=== PATIENT | male | born 1990 | race Caucasian/White ===

== ENCOUNTER → 2020-05-26 14:31 | Outpatient (BNVA) | payer OTHER, MEDICARE, SELFPAY | PROVIDERS: Family Provider Family Medicine; PCP Family Medicine; Visit Provider Family Medicine | DX: M25.531 Pain in right wrist (principal) | CPT/HCPCS: 73110 ==

== ENCOUNTER 2021-07-01 12:32 | Outpatient (CLI) | payer OTHER, MEDICARE, SELFPAY ==
[2021-07-01 12:57] VITALS: BP 177/99; PULSE 44; RESP 18; TEMP 36.9; O2SAT 97; BMI 27.8
[2021-07-01 13:17] VITALS: BP 166/99; PULSE 44; RESP 18; TEMP 36.9; O2SAT 99
[2021-07-01] MEDS: lactated ringers 1,000 ML 999 ML IV (13:25)
[2021-07-01 14:35] VITALS: BP 159/92; PULSE 47; RESP 16; TEMP 36.9; O2SAT 99
== END 2021-07-01 12:33 | disposition home or self-care (01) ==
PROVIDERS: PCP Family Medicine; Visit Provider Family Medicine
DX: U07.1 COVID-19 (principal)
CPT/HCPCS: 96365

== ENCOUNTER 2021-09-19 10:46 | Emergency (ER) | payer OTHER, MEDICARE, SELFPAY ==
[2021-09-19] VITALS (16 sets, daily range): BP systolic 123–173; BP diastolic 70–94; PULSE 48–82; RESP 12–18; TEMP 36.1–36.9; O2SAT 97–100; BMI 27.2
--- NOTE | 2021-09-19 11:05 | ECG_ITS ---
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 Measurements Intervals [place] Rate: 58 P: 40 NV: 133 QRS: 56 QRSD: 92 T: 32 QT: 410 QTc: 405 Interpretive Statements SINUS BRADYCARDIA INTERPRETATION BASED ON A DEFAULT AGE OF 40 YEARS Compared to ECG 06/23/2015 21:54:10 No significant changes Electronically Signed On 09-20-2021 5:09:38 BACKING IN MACHINE TENDER by Maia Butterfield M.D. [id number]
--- NOTE | 2021-09-19 12:43 | US_ITS ---
WS: [id number] RIGHT UPPER QUADRANT ULTRASOUND HISTORY: RIGHT upper quadrant pain. COMPARISON: None available. Liver: 15.6 cm in length. Normal size liver. No bile duct dilatation or mass. Portal Vein: Normal hepatopetal flow with monophasic waveform. Gallbladder: Normally distended gallbladder. Layering sludge and small stones. No pericholecystic flu id. No significant gallbladder wall thickening. CBD: 0.5 cm Pancreas: Normal size and echogenicity. Right kidney: 10.9 cm in length. Normal size and echogenicity. No hydronephrosis or mass. Aorta and IVC: Unremarkable abdominal aorta and IVC. No ascites. US/US gall bladder [id number] IMPRESSION: 1. Gallbladder sludge and stones positive Busby sign. Early changes of acute cholecystitis suspected. 2. No bile duct dilatation.
--- NOTE | 2021-09-19 12:48 | PC.NURSE ---
Pt states he is having abd pain. pointing epigastric. pt was seen at [facility] for this. states his liver enzymes were elevated.
--- NOTE | 2021-09-19 13:01 | ED_ITS ---
HPI - General Adult General: Chief complaint: Chest Pain Stated complaint: Chest pain Time Seen by Provider: 09/19/21 12:41 History of Present Illness: Patient is a 30-year-old male family history of gallbladder disease, prior liver repair, splenectomy presenting to the emergency room with complaints of acute onset RUQ abdominal pain x3 days. Patient was at home on Sunday when he had 2 episodes of pain lasting up to 2 hours at a time shortly after meal intakes. On Sunday patient had additional episode and this morning, patient has had persistent pain after getting up. Patient denies any nausea/vomiting, fever/chills, melena hematochezia. Patient report loose stool. Denies any urinary complaints at this time. Reports passing gas okay but has had decreased p.o. intake for the day. Onset: 3 days ago Duration:3 days Location:home Severity:moderate/severe Associated symptoms: Deny chest pain, dyspnea, nausea, rash, palpitations or vomiting Review of Systems Const: Denies: fever(s) or chills Eyes: Denies: change in vision ENMT: Denies: mouth pain Card: Denies: chest pain or palpitations Resp: Denies: dyspnea or non-productive cough GI: Reports: abdominal pain, diarrhea (+loose stool) and other (+RUQ abd pain); Denies: nausea or vomiting : Denies: dysuria Musc: Denies: extremity pain Skin/Breast: Denies: rash or new lesions Neuro: Denies: weakness in extremities Psych: Reports: other (Normal mood) Vincent/Lymph: Denies: easy bruising PFSH ED PFSH: Medical History (Updated 09/20/21 @ 00:00 by ) Chronic back pain Hypertension Muscular dystrophy Surgical History (Updated 09/19/21 @ 17:25 by Chago Barclay MD) 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 Status post laparoscopic cholecystectomy (09/19/21) Family History Other Cancer Stroke Social History Smoking and tobacco status: former smoker Quit status (tobacco): has quit using tobacco Year quit tobacco: 5 Alcohol intake: never service: Yes (out 2012) status: Medically Discharged/Retired branch: [employer] History of recent travel: No Physical Exam Const: COMMON NORMALS: alert HENMT: COMMON NORMALS: atraumatic HEAD & SCALP: atraumatic MOUTH: moist mucous membranes not abnormal Eye: COMMON NORMALS: EOMs intact bilaterally and conjunctivae normal CONJUNCTIVA: Yes conjunctivae normal Neck/C-Spine: COMMON NORMALS: full ROM and supple Resp: COMMON NORMALS: normal respiratory effort and clear to auscultation bilaterally AUSCULTATION: clear to auscultation bilaterally Cardio: COMMON NORMALS: regular rate RATE: regular rate GI: COMMON NORMALS: Soft to palpation PALPATION: Yes Soft to palpation OTHER: + RUQ focal TTP. + Busby's sign. NO guarding rebound, guarding, rigidity. No CVA tenderness to percussion. Neg McBurney's point tenderness, no suprabupic ten derness to palpation. Extremity: COMMON NORMALS: full ROM Neuro: SENSORIUM/ORIENTATION: Yes alert MOTOR EXAM: No Abnormal motor strength present and Other motor observations present (no focal motor deficits) Psych: COMMON NORMALS: speech normal SPEECH: Yes normal speech MOOD & AFFECT: Yes euthymic mood Course Vital Signs: Vital signs: Vital Signs Temperature 97 F L 09/19/21 18:07 Pulse Rate 48 L 09/19/21 18:35 Respiratory Rate 18 09/19/21 18:35 Blood Pressure 139/94 09/19/21 18:35 Pulse Oximetry 98 09/19/21 18:35 [facility] - General Adult Medical Decision Making 31-year-old male presents emergency with complaints of right upper quadrant pain. Patient is found to have acute cholecystitis. Case was discussed with Dr. Barclay who planned surgery. Pain was controlled. S/p cefazolin. Disposition: admission Lab Data : 09/19/21 12:54 09/19/21 12:54 Radiology Impressions Gallbladder Ultrasound 09/19/21 12:43 IMPRESSION: 1. Gallbladder sludge and stones positive Busby sign. Early changes of acute cholecystitis suspected. 2. No bile duct dilatation. Laboratory Results WBC 5.3 10^3/uL (4.0-10.0) 09/19/21 12:54 RBC 4.41 10^6/uL (4.1-5.3) 09/19/21 12:54 Hgb 13.4 g/dL (11.7-16.6) 09/19/21 12:54 Hct 41.0 % (42.0-52.0) L 09/19/21 12:54 MCV 93.0 fl (80-94) 09/19/21 12:54 MCH 30.4 pg (28.0-34.0) 09/19/21 12:54 MCHC 32.7 g/dL (30.0-36.0) 09/19/21 12:54 RDW 12.2 % (12.1-15.1) 09/19/21 12:54 Plt Count 191 10^3/cmm (130-400) 09/19/21 12:54 MPV 10.4 fL (7.4-10.4) 09/19/21 12:54 Neut % (Auto) 55.8 % 09/19/21 12:54 Lymph % (Auto) 32.7 % 09/19/21 12:54 Rooks % (Auto) 9.2 % 09/19/21 12:54 Eos % (Auto) 1.3 % 09/19/21 12:54 Baso % (Auto) 0.8 % 09/19/21 12:54 Neut # (Auto) 2.97 10^3/uL (1.8-7.7) 09/19/21 12:54 Lymph # (Auto) 1.7 10^3/uL (0.8-4.8) 09/19/21 12:54 Rooks # (Auto) 0.5 10^3/uL (0.2-0.9) 09/19/21 12:54 Eos # (Auto) 0.1 10^3/uL (0.0-0.8) 09/19/21 12:54 Baso # (Auto) 0.0 10^3/uL (0.0-0.1) 09/19/21 12:54 Nucleated RBC % (auto) 0 % 09/19/21 12:54 Nucleated RBCs # 0.0 /100WBC 09/19/21 12:54 Sodium 140 mmol/L (136-145) 09/19/21 12:54 Potassium 3.6 mmol/L (3.5-5.1) 09/19/21 12:54 Chloride 103 mmol/L (98-107) 09/19/21 12:54 Carbon Dioxide 27 mmol/L (22-29) 09/19/21 12:54 Anion Gap 13.6 (5-19) 09/19/21 12:54 BUN 9 mg/dL (6-20) 09/19/21 12:54 Creatinine 0.8 mg/dL (0.7-1.2) 09/19/21 12:54 GFR Calculation 112.0 mL/min (90-130) 09/19/21 12:54 Glucose 87 mg/dL (65-115) 09/19/21 12:54 Calculated Osmolality 288 mOsm/kg (285-295) 09/19/21 12:54 Calcium 9.1 mg/dL (8.5-10.5) 09/19/21 12:54 Total Bilirubin 0.5 mg/dL (0.15-1.2) 09/19/21 12:54 AST 23 U/L (0-40) 09/19/21 12:54 ALT 34 U/L (0-41) 09/19/21 12:54 Alkaline Phosphatase 137 IU/L (40-130) H 09/19/21 12:54 Total Protein 6.9 g/dL (6.6-8.7) 09/19/21 12:54 Albumin 4.8 g/dL (3.5-5.2) 09/19/21 12:54 Globulin 2.1 g/dL (1.3-4.6) 09/19/21 12:54 Lipase 20 U/L (13-60) 09/19/21 12:54 Imaging Data Other Imaging: My impression: [address] [address] Ultrasound Report Signed Patient: Avinash Limon Unit #: [id number] : 1990 Age/Sex: 30 / M ADM Date: 09/19/21 Loc: ER Room/Bed: Attending Dr: Ordering Provider/Ordering MD: Dashawn Browning MD Date of Service: 09/19/21 Procedure(s): US gall bladder 76647 Accession Number(s): [id number] Report Number: [id number] WS: [id number] RIGHT UPPER QUADRANT ULTRASOUND HISTORY: RIGHT upper quadrant pain. COMPARISON: None available. Liver: 15.6 cm in length. Normal size liver. No bile duct dilatation or mass. Portal Vein: Normal hepatopetal flow with monophasic waveform. Gallbladder: Normally distended gallbladder. Layering sludge and small stones. No pericholecystic fluid. No significant gallbladder wall thickening. CBD: 0.5 cm Pancreas: Normal size and echogenicity. Right kidney: 10.9 cm in length. Normal size and echogenicity. No hydronephrosis or mass. Aorta and IVC: Unremarkable abdominal aorta and IVC. No ascites. US/US gall bladder [id number] IMPRESSION: ? 1.? Gallbladder sludge and stones positive Busby sign. Early changes of acute cholecystitis suspected. 2.? No bile duct dilatation. ? Dictated By: Love Mcgowan DO Signed By: Love Mcgowan DO Signed Date/Time: 09/19/21 1404 DD/ 1401 Discharge Plan Discharge Patient Disposition: Admitted As Inpatient Admit Provider: Chago Barclay Clinical Impression: Abdominal pain, Acute cholecystitis Condition: Stable Coding Level of Care Code ED Chemistry Technical Officer for Chg Fwd Exam Comprehensive
[2021-09-19 13:05] LABS: Basophils % 0.8 %; Eosinophils # 0.1 10^3/uL (0.0-0.8); Eosinophils % 1.3 %; Hemoglobin 13.4 g/dL (11.7-16.6); Lymphocytes # 1.7 10^3/uL (0.8-4.8); Lymphocytes % 32.7 %; Mean Corpuscular HGB Conc 32.7 g/dL (30.0-36.0); Mean Corpuscular Hemoglobin 30.4 pg (28.0-34.0); Mean Platelet Volume 10.4 fL (7.4-10.4); Monocytes # 0.5 10^3/uL (0.2-0.9); Monocytes % 9.2 %; Neutrophils # 2.97 10^3/uL (1.8-7.7); Neutrophils % 55.8 %; Nucleated Red Blood Cells % 0 %; Platelet Count 191 10^3/cmm (130-400); Red Blood Count 4.41 10^6/uL (4.1-5.3); Red Cell Distribution Width 12.2 % (12.1-15.1); White Blood Count 5.3 10^3/uL (4.0-10.0)
[2021-09-19 13:35] LABS: Alanine Aminotransferase 34 U/L (0-41); Albumin Level 4.8 g/dL (3.5-5.2); Alkaline Phosphatase 137 IU/L (40-130); Anion Gap 13.6 (5-19); Aspartate Amino Transferase 23 U/L (0-40); Blood Urea Nitrogen 9 mg/dL (6-20); Calcium 9.1 mg/dL (8.5-10.5); Carbon Dioxide 27 mmol/L (22-29); Chloride 103 mmol/L (98-107); Creatinine Clr Calc Pharmacy 146.7623; Globulin 2.1 g/dL (1.3-4.6); Glucose 87 mg/dL (65-115); Lipase 20 U/L (13-60); Osmolality Calculated 288 mOsm/kg (285-295); Potassium 3.6 mmol/L (3.5-5.1); Sodium 140 mmol/L (136-145); Total Bilirubin 0.5 mg/dL (0.15-1.2); Total Protein 6.9 g/dL (6.6-8.7)
[2021-09-19] MEDS: famotidine 20 mg/2 mL INJ IVP (14:06)
[2021-09-19] MEDS: morphine 4 mg/mL SDV 1 mL IVP (14:06)
[2021-09-19] MEDS: sodium chloride 0.9% 1,000 ML 999 ML IV (14:06)
[2021-09-19] MEDS: ceFAZolin 1,000 MG in sodium chloride 0.9% (plus) 50 ML 100 MG IV (14:27)
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
[2021-09-19] MEDS: sodium chloride 0.9% 1,000 ML 30 ML IV (16:00)
--- NOTE | 2021-09-19 16:48 | ANES.PREANE2 ---
Pre-Anesthetic Assessment Height/Weight: Height 1.78 m Weight 86.183 kg Temp Pulse Resp BP Pulse Ox 98.5 F 56 L 18 166/79 100 09/19/21 16:03 09/19/21 16:03 09/19/21 16:03 09/19/21 16:03 09/19/21 16:03 Preop Diagnosis: cholelithiasis Operation Date: 09/19/21 18:40 Proposed Procedures p Laparoscopic Cholecystectomy(Not Applicable) - Chago Barclay MD Familial anesthetic complications: None Was Beta Tiarra taken within 24 hours: N/A Was Clonidine taken within 24 hours: N/A Last intake: Intake Last Liquid Date 09/19/21 Last Liquid Time 10:00 Last Solid Date 09/18/21 Last Solid Time 18:00 Social Tobacco (Vapes) and No alcohol Exam alert, oriented x 3, clear to auscultation bilaterally and regular rate & rhythm Airway Submandibular: within normal limits Cervical ROM: within normal limits Mallampati: Class II Dentition: partials GI Gastroesophageal Reflux Disease Musc/skel Muscle spasm Neuropsych Chronic pain, Narcotic contract Anesthetic Plan ASA status: 2 Anesthesia: General Risk of > 500 ml blood loss (7ml/kg in children): No Medications/Allergies Home Medications Medication Instructions Recorded Confirmed Last Taken Type diazepam 5 mg tablet 5 mg PO BID PRN 05/26/20 09/19/21 Unknown History hydrochlorothiazide 12.5 mg capsule 12.5 mg PO DAILY 05/26/20 09/19/21 Unknown History methocarbamol 500 mg tablet 500 mg PO TID 05/26/20 09/19/21 Unknown History omeprazole 20 mg capsule,delayed 20 mg PO BID 05/26/20 09/19/21 Unknown History release Allergies Allergy/AdvReac Type Severity Reaction Status Date / Time No Known Allergies Allergy Verified 09/19/21 13:57 [facility] Anesthesia Medical History Chronic back pain Hypertension Muscular dystrophy Surgical History 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 Family History Other Cancer Stroke Social History Smoking and tobacco status: former smoker Quit status (tobacco): has quit using tobacco Year quit tobacco: 5 Alcohol intake: never service: Yes (out 2012) status: Medically Discharged/Retired branch: [employer] History of recent travel: No Data Anesthesia : 09/19/21 12:54 09/19/21 12:54 Short CBC 09/19/21 Range/Units 12:54 WBC 5.3 (4.0-10.0) 10^3/uL Hgb 13.4 (11.7-16.6) g/dL Hct 41.0 L (42.0-52.0) % MCV 93.0 (80-94) fl Plt Count 191 (130-400) 10^3/cmm Neut % (Auto) 55.8 % Neut # (Auto) 2.97 (1.8-7.7) 10^3/uL BMP 09/19/21 12:54 Sodium 140 Potassium 3.6 Chloride 103 Carbon Dioxide 27 BUN 9 Creatinine 0.8 Glucose 87 Calcium 9.1 Liver Function 09/19/21 Range/Units 12:54 Total Bilirubin 0.5 (0.15-1.2) mg/dL AST 23 (0-40) U/L ALT 34 (0-41) U/L Alkaline Phosphatase 137 H (40-130) IU/L Albumin 4.8 (3.5-5.2) g/dL Cardiac Studies: No Data to Display
--- NOTE | 2021-09-19 17:26 | P.OP_ITS ---
Operative Report Date of procedure: September 19, 2021 Pre-op diagnosis: cholelithiasis Post-op diagnosis: Cholelithiasis No significant adhesions in the abdominal cavity from prior laparotomy Procedure done: Laparoscopic cholecystectomy Specimens removed/disposition: Gallbladder Surgeon: Chago Barclay Anesthesia: General Estimated blood loss (mL): 10 Condition: stable Disposition: PACU Procedure: The patient was taken to the operating room and was intubated under general anesthesia. After the antibiotic had been administered, the abdomen was prepped and draped in a sterile manner. Using a #15 blade, a 1 centimeter incision was made below the right subcostal margin in the midclavicular line and using an open Leonardo technique the peritoneal cavity was entered due to history of prior midline laparotomy. A 10 millimeter port was placed and 15 millimeters of pneumoperitoneum was created. A 10 millimeter, 30 degrees scope was then introduced. Three 5 millimeter ports were placed in the epigastric and the anterior axillary line two fingerbreadths below the costal margin on the right side under the direct visualization. Another 5 mm port was placed at the umbilicus under direct visualization. There were no significant adhesions noted in the abdominal cavity. Ratcheted forceps were introduced into the lateral most port and was used to retract the fundus of the gallbladder cephalad and using forceps the infundibulum of the gallbladder was retracted laterally. Using L- hook cautery the peritoneum overlying the Calot's triangle was opened medially and laterally until the cystic duct and the cystic artery were skeletonized. Dissection was carried along the body of the gallbladder and after ensuring critical view of safety, 4 clips applied on the cystic duct and 3 clips applied on the cystic artery and cut leaving, 3 clips on the remaining portion of the duct and 2 clips on the remaining portion of the artery. The rest of the gallbladder was dissected off the liver using L-hook cautery. There was no bleeding or bile leaking noted from the gallbladder fossa and the clips appeared to be in place. An EndoCatch bag was introduced to remove the gallbladder. All the ports were removed under direct visualization and there was no bleeding noted from the port sites. The peritoneum at the 1cm port was closed using 3-0 Vicryl suture and the external oblique aponeurosis of the 1cm port was closed using [id number] 0 Vicryl sutures and the subcutaneous tissue was approximated using 3-0 Vicryl sutures. The skin at all four ports were closed using 4-0 Monocryl and Dermabond. A total of 10 millimeters of 0.5% Marcaine was infiltrated around the port sites. The patient was stable throughout the procedure.
--- NOTE | 2021-09-19 17:32 | P.PCN_ITS ---
Documented by User: Abe Bernal CRNA 09/19/21 17:33 PACU note Narrative: VSS, Good respiratory effort, report to POWER REACTOR SUPERVISOR Exam: awake
[2021-09-19] MEDS: ondansetron 2 mg/ML SDV 2 mL 4 MG IVP (17:35)
[2021-09-19] MEDS: diphenhydrAMINE 50 mg/mL SDV 1mL 12.5 MG IVP (17:40)
--- NOTE | 2021-09-19 17:44 | ANE.PACU2 ---
Inpatient post-anesthesia follow up: Airway intact: Yes Vital signs: Temperature 97.1 F Pulse Rate 58 Respiratory Rate 16 Blood Pressure 139/76 Pulse Oximetry 99 Oxygen Delivery Me thod Room Air Oxygen Flow Rate Fraction of Inspir ed Oxygen Hydration adequate: Yes Nausea and vomiting: Yes Pain level: 3 Mental status: Baseline
--- NOTE | 2021-09-20 10:03 | DCPLANNER ---
data warehouse manager had message to refer patient due to acute cholecystitis, patient was admitted to hospital.
== END 2021-09-19 15:50 | disposition admitted as inpatient to this hospital (09) ==
LOC: ER 15:05 → MEDSURG 17:26
PROVIDERS: Family Medicine; Emergency Provider Emergency Medicine; PCP Family Medicine; Visit Provider Surgery
PROC: 0FT44ZZ Resection of Gallbladder, Percutaneous Endoscopic Approach (ICD-10-PCS; CPT 47562; principal; 2021-09-19 18:40)
DX: K80.10 Calculus of gallbladder with chronic cholecystitis without obstruction (principal); F17.290 Nicotine dependence, other tobacco product, uncomplicated; K21.9 Gastro-esophageal reflux disease without esophagitis; G89.29 Other chronic pain; Z79.891 Long term (current) use of opiate analgesic; I10 Essential (primary) hypertension
CPT/HCPCS: 47562; 76705; 80053; 83690; 85025; 88304; 93005; 96365; 96367; 96375; 99285; G0378; J0690; J1100; J1170; J1200; J1885; J2250; J2270; J2405; J2704; J2710; J3010; J3490; J7030

== ENCOUNTER 2021-10-04 23:32 | Emergency (ER) | payer OTHER, MEDICARE, SELFPAY ==
--- NOTE | 2021-10-04 23:33 | CTR_ITS ---
PROCEDURE INFORMATION: Exam: CT Abdomen And Pelvis With Contrast Exam date and time: 10/04/2021 11:33 PM Age: 31 years old Clinical indication: Abdominal pain; Epigastric; Prior surgery; Surgery date: <1 month; Surgery type: Pain after gb surgery x 10 days ago; Additional info: Abd pain TECHNIQUE: Imaging protocol: Computed tomography of the abdomen and pelvis with contrast. Radiation optimization: All CT scans at this facility use at least one of these dose optimization techniques: automated exposure control; mA and/or kV adjustment per patient size (includes targeted exams where dose is matched to clinical indication); or iterative reconstruction. Contrast material: OMNI 300; Contrast volume: 95 ml; Contrast route: INTRAVENOUS (IV); COMPARISON: ES surgery / GI images 09/19/2021 4:55 PM RADIATION DOSE METRICS: Total DLP (mGy-cm): 1320.03 FINDINGS: Lungs: Multiple right lower lobe pulmonary nodules, largest measures 5 mm. Liver: Normal. No mass. Gallbladder and bile ducts: No wall thickening, pericholecystic fluid or stones. Pancreas: Normal. No ductal dilation. Spleen: Normal. No splenomegaly. Adrenal glands: Normal. No mass. Kidneys and ureters: See Vasculature finding. Stomach and bowel: Mild amount of formed stool in the colon. Appendix: No evidence of appendicitis. Intraperitoneal space: Unremarkable. No free air. No significant fluid collection. Vasculature: Retroaortic left renal vein. Lymph nodes: Unremarkable. No enlarged lymph nodes. Urinary bladder: Unremarkable as visualized. Reproductive: Unremarkable as visualized. Bones/joints: Unremarkable. No acute fracture. Soft tissues: Unremarkable. CT/CT abdomen pelvis w con* [id number] IMPRESSION: 1. Mild constipation. 2. Multiple right lower lobe pulmonary nodules, largest measures 5 mm. If the patient does not have known cancer, follow up should be based on clinical information because of the low risk of cancer in this age group. (Reference: Lupe) REFERENCES: Lupe Valenzuela et al. Guidelines for Management of Incidental Pulmonary Nodules Detected on CT Images: From the Fleischner Society 2017. Radiology. 2017;284(1):228-243.
[2021-10-04 23:42] VITALS: PULSE 77; RESP 16; TEMP 36.6; O2SAT 100; BMI 26.3
--- NOTE | 2021-10-04 23:51 | ED_ITS ---
HPI - Abdominal Pain General: Chief Complaint: Abdominal Pain Stated Complaint: ABD pain after gallbladder surgery Time Seen by Provider: 10/04/21 23:36 Source: patient Mode of arrival: ambulatory Limitations: no limitations History of Present Illness: 31-year-old male states been having abdominal pain for last 2 days. He states that sharp in nature in his right lower quadrant. He states pain is started over the last 2 days is very sharp rates an 8 out of 10 also has had nausea and vomiting. He had a cholecystectomy 2 weeks ago states he has been doing well until 2 days ago. Denies any fever denies any radiation of his pain denies any worsening improving factors. Associated Symptoms: Reports nausea and vomiting; Denies chills, dysuria and fever(s) Review of Systems Const: Denies: fever(s), chills, body aches or change in appetite Eyes: Denies: blurry vision or eye discomfort ENMT: Denies: throat pain or dental pain Card: Denies: chest pain Resp: Denies: dyspnea GI: Reports: abdominal pain, nausea and vomiting : Denies: dysuria Musc: Denies: neck pain or back pain Skin/Breast: Denies: rash Neuro: Denies: headache(s) Psych: Denies: depression Vincent/Lymph: Denies: easy bruising All/Imm: Denies: urticaria PFSH ED PFSH: Medical History Chronic back pain Hypertension Muscular dystrophy Surgical History 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 Status post laparoscopic cholecystectomy (09/19/21) Family History Other Cancer Stroke Social History Smoking and tobacco status: former smoker Quit status (tobacco): has quit using tobacco Year quit tobacco: 5 Alcohol intake: never service: Yes (out 2012) status: Medically Discharged/Retired branch: [employer] History of recent travel: No Physical Exam Const: COMMON NORMALS: no acute distress, patient oriented x3 and healthy appearing HENMT: COMMON NORMALS: normocephalic and atraumatic HEAD & SCALP: normocephalic and atraumatic Eye: COMMON NORMALS: Equal, round and reactive pupils present and EOMs intact bilaterally PUPIL: Yes Equal, round and reactive pupils present Neck/C-Spine: COMMON NORMALS: full ROM and supple Chest: COMMONS NORMALS: normal inspection of the chest and normal palpation of entire chest wall Resp: COMMON NORMALS: normal respiratory effort, No retractions, No use of accessory muscles and clear to auscultation bilaterally AUSCULTATION: clear to auscultation bilaterally Cardio: COMMON NORMALS: regular rate, regular rhythm and No murmurs present (Cardio) RATE: regular rate RHYTHM: regular rhythm GI: COMMON NORMALS: Soft to palpation, non-tender and no masses PALPATION: Yes Soft to palpation and Yes Tenderness to palpation present (GI) Details: RLQ OTHER: Abdominal incisions from gallbladder surgery clean dry and intact Extremity: COMMON NORMALS: normal to inspection and full ROM Neuro: COMMON NORMALS: patient oriented x3, moves all extremities and no focal motor deficits Psych: COMMON NORMALS: mental status grossly normal, Normal thought process present and cooperative THOUGHT PROCESS: Normal thought process present Skin: COMMON NORMALS: no rashes or lesions noted and no wounds GENERAL SKIN EXAM: no rashes or lesions noted Course Vital Signs: Vital signs: Vital Signs Temperature 97.9 F 10/04/21 23:42 Pulse Rate 54 L 10/05/21 00:26 Respiratory Rate 18 10/05/21 00:26 Blood Pressure 151/99 10/05/21 00:26 Pulse Oximetry 100 10/05/21 00:26 MDM - Abdominal Pain Medical Decision Making Patient presents here with abdominal pain CT scan shows no acute abnormalities no signs of appendicitis white count here is normal as well he does have some constipation we will start him on MiraLAX did inform him of his pulmonary nodules as well he is to follow-up with Dr. Amelie mcdaniel pulmonology along with Dr. Barclay who did the surgery on his gallbladder. He is to return if worsening he understands agrees to plan. Lab Data : 10/04/21 23:55 10/04/21 23:55 Labs/Radiology: Radiology Impressions Abdomen/Pelvis CT 10/04/21 23:33 IMPRESSION: 1. Mild constipation. 2. Multiple right lower lobe pulmonary nodules, largest measures 5 mm. If the patient does not have known cancer, follow up should be based on clinical information because of the low risk of cancer in this age group. (Reference: Lupe) REFERENCES: Lupe Valenzuela et al. Guidelines for Management of Incidental Pulmonary Nodules Detected on CT Images: From the Fleischner Society 2017. Radiology. 2017;284(1):228-243. Laboratory Results WBC 6.5 10^3/uL (4.0-10.0) 10/04/21 23:55 RBC 4.41 10^6/uL (4.1-5.3) 10/04/21 23:55 Hgb 13.5 g/dL (11.7-16.6) 10/04/21 23:55 Hct 39.0 % (42.0-52.0) L 10/04/21 23:55 MCV 88.4 fl (80-94) 10/04/21 23:55 MCH 30.6 pg (28.0-34.0) 10/04/21 23:55 MCHC 34.6 g/dL (30.0-36.0) 10/04/21 23:55 RDW 11.4 % (12.1-15.1) L 10/04/21 23:55 Plt Count 192 10^3/cmm (130-400) 10/04/21 23:55 MPV 10.8 fL (7.4-10.4) H 10/04/21 23:55 Neut % (Auto) 59.5 % 10/04/21 23:55 Lymph % (Auto) 31.1 % 10/04/21 23:55 Ward % (Auto) 7.4 % 10/04/21 23:55 Eos % (Auto) 1.2 % 10/04/21 23:55 Baso % (Auto) 0.5 % 10/04/21 23:55 Neut # (Auto) 3.89 10^3/uL (1.8-7.7) 10/04/21 23:55 Lymph # (Auto) 2.0 10^3/uL (0.8-4.8) 10/04/21 23:55 Ward # (Auto) 0.5 10^3/uL (0.2-0.9) 10/04/21 23:55 Eos # (Auto) 0.1 10^3/uL (0.0-0.8) 10/04/21 23:55 Baso # (Auto) 0.0 10^3/uL (0.0-0.1) 10/04/21 23:55 Nucleated RBC % (auto) 0 % 10/04/21 23: Nucleated RBCs # 0.0 /100WBC 10/04/21 23:55 Sodium 140 mmol/L (136-145) 10/04/21 23:55 Potassium 3.2 mmol/L (3.5-5.1) L 10/04/21 23:55 Chloride 103 mmol/L (98-107) 10/04/21 23:55 Carbon Dioxide 24 mmol/L (22-29) 10/04/21 23:55 Anion Gap 16.2 (5-19) 10/04/21 23:55 BUN 9 mg/dL (6-20) 10/04/21 23:55 Creatinine 0.9 mg/dL (0.7-1.2) 10/04/21 23:55 GFR Calculation 97.2 mL/min (90-130) 10/04/21 23:55 Glucose 96 mg/dL (65-115) 10/04/21 23:55 Calculated Osmolality 289 mOsm/kg (285-295) 10/04/21 23:55 Calcium 10.0 mg/dL (8.5-10.5) 10/04/21 23:55 Total Bilirubin 0.6 mg/dL (0.15-1.2) 10/04/21 23:55 AST 22 U/L (0-40) 10/04/21 23:55 ALT 22 U/L (0-41) 10/04/21 23:55 Alkaline Phosphatase 144 IU/L (40-130) H 10/04/21 23:55 Total Protein 7.6 g/dL (6.6-8.7) 10/04/21 23:55 Albumin 5.0 g/dL (3.5-5.2) 10/04/21 23:55 Globulin 2.6 g/dL (1.3-4.6) 10/04/21 23:55 Lipase 19 U/L (13-60) 10/04/21 23:55 Discharge Plan Discharge Patient Disposition: Home Clinical Impression: Abdominal pain, Constipation, Pulmonary nodule Condition: Stable Prescriptions: New hydrocodone-acetaminophen 5-325 mg tablet 1 tab PO Q6H PRN (Reason: pain) Qty: 14 0RF ondansetron 4 mg tablet,disintegrating 4 mg PO Q6H PRN (Reason: nausea and vomiting) Qty: 14 0RF Miralax 17 gram/dose powder 17 g PO DAILY PRN (Reason: constipation) Qty: 119 0RF No Action methocarbamol 500 mg tablet 500 mg PO TID 0RF hydrochlorothiazide 12.5 mg capsule 12.5 mg PO DAILY 0RF diazepam 5 mg tablet 5 mg PO BID PRN (Reason: Anxiety) 0RF omeprazole 20 mg capsule,delayed release(DR/EC) 20 mg PO BID 0RF cyclobenzaprine 10 mg tablet 10 mg PO TID PRN (Reason: muscle spasm) Qty: 20 0RF Zofran 4 mg tablet 4 mg PO Q6H PRN (Reason: nausea and vomiting) Qty: 20 0RF Colace 100 mg capsule 100 mg PO BID Qty: 30 0RF Discharge Orders: Discharge ED (Routine); Ordered 10/05/21 Ordered By: Luis Daniel Dexter Referrals: Tyler Johnston MD [Physician] - 1-3 days Chago Barclay MD [Physician] - 1-3 days Brandt Tinajero [Primary Care Provider] - Discharge Diet: Advance as tolerated Discharge Activity: Resume usual activity Patient Instructions: Abdominal Pain (ED), Opioid Safety Coding Level of Care Code ED Turret Lathe Operator for Chg Fwd Exam Comprehensive
[2021-10-05] MEDS: iohexol 300 mg/mL 100 mL Btl IV
[2021-10-05 00:04] LABS: Basophils % 0.5 %; Eosinophils # 0.1 10^3/uL (0.0-0.8); Eosinophils % 1.2 %; Hemoglobin 13.5 g/dL (11.7-16.6); Lymphocytes % 31.1 %; Mean Corpuscular HGB Conc 34.6 g/dL (30.0-36.0); Mean Corpuscular Hemoglobin 30.6 pg (28.0-34.0); Mean Corpuscular Volume 88.4 fl (80-94); Mean Platelet Volume 10.8 fL (7.4-10.4); Monocytes # 0.5 10^3/uL (0.2-0.9); Monocytes % 7.4 %; Neutrophils # 3.89 10^3/uL (1.8-7.7); Neutrophils % 59.5 %; Nucleated Red Blood Cells % 0 %; Platelet Count 192 10^3/cmm (130-400); Red Blood Count 4.41 10^6/uL (4.1-5.3); Red Cell Distribution Width 11.4 % (12.1-15.1); White Blood Count 6.5 10^3/uL (4.0-10.0)
[2021-10-05 00:20] LABS: Alanine Aminotransferase 22 U/L (0-41); Alkaline Phosphatase 144 IU/L (40-130); Anion Gap 16.2 (5-19); Aspartate Amino Transferase 22 U/L (0-40); Blood Urea Nitrogen 9 mg/dL (6-20); Carbon Dioxide 24 mmol/L (22-29); Chloride 103 mmol/L (98-107); Globulin 2.6 g/dL (1.3-4.6); Glomerular Filtration Rate 97.2 mL/min (90-130); Glucose 96 mg/dL (65-115); Lipase 19 U/L (13-60); Osmolality Calculated 289 mOsm/kg (285-295); Potassium 3.2 mmol/L (3.5-5.1); Sodium 140 mmol/L (136-145); Total Bilirubin 0.6 mg/dL (0.15-1.2); Total Protein 7.6 g/dL (6.6-8.7)
[2021-10-05] MEDS: ondansetron 2 mg/ML SDV 2 mL 4 MG IVP (00:25)
[2021-10-05] MEDS: sodium chloride 0.9% 1,000 ML 999 ML IV (00:25)
[2021-10-05 00:26] VITALS: BP 151/99; PULSE 54; RESP 18; O2SAT 100
--- NOTE | 2021-10-06 17:39 | DCPLANNER ---
manager building had message to schedule a follow up appointment for patient with general surgery. manager building emailed patients information to Tiffanie Hsu and Angelica at [facility] General Surgery / ENT clinic. Patients information will be printed and reviewed. Clinic will call patient with appointment information.
--- NOTE | 2021-10-11 11:11 | DCPLANNER ---
Addendum entered by Cady Moncada 11/10/21 08:14: Patient had a follow up appointment scheduled for 10.18.21 with pulmonology - patient did not attend appointment. Original Note: manager floor had message to schedule a follow up appointment for patient with [facility]. manager floor called [facility], spoke with Josefina, gave clinic patients appointment information. A follow up appointment was scheduled for Monday, October 18, 2021 at 12:[address] Levine, pulmonology. manager floor called phone number [phone], unable to speak with patient at this time, a voicemail was left for patient with appointment information.
== END 2021-10-05 00:56 | disposition home or self-care (01) ==
PROVIDERS: Emergency Provider Emergency Medicine; PCP Family Medicine
DX: K59.00 Constipation, unspecified (principal); R91.1 Solitary pulmonary nodule; I10 Essential (primary) hypertension; G71.00 Muscular dystrophy, unspecified; Z87.891 Personal history of nicotine dependence
CPT/HCPCS: 74177; 80053; 83690; 85025; 96361; 96374; 99284; J2405; J7030; Q9967

== ENCOUNTER → 2021-12-19 14:09 | Outpatient (BNVA) | payer MEDICARE, SELFPAY | PROVIDERS: PCP Family Medicine; Visit Provider Nurse Practitioner Family | DX: M79.671 Pain in right foot (principal); L03.115 Cellulitis of right lower limb | CPT/HCPCS: 73630 ==

== ENCOUNTER 2022-04-25 20:00 | Outpatient (CLI) | payer OTHER, SELFPAY | END 2022-04-25 20:01 | disposition home or self-care (01) | LOC: SLEEP 04-26 07:59 | PROVIDERS: PCP Family Medicine; Visit Provider Family Medicine | DX: G47.33 Obstructive sleep apnea (adult) (pediatric) (principal) | CPT/HCPCS: 95810 ==

== ENCOUNTER 2022-12-07 15:30 | Emergency (ER) | payer OTHER, SELFPAY ==
[2022-12-07 15:45] VITALS: BP 124/84; PULSE 100; RESP 18; TEMP 36.8; O2SAT 99; BMI 27.3
--- NOTE | 2022-12-07 17:55 | XRR_ITS ---
PROCEDURE INFORMATION: Exam: XR Chest Exam date and time: 12/07/2022 6:02 PM Age: 32 years old Clinical indication: Fever; Additional info: Fever and vomiting, shingles vaccination on Sunday and has been sick since TECHNIQUE: Imaging protocol: Radiologic exam of the chest. Views: 2 views. PA and Lateral COMPARISON: CT abdomen pelvis w con* [id number] 10/05/2021 12:03 AM FINDINGS: Lungs: Normal lung volumes without interstitial or airspace opacities. Pleural spaces: No pleural effusion. No pneumothorax. Heart/Mediastinum: Normal heart size. Normal mediastinum. Midline trachea. Bones/joints: No acute osseous abnormalities seen. XR/XR chest 2V* [id number] IMPRESSION: No acute cardiopulmonary disease.
[2022-12-07 18:27] LABS: Basophils % 0.5 %; Eosinophils # 0.1 10^3/uL (0.0-0.8); Eosinophils % 1.5 %; Hematocrit 39.4 % (42.0-52.0); Hemoglobin 13.6 g/dL (11.7-16.6); Lymphocytes # 1.3 10^3/uL (0.8-4.8); Lymphocytes % 21.1 %; Mean Corpuscular HGB Conc 34.5 g/dL (30.0-36.0); Mean Corpuscular Hemoglobin 30.6 pg (28.0-34.0); Mean Corpuscular Volume 88.5 fl (80-94); Mean Platelet Volume 10.5 fL (7.4-10.4); Monocytes # 0.8 10^3/uL (0.2-0.9); Monocytes % 13.9 %; Neutrophils # 3.72 10^3/uL (1.8-7.7); Neutrophils % 62.8 %; Nucleated Red Blood Cells % 0 %; Platelet Count 185 10^3/cmm (130-400); Red Blood Count 4.45 10^6/uL (4.1-5.3); Red Cell Distribution Width 11.9 % (12.1-15.1); White Blood Count 5.9 10^3/uL (4.0-10.0)
[2022-12-07 18:44] LABS: Alanine Aminotransferase 23 U/L (0-41); Albumin Level 4.2 g/dL (3.5-5.2); Alkaline Phosphatase 87 U/L (40-130); Anion Gap 15.9 (5-19); Aspartate Amino Transferase 26 U/L (0-40); Blood Urea Nitrogen 7 mg/dL (6-20); Calcium 9.4 mg/dL (8.5-10.5); Carbon Dioxide 26 mmol/L (22-29); Chloride 103 mmol/L (98-107); Globulin 2.6 g/dL (1.3-4.6); Glomerular Filtration Rate 96.6 mL/min (90-130); Glucose 81 mg/dL (65-115); Osmolality Calculated 289 mOsm/kg (285-295); Potassium 3.9 mmol/L (3.5-5.1); Sodium 141 mmol/L (136-145); Total Protein 6.8 g/dL (6.6-8.7)
--- NOTE | 2022-12-07 20:25 | W.ED.NAVMDI ---
HPI - Nausea/Vomiting/Diarrhea General: Chief complaint: Nausea/Vomiting/Diarrhea Stated complaint: post injection reaction Time Seen by Provider: 12/07/22 20:09 Source: patient Mode of arrival: ambulatory Limitations: no limitations History of Present Illness: 32-year-old male states he received his shingles vaccine 2 days ago he states since then he has been having body aches along with fever along with nausea vomiting states that he felt like his been getting dehydrated has not been able tolerate p.o. He denies any abdominal pain he is afebrile here he denies any chest pain no dysuria. 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 claean for 7 years. service: Yes (out 2012) status: Medically Discharged/Retired branch: [employer] Physical Exam Const: COMMON NORMALS: no acute distress, patient oriented x3 and healthy appearing HENMT: COMMON NORMALS: normocephalic and atraumatic HEAD & SCALP: normocephalic and atraumatic Eye: COMMON NORMALS: conjunctivae normal CONJUNCTIVA: Yes conjunctivae normal Neck/C-Spine: COMMON NORMALS: full ROM and supple Chest: COMMONS NORMALS: normal inspection of the chest and normal palpation of entire chest wall Resp: COMMON NORMALS: normal respiratory effort, No retractions, No use of accessory muscles and clear to auscultation bilaterally AUSCULTATION: clear to auscultation bilaterally Cardio: COMMON NORMALS: regular rate, regular rhythm and No murmurs present (Cardio) RATE: regular rate RHYTHM: regular rhythm GI: COMMON NORMALS: Normal to inspection, nondistended, normoactive bowel sounds present, Soft to palpation, non-tender and no masses PALPATION: Yes Soft to palpation Extremity: COMMON NORMALS: normal to inspection and full ROM Neuro: COMMON NORMALS: patient oriented x3, moves all extremities and no focal motor deficits Psych: COMMON NORMALS: mental status grossly normal, Normal thought process present and cooperative THOUGHT PROCESS: Normal thought process present Skin: COMMON NORMALS: no rashes or lesions noted and no wounds GENERAL SKIN EXAM: no rashes or lesions noted Course Vital Signs: Vital signs: Vital Signs Temperature 98.2 F 12/07/22 15:45 Pulse Rate 100 12/07/22 15:45 Respiratory Rate 18 12/07/22 15:45 Blood Pressure 124/84 12/07/22 15:45 Pulse Oximetry 99 12/07/22 15:45 Oxygen Delivery Me thod Room Air 12/07/22 15:45 MDM - Nausea/Vomiting/Diarrhea Medical Decision Making Patient presents with body aches along with some fever and vomiting with some dehydration is likely from his reaction to the shingles vaccination his blood work here is all normal he feels much improved after fluids we will discharge him he is able to follow-up with PCP and return if worsening. Lab Data 12/07/22 18:18 12/07/22 18:18 Radiology Impressions Chest X-Ray 12/07/22 17:55 IMPRESSION: No acute cardiopulmonary disease. Laboratory Results WBC 5.9 10^3/uL (4.0-10.0) 12/07/22 18:18 RBC 4.45 10^6/uL (4.1-5.3) 12/07/22 18:18 Hgb 13.6 g/dL (11.7-16.6) 12/07/22 18:18 Hct 39.4 % (42.0-52.0) L 12/07/22 18:18 MCV 88.5 fl (80-94) 12/07/22 18:18 MCH 30.6 pg (28.0-34.0) 12/07/22 18:18 MCHC 34.5 g/dL (30.0-36.0) 12/07/22 18:18 RDW 11.9 % (12.1-15.1) L 12/07/22 18:18 Plt Count 185 10^3/cmm (130-400) 12/07/22 18:18 MPV 10.5 fL (7.4-10.4) H 12/07/22 18:18 Neut % (Auto) 62.8 % 12/07/22 18:18 Lymph % (Auto) 21.1 % 12/07/22 18:18 Yancey % (Auto) 13.9 % 12/07/22 18:18 Eos % (Auto) 1.5 % 12/07/22 18:18 Baso % (Auto) 0.5 % 12/07/22 18:18 Neut # (Auto) 3.72 10^3/uL (1.8-7.7) 12/07/22 18:18 Lymph # (Auto) 1.3 10^3/uL (0.8-4.8) 12/07/22 18:18 Yancey # (Auto) 0.8 10^3/uL (0.2-0.9) 12/07/22 18:18 Eos # (Auto) 0.1 10^3/uL (0.0-0.8) 12/07/22 18:18 Baso # (Auto) 0.0 10^3/uL (0.0-0.1) 12/07/22 18:18 Nucleated RBC % (auto) 0 % 12/07/22 18:18 Nucleated RBCs # 0.0 /100WBC 12/07/22 18:18 Sodium 141 mmol/L (136-145) 12/07/22 18:18 Potassium 3.9 mmol/L (3.5-5.1) 12/07/22 18:18 Chloride 103 mmol/L (98-107) 12/07/22 18:18 Carbon Dioxide 26 mmol/L (22-29) 12/07/22 18:18 Anion Gap 15.9 (5-19) 12/07/22 18:18 BUN 7 mg/dL (6-20) 12/07/22 18:18 Creatinine 0.9 mg/dL (0.7-1.2) 12/07/22 18:18 GFR Calculation 96.6 mL/min (90-130) 12/07/22 18:18 Glucose 81 mg/dL (65-115) 12/07/22 18:18 Calculated Osmolality 289 mOsm/kg (285-295) 12/07/22 18:18 Calcium 9.4 mg/dL (8.5-10.5) 12/07/22 18:18 Total Bilirubin 1.0 mg/dL (0.15-1.2) 12/07/22 18:18 AST 26 U/L (0-40) 12/07/22 18:18 ALT 23 U/L (0-41) 12/07/22 18:18 Alkaline Phosphatase 87 U/L (40-130) 12/07/22 18:18 Total Protein 6.8 g/dL (6.6-8.7) 12/07/22 18:18 Albumin 4.2 g/dL (3.5-5.2) 12/07/22 18:18 Globulin 2.6 g/dL (1.3-4.6) 12/07/22 18:18 Discharge Plan Discharge Patient Disposition: Home Clinical Impression: Vomiting, Dehydration Condition: Stable Prescriptions: New ondansetron 4 mg tablet,disintegrating 4 mg PO Q6H PRN (Reason: nausea and vomiting) Qty: 14 0RF No Action methocarbamol 500 mg tablet 500 mg PO TID hydrochlorothiazide 12.5 mg capsule 12.5 mg PO DAILY diazepam 5 mg tablet 5 mg PO BID PRN (Reason: Anxiety) omeprazole 20 mg capsule,delayed release(DR/EC) 20 mg PO BID cyclobenzaprine 10 mg tablet 10 mg PO TID PRN (Reason: muscle spasm) Qty: 20 0RF sulfamethoxazole-trimethoprim [Bactrim DS] 800-160 mg tablet 1 tab PO BID 10 Days Qty: 20 0RF mupirocin 2 % ointment 1 applic topical TID 10 Days Qty: 22 0RF losartan 100 mg tablet 100 mg PO DAILY ondansetron 4 mg tablet,disintegrating 4 mg PO Q6H PRN (Reason: nausea and vomiting) Qty: 14 0RF Miralax 17 gram/dose powder 17 g PO DAILY PRN (Reason: constipation) Qty: 119 0RF Zofran 4 mg tablet 4 mg PO Q6H PRN (Reason: nausea and vomiting) Qty: 20 0RF Colace 100 mg capsule 100 mg PO BID Qty: 30 0RF Discharge Orders: Discharge ED (Routine); Ordered 12/07/22 Ordered By: Luis Daniel Dexter Referrals: Brandt Tinajero [Primary Care Provider] - 1-3 days Discharge Diet: Advance as tolerated Discharge Activity: Resume usual activity Patient Instructions: Acute Nausea and Vomiting (ED) Coding Level of Care Code ED Industrial Pharmacist for Yan Duran
[2022-12-07 21:00] VITALS: BP 133/82; PULSE 58; RESP 16; O2SAT 98
[2022-12-07] MEDS: ondansetron 2 mg/ML SDV 2 mL 4 MG IVP (21:10)
[2022-12-07] MEDS: sodium chloride 0.9% 1,000 ML 999 ML IV ×2 (21:10)
[2022-12-07 22:00] VITALS: BP 112/74; PULSE 64; RESP 18; O2SAT 98
[2022-12-07 22:17] LABS: Add Urine Microscopic? YES; Bacteria Urine 3+ /hpf; Bilirubin Urine 1+ (Negative); Blood Urine Neg (Negative); Glucose Urine UA Norm (Normal); Ketones Urine 2+ (Negative); Leukocyte Esterase Urine Trace (Negative); Mucus Urine 2+ /hpf; Nitrate Urine Negative (Negative); Protein Urine 1+ (Negative); Urine Appearance Cloudy (CLEAR); Urine Color Orange (Yellow); Urobilinogen Urine 1 mg/dL (Negative); pH Urine 5 (5-7)
[2022-12-07 22:31] LABS: Add Urine Culture? Yes
[2022-12-07 22:46] VITALS: BP 129/80; PULSE 58; O2SAT 98
== END 2022-12-07 22:47 | disposition home or self-care (01) ==
PROVIDERS: Nurse Practitioner Family; Emergency Provider Emergency Medicine; PCP Family Medicine
DX: R11.10 Vomiting, unspecified (principal); E86.0 Dehydration; T50.Z95A Adverse effect of other vaccines and biological substances, initial encounter; X58.XXXA Exposure to other specified factors, initial encounter
CPT/HCPCS: 36415; 71046; 80053; 81001; 85025; 87086; 96361; 96374; 99284; J2405; J7030

== ENCOUNTER 2023-01-03 23:50 | Emergency (ER) | payer OTHER, SELFPAY ==
[2023-01-04] VITALS: BP 125/80; PULSE 89; RESP 18; TEMP 36.8; O2SAT 100; BMI 27.1
[2023-01-04 00:26] VITALS: BP 125/80; PULSE 100; RESP 18; O2SAT 100
--- NOTE | 2023-01-04 00:33 | W.ED.EXTPRO ---
HPI - Extremity Problem General: Chief complaint: Extremity Problem,Nontraumatic Stated complaint: Strange pain and munbness in hands and Pain Time Seen by Provider: 01/03/23 23:55 History of Present Illness: Patient is a 32-year-old male who comes to the ED with bilateral upper extremity pain. Patient has a history of hypertension and muscular dystrophy. Patient says he sees a specialist in [place] for his muscular dystrophy. States that 3 days ago he started having bilateral shoulder pain. Patient describes the pain in his shoulders as an aching muscle type pain that radiates in between shoulder blades of back. He is also having pain and numbness and tingling in his wrist and hand bilaterally as well. Patient says that his symptoms are worse when he gets up in the morning and then it improves some throughout the day. He says when he goes and sits down at the end of the day the pain gets worse again. He rates his pain currently a 7 out of 10. Patient took a meloxicam this evening. Patient does do a lot of physical labor with his hands. Denies any trauma or injury to cause symptoms. Denies any history of cervical spine injuries. Denies any chest pain, shortness of breath, headache, neurological symptoms such as numbness tingling or weakness to face. Associated symptoms: Deny chest pain, fever(s) or rash Review of Systems Const: Denies: fever(s), chills or fatigue Eyes: Denies: change in vision or eye discomfort ENMT: Denies: throat pain, odynophagia, nasal discharge or nasal congestion Card: Denies: chest pain, palpitations, edema, swelling of feet/ankles, dyspnea on exertion or orthopnea Resp: Denies: dyspnea, productive cough or non-productive cough GI: Denies: abdominal pain, nausea, vomiting, diarrhea, constipation or hematochezia : Denies: flank pain, difficulty urinating, dysuria or hematuria Musc: Reports: extremity pain (Bilateral shoulder, arm, wrist and hand pain); Denies: neck pain, back pain or extremity swelling Skin/Breast: Denies: rash or new lesions Neuro: Reports: numbness in extremities (Numbness and tingling in wrist and hands bilaterally); Denies: headache(s) or weakness in extremities PFS ED PFSH: Medical History Chronic back pain Hypertension Muscular dystrophy Surgical History 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 claean for 7 years. service: Yes (out 2012) status: Medically Discharged/Retired branch: [employer] Physical Exam Const: COMMON NORMALS: no acute distress, patient oriented x3 and alert HENMT: COMMON NORMALS: normocephalic HEAD & SCALP: normocephalic MOUTH: Normal oral and palatal mucosa present THROAT: posterior oropharynx normal and uvula midline Neck/C-Spine: COMMON NORMALS: supple GENERAL: Yes normal visual inspection Resp: COMMON NORMALS: normal respiratory effort, No retractions, No use of accessory muscles and clear to auscultation bilaterally AUSCULTATION: clear to auscultation bilaterally Cardio: COMMON NORMALS: regular rate, regular rhythm, S1 normal heart sound present, S2 normal heart sound present, No gallops present (Cardio), No clicks present (Cardio), No murmurs present (Cardio) and Peripheral pulses 2+ throughout RATE: regular rate RHYTHM: regular rhythm HEART SOUNDS: S1 normal heart sound present and S2 normal heart sound present PERIPHERAL PULSES: Peripheral pulses 2+ throughout GI: COMMON NORMALS: Normal to inspection, nondistended, normoactive bowel sounds present, Soft to palpation, non-tender and no masses PALPATION: Yes Soft to palpation : COMMON NORMALS: Yes no CVA tenderness BLADDER/KIDNEY EXAM: Yes no CVA tenderness Back/Pelvis: COMMON NORMALS: no CVA tenderness Extremity: COMMON NORMALS: full ROM and capillary refill normal NARRATIVE EXTREMITY EXAM: Bilateral trapezius muscle tenderness. RIGHT UPPER EXTREMITY: Yes wrist Right wrist: Yes inspection (No visible swelling, ecchymosis or any other signs of injury), Yes ROM (Full range of motion) and Yes special tests Right wrist special tests: Phalen's test: Positive LEFT UPPER EXTREMITY: Yes wrist Left wrist: Yes inspection (No visible deformity, ecchymosis, swelling or any other injury seen), Yes ROM (Normal) and Yes special tests Left wrist special tests: Phalen's test: Positive Neuro: COMMON NORMALS: patient oriented x3 SENSORIUM/ORIENTATION: Yes alert GAIT: Yes Normal gait present Skin: GENERAL SKIN EXAM: dry skin Course Vital Signs: Vital signs: Vital Signs Temperature 98.2 F 01/04/23 00:00 Pulse Rate 76 01/04/23 01:57 Respiratory Rate 18 01/04/23 01:57 Blood Pressure 125/58 01/04/23 01:57 Pulse Oximetry 100 01/04/23 01:57 Oxygen Delivery Me thod Room Air 01/04/23 00:26 MDM - Extremity (Nontraumatic) Medical Decision Making Patient is a 32-year-old male who comes to the ED with bilateral upper extremity pain. Patient has a history of hypertension and muscular dystrophy. Patient says he sees a specialist in [place] for his muscular dystrophy. States that 3 days ago he started having bilateral shoulder pain. Patient describes the pain in his shoulders as an aching muscle type pain that radiates in between shoulder blades of back. He is also having pain and numbness and tingling in his wrist and hand bilaterally as well. Patient says that his symptoms are worse when he gets up in the morning and then it improves some throughout the day. He says when he goes and sits down at the end of the day the pain gets worse again. He rates his pain currently a 7 out of 10. Patient took a meloxicam this evening. Patient does do a lot of physical labor with his hands. Denies any trauma or injury to cause symptoms. Denies any history of cervical spine injuries. Denies any chest pain, shortness of breath, headache, neurological symptoms such as numbness tingling or weakness to face. Vitals are stable. Patient appears nontoxic and in no acute distress. Upon exam patient did have positive Phalen's test in wrist bilaterally. Patient also had some bilateral trapezius muscle tenderness to palpation. Rest of exam was benign. Patient's symptoms are likely due to his muscular dystrophy but he could also have some carpal tunnel syndrome as well. I placed an order with case management for patient to be referred to Ortho for follow-up on carpal tunnel syndrome. He was given a dose of Toradol, Decadron and Norflex here in the ED. He was stable for discharge home and sent with a prescription for muscle relaxer and Medrol Dosepak. Follow-up with your PCP within the next week for reevaluation. Return to ED precautions given. Patient understood and agreed with plan. Discharge Plan Discharge Patient Disposition: Home Clinical Impression: Muscular dystrophy, Bilateral carpal tunnel syndrome Condition: Stable Prescriptions: New Medrol (Gentry) 4 mg tablets,dose pack See Rx Instructions .ROUTE .COMPLEX Qty: 21 0RF Rx Instructions: orally per package directions cyclobenzaprine 10 mg tablet 10 mg PO BID PRN (Reason: muscle spasm and pain) Qty: 20 0RF No Action methocarbamol 500 mg tablet 500 mg PO TID hydrochlorothiazide 12.5 mg capsule 12.5 mg PO DAILY diazepam 5 mg tablet 5 mg PO BID PRN (Reason: Anxiety) omeprazole 20 mg capsule,delayed release(DR/EC) 20 mg PO BID cyclobenzaprine 10 mg tablet 10 mg PO TID PRN (Reason: muscle spasm) Qty: 20 0RF sulfamethoxazole-trimethoprim [Bactrim DS] 800-160 mg tablet 1 tab PO BID 10 Days Qty: 20 0RF mupirocin 2 % ointment 1 applic topical TID 10 Days Qty: 22 0RF losartan 100 mg tablet 100 mg PO DAILY ondansetron 4 mg tablet,disintegrating 4 mg PO Q6H PRN (Reason: nausea and vomiting) Qty: 14 0RF Miralax 17 gram/dose powder 17 g PO DAILY PRN (Reason: constipation) Qty: 119 0RF Zofran 4 mg tablet 4 mg PO Q6H PRN (Reason: nausea and vomiting) Qty: 20 0RF Colace 100 mg capsule 100 mg PO BID Qty: 30 0RF ondansetron 4 mg tablet,disintegrating 4 mg PO Q6H PRN (Reason: nausea and vomiting) Qty: 14 0RF Discharge Orders: Discharge ED (Routine); Ordered 01/04/23 Ordered By: Tigre Marroquin Referrals: Brandt Tinajero [Primary Care Provider] - Discharge Diet: Regular Discharge Activity: Increase activity as tolerated Patient Instructions: Muscular Dystrophy (ED), Carpal Tunnel Syndrome (DC) Activity Restrictions/Additional Instructions: Follow-up with your primary care physician within the next 3 to 5 days for reevaluation. Case management should be contacted in the next several days to set up an appointment with Ortho for follow-up on possible carpal tunnel syndrome. Take medications as prescribed. Return to the ER or your medical provider if condition worsens. Please read and understand discharge instructions. Thank you for choosing [facility] for your healthcare needs today. Please realize this is an emergency room and that we are providing you with a medical screening exam and this may not be complete and all inclusive of all the testing and or work up that you may need to determine your ailment or severity of your illness. It is very important that you follow up as instructed or that you return to the Emergency Department should you have concerns or if your condition changes or worsens in any way. Coding Level of Care Code ED Teacher Asst for Yan Duran
[2023-01-04] MEDS: ketorolac 60 mg/2 mL INJ IM (00:46)
[2023-01-04] MEDS: orphenadrine 30 mg/mL Inj 2 mL 60 MG IM (00:47)
[2023-01-04] MEDS: dexamethasone 10 mg/mL INJ IM (01:42)
[2023-01-04 01:57] VITALS: BP 125/58; PULSE 76; RESP 18; O2SAT 100
--- NOTE | 2023-01-04 10:55 | PC.NURSE ---
Addendum entered by Cady Moncada 02/13/23 11:53: Patient did not attend appointment scheduled with ortho Addendum entered by Ana Robert RN 01/09/23 14:48: patient scheduled for 02/05 at 9am w/ dr giordano - pt is aware Original Note: Patient seen in the ED and referred to ortho for possible bilateral carpal tunnel syndrome. TCM sent message to call pt with an appt.
== END 2023-01-04 01:58 | disposition home or self-care (01) ==
PROVIDERS: Emergency Provider Physician Assistant; PCP Family Medicine
DX: G56.03 Carpal tunnel syndrome, bilateral upper limbs (principal); G71.00 Muscular dystrophy, unspecified; Z87.891 Personal history of nicotine dependence; I10 Essential (primary) hypertension
CPT/HCPCS: 96372; 99284; J1100; J1885; J2360

== ENCOUNTER 2023-08-02 01:56 | Emergency (ER) | payer OTHER, SELFPAY ==
[2023-08-02] VITALS (7 sets, daily range): BP systolic 155–193; BP diastolic 98–123; PULSE 44–71; RESP 17; TEMP 36.5; O2SAT 91–100; BMI 29.8
--- NOTE | 2023-08-02 02:15 | XRR_ITS ---
PROCEDURE INFORMATION: Exam: XR Chest Exam date and time: 08/02/2023 2:24 AM Age: 32 years old Clinical indication: Condition or disease; Other: Rsv positive; Additional info: Cough, rsv positive TECHNIQUE: Imaging protocol: Radiologic exam of the chest. Views: 1 view. COMPARISON: CR XR chest 2V* [id number] 12/07/2022 6:02 PM FINDINGS: Lungs: The right limits clear. Left lateral lung base hazy patchy airspace disease, new from prior. Pleural spaces: Unremarkable. No pleural effusion. No pneumothorax. Heart/Mediastinum: The heart is mildly enlarged. Bones/joints: Unremarkable. XR/XR chest 1V portable [id number] IMPRESSION: Left lateral lung base patchy small pneumonia.
--- NOTE | 2023-08-02 02:19 | ED_ITS ---
HPI - General Adult 2 General: Chief complaint: General Medical Stated complaint: RSV+ Time Seen by Provider: 08/02/23 02:05 History of Present Illness: Patient presents to the ER with complaints of pleuritic chest pain worse when he takes a big deep breath or coughs. And generalized edema. Patient was diagnosed with RSV on Sunday and feels that he has been getting worse. Patient's blood pressure is 168/113 and he says he normally does not have a high blood pressure. However he is on losartan and HCTZ. Review of Systems 2 General: Reports: 10 or more systems reviewed and unremarkable except in HPI and below PFSH ED 2 PFSH: Medical History Chronic back pain Muscular dystrophy Hypertension Surgical History Status post laparoscopic cholecystectomy (09/19/21) 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 claean for 7 years. service: Yes (out 2012) status: Medically Discharged/Retired branch: [employer] Physical Exam 2 Const: COMMON NORMALS: no acute distress, average body habitus, patient oriented x3, no limitations, healthy appearing, alert and well nourished HENMT: COMMON NORMALS: normocephalic, atraumatic, hearing grossly normal bilaterally, external ears normal, Normal external nose present, moist oral mucous membranes and oropharynx normal HEAD & SCALP: normocephalic and atraumatic NOSE: Normal external nose present EXTERNAL EAR: Yes external ears normal Neck/C-Spine: COMMON NORMALS: no JVD Chest: COMMONS NORMALS: normal inspection of the chest and normal palpation of entire chest wall Resp: COMMON NORMALS: normal respiratory effort, No retractions and No use of accessory muscles; negative for clear to auscultation bilaterally (Occasional wheeze bilaterally diffusely) AUSCULTATION: not clear to auscultation bilaterally (Occasional wheeze bilaterally diffusely) Cardio: COMMON NORMALS: no JVD, regular rate, regular rhythm, S1 normal heart sound present, S2 normal heart sound present, No gallops present (Cardio), No clicks present (Cardio), No murmurs present (Cardio) and No rub (Cardio) R ATE: regular rate RHYTHM: regular rhythm HEART SOUNDS: S1 normal heart sound present and S2 normal heart sound present GI: COMMON NORMALS: Normal to inspection, nondistended, normoactive bowel sounds present, Soft to palpation, non-tender, No hepatosplenomegaly present and no masses PALPATION: Yes Soft to palpation and Yes No hepatosplenomegaly present Neuro: COMMON NORMALS: patient oriented x3 SENSORIUM/ORIENTATION: Yes alert Course 2 Vital Signs: Vital signs: Vital Signs Temperature 97.7 F 08/02/23 02:01 Pulse Rate 71 08/02/23 02:01 Respiratory Rate 17 08/02/23 02:01 Blood Pressure 165/108 08/02/23 03:13 Pulse Oximetry 94 08/02/23 03:10 Oxygen Delivery Me thod Room Air 08/02/23 03:10 MDM - General Adult Medical Decision Making Lab work was benign that included CBC CMP, chest x-ray showed left lateral lung base patchy small pneumonia. These findings was discussed with the patient patient be placed on Omnicef 300 mg p.o. twice daily. Patient informed me that he just finished a round of Z-Gentry. I told patient is probably viral pneumonia and may not help but we will try the Omnicef just from a bacterial standpoint. Patient be discharged home to follow-up with his PCP. Differential Diagnosis RSV positive, pleurisy, edema, hypertension Medical Records I reviewed the patient's medical records. Lab Data I reviewed the patient's lab results. 08/02/23 02:27 08/02/23 02:27 Radiology Impressions Chest X-Ray 08/02/23 02:15 IMPRESSION: Left lateral lung base patchy small pneumonia. Laboratory Results WBC 10.83 10^3/uL (3.29-11.43) 08/02/23 02:27 RBC 4.33 10^6/uL (3.85-5.65) 08/02/23 02:27 Hgb 14.00 g/dL (11.27-16.99) 08/02/23 02:27 Hct 41.4 % (37-53) 08/02/23 02:27 MCV 95.6 fl (82-101) 08/02/23 02:27 MCH 32.3 pg (27-33) 08/02/23 02:27 MCHC 33.8 g/dL (30-55) 08/02/23 02:27 RDW 12.0 % (12.1-15.1) L 08/02/23 02:27 Plt Count 221 10^3/cmm (157-399) 08/02/23 02:27 MPV 9.2 fL (7.4-10.4) 08/02/23 02:27 Neut % (Auto) 78.1 % 08/02/23 02:27 Lymph % (Auto) 12.2 % 08/02/23 02:27 [place] % (Auto) 7.3 % 08/02/23 02:27 Eos % (Auto) 0.2 % 08/02/23 02:27 Baso % (Auto) 0.3 % 08/02/23 02:27 Neut # (Auto) 8.46 10^3/uL (1.8-7.7) H 08/02/23 02:27 Lymph # (Auto) 1.3 10^3/uL (0.8-4.8) 08/02/23 02:27 [place] # (Auto) 0.8 10^3/uL (0.2-0.9) 08/02/23 02:27 Eos # (Auto) 0.0 10^3/uL (0.0-0.8) 08/02/23 02:27 Baso # (Auto) 0.0 10^3/uL (0.0-0.1) 08/02/23 02:27 Nucleated RBC % (auto) 0 % 08/02/23 02:27 Nucleated RBCs # 0.0 /100WBC 08/02/23 02:27 Sodium 138 mmol/L (136-145) 08/02/23 02:27 Potassium 4.3 mmol/L (3.5-5.1) 08/02/23 02:27 Chloride 97 mmol/L (98-107) L 08/02/23 02:27 Carbon Dioxide 32 mmol/L (22-29) H 08/02/23 02:27 Anion Gap 13.3 (5-19) 08/02/23 02:27 BUN 15 mg/dL (6-20) 08/02/23 02:27 Creatinine 1.0 mg/dL (0.7-1.2) 08/02/23 02:27 GFR Calculation 85.5 mL/min (90-130) L 08/02/23 02:27 Glucose 110 mg/dL (65-115) 08/02/23 02:27 Calculated Osmolality 287 mOsm/kg (285-295) 08/02/23 02:27 Calcium 9.7 mg/dL (8.5-10.5) 08/02/23 02:27 Total Bilirubin 0.4 mg/dL (0.15-1.2) 08/02/23 02:27 AST 22 U/L (0-40) 08/02/23 02:27 ALT 30 U/L (0-41) 08/02/23 02:27 Alkaline Phosphatase 78 U/L (40-130) 08/02/23 02:27 Total Protein 7.5 g/dL (6.6-8.7) 08/02/23 02:27 Albumin 4.4 g/dL (3.5-5.2) 08/02/23 02:27 Globulin 3.1 g/dL (1.3-4.6) 08/02/23 02:27 All radiology interpretation(s) finalized by discharge Discharge Plan Discharge Patient Disposition: Home Clinical Impression: Pneumonia due to respiratory syncytial virus Condition: Stable Prescriptions: No Action methocarbamol 500 mg tablet 500 mg PO TID hydrochlorothiazide 12.5 mg capsule 12.5 mg PO DAILY diazepam 5 mg tablet 5 mg PO BID PRN (Reason: Anxiety) omeprazole 20 mg capsule,delayed release(DR/EC) 20 mg PO BID cyclobenzaprine 10 mg tablet 10 mg PO TID PRN (Reason: muscle spasm) Qty: 20 0RF sulfamethoxazole-trimethoprim [Bactrim DS] 800-160 mg tablet 1 tab PO BID 10 Days Qty: 20 0RF mupirocin 2 % ointment 1 applic topical TID 10 Days Qty: 22 0RF losartan 100 mg tablet 100 mg PO DAILY ondansetron 4 mg tablet,disintegrating 4 mg PO Q6H PRN (Reason: nausea and vomiting) Qty: 14 0RF Miralax 17 gram/dose powder 17 g PO DAILY PRN (Reason: constipation) Qty: 119 0RF Zofran 4 mg tablet 4 mg PO Q6H PRN (Reason: nausea and vomiting) Qty: 20 0RF Colace 100 mg capsule 100 mg PO BID Qty: 30 0RF ondansetron 4 mg tablet,disintegrating 4 mg PO Q6H PRN (Reason: nausea and vomiting) Qty: 14 0RF Medrol (Gentry) 4 mg tablets,dose pack See Rx Instructions .ROUTE .COMPLEX Qty: 21 0RF Rx Instructions: orally per package directions cyclobenzaprine 10 mg tablet 10 mg PO BID PRN (Reason: muscle spasm and pain) Qty: 20 0RF Discharge Orders: Discharge ED (Routine); Ordered 08/02/23 Ordered By: Todd Copeland Referrals: Brandt Tinajero [Primary Care Provider] - 1 week Patient Instructions: RSV (Respiratory Syncytial Virus) Infection (ED) Activity Restrictions/Additional Instructions: Your x-ray showed you have pneumonia. Being that you are RSV positive is probably RSV or viral pneumonia. However I will put you on cefdinir to cover you for a bacterial standpoint. Please follow-up with your family practice doctor within the next 7 to 10 days for further evaluation and treatment as needed. Coding Level of Care Code ED Mold Machine Operator for Yan Duran
[2023-08-02 02:33] LABS: Basophils % 0.3 %; Eosinophils % 0.2 %; Hematocrit 41.4 % (37-53); Lymphocytes # 1.3 10^3/uL (0.8-4.8); Lymphocytes % 12.2 %; Mean Corpuscular HGB Conc 33.8 g/dL (30-55); Mean Corpuscular Hemoglobin 32.3 pg (27-33); Mean Corpuscular Volume 95.6 fl (82-101); Mean Platelet Volume 9.2 fL (7.4-10.4); Monocytes # 0.8 10^3/uL (0.2-0.9); Monocytes % 7.3 %; Neutrophils # 8.46 10^3/uL (1.8-7.7); Neutrophils % 78.1 %; Nucleated Red Blood Cells % 0 %; Platelet Count 221 10^3/cmm (157-399); Red Blood Count 4.33 10^6/uL (3.85-5.65); White Blood Count 10.83 10^3/uL (3.29-11.43)
[2023-08-02 02:53] LABS: Alanine Aminotransferase 30 U/L (0-41); Albumin Level 4.4 g/dL (3.5-5.2); Alkaline Phosphatase 78 U/L (40-130); Anion Gap 13.3 (5-19); Aspartate Amino Transferase 22 U/L (0-40); Blood Urea Nitrogen 15 mg/dL (6-20); Calcium 9.7 mg/dL (8.5-10.5); Carbon Dioxide 32 mmol/L (22-29); Chloride 97 mmol/L (98-107); Globulin 3.1 g/dL (1.3-4.6); Glomerular Filtration Rate 85.5 mL/min (90-130); Glucose 110 mg/dL (65-115); Osmolality Calculated 287 mOsm/kg (285-295); Potassium 4.3 mmol/L (3.5-5.1); Sodium 138 mmol/L (136-145); Total Bilirubin 0.4 mg/dL (0.15-1.2); Total Protein 7.5 g/dL (6.6-8.7)
[2023-08-02] MEDS: cloNIDine 0.1 mg Tablet PO (03:13)
[2023-08-02] MEDS: cefdinir 300 MG CAPSULE PO (03:36)
[2023-08-02] MEDS: cloNIDine 0.1 mg Tablet 0.2 MG PO (03:43)
== END 2023-08-02 04:15 | disposition home or self-care (01) ==
PROVIDERS: Emergency Provider Emergency Medicine; PCP Family Medicine
DX: J12.1 Respiratory syncytial virus pneumonia (principal); Z87.891 Personal history of nicotine dependence; I10 Essential (primary) hypertension; G71.00 Muscular dystrophy, unspecified
CPT/HCPCS: 71045; 80053; 85025; 99284

== ENCOUNTER 2023-08-07 22:25 | Emergency (ER) | payer OTHER, SELFPAY ==
[2023-08-07 22:26] VITALS: BP 187/103; PULSE 93; RESP 18; TEMP 36.6; O2SAT 99; BMI 30.5
--- NOTE | 2023-08-07 22:40 | ECG_ITS ---
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 Measurements Intervals [place] Rate: 79 P: 26 MO: 130 QRS: 13 QRSD: 82 T: -1 QT: 343 QTc: 395 Interpretive Statements SINUS RHYTHM Compared to ECG 09/19/2021 11:03:17 Sinus bradycardia no longer present Electronically Signed On 08-08-2023 0:32:26 HOSPICE HOME CARE COORDINATOR by Jodi Whitney M.D. [id number]
--- NOTE | 2023-08-07 23:35 | XRR_ITS ---
PROCEDURE INFORMATION: Exam: XR Chest Exam date and time: 08/07/2023 11:44 PM Age: 32 years old Clinical indication: Cough TECHNIQUE: Imaging protocol: Radiologic exam of the chest. Views: 1 view. COMPARISON: CR (CHEST, ) 08/02/2023 2:24 AM FINDINGS: Lungs: Subtle residual left basilar opacity. Pleural spaces: Trace left pleural effusion. No pneumothorax. Heart/Mediastinum: Normal cardiomediastinal silhouette. Bones/joints: No acute osseous abnormality. XR/XR chest 1V portable [id number] IMPRESSION: 1. Subtle residual left basilar opacity compatible with resolving pneumonia. No new opacity seen. 2. Trace left pleural effusion which is decreased in size compared to prior.
[2023-08-07 23:48] LABS: Basophils % 0.2 %; Hematocrit 46.1 % (37-53); Lymphocytes # 1.1 10^3/uL (0.8-4.8); Lymphocytes % 6.6 %; Mean Corpuscular HGB Conc 33.6 g/dL (30-55); Mean Corpuscular Hemoglobin 32.4 pg (27-33); Mean Corpuscular Volume 96.2 fl (82-101); Mean Platelet Volume 9.1 fL (7.4-10.4); Monocytes # 0.3 10^3/uL (0.2-0.9); Monocytes % 2.1 %; Neutrophils # 14.41 10^3/uL (1.8-7.7); Neutrophils % 89.1 %; Nucleated Red Blood Cells % 0 %; Platelet Count 252 10^3/cmm (157-399); Red Blood Count 4.79 10^6/uL (3.85-5.65); Red Cell Distribution Width 12.1 % (12.1-15.1); White Blood Count 16.19 10^3/uL (3.29-11.43)
[2023-08-08 00:01] LABS: D Dimer 0.29 ug/mLFEU (0-0.59)
[2023-08-08 00:18] LABS: Alanine Aminotransferase 32 U/L (0-41); Albumin Level 4.5 g/dL (3.5-5.2); Alkaline Phosphatase 83 U/L (40-130); Anion Gap 15.3 (5-19); Aspartate Amino Transferase 21 U/L (0-40); Blood Urea Nitrogen 23 mg/dL (6-20); Calcium 9.7 mg/dL (8.5-10.5); Carbon Dioxide 29 mmol/L (22-29); Chloride 99 mmol/L (98-107); Globulin 3.2 g/dL (1.3-4.6); Glomerular Filtration Rate 69.3 mL/min (90-130); Glucose 105 mg/dL (65-115); NT Pro B Type Natriuretic Pept < 36 pg/mL (0-125); Osmolality Calculated 292 mOsm/kg (285-295); Potassium 4.3 mmol/L (3.5-5.1); Sodium 139 mmol/L (136-145); Total Bilirubin 0.4 mg/dL (0.15-1.2); Total Protein 7.7 g/dL (6.6-8.7)
[2023-08-08 00:20] VITALS: BP 148/110; PULSE 75
[2023-08-08] MEDS: nitroglycerin 1 gm/inch oint Pkt 1 INCH TOPICAL (00:20)
[2023-08-08 00:54] VITALS: BP 163/102
[2023-08-08] MEDS: cloNIDine 0.1 mg Tablet PO (00:54)
[2023-08-08] MEDS: cefTRIAXone 1,000 MG in sodium chloride 0.9% (plus) 50 ML 100 MG IV (01:01)
--- NOTE | 2023-08-08 01:05 | ED_ITS ---
HPI - SOB/Dyspnea 2 General: Chief Complaint: Shortness of Breath/Dyspnea Stated Complaint: tested pos RSV Time Seen by Provider: 08/07/23 23:29 History of Present Illness: HPI Narrative: 32-year-old male presents [facility] room with multiple vague complaints including elevated blood pressure, shortness of breath, cough, fatigue and generalized weakness for the past few weeks. Patient further reviews that he was diagnosed with RSV more than 10 days ago and was not evaluated in this ER. During devastation patient was started on antibiotics which he took as directed. Patient reports that he is still coughing and described the cough as brownish sputum but denies any blood, vomiting blood, no sick contact or recent foreign travel. Patient also noticed elevated blood pressure and is currently adjusting his blood pressure medication per his PCP. Patient also revealed some leg swelling Associated symptoms: Deny chest congestion, chest pain, extremity pain, hemoptysis, lightheadedness or palpitations Review of Systems 2 General: Reports: 10 or more systems reviewed and unremarkable except in HPI and below Const: Reports: chills, fatigue, malaise and snoring; Denies: night sweats, change in sleep pattern or daytime sleepiness Eyes: Denies: change in vision, blurry vision, blind spots, photophobia, eye discomfort or eye discharge Card: Denies: chest pain, palpitations, irregular heart rhythm, edema, swelling of feet/ankles or lightheadedness Resp: Reports: dyspnea, productive cough and change in phlegm color; Denies: wheezing, stridor, hemoptysis or chest congestion : Denies: flank pain, difficulty urinating or dysuria Musc: Denies: neck pain, back pain or extremity pain Skin/Breast: Denies: rash, pruritus, erythema, photosensitivity, skin pain, skin tenderness, skin swelling or sores Neuro: Reports: headache(s); Denies: numbness in extremities, weakness in extremities, sensory changes, lack of coordination or difficulty walking Psych: Reports: anxiety; Denies: depression, mood swings, sleeping more or hopelessness PFSH ED 2 PFSH: Medical History Chronic back pain Muscular dystrophy Hypertension Surgical History Status post laparoscopic cholecystectomy (09/19/21) 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 claean for 7 years. service: Yes (out 2012) status: Medically Discharged/Retired branch: [employer] Physical Exam 2 Const: COMMON NORMALS: no acute distress, average body habitus, patient oriented x3, no limitations, healthy appearing, alert and well nourished HENMT: COMMON NORMALS: normocephalic, atraumatic, hearing grossly normal bilaterally, external ears normal, EAC's normal, TM's normal bilaterally, Normal external nose present, Normal nasal mucous membranes and turbinates present, moist oral mucous membranes, oropharynx normal, dentition normal and gingiva normal HEAD & SCALP: normocephalic and atraumatic NOSE: Normal external nose present and Normal nasal mucous membranes and turbinates present E XTERNAL EAR: Yes external ears normal EXTERNAL AUDITORY CANAL: EAC's normal TYMPANIC MEMBRANE: TM's normal bilaterally Neck/C-Spine: COMMON NORMALS: full ROM, no lymphadenopathy, supple, no meningeal signs, no JVD, Thyroid normal and No carotid bruits THYROID: T hyroid normal Chest: COMMONS NORMALS: normal inspection of the chest, normal palpation of entire chest wall, normal inspection of the breasts and normal palpation of the breasts Breast/axilla inspection: Yes normal inspection of the breasts B REAST/AXILLA PALPATION: Yes normal palpation of the breasts Resp: COMMON NORMALS: normal respiratory effort, No retractions, No use of accessory muscles, clear to auscultation bilaterally and percussion normal A USCULTATION: clear to auscultation bilaterally PERCUSSION: percussion normal Cardio: COMMON NORMALS: no JVD : COMMON NORMALS: Yes no CVA tenderness BLADDER/KIDNEY EXAM: Yes no CVA tenderness Back/Pelvis: COMMON NORMALS: no CVA tenderness, thoracic and lumbar spine normal to inspection, no thoracic nor lumbar tenderness, thoraco-lumbar ROM normal and straight leg raise negative bilaterally Neuro: COMMON NORMALS: patient oriented x3 SENSORIUM/ORIENTATION: Yes alert MENINGEAL SIGNS: Yes no meningeal signs Course 2 Vital Signs: Vital signs: Vital Signs Temperature 97.9 F 08/07/23 22:26 Pulse Rate 58 L 08/08/23 01:36 Respiratory Rate 19 H 08/08/23 01:36 Blood Pressure 163/102 08/08/23 00:54 Pulse Oximetry 93 08/08/23 01:36 Oxygen Delivery Me thod Room Air 08/08/23 01:36 MDM - SOB/Dyspnea Medical Decision Making Patient made comfortable emergency room and had extensive workup including CBC, CMP, chest x-ray and D-dimer. Differential Diagnosis Likely acute exacerbation of chronic obstructive airways disease, congestive heart failure, community acquired pneumonia, asthma with exacerbation and pulmonary embolism Lab Data 08/07/23 23:40 08/07/23 23:40 Labs/Radiology: Radiology Impressions Chest X-Ray 08/07/23 23:35 IMPRESSION: 1. Subtle residual left basilar opacity compatible with resolving pneumonia. No new opacity seen. 2. Trace left pleural effusion which is decreased in size compared to prior. Laboratory Results WBC 16.19 10^3/uL (3.29-11.43) H 08/07/23 23:40 RBC 4.79 10^6/uL (3.85-5.65) 08/07/23 23:40 Hgb 15.50 g/dL (11.27-16.99) 08/07/23 23:40 Hct 46.1 % (37-53) 08/07/23 23:40 MCV 96.2 fl (82-101) 08/07/23 23:40 MCH 32.4 pg (27-33) 08/07/23 23:40 MCHC 33.6 g/dL (30-55) 08/07/23 23:40 RDW 12.1 % (12.1-15.1) 08/07/23 23:40 Plt Count 252 10^3/cmm (157-399) 08/07/23 23:40 MPV 9.1 fL (7.4-10.4) 08/07/23 23:40 Neut % (Auto) 89.1 % 08/07/23 23:40 Lymph % (Auto) 6.6 % 08/07/23 23:40 Churchill % (Auto) 2.1 % 08/07/23 23:40 Eos % (Auto) 0.0 % 08/07/23 23:40 Baso % (Auto) 0.2 % 08/07/23 23:40 Neut # (Auto) 14.41 10^3/uL (1.8-7.7) H 08/07/23 23:40 Lymph # (Auto) 1.1 10^3/uL (0.8-4.8) 08/07/23 23:40 Churchill # (Auto) 0.3 10^3/uL (0.2-0.9) 08/07/23 23:40 Eos # (Auto) 0.0 10^3/uL (0.0-0.8) 08/07/23 23:40 Baso # (Auto) 0.0 10^3/uL (0.0-0.1) 08/07/23 23:40 Nucleated RBC % (auto) 0 % 08/07/23 23:40 Nucleated RBCs # 0.0 /100WBC 08/07/23 23:40 D-Dimer 0.29 ug/mLFEU (0-0.59) 08/07/23 23:40 Sodium 139 mmol/L (136-145) 08/07/23 23:40 Potassium 4.3 mmol/L (3.5-5.1) 08/07/23 23:40 Chloride 99 mmol/L (98-107) 08/07/23 23:40 Carbon Dioxide 29 mmol/L (22-29) 08/07/23 23:40 Anion Gap 15.3 (5-19) 08/07/23 23:40 BUN 23 mg/dL (6-20) H 08/07/23 23:40 Creatinine 1.2 mg/dL (0.7-1.2) 08/07/23 23:40 GFR Calculation 69.3 mL/min (90-130) L 08/07/23 23:40 Glucose 105 mg/dL (65-115) 08/07/23 23:40 Calculated Osmolality 292 mOsm/kg (285-295) 08/07/23 23:40 Calcium 9.7 mg/dL (8.5-10.5) 08/07/23 23:40 Total Bilirubin 0.4 mg/dL (0.15-1.2) 08/07/23 23:40 AST 21 U/L (0-40) 08/07/23 23:40 ALT 32 U/L (0-41) 08/07/23 23:40 Alkaline Phosphatase 83 U/L (40-130) 08/07/23 23:40 NT-Pro-B Natriuret Pep < 36 pg/mL (0-125) 08/07/23 23:40 Total Protein 7.7 g/dL (6.6-8.7) 08/07/23 23:40 Albumin 4.5 g/dL (3.5-5.2) 08/07/23 23:40 Globulin 3.2 g/dL (1.3-4.6) 08/07/23 23:40 XR interpretation done by ED provider, pending radiology final review Discharge Plan Discharge Patient Disposition: Home Clinical Impression: Hypertension, Pneumonia Condition: Stable Prescriptions: New G Tussin AC 10-100 mg/5 mL liquid 5 ml PO Q4H Qty: 120 0RF No Action methocarbamol 500 mg tablet 500 mg PO TID hydrochlorothiazide 12.5 mg capsule 12.5 mg PO DAILY diazepam 5 mg tablet 5 mg PO BID PRN (Reason: Anxiety) omeprazole 20 mg capsule,delayed release(DR/EC) 20 mg PO BID cyclobenzaprine 10 mg tablet 10 mg PO TID PRN (Reason: muscle spasm) Qty: 20 0RF sulfamethoxazole-trimethoprim [Bactrim DS] 800-160 mg tablet 1 tab PO BID 10 Days Qty: 20 0RF mupirocin 2 % ointment 1 applic topical TID 10 Days Qty: 22 0RF losartan 100 mg tablet 100 mg PO DAILY ondansetron 4 mg tablet,disintegrating 4 mg PO Q6H PRN (Reason: nausea and vomiting) Qty: 14 0RF Miralax 17 gram/dose powder 17 g PO DAILY PRN (Reason: constipation) Qty: 119 0RF Zofran 4 mg tablet 4 mg PO Q6H PRN (Reason: nausea and vomiting) Qty: 20 0RF Colace 100 mg capsule 100 mg PO BID Qty: 30 0RF ondansetron 4 mg tablet,disintegrating 4 mg PO Q6H PRN (Reason: nausea and vomiting) Qty: 14 0RF Medrol ([place]entry) 4 mg tablets,dose pack See Rx Instructions .ROUTE .COMPLEX Qty: 21 0RF Rx Instructions: orally per package directions cyclobenzaprine 10 mg tablet 10 mg PO BID PRN (Reason: muscle spasm and pain) Qty: 20 0RF cefdinir 300 mg capsule 300 mg PO BID 10 Days Qty: 20 0RF Discharge Orders: Discharge ED (Routine); Ordered 08/08/23 Ordered By: Alistair Reyna Referrals: Brandt Tinajero [Primary Care Provider] - Discharge Diet: Advance as tolerated Discharge Activity: Resume usual activity Patient Instructions: Opioid Safety, Pain Management Coding Level of Care Code ED Line Maintainer for Yan Duran
[2023-08-08 01:36] VITALS: PULSE 58; RESP 19; O2SAT 93
[2023-08-08] MEDS: LORazepam 1 mg Tablet PO (02:19)
--- NOTE | 2023-08-08 02:19 | PC.NURSE ---
Patient sent home with 1mg Ativan PO once. Put in bag with patient label. Signed off by tom Gomez RN. Patient educated to not take medication until at home.
== END 2023-08-08 02:22 | disposition home or self-care (01) ==
PROVIDERS: Emergency Provider Family Medicine; PCP Family Medicine
DX: I10 Essential (primary) hypertension (principal); J18.9 Pneumonia, unspecified organism; Z87.891 Personal history of nicotine dependence; G71.00 Muscular dystrophy, unspecified
CPT/HCPCS: 36415; 71045; 80053; 83880; 85025; 85378; 93005; 96365; 99285; J0696

== ENCOUNTER → 2023-11-25 13:54 | Outpatient (BNVA) | payer MEDICARE, SELFPAY | PROVIDERS: PCP Family Medicine; Visit Provider Registered Nurse Neonatal Intensive Care | DX: S89.91XA Unspecified injury of right lower leg, initial encounter (principal); W19.XXXA Unspecified fall, initial encounter | CPT/HCPCS: 73562 ==

== ENCOUNTER 2024-03-24 16:14 | Observation (INO) | payer OTHER, SELFPAY ==
[2024-03-24] VITALS (14 sets, daily range): BP systolic 132–177; BP diastolic 86–105; PULSE 40–62; RESP 16–18; TEMP 36.6–36.7; O2SAT 97–100; BMI 30.5
--- NOTE | 2024-03-24 16:23 | CTR_ITS ---
PROCEDURE INFORMATION: Exam: CT Head Without Contrast Exam date and time: 03/24/2024 4:23 PM Age: 33 years old Clinical indication: Stroke-like symptoms; Left upper extremity and other: Lt facial numbness/tingling numbness/paresthesia; Additional info: Symptoms of acute stroke TECHNIQUE: Imaging protocol: Computed tomography of the head without contrast. Radiation optimization: All CT scans at this facility use at least one of these dose optimization techniques: automated exposure control; mA and/or kV adjustment per patient size (includes targeted exams where dose is matched to clinical indication); or iterative reconstruction. Other technique: STROKE PROTOCOL was implemented. COMPARISON: MR cervical spin wo con* [id number] 08/16/2017 10:24 AM RADIATION DOSE METRICS: Total DLP (mGy-cm): 1038 FINDINGS: Brain: No extra-axial fluid collections, midline shift, brain herniation, intracranial hemorrhage, or mass effect. Parekh-white matter differentiation is preserved. Cerebral ventricles: The ventricular system is normal in size and distribution. Paranasal sinuses: Paranasal sinuses are clear. Mastoid air cells: The mastoid sinuses are clear. Orbital cavities: The orbits are normal. Bones: No acute fracture, dislocation, or aggressive osseous lesion. Soft tissues: No acute soft tissue findings. CT/CT head thrombolytic [id number] IMPRESSION: No acute intracranial pathology. ASSESSMENT: ASPECTS (Treichlers Stroke Program Early CT Score) is 10.
[2024-03-24 16:29] LABS: Glucose Point of Care 87 mg/dL (70-110)
--- NOTE | 2024-03-24 16:32 | ECG_ITS ---
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 Measurements Intervals [place] Rate: 51 P: 14 W[place]: 136 QRS: 20 QRSD: 89 T: -2 QT: 423 QTc: 391 Interpretive Statements SINUS BRADYCARDIA Compared to ECG 08/07/2023 22:40:15 Sinus rhythm no longer present Electronically Signed On 03-25-2024 7:38:01 CDT by Igor Valle M.D. [id number]
--- NOTE | 2024-03-24 16:37 | ED_ITS ---
HPI - Neuro Symptoms/Deficit 2 General: Chief Complaint: Neuro Symptoms/Deficit Stated Complaint: stroke like symptoms Time Seen by Provider: 03/24/24 16:23 Source: patient Mode of arrival: ambulatory Limitations: no limitations History of Present Illness: 33-year-old male states that 2:00 2 PM t klelen he had sudden onset of left arm numbness along with some left facial numbness. Feels like he is having some left facial droop as well. Patient denies any headache denies any visual disturbances is able to ambulate without difficulty no history of stroke denies any chest pain denies any vomiting or diarrhea. Associated symptoms: Deny chest pain, headache(s), nausea or vomiting Related Data Home Medications Medication Instructions Recorded Confirmed diazepam 5 mg tablet 5 mg PO BID PRN Anxiety 05/26/20 11/25/23 hydrochlorothiazide 12.5 mg capsule 12.5 mg PO DAILY 05/26/20 11/25/23 methocarbamol 500 mg tablet 500 mg PO TID 05/26/20 11/25/23 losartan 100 mg tablet 100 mg PO DAILY 12/19/21 11/25/23 Previous Rx's Medication Instructions Recorded polyethylene glycol 3350 17 17 g PO DAILY PRN constipation 10/05/21 gram/dose oral powder (Miralax) #119 grams mupirocin 2 % topical ointment 1 applic topical TID 10 days #22 08/28/22 grams ondansetron 4 mg disintegrating 4 mg PO Q6H PRN nausea and 12/07/22 tablet vomiting #14 tabs cyclobenzaprine 10 mg tablet 10 mg PO BID PRN muscle spasm and 01/04/23 pain #20 tabs codeine 10 mg-guaifenesin 100 mg/5 5 ml PO Q4H #120 mL 08/08/23 mL oral liquid (G Tussin AC) Allergies Allergy/AdvReac Type Severity Reaction Status Date / Time bee venom protein (honey bee) Allergy ALGY-Anaphy Verified 03/24/24 16:38 laxis Review of Systems 2 Const: Denies: fever(s), chills, body aches or change in appetite Eyes: Denies: blurry vision or eye discomfort ENMT: Denies: throat pain or dental pain Card: Denies: chest pain Resp: Denies: dyspnea GI: Denies: abdominal pain, nausea, vomiting or diarrhea Musc: Denies: neck pain or back pain Skin/Breast: Denies: rash Neuro: Reports: numbness in extremities and sensory changes; Denies: headache(s) PFSH ED 2 PFSH: Medical History Chronic back pain Muscular dystrophy Hypertension Surgical History Status post laparoscopic cholecystectomy (09/19/21) 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 claean for 7 years. service: Yes (out 2012) status: Medically Discharged/Retired branch: [employer] NIH stroke score 2 NIHSS: Level Of Consciousness - 1a: 0 Level Of Consciousness Questions - 1b: Both Correct Level Of Consciousness Commands - 1c: Both Correct Best Gaze - 2: Normal Visual Yates - 3: No Visual Loss Facial Palsy - 4: Minor Paralysis Motor Arm Right - 5: No Drift Motor Arm Left - 5: No Drift M otor Leg Right - 6: No Drift Motor Leg Left - 6: No Drift Limb Ataxia - 7: Absent Sensory - 8: Mild To Moderate Loss Best Language - 9: No Aphasia Dysarthia - 10: Normal Extinction And Inattention - 11: 0 Score: Total Score: 2 Physical Exam 2 Const: COMMON NORMALS: no acute distress, patient oriented x3 and healthy appearing HENMT: COMMON NORMALS: normocephalic and atraumatic HEAD & SCALP: n ormocephalic and atraumatic Eye: COMMON NORMALS: Equal, round and reactive pupils present and EOMs intact bilaterally PUPIL: Yes Equal, round and reactive pupils present Neck/C-Spine: COMMON NORMALS: full ROM and supple Chest: COMMONS NORMALS: normal inspection of the chest Resp: COMMON NORMALS: normal respiratory effort, No retractions, No use of accessory muscles and clear to auscultation bilaterally AUSCULTATION: clear to auscultation bilaterally Cardio: COMMON NORMALS: regular rate, regular rhythm and No murmurs present (Cardio) RATE: regular rate RHYTHM: regular rhythm Extremity: COMMON NORMALS: normal to inspection and full ROM Neuro: COMMON NORMALS: patient oriented x3, moves all extremities and no focal motor deficits Psych: COMMON NORMALS: mental status grossly normal, Normal thought process present and cooperative THOUGHT PROCESS: Normal thought process present Skin: COMMON NORMALS: no rashes or lesions noted and no wounds GENERAL SKIN EXAM: no rashes or lesions noted Course 2 Vital Signs: Vital signs: Vital Signs Temperature 97.8 F 03/24/24 16:35 Pulse Rate 44 L 03/24/24 17:45 Respiratory Rate 18 03/24/24 16:54 Blood Pressure 145/95 03/24/24 17:38 Pulse Oximetry 98 03/24/24 17:45 Oxygen Delivery Me thod Room Air 03/24/24 17:45 MDM - Neuro Symptoms/Deficit Medical Decision Making Patient presents here some paresthesias to his arm and face patient was seen by neurology in the ER is not a lytic candidate due to low NIH will admit at this time Medical Records I reviewed the patient's medical records. Lab Data I reviewed the patient's lab results. 03/24/24 16:40 03/24/24 17:[address] 03/24/24 16:23 IMPRESSION: No acute intracranial pathology. ASSESSMENT: ASPECTS (Chasity Stroke Program Early CT Score) is 10. Laboratory Results WBC 6.04 10^3/uL (3.29-11.43) 03/24/24 16:40 RBC 4.25 10^6/uL (3.85-5.65) 03/24/24 16:40 Hgb 13.80 g/dL (11.27-16.99) 03/24/24 16:40 Hct 40.8 % (37-53) 03/24/24 16:40 MCV 96.0 fl (82-101) 03/24/24 16:40 MCH 32.5 pg (27-33) 03/24/24 16:40 MCHC 33.8 g/dL (30-55) 03/24/24 16:40 RDW 12.9 % (12.1-15.1) 03/24/24 16:40 Plt Count 213 10^3/cmm (157-399) 03/24/24 16:40 MPV 10.2 fL (7.4-10.4) 03/24/24 16:40 Neut % (Auto) 69.3 % 03/24/24 16:40 Lymph % (Auto) 22.7 % 03/24/24 16:40 Rogers % (Auto) 6.5 % 03/24/24 16:40 Eos % (Auto) 0.5 % 03/24/24 16:40 Baso % (Auto) 0.5 % 03/24/24 16:40 Neut # (Auto) 4.19 10^3/uL (1.8-7.7) 03/24/24 16:40 Lymph # (Auto) 1.4 10^3/uL (0.8-4.8) 03/24/24 16:40 Rogers # (Auto) 0.4 10^3/uL (0.2-0.9) 03/24/24 16:40 Eos # (Auto) 0.0 10^3/uL (0.0-0.8) 03/24/24 16:40 Baso # (Auto) 0.0 10^3/uL (0.0-0.1) 03/24/24 16:40 Nucleated RBC % (auto) 0 % 03/24/24 16:40 Nucleated RBCs # 0.0 /100WBC 03/24/24 16:40 PT 13.60 SECONDS (12.1-14.9) 03/24/24 17:14 INR 1.01 (0.8-1.2) 03/24/24 17:14 APTT 26.2 SECONDS (23.9-36.7) 03/24/24 17:14 Sodium 141 mmol/L (136-145) 03/24/24 17:14 Potassium 4.0 mmol/L (3.5-5.1) 03/24/24 17:14 Chloride 102 mmol/L (98-107) 03/24/24 17:14 Carbon Dioxide 27 mmol/L (22-29) 03/24/24 17:14 Anion Gap 16.0 (5-19) 03/24/24 17:14 BUN 8 mg/dL (6-20) 03/24/24 17:14 Creatinine 0.9 mg/dL (0.7-1.2) 03/24/24 17:14 GFR Calculation 96.0 mL/min (90-130) 03/24/24 17:14 Glucose 99 mg/dL (65-115) 03/24/24 17:14 POC Glucose 87 mg/dL (70-110) 03/24/24 16:24 Calculated Osmolality 290 mOsm/kg (285-295) 03/24/24 17:14 Calcium 9.3 mg/dL (8.5-10.5) 03/24/24 17:14 Total Bilirubin 0.4 mg/dL (0.15-1.2) 03/24/24 17:14 AST 21 U/L (0-40) 03/24/24 17:14 ALT 17 U/L (0-41) 03/24/24 17:14 Alkaline Phosphatase 65 U/L (40-130) 03/24/24 17:14 Total Protein 6.9 g/dL (6.6-8.7) 03/24/24 17:14 Albumin 4.4 g/dL (3.5-5.2) 03/24/24 17:14 Globulin 2.5 g/dL (1.3-4.6) 03/24/24 17:14 All radiology interpretation(s) finalized by discharge EKG Data EKG 1: I personally reviewed and interpreted this EKG as follows: EKG interpretation date: 03/24/24 EKG interpretation time: 16:32 Interpretation: sinus brandon hr [address] or t wave abnormalities qrs 89 qtc 400 Discharge Plan Discharge Patient Disposition: Placed in Observation Clinical Impression: Paresthesia Condition: Stable Prescriptions: No Action methocarbamol 500 mg tablet 500 mg PO TID hydrochlorothiazide 12.5 mg capsule 12.5 mg PO DAILY diazepam 5 mg tablet 5 mg PO BID PRN (Reason: Anxiety) mupirocin 2 % ointment 1 applic topical TID 10 Days Qty: 22 0RF losartan 100 mg tablet 100 mg PO DAILY Miralax 17 gram/dose powder 17 g PO DAILY PRN (Reason: constipation) Qty: 119 0RF ondansetron 4 mg tablet,disintegrating 4 mg PO Q6H PRN (Reason: nausea and vomiting) Qty: 14 0RF G Tussin AC 10-100 mg/5 mL liquid 5 ml PO Q4H Qty: 120 0RF cyclobenzaprine 10 mg tablet 10 mg PO BID PRN (Reason: muscle spasm and pain) Qty: 20 0RF Referrals: Brandt Tinajero [Primary Care Provider] - Coding Level of Care Code ED Medicine Technologist for Yan Duran
[2024-03-24] MEDS: aspirin 81 mg Chew Tablet 324 MG PO (16:53)
[2024-03-24 16:55] LABS: Basophils % 0.5 %; Eosinophils % 0.5 %; Hematocrit 40.8 % (37-53); Lymphocytes # 1.4 10^3/uL (0.8-4.8); Lymphocytes % 22.7 %; Mean Corpuscular HGB Conc 33.8 g/dL (30-55); Mean Corpuscular Hemoglobin 32.5 pg (27-33); Mean Platelet Volume 10.2 fL (7.4-10.4); Monocytes # 0.4 10^3/uL (0.2-0.9); Monocytes % 6.5 %; Neutrophils # 4.19 10^3/uL (1.8-7.7); Neutrophils % 69.3 %; Nucleated Red Blood Cells % 0 %; Platelet Count 213 10^3/cmm (157-399); Red Blood Count 4.25 10^6/uL (3.85-5.65); Red Cell Distribution Width 12.9 % (12.1-15.1); White Blood Count 6.04 10^3/uL (3.29-11.43)
--- NOTE | 2024-03-24 16:59 | PM.CONSULT ---
Providers/Reason For Consult Consulting Physician/Specialty*: Wilmer Gallego MD neurology and epilepsy Reason for Consult*: Code stroke/acute care emergency department room #2 Primary Care Provider: Brandt Tinajero History of Present Illness History of Present Illness Avinash Limon is a 33 year old male with a history of essential hypertension and muscular dystrophy. The patient was at home with his . According to the patient's the patient was washing their dog and suddenly experienced acute onset of left face, mouth, throat, neck and left arm numbness and tingling as if he had been injected with Novocain on 03/24/2024 at approximately 2:30 PM. The patient was brought to the [facility] emergency department. Stat thrombolytic noncontrast head CT was obtained and reported to be negative. Patient was transferred to room #2 in the emergency department. Glucose Accu-Chek 87 (normal 70 to 110) NIH score = 2 (secondary to decreased pinprick over the left side of his face in a V1 through V3 distribution, and abnormal sensation in the left upper extremity) During the neurological assessment patient displayed left facial twitching in a V2 distribution with left upper extremity twitching without alteration in consciousness. The twitching lasted for approximately 2 to 3 minutes and resolved. Then patient displayed 1 episode of bilateral facial twitching that was brief lasting less than 1 second. There was no alteration in consciousness during the twitching episodes. Patient denied pain or weakness or speech difficulty or visual difficulty. Since the patient's NIH score =2, the patient was not a candidate for intravenous thrombolytics and no intravenous thrombolytics were administered. Drug allergies: Wasp sting/bee venom protein which resulted in anaphylaxis Current medications: Codeine/guaifenesin 5 mg p.o. every 4 hours as needed Flexeril 10 mg p.o. twice daily as needed for muscle spasms and pain Valium 5 mg p.o. twice daily as needed for anxiety Hydrochlorothiazide 12.5 mg p.o. daily Losartan 100 mg p.o. daily Methocarbamol 500 mg tabs 1 p.o. 3 times daily Mupirocin 2% topical ointment to be applied 3 times a day Zofran 4 mg p.o. every 6 hours as needed for nausea vomiting MiraLAX 17 g p.o. daily as needed for constipation Past medical history: Muscular dystrophy Laceration of the finger of the left hand Cellulitis right foot Right foot pain Status post cholecystectomy via laparoscopic procedure Status post splenectomy Hypertension Right wrist strain Habits: None Family history: Remarkable for grandfather and grandmother who experienced a stroke and aunts and uncles with carotid disease Social history: The patient lives with his Review of Systems General: Reports: 10 or more systems reviewed and unremarkable except in HPI and below Medications/Allergies Home Medications Medication Instructions Recorded Confirmed Last Taken Type diazepam 5 mg tablet 5 mg PO BID PRN Anxiety 05/26/20 11/25/23 Unknown History hydrochlorothiazide 12.5 mg capsule 12.5 mg PO DAILY 05/26/20 11/25/23 Unknown History methocarbamol 500 mg tablet 500 mg PO TID 05/26/20 11/25/23 Unknown History polyethylene glycol 3350 17 17 g PO DAILY PRN constipation 10/05/21 11/25/23 Unknown Rx gram/dose oral powder (Miralax) #119 grams losartan 100 mg tablet 100 mg PO DAILY 12/19/21 11/25/23 Unknown History mupirocin 2 % topical ointment 1 applic topical TID 10 days #22 08/28/22 11/25/23 Unknown Rx grams ondansetron 4 mg disintegrating 4 mg PO Q6H PRN nausea and 12/07/22 11/25/23 Unknown Rx tablet vomiting #14 tabs cyclobenzaprine 10 mg tablet 10 mg PO BID PRN muscle spasm and 01/04/23 11/25/23 Unknown Rx pain #20 tabs codeine 10 mg-guaifenesin 100 mg/5 5 ml PO Q4H #120 mL 08/08/23 11/25/23 Unknown Rx mL oral liquid (G Tussin AC) Allergies Allergy/AdvReac Type Severity Reaction Status Date / Time bee venom protein (honey bee) Allergy ALGY-Anaphy Verified 03/24/24 16:38 laxis PFSH Acute PFSH: Medical History Chronic back pain Muscular dystrophy Hypertension Surgical History Status post laparoscopic cholecystectomy (09/19/21) 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 claean for 7 years. service: Yes (out 2012) status: Medically Discharged/Retired branch: [employer] Vitals/I&O/Wt Last Vital Signs Temp 97.8 F 03/24/24 16:35 Pulse 55 L 03/24/24 16:54 Resp 18 03/24/24 16:54 BP 142/91 03/24/24 16:54 Pulse Ox 98 03/24/24 16:54 O2 Del Method Room Air 03/24/24 16:54 Weight last 48 hrs Weight 225 lb Physical Exam Narrative: NIH score = 2 (secondary to decreased pinprick over the left side of his face in a V1 through V3 distribution, and abnormal sensation in the left upper extremity) Glucose Accu-Chek 87 (normal 70 to 110) Blood pressure 142/91 heart rate 59 The patient is alert and oriented x 3. Speech fluent. Head normocephalic. Neck supple. Cranial nerves II through XII reveal decreased pinprick in the left face in a V1 through V3 distribution. Patient also reported decreased sensation in the left upper extremity secondary to complaints of paresthesias numbness and tingling in the left upper extremity, and left side of his neck and left chest region. Patient also displayed intermittent twitching of the left face in a V2 distribution as well as twitching in the left upper extremity without alteration in consciousness lasting for approximately 2-3 minutes. The patient also displayed 1 brief episode of bilateral facial twitching in a V2 distribution lasting for less than 1 second without alteration in consciousness. Motor testing 5/5 bilaterally. There was no drift. Deep tendon reflexes 2+ bilaterally. Plantar responses flexor bilaterally there was no clonus. Sensory examination was intact except for decreased sensation in the left upper extremity and left face in a V1 through V3 distribution. Throat clear. Lungs clear. Heart regular rhythm and rate extremities were negative for clubbing cyanosis or edema. Data 03/24/24 16:40 03/24/24 16:40 A&P Assessment and plan (1) TIA involving right internal carotid artery: Impression: 1. Right cerebral TIA manifested as acute onset of left face, mouth, throat, neck and left arm numbness and tingling as if he had been injected with Novocain on 03/24/2024 at approximately 2:30 PM followed by involuntary twitching involving the left face in a V2 distribution associated with left upper extremity twitching lasting for approximately 2 to 3 minutes and 1 episode of bilateral facial twitching in a V2 distribution lasting less than 1 second without alteration in consciousness. Since the patient's NIH score =2, the patient was not a candidate for intravenous thrombolytics and no intravenous thrombolytics were administered. 2. Focal motor twitching involving the left face in a V2 distribution and left upper extremity lasting for approximately 2 to 3 minutes followed by 1 episode of bilateral facial twitching in a V2 distribution lasted for less than 1 second without alteration in consciousness, assess for focal motor seizures 3. History of muscular dystrophy 4. History of splenectomy 5. History of cholecystectomy via laparoscopic procedure 6. Hypertension Plan: 1. Agree with admitting patient for observation and to complete his workup 2. Neurochecks and vital signs per NIH stroke protocol 3. Agree with starting aspirin 81 mg to 325 mg p.o. every morning with food 4. Recommend starting lipid-lowering agent per NIH stroke protocol 5. Will order surface EEG recording to assess for right hemisphere focal motor seizures and to assist in determining if anticonvulsant medications are required 6. Recommend obtaining head MRI with and without contrast to assess for right hemispheric lesion and to assess for right cerebral versus right subcortical infarct 7. Recommend obtaining carotid duplex study to assess for carotid or vertebral artery stenosis 8. Recommend 2D echocardiogram to assess for embolic source for TIA's 9. Recommend occupational therapy, speech therapy and physical therapy consults 10. Please give patient and patient's stroke pamphlet 11. Follow-up pending labs performed in the emergency department 12. Consider obtaining labs for thyroid profile, magnesium if not already performed recently (2) Facial twitching: (3) Muscle twitching: (4) Paresthesia: (5) Paresthesia and pain of left extremity: Consult Attestations Medical Necessity Statement: The patient was evaluated by neurology secondary to code stroke emergency department room #2/acute care Coding Level of Care Code 60380 Diagnoses TIA involving right internal carotid artery G45.1 Facial twitching G51.4 Muscle twitching R25.3 Paresthesia R20.2 Paresthesia and pain of left extremity M79.609; R20.2
[2024-03-24 17:36] LABS: INR 1.01 (0.8-1.2); Partial Thromboplastin Time 26.2 SECONDS (23.9-36.7)
[2024-03-24 17:37] LABS: Alanine Aminotransferase 17 U/L (0-41); Albumin Level 4.4 g/dL (3.5-5.2); Alkaline Phosphatase 65 U/L (40-130); Aspartate Amino Transferase 21 U/L (0-40); Blood Urea Nitrogen 8 mg/dL (6-20); Calcium 9.3 mg/dL (8.5-10.5); Carbon Dioxide 27 mmol/L (22-29); Chloride 102 mmol/L (98-107); Creatinine Clr Calc Pharmacy 141.5931; Globulin 2.5 g/dL (1.3-4.6); Glucose 99 mg/dL (65-115); Osmolality Calculated 290 mOsm/kg (285-295); Sodium 141 mmol/L (136-145); Total Bilirubin 0.4 mg/dL (0.15-1.2); Total Protein 6.9 g/dL (6.6-8.7)
--- NOTE | 2024-03-24 18:07 | PM.HP ---
Providers/Chief Complaint Primary Care Provider: Brandt Tinajero Chief Complaint: stroke like symptoms History of Present Illness Avinash Limon is a 33 year old male who has history of opiate addiction, muscular dystrophy, FS HD muscular dystrophy, hypertension, chronic bradycardia presented today with chief complaint of left-sided numbness and weakness. Patient stating around 2:30 PM he was spending time with his dog he was washing his dog when he start experiencing his symptoms. Code stroke was called NIH was 2 he was not a tPA candidate Dr. Gallego recommended MRI and EEG for concern related to muscle twitching. Patient is stating that he feels anxious to 3 times a week and takes diazepam for his anxiety and muscle relaxant. This morning he took 1 dose as well. Patient stating that he was stressed out today. But he is denying suicidal ideation panic attack or anxiety at the time of my evaluation. Patient stating that he always stays bradycardic never had an issue with it, served in in [place], spent few months in the hospital after his service and became opiate addiction currently on diazepam only for muscle relaxant and anxiety. Review of Systems Const: Denies: fever(s) Eyes: Denies: change in vision ENMT: Denies: throat pain Card: Denies: chest pain Resp: Denies: dyspnea GI: Denies: abdominal pain : Denies: flank pain Medications/Allergies Home Medications Medication Instructions Recorded Confirmed Last Taken Type diazepam 5 mg tablet 5 mg PO BID PRN Anxiety 05/26/20 11/25/23 Unknown History hydrochlorothiazide 12.5 mg capsule 12.5 mg PO DAILY 05/26/20 11/25/23 Unknown History methocarbamol 500 mg tablet 500 mg PO TID 05/26/20 11/25/23 Unknown History polyethylene glycol 3350 17 17 g PO DAILY PRN constipation 10/05/21 11/25/23 Unknown Rx gram/dose oral powder (Miralax) #119 grams losartan 100 mg tablet 100 mg PO DAILY 12/19/21 11/25/23 Unknown History mupirocin 2 % topical ointment 1 applic topical TID 10 days #22 08/28/22 11/25/23 Unknown Rx grams ondansetron 4 mg disintegrating 4 mg PO Q6H PRN nausea and 12/07/22 11/25/23 Unknown Rx tablet vomiting #14 tabs cyclobenzaprine 10 mg tablet 10 mg PO BID PRN muscle spasm and 01/04/23 11/25/23 Unknown Rx pain #20 tabs codeine 10 mg-guaifenesin 100 mg/5 5 ml PO Q4H #120 mL 08/08/23 11/25/23 Unknown Rx mL oral liquid (G Tussin AC) Allergies Allergy/AdvReac Type Severity Reaction Status Date / Time bee venom protein (honey bee) Allergy ALGY-Anaphy Verified 03/24/24 16:38 laxis PFSH Acute PFSH: Medical History Chronic back pain Muscular dystrophy Hypertension Surgical History Status post laparoscopic cholecystectomy (09/19/21) 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 claean for 7 years. 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 estimated right otherwise good muscle strength upper and lower extremities Awake and alert Facial numbness left side Patient has paresthesia left side of face and skull No ringing sensation No hearing deficit EOMI, PERRLA Bradycardic Hypertension Currently on room air Obese male Data 03/24/24 16:40 03/24/24 17:14 A&P Assessment and plan (1) Hypertension: (2) TIA involving right internal carotid artery: (3) Facial twitching: (4) Paresthesia: (5) Muscle twitching: Plan TIA Will request MRI head and EEG Will continue with diazepam and Ativan for anxiety and muscle relaxant Request D-dimer, check TSH, request B12 level NIH 0 at the time of my evaluation Pleasant cooperative Hypertensive will optimize antihypertensive regimen Patient states he remains bradycardic never had any issues with that Full code Regular diet DVT prophylaxis added Add aspirin Attestations Medical Necessity Statement*: Anticipating discharge within 48 hours Diagnoses Hypertension I10 TIA involving right internal carotid artery G45.1 Facial twitching G51.4 Paresthesia R20.2 Muscle twitching R25.3
[2024-03-24 18:38] LABS: D Dimer 0.34 ug/mLFEU (0-0.59)
--- NOTE | 2024-03-24 19:41 | PC.NURSE ---
pt is continent of b/b. pt changed into hospital gown.
[2024-03-24 19:42] LABS: Charge for UA Resulting for Rev
[2024-03-24 19:46] LABS: Bilirubin Urine Negative (Negative); Blood Urine Negative (Negative); Glucose Urine UA Negative (Normal); Ketones Urine Negative (Negative); Leukocyte Esterase Urine Negative (Negative); Nitrate Urine Negative (Negative); Protein Urine Negative (Negative); Specific Gravity, Urine 1.009 (1.005-1.030); Urine Appearance Clear (CLEAR); Urine Color Yellow (Yellow); pH Urine 8.5 (5-7)
[2024-03-24 19:51] LABS: Bacteria Urine None Seen /hpf; Hyaline Casts Urine 0-4 /lpf; RBC Urine 0-2 /hpf (0-2); Squamous Epithelial Cell Urine 0-5 /hpf (0-5); WBC Urine 0-5 /hpf (0-5)
[2024-03-24 19:53] LABS: Amphetamines Screen Urine Negative (Negative); Barbiturates Screen Urine Negative (Negative); Benzodiazepines Screen Urine Positive (Negative); Cocaine Screen Urine Negative (Negative); Opiate Screen Urine Negative (Negative); PCP Screen Urine Negative (Negative); THC Screen Urine Negative (Negative)
--- NOTE | 2024-03-24 20:14 | PC.NURSE ---
this nurse called med surg to give pt report, Nhi states that nurse Suzan will call back for report. this nurse called at 2013.
--- NOTE | 2024-03-24 20:28 | PC.NURSE ---
pt report called to Suzan at 2026.
--- NOTE | 2024-03-24 21:49 | PC.NURSE ---
Addendum entered by Jackelyn Melendez RN 03/25/24 00:16: Only able to verify 3 of patients home medications, as he had those medications with him. Original Note: Patient verbally tells me that he takes Diazepam, Spirnolactone, Hydrochlorothiazide, Suboxone, Losartan, and Methocarbamol. Unable to verify these and patient is unable to give me the doses.
[2024-03-24] MEDS: enoxaparin 40 mg/0.4 mL Syringe SUBCUT (22:12)
[2024-03-25] VITALS (11 sets, daily range): BP systolic 129–150; BP diastolic 79–96; PULSE 49–63; RESP 16; TEMP 36.7–36.8; O2SAT 95–99
[2024-03-25] LABS: Thyroid Stimulating Hormone 0.75 uIU/mL (0.27-4.20); Vitamin B12 450 pg/mL (232-1245)
[2024-03-25 05:34] LABS: Basophils % 0.3 %; Eosinophils % 0.5 %; Hematocrit 37.5 % (37-53); Lymphocytes # 1.6 10^3/uL (0.8-4.8); Mean Corpuscular HGB Conc 33.1 g/dL (30-55); Mean Corpuscular Hemoglobin 31.5 pg (27-33); Mean Corpuscular Volume 95.2 fl (82-101); Mean Platelet Volume 9.8 fL (7.4-10.4); Monocytes # 0.4 10^3/uL (0.2-0.9); Monocytes % 6.2 %; Neutrophils # 3.99 10^3/uL (1.8-7.7); Neutrophils % 66.7 %; Nucleated Red Blood Cells % 0 %; Platelet Count 188 10^3/cmm (157-399); Red Blood Count 3.94 10^6/uL (3.85-5.65); Red Cell Distribution Width 12.6 % (12.1-15.1); White Blood Count 5.99 10^3/uL (3.29-11.43)
[2024-03-25 06:03] LABS: Anion Gap 14.2 (5-19); Blood Urea Nitrogen 7 mg/dL (6-20); Calcium 8.9 mg/dL (8.5-10.5); Carbon Dioxide 25 mmol/L (22-29); Chloride 102 mmol/L (98-107); Glucose 90 mg/dL (65-115); Osmolality Calculated 282 mOsm/kg (285-295); Phosphorus 3.6 mg/dL (2.5-4.5); Potassium 4.2 mmol/L (3.5-5.1); Sodium 137 mmol/L (136-145)
--- NOTE | 2024-03-25 07:27 | PC.PHAR ---
PT IS [facility] FOR CUR[facility] MED LIST 03/25/24 7:28AM. PARTIAL MED REC DONE, COMPLETION PENDING [facility] L[facility].
--- NOTE | 2024-03-25 08:41 | P.DS_ITS ---
Discharge Providers Date of Admission: 03/24/24 20:01 Date of Discharge: March 25, 2024 Attending Provider at Admission: Lady aWtkins MD Attending Provider at Discharge: Lady Watkins MD Primary Care Provider: Brandt Tinajero Diagnoses at Discharge Discharge Diagnosis (1) Hypertension: Status: Acute (2) TIA involving right internal carotid artery: Status: Acute (3) Facial twitching: Status: Acute (4) Paresthesia: Status: Acute (5) Muscle twitching: Status: Acute Reason for Visit Reason for Visit: stroke like symptoms Hospital Course Hospital Course 33-year-old male who present to the hospital with left-sided facial numbness, numbness and tingling of upper extremity, patient was not showing any signs of meningitis, he takes diazepam for his muscular dystrophy, he is , does not smoke or drink alcohol, has chronic history of bradycardia, remained hemodynamically stable in the hospital, head CT unremarkable, drug screen unremarkable, he was evaluated by neurologist as well his anion score was only 2, EEG and had MRI was requested by neurologist. Patient remained hemodynamically stable. Patient kept endorsing numbness and tingling sensation back of his neck and left arm. He is not endorsing chest pain, shortness of breath, recent diarrhea or vomiting. Patient is stating that he gets blurry vision for few seconds but never had any significant abnormalities that he is concerned of. He is able to walk on his own independently. On clinical exam there is no significant peripheral vision abnormality. Patient's EKG showing sinus bradycardia. His blood pressure remained stable. No signs of confusion shortness of breath or chest pain. Physical Exam Narrative: NIH 2 for numbness and tingling, Sinus bradycardia with normal hemodynamics Pleasant and cooperative EOMI No signs of meningitis S1, S2 bradycardia Abdomen soft on room air Discharge Data Studies Completed and Pending Completed Studies During Hospitalization Category Date Time Status CT head thrombolytic [id number] Stat Cat Scan 03/24/24 16:23 Completed Pending at discharge Category Date Time Status EEG electroencephalogram Routine Exams 03/24/24 21:25 Ordered MR head wo con* [id number] Routine MRI 03/25/24 09:30 Ordered Radiology Impressions Head CT 03/24/24 16:23 IMPRESSION: No acute intracranial pathology. ASSESSMENT: ASPECTS (Chasity Stroke Program Early CT Score) is 10. Laboratory Results WBC 5.99 10^3/uL (3.29-11.43) 03/25/24 05:15 RBC 3.94 10^6/uL (3.85-5.65) 03/25/24 05:15 Hgb 12.40 g/dL (11.27-16.99) 03/25/24 05:15 Hct 37.5 % (37-53) 03/25/24 05:15 MCV 95.2 fl (82-101) 03/25/24 05:15 MCH 31.5 pg (27-33) 03/25/24 05:15 MCHC 33.1 g/dL (30-55) 03/25/24 05:15 RDW 12.6 % (12.1-15.1) 03/25/24 05:15 Plt Count 188 10^3/cmm (157-399) 03/25/24 05:15 MPV 9.8 fL (7.4-10.4) 03/25/24 05:15 Neut % (Auto) 66.7 % 03/25/24 05:15 Lymph % (Auto) 26.0 % 03/25/24 05:15 [place] % (Auto) 6.2 % 03/25/24 05:15 Eos % (Auto) 0.5 % 03/25/24 05:15 Baso % (Auto) 0.3 % 03/25/24 05:15 Neut # (Auto) 3.99 10^3/uL (1.8-7.7) 03/25/24 05:15 Lymph # (Auto) 1.6 10^3/uL (0.8-4.8) 03/25/24 05:15 [place] # (Auto) 0.4 10^3/uL (0.2-0.9) 03/25/24 05:15 Eos # (Auto) 0.0 10^3/uL (0.0-0.8) 03/25/24 05:15 Baso # (Auto) 0.0 10^3/uL (0.0-0.1) 03/25/24 05:15 Nucleated RBC % (auto) 0 % 03/25/24 05:15 Nucleated RBCs # 0.0 /100WBC 03/25/24 05:15 PT 13.60 SECONDS (12.1-14.9) 03/24/24 17:14 INR 1.01 (0.8-1.2) 03/24/24 17:14 APTT 26.2 SECONDS (23.9-36.7) 03/24/24 17:14 D-Dimer 0.34 ug/mLFEU (0-0.59) 03/24/24 18:10 Sodium 137 mmol/L (136-145) 03/25/24 05:15 Potassium 4.2 mmol/L (3.5-5.1) 03/25/24 05:15 Chloride 102 mmol/L (98-107) 03/25/24 05:15 Carbon Dioxide 25 mmol/L (22-29) 03/25/24 05:15 Anion Gap 14.2 (5-19) 03/25/24 05:15 BUN 7 mg/dL (6-20) 03/25/24 05:15 Creatinine 0.9 mg/dL (0.7-1.2) 03/25/24 05:15 GFR Calculation 96.0 mL/min (90-130) 03/25/24 05:15 Glucose 90 mg/dL (65-115) 03/25/24 05:15 POC Glucose 87 mg/dL (70-110) 03/24/24 16:24 Calculated Osmolality 282 mOsm/kg (285-295) L 03/25/24 05:15 Calcium 8.9 mg/dL (8.5-10.5) 03/25/24 05:15 Phosphorus 3.6 mg/dL (2.5-4.5) 03/25/24 05:15 Magnesium 2.0 mg/dL (1.7-2.3) 03/25/24 05:15 Total Bilirubin 0.4 mg/dL (0.15-1.2) 03/24/24 17:14 AST 21 U/L (0-40) 03/24/24 17:14 ALT 17 U/L (0-41) 03/24/24 17:14 Alkaline Phosphatase 65 U/L (40-130) 03/24/24 17:14 C-Reactive Protein 3.0 mg/L (0.0-4.9) 03/25/24 05:15 Total Protein 6.9 g/dL (6.6-8.7) 03/24/24 17:14 Albumin 4.4 g/dL (3.5-5.2) 03/24/24 17:14 Globulin 2.5 g/dL (1.3-4.6) 03/24/24 17:14 Vitamin B12 450 pg/mL (232-1245) 03/24/24 17:06 TSH 0.75 uIU/mL (0.27-4.20) 03/24/24 17:06 Urine Color Yellow (Yellow) 03/24/24 19:24 Urine Appearance Clear (CLEAR) 03/24/24 19:24 Urine pH 8.5 (5-7) A 03/24/24 19:24 Ur Specific [place] 1.009 (1.005-1.030) 03/24/24 19:24 Urine Protein Negative (Negative) 03/24/24 19:24 Urine Glucose (UA) Negative (Normal) 03/24/24 19:24 Urine Ketones Negative (Negative) 03/24/24 19:24 Urine Blood Negative (Negative) 03/24/24 19:24 Urine Nitrate Negative (Negative) 03/24/24 19:24 Urine Bilirubin Negative (Negative) 03/24/24 19:24 Urine Urobilinogen 1.0 mg/dL (Negative) 03/24/24 19:24 Ur Leukocyte Esterase Negative (Negative) 03/24/24 19:24 Urine RBC 0-2 /hpf (0-2) 03/24/24 19:24 Urine WBC 0-5 /hpf (0-5) 03/24/24 19:24 Ur Squamous Epith Cells 0-5 /hpf (0-5) 03/24/24 19:24 Amorphous Sediment Not Reportable 03/24/24 19:24 Urine Bacteria None seen /hpf (NONE) 03/24/24 19:24 Hyaline Casts 0-4 /lpf H 03/24/24 19:24 Urine Opiates Screen Negative ng/mL (Negative) 03/24/24 19:24 Ur Barbiturates Screen Negative ng/mL (Negative) 03/24/24 19:24 Ur Phencyclidine Scrn Negative ng/mL (Negative) 03/24/24 19:24 Ur Amphetamines Screen Negative ng/mL (Negative) 03/24/24 19:24 U Benzodiazepines Scrn Positive ng/mL (Negative) H 03/24/24 19:24 Urine Cocaine Screen Negative ng/mL (Negative) 03/24/24 19:24 U Marijuana (THC) Screen Negative ng/mL (Negative) 03/24/24 19:24 Vitals Last Vital Signs Temp 98.3 F 03/25/24 07:22 Pulse 53 L 03/25/24 07:22 Resp 16 03/25/24 07:22 BP 129/88 03/25/24 07:22 Pulse Ox 95 03/25/24 07:22 O2 Del Method Room Air 03/25/24 07:22 Discharge Plan Discharge Patient Disposition: Home Condition: Stable Prescriptions: New hydralazine 25 mg tablet 25 mg PO BID Qty: 60 4RF aspirin 81 mg Tablet,Delayed Release (Dr/Ec) 81 mg PO DAILY Qty: 30 4RF Continued diazepam 5 mg tablet 5 mg PO TID PRN (Reason: Anxiety) losartan 100 mg tablet 100 mg PO DAILY polyethylene glycol 3350 [Miralax] 17 gram/dose powder 17 g PO DAILY PRN (Reason: constipation) Qty: 119 0RF buprenorphine HCl 8 mg Tablet, Sublingual 12 mg SUBLINGUAL BID clonidine HCl 0.1 mg Tablet 0.15 mg PO DAILY cetirizine 10 mg Tablet 10 mg PO DAILY meloxicam 15 mg tablet 15 mg PO DAILY hydrochlorothiazide 25 mg Tablet 12.5 mg PO DAILY EpiPen 2-[place] 0.3 mg/0.3 mL Auto-Injector 0.3 mg IM Q4H PRN (Reason: Allergic Reaction) Discharge Orders: Discharge Order (Routine); Ordered 03/25/24 Ordered By: Lady Watkins Referrals: Wilmer Gallego MD [Physician] - 7-10 days (We have notified your physician's clinic of the need for a follow-up appointment to be scheduled. If you have not heard from them within the next 2 business days, please call them directly. ) Brandt Tinajero [Primary Care Provider] - Patient Instructions: Opioid Safety Discharge Attestations Time Spent in Discharge Care*: greater than 30 min Quality Metrics Clinical Quality Measures [ No reported AMI, CVA or VTE this stay] Coding Level of Care Code Acute Code for Chg Fwd Diagnoses Hypertension I10 TIA involving right internal carotid artery G45.1 Facial twitching G51.4 Paresthesia R20.2 Muscle twitching R25.3
--- NOTE | 2024-03-25 09:14 | PC.CHAP ---
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 [] Patient/Family/Request visit [] Outpatient visit [] Follow-up visit [] Physician referral [] Code/Alert [x] Routine visit [] Staff referral [] Actively dying [] Patient sleeping [x] Family support [] [] Out of room [] Palliative care [] [] Receiving care in room [] Pre-surgical visit [] Trauma [] Long length of stay [] ICU visit [] Other: Relational/Emotional Strength [x] Patient feels connected with others/family/visitors/staff [] Distress [] Loneliness/isolation [] Abandonment Spirituality of Patient [x] Person of Annette [] Attends Scientologist of their Annette [x] Believes in Prayer [] Reads Bible or Scientology materials [] There are Spiritual issues to be addressed A P Mechanic Interventions [x Prayer [x] Active listening [] Non-anxious presence [x] Spiritual/emotional support [] Crisis/trauma care [] Spiritual counseling [] Bereavement support [] Provided bereavement packet [] Provided Bible/devotional materials [] Provided toy/stuffed animal, coloring book to patient or family member [] Provided Communion [] Anointing/[place] [] Salvation [x] Completed spiritual assessment [] Other: Impact on Illness or Injury [] Angry [] Fearful [] Anxious [] Often cries [] Exhaustion [] Unable to work [] Unable to attend zoroastrianism [] Unable to walk/stand [] Unable to read [] Unable to drive [] Unable to eat/drink [] Unable to sleep [] Unable to be with family [] Patient intubated [] Other: Summary Time spent with patient 5 min
[2024-03-25] MEDS: aspirin 81 mg EC Tablet PO (09:16)
[2024-03-25] MEDS: sennosides-docusate Tablet 1 TAB PO (09:16)
--- NOTE | 2024-03-25 09:30 | MR_ITS ---
WS: [id number] MRI BRAIN WITHOUT CONTRAST HISTORY: stroke COMPARISON: None available. TECHNIQUE: Diffusion imaging, multiplanar T1, T2 and FLAIR imaging obtained. No evidence for acute infarct or hemorrhage. Parekh-white matter differentiation is normal. No remote or acute infarcts are volume loss. Ventricles and extra-axial spaces are normal. No inferior displacement of cerebellar tonsils. The sella turcica and pituitary gland are unremarkabl e. Dural venous sinuses and [place] demonstrate no abnormality on this unenhanced studies. Paranasal sinuses: Small mucous retention cyst in the LEFT maxillary sinus. No air-fluid levels. Mastoid air cells: Normal. Calvarium and scalp: Intact. MR/MR head wo con* [id number] IMPRESSION: 1. Normal diffusion imaging. No acute infarct. 2. No prior infarct or white matter disease. No hemorrhage. 3. Normal ventricles.
--- NOTE | 2024-03-25 09:36 | PC.PHAR ---
SEVERAL MEDICATIONS > THAN 1 YEAR OLD WERE REMOVED THAT WERE NOT ON [facility] MED LIST. ROBITUSSIN AC, ROBAXIN 500MG, FLEXERIL 10MG, MUPIROCIN OINT, AND ZOFRAN 4MG.
[2024-03-25] MEDS: hydroCHLOROthiazide 25 mg Tablet 12.5 MG PO (10:21)
[2024-03-25] MEDS: losartan 50 mg Tablet 100 MG PO (10:21)
--- NOTE | 2024-03-25 14:10 | PC.SOCIAL ---
Pt has [facility] Insurance [facility] No needs noted for CM.
--- NOTE | 2024-03-25 15:56 | PC.NURSE ---
Discussed discharge with patient and spouse. Discussed new medications, follow up appointments, how important blood pressure is with blood pressure medications, gave stroke information booklet and discussed stroke stop light. Patient and spouse verbalized understanding.
== END 2024-03-25 14:45 | disposition home or self-care (01) ==
LOC: ER 18:08 → MEDSURG 20:01
PROVIDERS: Admitting Provider Internal Medicine; Emergency Provider Emergency Medicine; PCP Family Medicine; Visit Provider Internal Medicine
DX: I10 Essential (primary) hypertension (principal); G45.1 Carotid artery syndrome (hemispheric); G51.4 Facial myokymia; R20.2 Paresthesia of skin; R25.3 Fasciculation; F11.11 Opioid abuse, in remission; G71.00 Muscular dystrophy, unspecified; R00.1 Bradycardia, unspecified; F41.9 Anxiety disorder, unspecified; Z87.891 Personal history of nicotine dependence; M79.605 Pain in left leg
CPT/HCPCS: 36415; 36416; 70450; 70551; 80048; 80053; 80306; 81003; 81015; 82607; 82962; 83735; 84100; 84443; 85025; 85378; 85610; 85730; 86140; 93005; 96372; 97116; 97161; 97165; 99285; G0378; J1650

== ENCOUNTER 2024-05-19 20:00 | Outpatient (CLI) | payer OTHER, SELFPAY | END 2024-05-19 20:01 | disposition home or self-care (01) | LOC: SLEEP 22:41 | PROVIDERS: PCP Family Medicine; Visit Provider Family Medicine | DX: G47.33 Obstructive sleep apnea (adult) (pediatric) (principal) | CPT/HCPCS: 95810 ==

== ENCOUNTER → 2024-08-15 12:56 | Outpatient (BNVA) | payer MEDICARE, SELFPAY | PROVIDERS: PCP Family Medicine; Visit Provider Emergency Medicine | DX: R50.9 Fever, unspecified (principal) | CPT/HCPCS: 87400 ==

== ENCOUNTER 2024-08-19 16:35 | Emergency (ER) | payer MEDICARE, SELFPAY ==
[2024-08-19 16:41] VITALS: BP 145/100; PULSE 72; TEMP 36.8; O2SAT 94; BMI 30.4
--- NOTE | 2024-08-19 18:29 | XRR_ITS ---
PROCEDURE INFORMATION: Exam: XR Chest Exam date and time: 08/19/2024 6:58 PM Age: 33 years old Clinical indication: Cough TECHNIQUE: Imaging protocol: Radiologic exam of the chest. Views: 2 views. COMPARISON: CR XR chest 1V portable [id number] 08/07/2023 11:44 PM FINDINGS: Lungs: Bibasilar atelectasis. No lobar consolidation. Pleural spaces: Unremarkable. No pleural effusion. No pneumothorax. Heart/Mediastinum: Unremarkable. No cardiomegaly. Bones/joints: Unremarkable. XR/XR chest 2V* [id number] IMPRESSION: As above.
--- NOTE | 2024-08-19 18:36 | ED_ITS ---
HPI - Nausea/Vomiting/Diarrhea 2 General: Chief complaint: Nausea/Vomiting/Diarrhea Stated complaint: fever, vomit Time Seen by Provider: 08/19/24 18:23 History of Present Illness: 33-year-old male presents with nausea, v omiting, fever, cough and generalized malaise has been going on for about 4 days. Patient reports he is having a hard time keeping anything down. Reports that his fever does respond appropriately to Tylenol and ibuprofen. Associated nausea: Yes Associated symtoms: Reports fatigue, headache(s), malaise and nausea; Denies chest pain or palpitations Related Data Home Medications Medication Instructions Recorded Confirmed diazepam 5 mg tablet 5 mg PO TID PRN Anxiety 05/26/20 08/15/24 losartan 100 mg tablet 100 mg PO DAILY 12/19/21 08/15/24 buprenorphine HCl 8 mg sublingual 12 mg sublingual BID 03/24/24 08/15/24 tablet cetirizine 10 mg tablet 10 mg PO DAILY 03/25/24 08/15/24 epinephrine 0.3 mg/0.3 mL 0.3 mg IM Q4H PRN Allergic Reaction 03/25/24 08/15/24 injection, auto-injector (EpiPen 2-Gentry) Previous Rx's Medication Instructions Recorded aspirin 81 mg tablet,delayed 81 mg PO DAILY #30 tabs 03/25/24 release amoxicillin 500 mg tablet 1,000 mg (2 x 500 mg) PO BID 10 08/15/24 days #40 tabs ondansetron 4 mg disintegrating 4 mg PO Q6H PRN nausea and 08/19/24 tablet vomiting #20 tabs Allergies Allergy/AdvReac Type Severity Reaction Status Date / Time bee venom protein (honey bee) Allergy ALGY-Anaphy Verified 08/19/24 16:46 laxis Opioids - Morphine Analogues Allergy Unknown Verified 08/19/24 16:46 Review of Systems 2 Const: Reports: fever(s), chills, body aches, fatigue and malaise Card: Denies: chest pain or palpitations Resp: Reports: non-productive cough; Denies: dyspnea GI: Reports: nausea and vomiting; Denies: abdominal pain : Denies: flank pain or difficulty urinating Neuro: Reports: headache(s) PFSH ED 2 PFSH: Medical History Paresthesia and pain of left extremity Paresthesia Muscle twitching Facial twitching TIA involving right internal carotid artery Chronic back pain Muscular dystrophy Hypertension Surgical History Status post laparoscopic cholecystectomy (09/19/21) 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 claean for 7 years. service: Yes (out 2012) status: Medically Discharged/Retired branch: [employer] Physical Exam 2 Const: COMMON NORMALS: no acute distress, patient oriented x3, alert and well nourished Resp: COMMON NORMALS: normal respiratory effort, No use of accessory muscles and clear to auscultation bilaterally AUSCULTATION: clear to auscultation bilaterally Cardio: COMMON NORMALS: regular rate and regular rhythm RATE: regular rate RHYTHM: regular rhythm GI: COMMON NORMALS: Soft to palpation and non-tender PALPATION: Yes Soft to palpation Neuro: COMMON NORMALS: patient oriented x3 SENSORIUM/ORIENTATION: Yes alert Psych: COMMON NORMALS: mental status grossly normal, Normal thought process present and cooperative THOUGHT PROCESS: Normal thought process present Skin: COMMON NORMALS: no rashes or lesions noted GENERAL SKIN EXAM: no rashes or lesions noted Course 2 Vital Signs: Vital signs: Vital Signs Temperature 98.3 F 08/19/24 16:41 Pulse Rate 53 L 08/19/24 20:55 Respiratory Rate 17 08/19/24 20:22 Blood Pressure 129/92 08/19/24 20:55 Pulse Oximetry 97 08/19/24 20:55 Oxygen Delivery Me thod Room Air 08/19/24 20:22 MDM - Nausea/Vomiting/Diarrhea Medical Decision Making Patient's diagnostics as ordered reviewed and interpreted by me. Patient's positive for influenza A. Symptoms started 4 days ago so he is outside treatment window for Tamiflu. Discussed with him supportive care. I will prescribe him some Zofran to help with his nausea. Patient is stable and discharged home Lab Data 08/19/24 19:07 08/19/24 19:07 Radiology Impressions Chest X-Ray 08/19/24 18:29 IMPRESSION: As above. Laboratory Results WBC 11.51 10^3/uL (3.29-11.43) H 08/19/24 19:07 RBC 4.15 10^6/uL (3.85-5.65) 08/19/24 19:07 Hgb 13.10 g/dL (11.27-16.99) 08/19/24 19:07 Hct 39.9 % (37-53) 08/19/24 19:07 MCV 96.1 fl (82-101) 08/19/24 19:07 MCH 31.6 pg (27-33) 08/19/24 19:07 MCHC 32.8 g/dL (30-55) 08/19/24 19:07 RDW 12.9 % (12.1-15.1) 08/19/24 19:07 Plt Count 175 10^3/cmm (157-399) 08/19/24 19:07 MPV 10.2 fL (7.4-10.4) 08/19/24 19:07 Neut % (Auto) 88.4 % 08/19/24 19:07 Lymph % (Auto) 6.0 % 08/19/24 19:07 Dane % (Auto) 5.1 % 08/19/24 19:07 Eos % (Auto) 0.0 % 08/19/24 19:07 Baso % (Auto) 0.2 % 08/19/24 19:07 Neut # (Auto) 10.17 10^3/uL (1.8-7.7) H 08/19/24 19:07 Lymph # (Auto) 0.7 10^3/uL (0.8-4.8) L 08/19/24 19:07 Dane # (Auto) 0.6 10^3/uL (0.2-0.9) 08/19/24 19:07 Eos # (Auto) 0.0 10^3/uL (0.0-0.8) 08/19/24 19:07 Baso # (Auto) 0.0 10^3/uL (0.0-0.1) 08/19/24 19:07 Nucleated RBC % (auto) 0 % 08/19/24 19:07 Nucleated RBCs # 0.0 /100WBC 08/19/24 19:07 Sodium 141 mmol/L (136-145) 08/19/24 19:07 Potassium 4.4 mmol/L (3.5-5.1) 08/19/24 19:07 Chloride 101 mmol/L (98-107) 08/19/24 19:07 Carbon Dioxide 29 mmol/L (22-29) 08/19/24 19:07 Anion Gap 15.4 (5-19) 08/19/24 19:07 BUN 15 mg/dL (6-20) 08/19/24 19:07 Creatinine 0.8 mg/dL (0.7-1.2) 08/19/24 19:07 GFR Calculation 110.0 mL/min (90-130) 08/19/24 19:07 Glucose 89 mg/dL (65-115) 08/19/24 19:07 Calculated Osmolality 292 mOsm/kg (285-295) 08/19/24 19:07 Calcium 9.7 mg/dL (8.5-10.5) 08/19/24 19:07 Total Bilirubin 0.5 mg/dL (0.15-1.2) 08/19/24 19:07 AST 24 U/L (0-40) 08/19/24 19:07 ALT 23 U/L (0-41) 08/19/24 19:07 Alkaline Phosphatase 61 U/L (40-130) 08/19/24 19:07 Total Protein 7.6 g/dL (6.6-8.7) 08/19/24 19:07 Albumin 4.1 g/dL (3.5-5.2) 08/19/24 19:07 Globulin 3.5 g/dL (1.3-4.6) 08/19/24 19:07 Lipase 19 U/L (13-60) 08/19/24 19:07 Coronavirus 229E (PCR) Not detected (NOT DETECT) 08/19/24 19:18 Influenza A (H1) PCR Not detected (NOT DETECT) 08/19/24 21:16 Influ A (H1/09) PCR Detected (NOT DETECT) A 08/19/24 21:16 Influenza A (H3) PCR Not detected (NOT DETECT) 08/19/24 21:16 Influenza Type A Ag positive (Negative) H 08/19/24 19:18 Influenza Type A (PCR) Detected (NOT DETECT) A 08/19/24 21:16 Influenza Type B Ag negative (Negative) 08/19/24 19:18 Influenza Type B (PCR) Not detected (NOT DETECT) 08/19/24 21:16 SARS-CoV-2 (PCR) Not detected (NOT DETECT) 08/19/24 19:18 All radiology interpretation(s) finalized by discharge Discharge Plan Discharge Patient Disposition: Home Clinical Impression: Influenza A Condition: Stable Prescriptions: New ondansetron 4 mg tablet,disintegrating 4 mg PO Q6H PRN (Reason: nausea and vomiting) Qty: 20 0RF No Action diazepam 5 mg tablet 5 mg PO TID PRN (Reason: Anxiety) losartan 100 mg tablet 100 mg PO DAILY amoxicillin 500 mg tablet 1,000 mg PO BID 10 Days Qty: 40 0RF buprenorphine HCl 8 mg Tablet, Sublingual 12 mg SUBLINGUAL BID aspirin 81 mg Tablet,Delayed Release (Dr/Ec) 81 mg PO DAILY Qty: 30 4RF cetirizine 10 mg Tablet 10 mg PO DAILY EpiPen 2-Gentry 0.3 mg/0.3 mL Auto-Injector 0.3 mg IM Q4H PRN (Reason: Allergic Reaction) Discharge Orders: Discharge ED (Routine); Ordered 08/19/24 Ordered By: Segundo Prater Referrals: Brandt Tinajero [Primary Care Provider] - Discharge Diet: Advance as tolerated Discharge Activity: Increase activity as tolerated Patient Instructions: Influenza (ED), Opioid Safety, Pain Management Activity Restrictions/Additional Instructions: Clear liquid diet, increase as tolerated. Please use Zofran as needed for nausea. Recommend you could try [id number] elderberry to help with symptomatic control as you are outside the recommended timeframe to start Tamiflu. Follow-up with your primary care provider as needed. 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
[2024-08-19] MEDS: ondansetron 2 mg/ML SDV 2 mL 4 MG IVP (19:14)
[2024-08-19 19:28] LABS: Influenza A by IFA positive (Negative); Influenza B by IFA negative (Negative)
[2024-08-19 19:37] LABS: Basophils % 0.2 %; Hematocrit 39.9 % (37-53); Lymphocytes # 0.7 10^3/uL (0.8-4.8); Mean Corpuscular HGB Conc 32.8 g/dL (30-55); Mean Corpuscular Hemoglobin 31.6 pg (27-33); Mean Corpuscular Volume 96.1 fl (82-101); Mean Platelet Volume 10.2 fL (7.4-10.4); Monocytes # 0.6 10^3/uL (0.2-0.9); Monocytes % 5.1 %; Neutrophils # 10.17 10^3/uL (1.8-7.7); Neutrophils % 88.4 %; Nucleated Red Blood Cells % 0 %; Platelet Count 175 10^3/cmm (157-399); Red Blood Count 4.15 10^6/uL (3.85-5.65); Red Cell Distribution Width 12.9 % (12.1-15.1); White Blood Count 11.51 10^3/uL (3.29-11.43)
[2024-08-19 20:01] LABS: Alanine Aminotransferase 23 U/L (0-41); Albumin Level 4.1 g/dL (3.5-5.2); Alkaline Phosphatase 61 U/L (40-130); Anion Gap 15.4 (5-19); Aspartate Amino Transferase 24 U/L (0-40); Blood Urea Nitrogen 15 mg/dL (6-20); Calcium 9.7 mg/dL (8.5-10.5); Carbon Dioxide 29 mmol/L (22-29); Chloride 101 mmol/L (98-107); Globulin 3.5 g/dL (1.3-4.6); Glucose 89 mg/dL (65-115); Lipase 19 U/L (13-60); Osmolality Calculated 292 mOsm/kg (285-295); Potassium 4.4 mmol/L (3.5-5.1); Sodium 141 mmol/L (136-145); Total Bilirubin 0.5 mg/dL (0.15-1.2); Total Protein 7.6 g/dL (6.6-8.7)
[2024-08-19 20:22] VITALS: BP 130/76; PULSE 53; RESP 17; O2SAT 96
[2024-08-19 20:55] VITALS: BP 129/92; PULSE 53; O2SAT 97
[2024-08-19 21:13] LABS: Adenovirus Not Detected (NOT DETECT); Chlamydia Pneumoniae Not Detected (NOT DETECT); Coronavirus 229E,HKU1,NL63,OC4 Not Detected (NOT DETECT); Human Metapneumovirus Not Detected (NOT DETECT); Human Rhinovirus/Enterovirus Not Detected (NOT DETECT); Influenza A Detected (NOT DETECT); Influenza A H1 Not Detected (NOT DETECT); Influenza A H1-2009 Detected (NOT DETECT); Influenza A H3 Not Detected (NOT DETECT); Influenza B Not Detected (NOT DETECT); Mycoplasma Pneumoniae Not Detected (NOT DETECT); Parainfluenza Virus Type 1 Not Detected (NOT DETECT); Parainfluenza Virus Type 2 Not Detected (NOT DETECT); Parainfluenza Virus Type 3 Not Detected (NOT DETECT); Parainfluenza Virus Type 4 Not Detected (NOT DETECT); Respiratory Syncytial Virus A Not Detected (NOT DETECT); Respiratory Syncytial Virus B Not Detected (NOT DETECT); SARS-COV-2 Not Detected (NOT DETECT)
[2024-08-19 21:18] LABS: Influenza A Detected (NOT DETECT); Influenza A H1 Not Detected (NOT DETECT); Influenza A H1-2009 Detected (NOT DETECT); Influenza A H3 Not Detected (NOT DETECT); Influenza B Not Detected (NOT DETECT); Results from GEN
== END 2024-08-19 20:57 | disposition home or self-care (01) ==
PROVIDERS: Emergency Provider Student in an Organized Health Care Education/Training Program; PCP Family Medicine
DX: J10.1 Influenza due to other identified influenza virus with other respiratory manifestations (principal); Z11.52 Encounter for screening for COVID-19; Z79.82 Long term (current) use of aspirin; Z87.891 Personal history of nicotine dependence; Z86.73 Personal history of transient ischemic attack (TIA), and cerebral infarction without residual deficits; I10 Essential (primary) hypertension
CPT/HCPCS: 36415; 71046; 80053; 83690; 85025; 87631; 87635; 87804; 96374; 99284; J2405

== ENCOUNTER 2024-11-22 20:01 | Emergency (ER) | payer OTHER, SELFPAY ==
[2024-11-22 20:06] VITALS: BP 168/95; PULSE 54; RESP 18; TEMP 36.6; O2SAT 98; BMI 29.7
--- NOTE | 2024-11-22 20:09 | CTR_ITS ---
PROCEDURE INFORMATION: Exam: CT Cervical Spine Without Contrast Exam date and time: 11/22/2024 9:15 PM Age: 34 years old Clinical indication: Injury or trauma; Blunt trauma; Approximate 12 foot fall off of roof landing feet first onto ground. Focal C/O low back pain. ; Additional info: Fall from roof TECHNIQUE: Imaging protocol: Computed tomography of the cervical spine without contrast. Radiation optimization: All CT scans at this facility use at least one of these dose optimization techniques: automated exposure control; mA and/or kV adjustment per patient size (includes targeted exams where dose is matched to clinical indication); or iterative reconstruction. COMPARISON: CT head wo con* [id number] 11/22/2024 9:12 PM RADIATION DOSE METRICS: Total DLP (mGy-cm): 462.97 FINDINGS: Bones: No cervical spine fracture. No subluxation or prevertebral swelling. Incidental incomplete posterior bony fusion of the C1 ring. No significant central stenosis. Lungs: The lung apices are not included in the field of view. Soft tissues: Unremarkable. CT/CT cervical spin wo con* [id number] IMPRESSION: No significant cervical spine findings
--- NOTE | 2024-11-22 20:09 | XRR_ITS ---
PROCEDURE INFORMATION: Exam: XR Right Femur Exam date and time: 11/22/2024 8:59 PM Age: 34 years old Clinical indication: Lower leg; Right; Bilateral hip/ lower ext pain post fall from roof TECHNIQUE: Imaging protocol: Radiologic exam of the right femur. Views: 2 views. COMPARISON: CR (PELVIS, ) 11/22/2024 8:51 PM FINDINGS: Bones/joints: Unremarkable. No acute fracture. Soft tissues: Unremarkable. XR/XR femur RT min 2V* [id number] IMPRESSION: No acute findings.
--- NOTE | 2024-11-22 20:09 | CTR_ITS ---
PROCEDURE INFORMATION: Exam: CT Lumbar Spine Without Contrast Exam date and time: 11/22/2024 9:22 PM Age: 34 years old Clinical indication: Injury or trauma; Blunt trauma (contusions or hematomas); Approximate 12 foot fall off of roof landing feet first onto ground. Focal C/O low back pain. ; Additional info: Fall from roof. Landed on feet and rolled. Back pain, unable to stand TECHNIQUE: Imaging protocol: Computed tomography of the lumbar spine without contrast. Radiation optimization: All CT scans at this facility use at least one of these dose optimization techniques: automated exposure control; mA and/or kV adjustment per patient size (includes targeted exams where dose is matched to clinical indication); or iterative reconstruction. COMPARISON: CR XR lumbar spine 2-3V* [id number] 05/08/2019 9:39 AM RADIATION DOSE METRICS: Total DLP (mGy-cm): 880.4 FINDINGS: Bones/joints: No acute fracture. Normal alignment. No significant disc bulge or herniation. No severe spinal canal stenosis. No significant neural foraminal narrowing. Soft tissues: Unremarkable. CT/CT lumbar spine wo con* [id number] IMPRESSION: No acute findings.
--- NOTE | 2024-11-22 20:09 | XRR_ITS ---
PROCEDURE INFORMATION: Exam: XR Pelvis Exam date and time: 11/22/2024 8:51 PM Age: 34 years old Clinical indication: Hip pain; Bilateral hip/ lower ext pain post fall from roof; Additional info: Bilateral lower ext pain post fall from roof TECHNIQUE: Imaging protocol: Radiologic exam of the pelvis. Views: 1 or 2 view. COMPARISON: CT abdomen pelvis w con* [id number] 10/05/2021 12:03 AM FINDINGS: Bones/joints: Unremarkable. No acute fracture. Soft tissues: Unremarkable. XR/XR pelvis 1-2V* [id number] IMPRESSION: No acute findings.
--- NOTE | 2024-11-22 20:09 | XRR_ITS ---
PROCEDURE INFORMATION: Exam: XR Right Tibia and Fibula Exam date and time: 11/22/2024 9:00 PM Age: 34 years old Clinical indication: Lower leg; Bilateral hip/ lower ext pain post fall from roof TECHNIQUE: Imaging protocol: Radiologic exam of the right tibia and fibula. Views: 2 views. COMPARISON: CR XR foot RT min 3V* [id number] 12/19/2021 2:12 PM FINDINGS: Bones/joints: Normal. Soft tissues: Normal. XR/XR tibia fibula RT 2V [id number] IMPRESSION: No acute findings.
--- NOTE | 2024-11-22 20:09 | XRR_ITS ---
PROCEDURE INFORMATION: Exam: XR Left Femur Exam date and time: 11/22/2024 8:47 PM Age: 34 years old Clinical indication: Lower leg; Bilateral lower ext pain post fall from roof TECHNIQUE: Imaging protocol: Radiologic exam of the left femur. Views: 2 views. COMPARISON: CT abdomen pelvis w con* [id number] 10/05/2021 12:03 AM FINDINGS: Bones/joints: Unremarkable. No acute fracture. Soft tissues: Unremarkable. XR/XR femur LT min 2V* [id number] IMPRESSION: No acute findings.
--- NOTE | 2024-11-22 20:09 | CTR_ITS ---
PROCEDURE INFORMATION: Exam: CT Thoracic Spine Without Contrast Exam date and time: 11/22/2024 9:18 PM Age: 34 years old Clinical indication: Injury or trauma; Blunt trauma (contusions or hematomas); Prior surgery; Surgery date: 6+ months; Surgery type: Splenectomy; Approximate 12 foot fall off of roof landing feet first onto ground. Focal C/O low back pain. ; Additional info: Fall from roof. Landed on feet and rolled. Back pain, unable to stand TECHNIQUE: Imaging protocol: Computed tomography of the thoracic spine without contrast. Radiation optimization: All CT scans at this facility use at least one of these dose optimization techniques: automated exposure control; mA and/or kV adjustment per patient size (includes targeted exams where dose is matched to clinical indication); or iterative reconstruction. COMPARISON: CT cervical spin wo con* [id number] 11/22/2024 9:15 PM RADIATION DOSE METRICS: Total DLP (mGy-cm): 935.83 FINDINGS: Bones/joints: No acute fracture. Normal alignment. No significant disc bulge or herniation. No severe spinal canal stenosis. No significant neural foraminal narrowing. Soft tissues: Unremarkable. CT/CT thoracic spin wo con* [id number] IMPRESSION: Unremarkable thoracic CT Spine.
--- NOTE | 2024-11-22 20:09 | XRR_ITS ---
PROCEDURE INFORMATION: Exam: XR Left Foot Exam date and time: 11/22/2024 8:44 PM Age: 34 years old Clinical indication: Foot; Bilateral lower ext pain post fall from roof TECHNIQUE: Imaging protocol: Radiologic exam of the left foot. Views: 3 or more views. COMPARISON: CR (LOW EXM, ) 11/22/2024 8:37 PM FINDINGS: Bones/joints: Comminuted fracture of the calcaneus. Soft tissues: Soft tissue swelling about the ankle. XR/XR foot LT min 3V* [id number] IMPRESSION: 1. Comminuted fracture of the calcaneus. 2. Soft tissue swelling about the ankle.
--- NOTE | 2024-11-22 20:09 | XRR_ITS ---
PROCEDURE INFORMATION: Exam: XR Left Tibia and Fibula Exam date and time: 11/22/2024 8:37 PM Age: 34 years old Clinical indication: Pain; Lower leg; Bilateral; Additional info: Bilateral lower ext pain post fall from roof TECHNIQUE: Imaging protocol: Radiologic exam of the left tibia and fibula. Views: 2 views. COMPARISON: No relevant prior studies available. FINDINGS: Bones/joints: Comminuted fracture of the calcaneus. Soft tissues: Soft tissue swelling about the ankle. XR/XR tibia fibula LT 2V [id number] IMPRESSION: 1. Comminuted fracture of the calcaneus. 2. Soft tissue swelling about the ankle.
--- NOTE | 2024-11-22 20:09 | CTR_ITS ---
PROCEDURE INFORMATION: Exam: CT Head Without Contrast Exam date and time: 11/22/2024 9:12 PM Age: 34 years old Clinical indication: Injury or trauma; Blunt trauma (contusions or hematomas); Approximate 12 foot fall off of roof landing feet first onto ground. Focal C/O low back pain. ; Additional info: Fall from roof TECHNIQUE: Imaging protocol: Computed tomography of the head without contrast. Radiation optimization: All CT scans at this facility use at least one of these dose optimization techniques: automated exposure control; mA and/or kV adjustment per patient size (includes targeted exams where dose is matched to clinical indication); or iterative reconstruction. COMPARISON: MR head wo con* [id number] 03/25/2024 10:30 AM RADIATION DOSE METRICS: Total DLP (mGy-cm): 1013.94 FINDINGS: Brain: Normal. No hemorrhage. Unremarkable white matter. No mass effect. Mild sulcal widening. Cerebral ventricles: No ventriculomegaly. Paranasal sinuses: Mucous retention cyst in the left maxillary sinus. Mastoid air cells: Visualized mastoid air cells are well aerated. Bones: Unremarkable. No acute fracture. Soft tissues: Unremarkable. CT/CT head wo con* [id number] IMPRESSION: No acute intracranial findings
--- NOTE | 2024-11-22 20:09 | XRR_ITS ---
PROCEDURE INFORMATION: Exam: XR Right Foot Exam date and time: 11/22/2024 9:06 PM Age: 34 years old Clinical indication: Foot; Bilateral hip/ lower ext pain post fall from roof TECHNIQUE: Imaging protocol: Radiologic exam of the right foot. Views: 3 or more views. COMPARISON: CR XR foot RT min 3V* [id number] 12/19/2021 2:12 PM FINDINGS: Bones/joints: Normal. Soft tissues: Normal. XR/XR foot RT min 3V* [id number] IMPRESSION: No acute findings.
[2024-11-22 20:18] LABS: Basophils % 0.2 %; Eosinophils % 0.2 %; Lymphocytes % 22.2 %; Mean Corpuscular HGB Conc 34.4 g/dL (30-55); Mean Corpuscular Hemoglobin 31.1 pg (27-33); Mean Corpuscular Volume 90.3 fl (82-101); Mean Platelet Volume 10.5 fL (7.4-10.4); Monocytes # 0.5 10^3/uL (0.2-0.9); Monocytes % 5.1 %; Neutrophils # 6.35 10^3/uL (1.8-7.7); Neutrophils % 72.1 %; Nucleated Red Blood Cells % 0 %; Platelet Count 268 10^3/cmm (157-399); Red Blood Count 4.76 10^6/uL (3.85-5.65); Red Cell Distribution Width 12.4 % (12.1-15.1); White Blood Count 8.82 10^3/uL (3.29-11.43)
[2024-11-22 20:26] LABS: INR 0.99 (0.8-1.2)
[2024-11-22 20:29] LABS: Alanine Aminotransferase 22 U/L (0-41); Albumin Level 5.3 g/dL (3.5-5.2); Alkaline Phosphatase 92 U/L (40-130); Anion Gap 19.3 (5-19); Aspartate Amino Transferase 30 U/L (0-40); Blood Urea Nitrogen 13 mg/dL (6-20); Carbon Dioxide 25 mmol/L (22-29); Chloride 98 mmol/L (98-107); Creatinine Clr Calc Pharmacy 103.8734; Globulin 3.2 g/dL (1.3-4.6); Glomerular Filtration Rate 68.5 mL/min (90-130); Glucose 92 mg/dL (65-115); Osmolality Calculated 288 mOsm/kg (285-295); Potassium 3.3 mmol/L (3.5-5.1); Sodium 139 mmol/L (136-145); Total Bilirubin 1.1 mg/dL (0.15-1.2); Total Protein 8.5 g/dL (6.6-8.7)
[2024-11-22 20:40] VITALS: BP 150/108; PULSE 48; RESP 16; O2SAT 99
--- NOTE | 2024-11-22 20:46 | W.ED.TRAUMA ---
Documented by User: Nixon Vee MD 11/22/24 23:03 HPI - Trauma General: Chief Complaint: Trauma Stated Complaint: FALL Time Seen by Provider: 11/22/24 20:03 Source: patient and EMS Mode of arrival: EMS Limitations: no limitations History of Present Illness: Patient fell/jump off a roof about 12 to 14 feet in height. Landed on his feet and tried to roll. Patient reports he was not very successful he has contusions and abrasions from his feet to his knees. There is bilateral heel swelling worse on the left. Tenderness of the tibia knee and femur area. Patient also reports of pain in his pelvis going around his lower back. Denies any LOC. Did not necessarily hit his head but did do a roll so it definitely came in contact with the ground. Patient rates pain a 7 out of 10. EMS gave him some pain medication. Patient is requesting no more pain medication at this time. Related Data Home Medications ?Medication ?Instructions ?Recorded ?Confirmed diazepam 5 mg tablet 5 mg PO TID PRN Anxiety 05/26/20 08/15/24 losartan 100 mg tablet 100 mg PO DAILY 12/19/21 08/15/24 buprenorphine HCl 8 mg sublingual 12 mg sublingual BID 03/24/24 08/15/24 tablet cetirizine 10 mg tablet 10 mg PO DAILY 03/25/24 08/15/24 epinephrine 0.3 mg/0.3 mL 0.3 mg IM Q4H PRN Allergic Reaction 03/25/24 08/15/24 injection, auto-injector (EpiPen 2-Gentry) Previous Rx's ?Medication ?Instructions ?Recorded aspirin 81 mg tablet,delayed 81 mg PO DAILY #30 tabs 03/25/24 release amoxicillin 500 mg tablet 1,000 mg (2 x 500 mg) PO BID 10 08/15/24 days #40 tabs ondansetron 4 mg disintegrating 4 mg PO Q6H PRN nausea and 08/19/24 tablet vomiting #20 tabs ketorolac 10 mg tablet 10 mg PO TID PRN pain #10 tabs 11/23/24 lorazepam 1 mg tablet (Ativan) 0.5 mg (1/2 x 1 mg) PO TID PRN 11/23/24 anxiety #10 tabs Allergies Allergy/AdvReac Type Severity Reaction Status Date / Time bee venom protein (honey bee) Allergy ALGY-Anaphy Verified 08/19/24 16:46 laxis Opioids - Morphine Analogues Allergy Unknown Verified 08/19/24 16:46 Review of Systems General: Reports: 10 or more systems reviewed and unremarkable except in HPI and below PFSH ED PFSH: Medical History Paresthesia and pain of left extremity Paresthesia Muscle twitching Facial twitching TIA involving right internal carotid artery Chronic back pain Muscular dystrophy Hypertension Surgical History Status post laparoscopic cholecystectomy (09/19/21) 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 claean for 7 years. service: Yes (out 2012) status: Medically Discharged/Retired branch: [employer] Physical Exam Narrative: EXAM NARRATIVE: Bilateral heel swelling, contusions bilateral heels worse on left, bob pain and tenderness bilaterally, knee abrasions and tenderness bilaterally femoral tenderness bilaterally. Does have hip pain no laxity. Const: COMMON NORMALS: no acute distress, average body habitus, patient oriented x3, healthy appearing, alert and well nourished GENERAL APPEARANCE: well kempt and well developed HENMT: COMMON NORMALS: normocephalic, atraumatic, external ears normal and moist oral mucous membranes HEAD & SCALP: normocephalic and atraumatic EXTERNAL EAR: Yes external ears normal Eye: COMMON NORMALS: Equal, round and reactive pupils present, EOMs intact bilaterally and conjunctivae normal CONJUNCTIVA: Yes conjunctivae normal PUPIL: Yes Equal, round and reactive pupils present Neck/C-Spine: COMMON NORMALS: full ROM, no lymphadenopathy and supple Chest: CHEST: Yes Symmetrical chest wall rise and No Surgical scars present (Chest) Resp: COMMON NORMALS: normal respiratory effort, No retractions, No use of accessory muscles and clear to auscultation bilaterally AUSCULTATION: clear to auscultation bilaterally Cardio: COMMON NORMALS: regular rate, regular rhythm, S1 normal heart sound present, S2 normal heart sound present, No gallops present (Cardio), No clicks present (Cardio), No murmurs present (Cardio) and No rub (Cardio) RATE: regular rate RHYTHM: regular rhythm HEART SOUNDS: S1 normal heart sound present, S2 normal heart sound present and no murmurs PERIPHERAL PULSES: other (Radial pulses 2+ and symmetric) GI: COMMON NORMALS: Soft to palpation, non-tender and no masses INSPECTION: No abdominal distension PALPATION: Yes Soft to palpation, No Guarding due to palpation present (GI) and No Rebound tenderness present : COMMON NORMALS: Yes no CVA tenderness BLADDER/KIDNEY EXAM: Yes no CVA tenderness Back/Pelvis: COMMON NORMALS: no CVA tenderness Extremity: COMMON NORMALS: capillary refill normal and no clubbing, cyanosis or edema Neuro: COMMON NORMALS: patient oriented x3 SENSORIUM/ORIENTATION: Yes alert Psych: APPEARANCE: Yes well kempt Skin: COMMON NORMALS: no rashes or lesions noted, no wounds, turgor normal and no jaundice GENERAL SKIN EXAM: no rashes or lesions noted and turgor normal Course Vital Signs: Vital signs: Vital Signs Temperature 98 F 11/22/24 20:06 Pulse Rate 52 L 11/23/24 02:10 Respiratory Rate 16 11/23/24 00:40 Blood Pressure 129/79 11/23/24 02:10 Pulse Oximetry 99 11/23/24 02:10 MDM - Trauma Medical Decision Making Patient jumped/fell off a roof. Has a isolated calcaneus fracture. Will be placed in a short leg splint and crutches and can follow-up in clinic at 9 AM on Sunday with Dr. Topete. I have spoke with him and he has reviewed the images himself. CT has been obtained for surgical planning. Due to shift timing will handoff to Dr. Velasco for the splint. Medical Records I reviewed the patient's medical records. Lab Data I reviewed the patient's lab results. 11/22/24 20:06 11/22/24 20:06 Radiology Impressions Cervical Spine CT 11/22/24 20:09 IMPRESSION: No significant cervical spine findings Femur X-Ray 11/22/24 20:09 IMPRESSION: No acute findings. Foot X-Ray 11/22/24 20:09 IMPRESSION: No acute findings. Head CT 11/22/24 20:09 IMPRESSION: No acute intracranial findings Lumbar Spine CT 11/22/24 20:09 IMPRESSION: No acute findings. Pelvis X-Ray 11/22/24 20:09 IMPRESSION: No acute findings. Thoracic Spine CT 11/22/24 20:09 IMPRESSION: Unremarkable thoracic CT Spine. Tibia/Fibula X-Ray 11/22/24 20:09 IMPRESSION: No acute findings. Foot CT 11/22/24 21:53 IMPRESSION: 1. Comminuted intra-articular fracture of the calcaneus. 2. Minimally displaced fracture at the inferior medial posterior aspect of the talus (series 8, image 32). Laboratory Results WBC 8.82 10^3/uL (3.29-11.43) 11/22/24 20:06 RBC 4.76 10^6/uL (3.85-5.65) 11/22/24 20:06 Hgb 14.80 g/dL (11.27-16.99) 11/22/24 20:06 Hct 43.0 % (37-53) 11/22/24 20:06 MCV 90.3 fl (82-101) 11/22/24 20:06 MCH 31.1 pg (27-33) 11/22/24 20:06 MCHC 34.4 g/dL (30-55) 11/22/24 20:06 RDW 12.4 % (12.1-15.1) 11/22/24 20:06 Plt Count 268 10^3/cmm (157-399) 11/22/24 20:06 MPV 10.5 fL (7.4-10.4) H 11/22/24 20:06 Neut % (Auto) 72.1 % 11/22/24 20:06 Lymph % (Auto) 22.2 % 11/22/24 20: Eaton % (Auto) 5.1 % 11/22/24 20: Eos % (Auto) 0.2 % 11/22/24 20:06 Baso % (Auto) 0.2 % 11/22/24 20:06 Neut # (Auto) 6.35 10^3/uL (1.8-7.7) 11/22/24 20:06 Lymph # (Auto) 2.0 10^3/uL (0.8-4.8) 11/22/24 20:06 Eaton # (Auto) 0.5 10^3/uL (0.2-0.9) 11/22/24 20:06 Eos # (Auto) 0.0 10^3/uL (0.0-0.8) 11/22/24 20:06 Baso # (Auto) 0.0 10^3/uL (0.0-0.1) 11/22/24 20:06 Nucleated RBC % (auto) 0 % 11/22/24 20:06 Nucleated RBCs # 0.0 /100WBC 11/22/24 20:06 PT 13.80 SECONDS (12.1-14.9) 11/22/24 20:06 INR 0.99 (0.8-1.2) 11/22/24 20:06 Sodium 139 mmol/L (136-145) 11/22/24 20:06 Potassium 3.3 mmol/L (3.5-5.1) L 11/22/24 20:06 Chloride 98 mmol/L (98-107) 11/22/24 20:06 Carbon Dioxide 25 mmol/L (22-29) 11/22/24 20:06 Anion Gap 19.3 (5-19) H 11/22/24 20:06 BUN 13 mg/dL (6-20) 11/22/24 20:06 Creatinine 1.2 mg/dL (0.7-1.2) 11/22/24 20:06 GFR Calculation 68.5 mL/min (90-130) L 11/22/24 20:06 Glucose 92 mg/dL (65-115) 11/22/24 20:06 Calculated Osmolality 288 mOsm/kg (285-295) 11/22/24 20:06 Calcium 10.0 mg/dL (8.5-10.5) 11/22/24 20:06 Total Bilirubin 1.1 mg/dL (0.15-1.2) 11/22/24 20:06 AST 30 U/L (0-40) 11/22/24 20:06 ALT 22 U/L (0-41) 11/22/24 20:06 Alkaline Phosphatase 92 U/L (40-130) 11/22/24 20:06 Total Protein 8.5 g/dL (6.6-8.7) 11/22/24 20:06 Albumin 5.3 g/dL (3.5-5.2) H 11/22/24 20:06 Globulin 3.2 g/dL (1.3-4.6) 11/22/24 20:06 All radiology interpretation(s) finalized by discharge ED provider radiology interpretation(s): Personally reviewed all x-rays and only see a left calcaneus fracture. Thankfully radiology read agrees. CTs are unremarkable per my read and radiology. Except for CT of the left foot which is a follow-up image on the x-ray Discharge Plan Discharge Patient Disposition: Home Clinical Impression: Calcaneus fracture, left Qualifiers: Encounter type: initial encounter Calcaneus location: unspecified portion of calcaneus Fracture type: closed Fracture alignment: displaced Qualified Code(s): S92.002A - Unspecified fracture of left calcaneus, initial encounter for closed fracture Condition: Stable Prescriptions: New ketorolac 10 mg tablet 10 mg PO TID PRN (Reason: pain) Qty: 10 0RF lorazepam [Ativan] 1 mg tablet 0.5 mg PO TID PRN (Reason: anxiety) Qty: 10 0RF No Action diazepam 5 mg tablet 5 mg PO TID PRN (Reason: Anxiety) losartan 100 mg tablet 100 mg PO DAILY amoxicillin 500 mg tablet 1,000 mg PO BID 10 Days Qty: 40 0RF buprenorphine HCl 8 mg Tablet, Sublingual 12 mg SUBLINGUAL BID aspirin 81 mg Tablet,Delayed Release (Dr/Ec) 81 mg PO DAILY Qty: 30 4RF cetirizine 10 mg Tablet 10 mg PO DAILY EpiPen 2-Gentry 0.3 mg/0.3 mL Auto-Injector 0.3 mg IM Q4H PRN (Reason: Allergic Reaction) ondansetron 4 mg tablet,disintegrating 4 mg PO Q6H PRN (Reason: nausea and vomiting) Qty: 20 0RF Discharge Orders: Discharge ED (Routine); Ordered 11/23/24 Ordered By: Wiliam Velasco Referrals: Dennis Topete DPM [Physician] - 1-3 days Patient Instructions: Calcaneal Fracture (ED), Pain Management Activity Restrictions/Additional Instructions: Follow-up with Dr. Topete at 9 AM on Sunday. The address and phone number listed above. No weightbearing until seen. You leave your splint on until seen. Print Language: Iranian Coding Level of Care Code ED Machine Operator Assistant for Chg Fwd Documented by User: Wiliam Velasco, DO 11/23/24 02:24 HPI - Trauma General: Chief Complaint: Trauma Stated Complaint: FALL Time Seen by Provider: 11/22/24 20:03 Related Data Home Medications ?Medication ?Instructions ?Recorded ?Confirmed diazepam 5 mg tablet 5 mg PO TID PRN Anxiety 05/26/20 08/15/24 losartan 100 mg tablet 100 mg PO DAILY 12/19/21 08/15/24 buprenorphine HCl 8 mg sublingual 12 mg sublingual BID 03/24/24 08/15/24 tablet cetirizine 10 mg tablet 10 mg PO DAILY 03/25/24 08/15/24 epinephrine 0.3 mg/0.3 mL 0.3 mg IM Q4H PRN Allergic Reaction 03/25/24 08/15/24 injection, auto-injector (EpiPen 2-Gentry) Previous Rx's ?Medication ?Instructions ?Recorded aspirin 81 mg tablet,delayed 81 mg PO DAILY #30 tabs 03/25/24 release amoxicillin 500 mg tablet 1,000 mg (2 x 500 mg) PO BID 10 08/15/24 days #40 tabs ondansetron 4 mg disintegrating 4 mg PO Q6H PRN nausea and 08/19/24 tablet vomiting #20 tabs ketorolac 10 mg tablet 10 mg PO TID PRN pain #10 tabs 11/23/24 lorazepam 1 mg tablet (Ativan) 0.5 mg (1/2 x 1 mg) PO TID PRN 11/23/24 anxiety #10 tabs Allergies Allergy/AdvReac Type Severity Reaction Status Date / Time bee venom protein (honey bee) Allergy ALGY-Anaphy Verified 08/19/24 16:46 laxis Opioids - Morphine Analogues Allergy Unknown Verified 08/19/24 16:46 [facility] ED PFSH: Medical History Paresthesia and pain of left extremity Paresthesia Muscle twitching Facial twitching TIA involving right internal carotid artery Chronic back pain Muscular dystrophy Hypertension Surgical History Status post laparoscopic cholecystectomy (09/19/21) 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 claean for 7 years. service: Yes (out 2012) status: Medically Discharged/Retired branch: [employer] Vital Signs: Vital signs: Vital Signs Temperature 98 F 11/22/24 20:06 Pulse Rate 52 L 11/23/24 02:10 Respiratory Rate 16 11/23/24 00:40 Blood Pressure 129/79 11/23/24 02:10 Pulse Oximetry 99 11/23/24 02:10 MDM - Trauma Medical Decision Making Patient jumped/fell off a roof. Has a isolated calcaneus fracture. Will be placed in a short leg splint and crutches and can follow-up in clinic at 9 AM on Sunday with Dr. Topete. I have spoke with him and he has reviewed the images himself. CT has been obtained for surgical planning. Due to shift timing will handoff to Dr. Velasco for the splint. Patient checked out at shift change. He had questions about his studies. All questions were answered. Left calcaneus fracture is placed in a posterior splint. He will ice. He will use crutches or wheelchair which has been ordered. He declines pain medication. He will be prescribed Toradol. He will also be prescribed Ativan, as he states the pain makes him anxious. He will see foot and ankle surgery Sunday morning as above. Lab Data 11/22/24 20:06 11/22/24 20:06 Radiology Impressions Cervical Spine CT 11/22/24 20:09 IMPRESSION: No significant cervical spine findings Femur X-Ray 11/22/24 20:09 IMPRESSION: No acute findings. Foot X-Ray 11/22/24 20:09 IMPRESSION: No acute findings. Head CT 11/22/24 20:09 IMPRESSION: No acute intracranial findings Lumbar Spine CT 11/22/24 20:09 IMPRESSION: No acute findings. Pelvis X-Ray 11/22/24 20:09 IMPRESSION: No acute findings. Thoracic Spine CT 11/22/24 20:09 IMPRESSION: Unremarkable thoracic CT Spine. Tibia/Fibula X-Ray 11/22/24 20:09 IMPRESSION: No acute findings. Foot CT 11/22/24 21:53 IMPRESSION: 1. Comminuted intra-articular fracture of the calcaneus. 2. Minimally displaced fracture at the inferior medial posterior aspect of the talus (series 8, image 32). Laboratory Results WBC 8.82 10^3/uL (3.29-11.43) 11/22/24 20:06 RBC 4.76 10^6/uL (3.85-5.65) 11/22/24 20:06 Hgb 14.80 g/dL (11.27-16.99) 11/22/24 20:06 Hct 43.0 % (37-53) 11/22/24 20:06 MCV 90.3 fl (82-101) 11/22/24 20:06 MCH 31.1 pg (27-33) 11/22/24 20:06 MCHC 34.4 g/dL (30-55) 11/22/24 20:06 RDW 12.4 % (12.1-15.1) 11/22/24 20:06 Plt Count 268 10^3/cmm (157-399) 11/22/24 20:06 MPV 10.5 fL (7.4-10.4) H 11/22/24 20:06 Neut % (Auto) 72.1 % 11/22/24 20:06 Lymph % (Auto) 22.2 % 11/22/24 20:06 Eaton % (Auto) 5.1 % 11/22/24 20:06 Eos % (Auto) 0.2 % 11/22/24 20:06 Baso % (Auto) 0.2 % 11/22/24 20:06 Neut # (Auto) 6.35 10^3/uL (1.8-7.7) 11/22/24 20:06 Lymph # (Auto) 2.0 10^3/uL (0.8-4.8) 11/22/24 20:06 Eaton # (Auto) 0.5 10^3/uL (0.2-0.9) 11/22/24 20:06 Eos # (Auto) 0.0 10^3/uL (0.0-0.8) 11/22/24 20:06 Baso # (Auto) 0.0 10^3/uL (0.0-0.1) 11/22/24 20:06 Nucleated RBC % (auto) 0 % 11/22/24 20:06 Nucleated RBCs # 0.0 /100WBC 11/22/24 20:06 PT 13.80 SECONDS (12.1-14.9) 11/22/24 20:06 INR 0.99 (0.8-1.2) 11/22/24 20:06 Sodium 139 mmol/L (136-145) 11/22/24 20:06 Potassium 3.3 mmol/L (3.5-5.1) L 11/22/24 20:06 Chloride 98 mmol/L (98-107) 11/22/24 20:06 Carbon Dioxide 25 mmol/L (22-29) 11/22/24 20:06 Anion Gap 19.3 (5-19) H 11/22/24 20:06 BUN 13 mg/dL (6-20) 11/22/24 20:06 Creatinine 1.2 mg/dL (0.7-1.2) 11/22/24 20:06 GFR Calculation 68.5 mL/min (90-130) L 11/22/24 20:06 Glucose 92 mg/dL (65-115) 11/22/24 20:06 Calculated Osmolality 288 mOsm/kg (285-295) 11/22/24 20:06 Calcium 10.0 mg/dL (8.5-10.5) 11/22/24 20:06 Total Bilirubin 1.1 mg/dL (0.15-1.2) 11/22/24 20:06 AST 30 U/L (0-40) 11/22/24 20:06 ALT 22 U/L (0-41) 11/22/24 20:06 Alkaline Phosphatase 92 U/L (40-130) 11/22/24 20:06 Total Protein 8.5 g/dL (6.6-8.7) 11/22/24 20:06 Albumin 5.3 g/dL (3.5-5.2) H 11/22/24 20:06 Globulin 3.2 g/dL (1.3-4.6) 11/22/24 20:06 Discharge Plan Discharge Patient Disposition: Home Clinical Impression: Calcaneus fracture, left Qualifiers: Encounter type: initial encounter Calcaneus location: unspecified portion of calcaneus Fracture type: closed Fracture alignment: displaced Qualified Code(s): S92.002A - Unspecified fracture of left calcaneus, initial encounter for closed fracture Condition: Stable Prescriptions: New ketorolac 10 mg tablet 10 mg PO TID PRN (Reason: pain) Qty: 10 0RF lorazepam [Ativan] 1 mg tablet 0.5 mg PO TID PRN (Reason: anxiety) Qty: 10 0RF No Action diazepam 5 mg tablet 5 mg PO TID PRN (Reason: Anxiety) losartan 100 mg tablet 100 mg PO DAILY amoxicillin 500 mg tablet 1,000 mg PO BID 10 Days Qty: 40 0RF buprenorphine HCl 8 mg Tablet, Sublingual 12 mg SUBLINGUAL BID aspirin 81 mg Tablet,Delayed Release (Dr/Ec) 81 mg PO DAILY Qty: 30 4RF cetirizine 10 mg Tablet 10 mg PO DAILY EpiPen 2-Gentry 0.3 mg/0.3 mL Auto-Injector 0.3 mg IM Q4H PRN (Reason: Allergic Reaction) ondansetron 4 mg tablet,disintegrating 4 mg PO Q6H PRN (Reason: nausea and vomiting) Qty: 20 0RF Discharge Orders: Discharge ED (Routine); Ordered 11/23/24 Ordered By: Wiliam Velasco Referrals: Dennis Topete DPM [Physician] - 1-3 days Patient Instructions: Calcaneal Fracture (ED), Pain Management Activity Restrictions/Additional Instructions: Follow-up with Dr. Topete at 9 AM on Sunday. The address and phone number listed above. No weightbearing until seen. You leave your splint on until seen. Print Language: Iranian Coding Level of Care Code ED Machine Operator Assistant for Yan Duran
--- NOTE | 2024-11-22 21:53 | CTR_ITS ---
PROCEDURE INFORMATION: Exam: CT Left Lower Extremity Without Contrast, Foot Exam date and time: 11/22/2024 10:26 PM Age: 34 years old Clinical indication: Injury or trauma; Fracture, traumatic; Displaced; Injury date: Today; Patient sustained approximate 12 foot fall off of a roof landing feet first onto ground. Left calcaneus fracture on xray. TECHNIQUE: Imaging protocol: CT of the left lower extremity without contrast was performed. Exam focused on the foot. Radiation optimization: All CT scans at this facility use at least one of these dose optimization techniques: automated exposure control; mA and/or kV adjustment per patient size (includes targeted exams where dose is matched to clinical indication); or iterative reconstruction. COMPARISON: CR (LOW EXM, ) 11/22/2024 8:44 PM RADIATION DOSE METRICS: Total DLP (mGy-cm): 365.79 FINDINGS: Bones/joints: Comminuted intra-articular fracture of the calcaneus. Minimally displaced fracture at the inferior medial posterior aspect of the talus (series 8, image 32). Soft tissues: Normal. CT/CT foot LT wo con* [id number] IMPRESSION: 1. Comminuted intra-articular fracture of the calcaneus. 2. Minimally displaced fracture at the inferior medial posterior aspect of the talus (series 8, image 32).
[2024-11-22] MEDS: buprenorphine-naloxone 4-1 mg Film 3 EACH SUBLINGUAL (22:03)
[2024-11-22] MEDS: ketorolac 30 mg/mL INJ 15 MG IVP (22:03)
[2024-11-22] MEDS: LORazepam 2 mg/mL INJ 1 mL 1 MG IVP (22:04)
[2024-11-22 22:10] VITALS: PULSE 52; RESP 18; O2SAT 97
[2024-11-23 00:40] VITALS: BP 134/79; PULSE 58; RESP 16; O2SAT 98
[2024-11-23] MEDS: ketorolac 30 mg/mL INJ IVP (01:36)
[2024-11-23 02:10] VITALS: BP 129/79; PULSE 52; O2SAT 99
== END 2024-11-23 02:17 | disposition home or self-care (01) ==
PROVIDERS: Emergency Provider Emergency Medicine
DX: S92.002A Unspecified fracture of left calcaneus, initial encounter for closed fracture (principal); M25.552 Pain in left hip; M25.551 Pain in right hip; M79.605 Pain in left leg; M79.604 Pain in right leg; M54.50 Low back pain, unspecified; M79.672 Pain in left foot; M79.671 Pain in right foot; W13.2XXA Fall from, out of or through roof, initial encounter; Z86.73 Personal history of transient ischemic attack (TIA), and cerebral infarction without residual deficits; I10 Essential (primary) hypertension; Z87.891 Personal history of nicotine dependence; Z79.82 Long term (current) use of aspirin
CPT/HCPCS: 29515; 70450; 72125; 72128; 72131; 72170; 73552; 73590; 73630; 73700; 80053; 85025; 85610; 96374; 96375; 96376; 99285; E0114; J0573; J1885; J2060

== ENCOUNTER 2024-11-24 11:06 | Outpatient (CLI) | payer OTHER, SELFPAY | END 2024-11-24 11:07 | disposition home or self-care (01) | LOC: SPT 11:07 | PROVIDERS: PCP Nurse Practitioner Family; Visit Provider Podiatrist Foot & Ankle Surgery | DX: Z46.89 Encounter for fitting and adjustment of other specified devices (principal); M65.971 Unspecified synovitis and tenosynovitis, right ankle and foot | CPT/HCPCS: 97760; L4361 ==

== ENCOUNTER → 2024-12-01 09:46 | Outpatient (BNVA) | payer OTHER, SELFPAY | PROVIDERS: PCP Nurse Practitioner Family; Visit Provider Podiatrist Foot & Ankle Surgery | DX: S92.002A Unspecified fracture of left calcaneus, initial encounter for closed fracture (principal); W13.2XXA Fall from, out of or through roof, initial encounter; M65.971 Unspecified synovitis and tenosynovitis, right ankle and foot | CPT/HCPCS: 99214 ==

== ENCOUNTER 2024-12-05 07:56 | Day surgery (SDC) | payer OTHER, SELFPAY ==
[2024-12-05] VITALS (11 sets, daily range): BP systolic 99–154; BP diastolic 66–95; PULSE 44–66; RESP 12–18; TEMP 36.1–36.2; O2SAT 92–100; BMI 29.8
--- NOTE | 2024-12-05 | XR_ITS ---
WS: [id number] Left foot, C-arm fluoroscopy views, 12/05/2024 Clinical Data: [facility] Comparison: Left foot, 11/22/2024 Findings: Dr. Topete reduce the left calcaneal fracture. XR/XR foot LT 2V [id number] Impression: Reduction of left calcaneal fracture.
[2024-12-05] MEDS: gabapentin 300 mg Capsule PO (08:31)
[2024-12-05] MEDS: CELEcoxib 200 mg Capsule 400 MG PO (08:31)
[2024-12-05] MEDS: sodium chloride 0.9% 1,000 ML 30 ML IV (08:32)
--- NOTE | 2024-12-05 08:48 | W.PM.OPSUD ---
Surgery/Procedure H&P Update DATE OF PROCEDURE: December 05, 2024 DATE H&P PERFORMED: 12/01/24 H&P UPDATE INFORMATION: I have reviewed H&P completed within last 30 days, I have examined patient prior to procedure, No changes to prior documentation and Risks and benefits of the procedure reviewed PREOP DIAGNOSIS: Left calcaneal fracture PLANNED PROCEDURE: Operation Date: 12/05/24 09:05 Proposed Procedures p ORIF Calcaneous fracture(Left) - Dennis Topete DPM s Subtalar Joint Fusion(Left) - Dennis Topete DPM
--- NOTE | 2024-12-05 08:55 | ANES.PREANE2 ---
Pre-Anesthetic Assessment Height/Weight: Height 1.83 m Weight 99.79 kg Temp Pulse Resp BP Pulse Ox O2 Del Method 97.0 F L 64 18 154/95 99 Room Air 12/05/24 08:14 12/05/24 08:14 12/05/24 08:14 12/05/24 08:14 12/05/24 08:14 12/05/24 08:14 Preop Diagnosis: Left calcaneal fracture Operation Date: 12/05/24 09:05 Proposed Procedures p ORIF Calcaneous fracture(Left) - Dennis Topete DPM s Subtalar Joint Fusion(Left) - Dennis Topete DPM Familial anesthetic complications: None Was Beta Tiarra taken within 24 hours: N/A Was Clonidine taken within 24 hours: N/A Last intake: Intake Last Liquid Date 12/04/24 Last Liquid Time 22:00 Last Solid Date 12/04/24 Last Solid Time 22:00 Social No alcohol and No tobacco Exam alert, oriented x 3, clear to auscultation bilaterally and regular rate & rhythm Airway Mallampati: Class III Dentition: partials CV/HEM Arrythmia (Bradycardia - Resting heart rate in upper 30s to high 40s, states has been present most of his life, no symptoms, states work up has been negative ) GI Gastroesophageal Reflux Disease Musc/skel FSH Dystrophy - facial and upper extremity weakness, denies any chest wall weakness or issues with accessory muscle of inspiration Anesthetic Plan ASA status: 3 Anesthesia: General and Regional (specify below) Other: avoid NMBs and/or keep to minimum Risk of > 500 ml blood loss (7ml/kg in children): No Medications/Allergies Home Medications ?Medication ?Instructions ?Recorded ?Confirmed ?Last Taken ?Type diazepam 5 mg tablet 5 mg PO TID PRN Anxiety 05/26/20 12/04/24 12/03/24 History losartan 100 mg tablet 100 mg PO DAILY 12/19/21 12/05/24 12/05/24 History buprenorphine HCl 8 mg sublingual 12 mg sublingual BID 03/24/24 12/04/24 12/03/24 History tablet cetirizine 10 mg tablet 10 mg PO DAILY 03/25/24 12/04/24 12/04/24 History epinephrine 0.3 mg/0.3 mL 0.3 mg IM Q4H PRN Allergic Reaction 03/25/24 12/04/24 Unknown History injection, auto-injector (EpiPen 2-Gentry) Cam boot to right #1 ea 11/24/24 12/01/24 Unknown Rx carisoprodol 250 mg tablet (Soma) 250 mg PO TID PRN muscle pain #21 12/01/24 12/04/24 12/03/24 Rx tabs freedom leg brace #1 ea 12/01/24 12/01/24 Unknown Rx wheel chair leg extension #1 ea 12/01/24 12/01/24 Unknown Rx Allergies Allergy/AdvReac Type Severity Reaction Status Date / Time bee venom protein (honey bee) Allergy ALGY-Anaphy Verified 12/04/24 09:57 laxis Opioids - Morphine Analogues Allergy Unknown Verified 12/04/24 09:57 Current Medications Generic Name Dose Route Start Last Admin Trade Name Freq PRN Reason Stop Dose Admin Sodium Chloride 1,000 mls @ 30 mls/hr 12/05/24 08:00 12/05/24 08:32 Sodium Chloride 0.9% IV 12/06/24 07:59 30 mls/hr .Q24H AMAIRANI Administration PFSH Anesthesia Medical History Paresthesia and pain of left extremity Paresthesia Muscle twitching Facial twitching TIA involving right internal carotid artery Chronic back pain Muscular dystrophy Hypertension Surgical History Status post laparoscopic cholecystectomy (09/19/21) 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 claean for 7 years. service: Yes (out 2012) status: Medically Discharged/Retired branch: [employer] Data Anesthesia Cardiac Studies: No Data to Display
[2024-12-05] MEDS: ceFAZolin 2,000 mg SDV 2000 MG IVP (09:10)
[2024-12-05] MEDS: tranexamic acid 1,000 mg/10mL SDV 1000 MG IV (09:14)
--- NOTE | 2024-12-05 10:28 | W.PM.BPON ---
Date of Procedure: 10/26/23 Surgeon: Dennis Topete DPM Conduit Installer(s): Lilliam Cadet Procedure(s) performed: Open reduction internal fixation left calcaneal fracture, left subtalar joint fusion. Findings of the procedure(s): Comminuted intra-articular left calcaneal fracture Estimated blood loss: 5 mL Specimen(s) removed: No specimens were removed Post-operative diagnosis: Left calcaneal fracture
--- NOTE | 2024-12-05 10:29 | PM.OP ---
Operative Report Date of procedure: December 05, 2024 Pre-op diagnosis: Calcaneus fracture, left S92.002A Post-op diagnosis: Calcaneus fracture, left S92.002A Post-op findings: Comminuted intra-articular displaced left subtalar joint fracture Procedure done: 1) open reduction internal fixation left calcaneus fracture. CPT code 99302 2) left subtalar joint fusion. CPT code 80010 Implants: Hamden 7 mm fully threaded headed screw x 2, DBM 5 cc, 2-0 Vicryl, 4-0 nylon Specimens removed/disposition: None Pathology: None Surgeon: Dennis Topete DPM [employer] Clerk: Chichi Vyas Estimated blood loss: 5 54 IV fluids: See intraoperative documentation Urine output: none Complications: No complications Brief History: - Imaging: CT scan revealed comminuted fracture of the left calcaneus. No vertebral fractures evident in spinal assessment via CT imaging. Assessment and Plan 34-year-old male with a historical ingrown toenail, presenting with a left calcaneal fracture due to a roof fall, along with a concurrent right ankle sprain. The current management strategy focuses on immobilization, while considering further intervention as the left calcaneus fracture remains significant with suspected joint involvement. Pain management with Ibuprofen is preferred due to past opiate addiction issues. 1. Right Ankle Sprain Conservative treatment with a fracture boot and elimination of weight bearing is implemented. An MRI may be considered based on the persisting evaluation of ligamentous conditions. 2. History Of Tendinopathy Monitoring for exacerbation is suggested with attention to any new symptoms or signs, although active tendinopathy is currently not being managed. 3. Comminuted Fracture Of The Left Calcaneus Management involves continuous monitoring of swelling and fracture blisters, with potential surgical intervention planned in the form of a subtalar fusion contingent on future evaluations. Post-operative protocols include non-weight bearing for two months. - Keep your left foot elevated above hip level to reduce swelling. - Use ice behind the left knee to aid with discomfort. - Avoid putting weight on your left foot; use provided crutches and fracture boot as needed. - Monitor for signs of fracture blisters and seek care if they develop. - Adhere strictly to using Ibuprofen as discussed for pain management. - Refrain from any physical activities not allowed by current protocols and upcoming recommendations. - Attend the follow-up visit early next week where we will evaluate current healing and potentially plan for surgery. An evaluation and management of the 34-year-old male post-calcaneal fracture with an associated right ankle sprain required a detailed consideration of potential interventions. The plan, emphasizing immobilization and careful monitoring for complications like fracture blisters, supports a thoughtful transition to surgical intervention in the form of a subtalar fusion to optimize healing and mitigate future joint issues. The clear avoidance of opiate analogs due to the history of addiction leaned towards managing pain with NSAIDs. The prompt follow-up next week is critical for reassessing the indications for scheduled surgical management, ensuring all tissue-related concerns such as swelling are under control prior to intervention. I reviewed at length with the patient, the risks, potential complications, benefits, alternatives, expectations, and typical outcomes associated with the surgery. The risks and potential complications were explained in detail, including but not limited to infection, wound dehiscence or soft tissue complications, bleeding and hematoma, chronic edema, neuritis or nerve damage producing numbness or chronic pain, CRPS, failure to relieve pain or worsening pain, thick / painful / unsightly scar, limited motion / stiffness, malposition, delayed union, malunion, or nonunion, fracture, reaction to implants, anesthetic complications, venous thromboembolism, and deformity recurrence. I discussed the notion of no regrets with the patient as it pertains to complications and outcomes. The patient seemed to understand the nature of the proposed care and required convalescence. They asked appropriate questions, answered to their satisfaction. They are aware no guarantees can be made as to a satisfactory outcome and they understand there may be other possible unforeseen complications or outcomes not listed here that will be treated accordingly if they arise. There were no written or implied guarantees given to the patient. They gave informed consent to proceed. Procedure: Under mild sedation the patient was brought to the operating room and placed onto the operating table in supine position. A timeout was performed. Anesthesia was then administered by the anesthesia service. Of note left popliteal block was performed preoperatively per anesthesia department. Left lower extremity was scrubbed, prepped and draped utilizing normal aseptic technique. Left foot and ankle were then exanguinated with Esmarch bandage and tourniquet inflated to 250 mmHg. Attention was directed to the left lower extremity where a sinus tarsi incision was performed at the lateral rear foot through skin with a #15 blade, dissection was carried down through subcutaneous tissue to the layer periosteum utilizing sharp and blunt technique. Care was taken to retract and preserve neurovascular and tendinous structures. All bleeders were ligated and cauterized as necessary. Access to the subtalar joint was then achieved with capsulotomy and self-retaining lamina worsted winder was utilized to distract the subtalar joint. Able to visualize comminuted intra-articular fracture with significant irregularity, step-off and displacement with cartilaginous fragments and free-floating bodies these were excised. Utilizing Steinmann pins and manual distraction the depressed left calcaneal fracture was reduced and goal of restoring length, height and width of the calcaneus was achieved. The incision was irrigated with copious amounts of sterile skin solution. Subtalar joint was then prepped for arthrodesis with bone resurfacing tool at the inferior talus and superior calcaneus facets followed by saline flush, the left calcaneal fracture was then fixated utilizing standard AO technique and arthrodesis achieved spanning the left subtalar joint with Hamden 7 mm headed fully threaded screws in parallel fashion, screws were placed and positioning noted to be anatomic and correct in all 3 planes with direct visualization as well as AP, oblique and lateral views of the left foot with intraoperative C arm as well as calcaneal axial and AP view of the ankle to confirm being mid body of the talus and not violating the ankle mortise with hardware this was confirmed and noted to be excellent in all 3 planes. Excellent bony apposition and compression noted at the arthrodesis site and fixation of the calcaneal body with 7 mm screws, arthrodesis site was packed with demineralized bone matrix provided by Hamden. Followed by light saline flush the incision was closed with deep fascia reapproximated with 2-0 Vicryl, subcutaneous tissue with 3-0 Vicryl and skin with 4-0 nylon. The incision was dressed with Xeroform sterile 4 x 4 gauze, Kerlix and Maycol wrap followed by well-padded multilayer compressive posterior splint with foot and ankle in neutral position. Tourniquet was deflated and a prompt hyperemic response is noted to the distal digits of the left foot. Patient tolerated the procedure and anesthesia well and was transferred to the PACU with vital signs stable and vascular status intact. Following a period of postoperative monitoring to be discharged home without home care instructions and scheduled follow-up was advised to be strict nonweightbearing and elevate left foot while resting.
[2024-12-05] MEDS: fentaNYL 50 mcg/mL INJ 2mL IVP (10:42)
--- NOTE | 2024-12-05 11:15 | ANE.PACU2 ---
Inpatient post-anesthesia follow up: Airway intact: Yes Vital signs: Temperature 97.1 F Pulse Rate 44 Respiratory Rate 18 Blood Pressure 116/79 Pulse Oximetry 97 Oxygen Delivery Me thod Room Air Oxygen Flow Rate Fraction of Inspir ed Oxygen Hydration adequate: Yes Nausea and vomiting: No Pain level: 1 Mental status: Baseline
== END 2024-12-05 11:50 | disposition home or self-care (01) ==
PROVIDERS: Family Provider Family Medicine; PCP Nurse Practitioner Family; Visit Provider Podiatrist Foot & Ankle Surgery
PROC: (CPT 28415; principal; 2024-12-05 08:55)
PROC: (CPT 28725; 2024-12-05 08:55)
DX: S92.062A Displaced intraarticular fracture of left calcaneus, initial encounter for closed fracture (principal); I10 Essential (primary) hypertension; K21.9 Gastro-esophageal reflux disease without esophagitis; R00.1 Bradycardia, unspecified; G71.02 Facioscapulohumeral muscular dystrophy; M65.971 Unspecified synovitis and tenosynovitis, right ankle and foot; Z79.899 Other long term (current) drug therapy; Z88.5 Allergy status to narcotic agent; Z86.73 Personal history of transient ischemic attack (TIA), and cerebral infarction without residual deficits; Z87.891 Personal history of nicotine dependence; W13.2XXA Fall from, out of or through roof, initial encounter
CPT/HCPCS: 28725; 28415; 73620; 76000; C1713; C9359; J0690; J1100; J2250; J2405; J2704; J2795; J3010; J7030; J9999

== ENCOUNTER → 2024-12-18 14:40 | Outpatient (BNVA) | payer OTHER, SELFPAY | PROVIDERS: Family Provider Family Medicine; PCP Nurse Practitioner Family; Visit Provider Podiatrist Foot & Ankle Surgery | DX: Z98.890 Other specified postprocedural states (principal); S93.491D Sprain of other ligament of right ankle, subsequent encounter; W13.2XXD Fall from, out of or through roof, subsequent encounter | CPT/HCPCS: 73610; 73630; 99024; 99213 ==

== ENCOUNTER 2024-12-18 16:39 | Outpatient (CLI) | payer OTHER, SELFPAY | END 2024-12-18 16:40 | disposition home or self-care (01) | LOC: SPT 16:39 | PROVIDERS: Family Provider Family Medicine; PCP Nurse Practitioner Family; Visit Provider Podiatrist Foot & Ankle Surgery | DX: Z47.89 Encounter for other orthopedic aftercare (principal); Z98.890 Other specified postprocedural states | CPT/HCPCS: L4361 ==

== ENCOUNTER 2024-12-29 14:41 | Emergency (ER) | payer OTHER, SELFPAY ==
[2024-12-29 14:49] VITALS: BP 158/92; PULSE 88; TEMP 36.7; O2SAT 99
--- NOTE | 2024-12-29 15:03 | USR_ITS ---
PROCEDURE INFORMATION: Exam: US Duplex Left Lower Extremity Veins, Limited Exam date and time: 12/29/2024 4:26 PM Age: 34 years old Clinical indication: Pain; Leg, lower; Prior surgery; Surgery date: <1 month; Surgery type: Surgery of the left heel/foot; Additional info: Leg pain TECHNIQUE: Imaging protocol: Real-time duplex ultrasound of the left extremity with 2-D blake scale, color Doppler flow and spectral waveform analysis including responses to compression and other maneuvers (when performed) with image documentation. Limited exam focused on the left lower extremity veins. COMPARISON: CT foot LT wo con* [id number] 11/22/2024 10:26 PM FINDINGS: Left deep veins: Unremarkable. The common femoral, femoral, proximal profunda femoral and popliteal veins are patent without thrombus. Normal Doppler waveforms. Normal compressibility and/or augmentation response. Superficial veins: Greater saphenous vein at the saphenofemoral junction is patent without thrombus. Soft tissues: Unremarkable. US/[place] [id number] IMPRESSION: No evidence of deep vein thrombosis.
--- NOTE | 2024-12-29 16:01 | ED_ITS ---
HPI - Extremity Problem General: Chief complaint: Extremity Injury, Lower Stated complaint: leg pain Time Seen by Provider: 12/29/24 15:03 Source: patient Mode of arrival: ambulatory Limitations: no limitations History of Present Illness: Patient is a 34-year-old male presents to ED today with a complaint of pain to his left calf that began a few days ago. He is status post left calcaneal fracture repair by Dr. Topete on 12/05. He states he has been doing well since the surgery. Intermittent edema to the foot. He has been following up with Dr. Topete as scheduled. He is currently here in a CAM boot. Has not noticed any swelling or redness to calf or leg. No fevers. MD Complaint: extremity pain Onset (ago): day(s) Pain Consistency: constant Location: left and lower extremity Radiation: none Relieving factors: nothing Exacerbating factors: nothing Associated symptoms: Reports no associated symptoms; Deny chest pain or fever(s) Context: recent surgery/procedure Related Data Home Medications ?Medication ?Instructions ?Recorded ?Confirmed diazepam 5 mg tablet 5 mg PO TID PRN Anxiety 05/1312/18/24 losartan 100 mg tablet 100 mg PO DAILY 12/19/2104/06 buprenorphine HCl 8 mg sublingual 12 mg sublingual BID 03/24/24 12/18/24 tablet cetirizine 10 mg tablet 10 mg PO DAILY 03/25/2404/06 epinephrine 0.3 mg/0.3 mL 0.3 mg IM Q4H PRN Allergic R eaction 03/25/24 12/18/24 injection, auto-injector (EpiPen 2-Gentry) Previous Rx's ?Medication ?Instructions ?Recorded Cam boot to right #1 ea 11/24/24 freedom leg brace #1 ea 12/01/24 wheel chair leg extension #1 ea 12/01/24 tizanidine 2 mg capsule 2 mg PO Q6H PRN muscle spast icity 12/05/24 #30 caps tramadol 50 mg tablet 50 mg PO Q4H #30 tabs CAM walker #1 ea 12/18/24 carisoprodol 250 mg tablet (Soma) 250 mg PO TID PRN mu scle pain #21 12/26/24 tabs tizanidine 4 mg capsule 4 mg PO TID PRN muscle spast icity 12/26/24 #21 caps Allergies Allergy/AdvReac Type Severity Reaction Status Date / Time bee venom protein (honey bee) Allergy ALGY-Anaphy Verified 12/29/24 14:55 laxis Opioids - Morphine Analogues Allergy Unknown Verified 12/29/24 14:55 Review of Systems Const: Denies: fever(s), chills, body aches, fatigue or malaise Card: Denies: chest pain Resp: Denies: dyspnea Musc: Reports: extremity pain; Denies: neck pain, back pain, extremity swelling, joint pain, joint swelling, joint redness or joint warmth Neuro: Denies: numbness in extremities, weakness in extremities or sensory changes PFSH ED PFSH: Medical History Paresthesia and pain of left extremity Paresthesia Muscle twitching Facial twitching TIA involving right internal carotid artery Chronic back pain Muscular dystrophy Hypertension Surgical History Status post laparoscopic cholecystectomy (09/19/21) 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 claean for 7 years. service: Yes (out 2012) status: Medically Discharged/Retired branch: [employer] Physical Exam Const: COMMON NORMALS: no acute distress, average body habitus, patient oriented x3, no limitations, healthy appearing, alert and well nourished Extremity: COMMON NORMALS: capillary refill normal and no calf tenderness GENERAL: Yes normal exam except as noted LEFT LOWER EXTREMITY: Yes lower leg OTHER: no calf pain or palpable cord; no erythema; DP/PT pulses normal; edema to foot that patient states is much improved since surgery Neuro: COMMON NORMALS: patient oriented x3 SENSORIUM/ORIENTATION: Yes alert Course Vital Signs: Vital signs: Vital Signs Temperature 98.0 F 12/29/24 14:49 Pulse Rate 68 05/19/25 17:14 Respiratory Rate 18 12/29/24 17:14 Blood Pressure 120/78 12/29/24 17:14 Pulse Oximetry 99 12/29/24 17:14 Oxygen Delivery Me thod Room Air 12/29/24 14:49 MDM - Extremity (Nontraumatic) Medical Decision Making Patient's US negative for DVT. No evidence for infection. Patient is stable for DC with follow up with his metal bed assembler. Medical Records I reviewed the patient's medical records. Lab Data Radiology Impressions Venous Duplex 12/29/24 15:03 IMPRESSION: No evidence of deep vein thrombosis. XR interpretation done by ED provider, pending radiology final review Discharge Plan Discharge Patient Disposition: Home Clinical Impression: Pain of left calf Condition: Stable Prescriptions: No Action diazepam 5 mg tablet 5 mg PO TID PRN (Reason: Anxiety) (DME) Cam boot to right See Rx Instructions .Route .MEDSUPPLY Qty: 1 0RF Rx Instructions: As directed (DME) wheel chair leg extension See Rx Instructions .Route .MEDSUPPLY Qty: 1 0RF Rx Instructions: As directed (DME) freedom leg brace See Rx Instructions .Route .MEDSUPPLY Qty: 1 0RF Rx Instructions: As directed losartan 100 mg tablet 100 mg PO DAILY (DME) CAM walker See Rx Instructions .Route .MEDSUPPLY Qty: 1 0RF Rx Instructions: As directed tizanidine 4 mg capsule 4 mg PO TID PRN (Reason: muscle spasticity) Qty: 21 0RF carisoprodol [Soma] 250 mg tablet 250 mg PO TID PRN (Reason: muscle pain) Qty: 21 0RF buprenorphine HCl 8 mg Tablet, Sublingual 12 mg SUBLINGUAL BID cetirizine 10 mg Tablet 10 mg PO DAILY epinephrine [EpiPen 2-Gentry] 0.3 mg/0.3 mL Auto-Injector 0.3 mg IM Q4H PRN (Reason: Allergic Reaction) tizanidine 2 mg capsule 2 mg PO Q6H PRN (Reason: muscle spasticity) Qty: 30 0RF Rx Instructions: do not exceed 3 doses per 24 hrs tramadol 50 mg tablet 50 mg PO Q4H Qty: 30 0RF Discharge Orders: Discharge ED (Routine); Ordered 12/29/24 Ordered By: Lilliam Bazzi Referrals: Pennington,Adele, AGENCY SERVICE REPRESENTATIVE [Primary Care Provider, Nurse Practitioner] Activity Restrictions/Additional Instructions: As we discussed, your ultrasound here was negative for DVT/blood clot. Will have case management set you up an appointment to see your metal bed assembler for further evaluation. Print Language: Taiwanese Coding Level of Care Code ED Art Specialist for aYn Duran
[2024-12-29 17:14] VITALS: BP 120/78; PULSE 68; RESP 18; O2SAT 99
--- NOTE | 2024-12-31 07:45 | DCPLANNER ---
Message sent to podiatry - Patient's US negative for DVT. No evidence for infection. Patient is stable for DC with follow up with his last inserter.
== END 2024-12-29 17:15 | disposition home or self-care (01) ==
PROVIDERS: Emergency Provider Physician Assistant; PCP Nurse Practitioner Family
DX: M79.605 Pain in left leg (principal); Z87.891 Personal history of nicotine dependence; Z86.73 Personal history of transient ischemic attack (TIA), and cerebral infarction without residual deficits; I10 Essential (primary) hypertension
CPT/HCPCS: 93971; 99284

== ENCOUNTER 2025-01-13 13:45 | Emergency (ER) | payer OTHER, SELFPAY ==
[2025-01-13 13:48] VITALS: BP 141/80; PULSE 98; TEMP 36.7; O2SAT 97
--- NOTE | 2025-01-13 14:57 | USCV_ITS ---
Avinash Limon Age: 34 Gender: M : 1990 Exam Date: 01/13/2025 15:28 Ordering Phys: Lilliam Bazzi Technologist: OC Exam Location: [facility] [place] Indication: RLE Redness HISTORY: Lower extremity edema. PROCEDURES: Venous duplex imaging was performed in only the right lower extremity. The following venous structures were evaluated: common femoral vein, profunda vein, proximal portion of the greater saphenous vein, superficial femoral vein, and the popliteal vein. In addition, the posterior tibial and peroneal trunk were evaluated. Serial compression, augmentation maneuvers, and spectral Doppler flow evaluation were performed. FINDINGS: No evidence of DVT seen in any vessel visualized at this time. CONCLUSIONS No evidence of right lower extremity DVT. Ulises Grace MD (Electronically Signed) Final Date: 13 January 2025 15:57 S
--- NOTE | 2025-01-13 14:58 | W.ED.EXTPRO ---
HPI - Extremity Problem General: Chief complaint: Extremity Problem,Nontraumatic Stated complaint: rt leg swollen Time Seen by Provider: 01/13/25 14:28 Source: patient Mode of arrival: ambulatory Limitations: no limitations History of Present Illness: Patient is a 34-year-old male presents to ED today with a complaint of ecchymosis and edema along the anterior aspect of his right lower leg that he noticed today. Patient states that he iced and elevated the extremity and this seemed to help. He underwent surgery on his left calcaneus in the later part of November by Dr. Topete. He does have follow-up with Dr. Topete later this week for this. Patient was seen earlier last month for some concerns involving the left/surgical leg. He underwent negative ultrasound imaging then. Patient is concerned now for a blood clot to his right leg. He is not having any shortness of breath or difficulty breathing. MD Complaint: extremity pain and extremity swelling Onset (ago): hour(s) Pain Consistency: constant Location: right and lower extremity Radiation: none Relieving factors: other (ice/elevation) Exacerbating factors: nothing Associated symptoms: Reports no associated symptoms; Deny chest pain or fever(s) Related Data Home Medications ?Medication ?Instructions ?Recorded ?Confirmed diazepam 5 mg tablet 5 mg PO TID PRN Anxiety 05/26/20 12/18/24 losartan 100 mg tablet 100 mg PO DAILY 12/19/21 12/18/24 buprenorphine HCl 8 mg sublingual 12 mg sublingual BID 03/24/24 12/18/24 tablet cetirizine 10 mg tablet 10 mg PO DAILY 03/25/24 12/18/24 epinephrine 0.3 mg/0.3 mL 0.3 mg IM Q4H PRN Allergic Reaction 03/25/24 12/18/24 injection, auto-injector (EpiPen 2-Gentry) Previous Rx's ?Medication ?Instructions ?Recorded Cam boot to right #1 ea 11/24/24 freedom leg brace #1 ea 12/01/24 wheel chair leg extension #1 ea 12/01/24 tizanidine 2 mg capsule 2 mg PO Q6H PRN muscle spasticity 12/05/24 #30 caps CAM walker #1 ea 12/18/24 tizanidine 4 mg capsule 4 mg PO TID PRN muscle spasticity 12/26/24 #21 caps carisoprodol 250 mg tablet (Soma) 250 mg PO TID PRN muscle pain #21 01/08/25 tabs tramadol 50 mg tablet 50 mg PO Q4H #30 tabs 01/08/25 Allergies Allergy/AdvReac Type Severity Reaction Status Date / Time bee venom protein (honey bee) Allergy ALGY-Anaphy Verified 01/13/25 13:52 laxis Opioids - Morphine Analogues Allergy Unknown Verified 01/13/25 13:52 Review of Systems Const: Denies: fever(s), chills, body aches, fatigue or malaise Card: Denies: chest pain Resp: Denies: dyspnea Musc: Reports: extremity pain and extremity swelling; Denies: joint pain or joint swelling Skin/Breast: Reports: other (ecchymosis to R LE) Neuro: Denies: headache(s), numbness in extremities, weakness in extremities or sensory changes PFSH ED PFSH: Medical History Paresthesia and pain of left extremity Paresthesia Muscle twitching Facial twitching TIA involving right internal carotid artery Chronic back pain Muscular dystrophy Hypertension Surgical History Status post laparoscopic cholecystectomy (09/19/21) 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 claean for 7 years. service: Yes (out 2012) status: Medically Discharged/Retired branch: [employer] Physical Exam Const: COMMON NORMALS: no acute distress, average body habitus, no limitations, healthy appearing, alert and well nourished GENERAL APPEARANCE: cooperative ORIENTATION/CONSCIOUSNESS: Yes awake, Yes oriented to person, Yes oriented to place and Yes oriented to time Resp: COMMON NORMALS: normal respiratory effort and clear to auscultation bilaterally AUSCULTATION: clear to auscultation bilaterally Cardio: COMMON NORMALS: regular rate and regular rhythm RATE: regular rate RHYTHM: regular rhythm Extremity: COMMON NORMALS: capillary refill normal, no joint enlargement, no clubbing, cyanosis or edema and no pedal edema GENERAL: Yes normal exam except as noted and Yes calf tenderness (R) LEFT LOWER EXTREMITY: Yes lower leg (mild ecchymosis probable phlebitis anterior bob) Left lower leg: Yes neurovascular exam (normal) OTHER: no generalized edema to R LE; some degree of calf pain but it is not swollen; distal pulses are normal; normal cap refill Neuro: COMMON NORMALS: moves all extremities, no focal motor deficits and no sensory deficits noted SENSORIUM/ORIENTATION: Yes alert, Yes oriented to person, Yes oriented to place and Yes oriented to time Skin: NARRATIVE SKIN EXAM: mild ecchymosis anterior-medial R LE running along superficial vein Course Vital Signs: Vital signs: Vital Signs Temperature 98.0 F 01/13/25 13:48 Pulse Rate 89 01/13/25 15:05 Blood Pressure 155/98 01/13/25 15:05 Pulse Oximetry 94 01/13/25 15:05 Oxygen Delivery Me thod Room Air 01/13/25 15:05 MDM - Extremity (Nontraumatic) Medical Decision Making I had explained to patient my clinical diagnosis and did not suspect DVT but he is adamant he receive US to rule this out. This was completed and indeed negative. Conservative therapies discussed. Differential Diagnosis Likely superficial thrombophlebitis Medical Records I reviewed the patient's medical records. XR interpretation done by ED provider, pending radiology final review (per Stephen rocky-negative study) Discharge Plan Discharge Patient Disposition: Home Clinical Impression: Phlebitis of right lower extremity Condition: Stable Prescriptions: No Action diazepam 5 mg tablet 5 mg PO TID PRN (Reason: Anxiety) (DME) Cam boot to right See Rx Instructions .Route .MEDSUPPLY Qty: 1 0RF Rx Instructions: As directed (DME) wheel chair leg extension See Rx Instructions .Route .MEDSUPPLY Qty: 1 0RF Rx Instructions: As directed (DME) freedom leg brace See Rx Instructions .Route .MEDSUPPLY Qty: 1 0RF Rx Instructions: As directed losartan 100 mg tablet 100 mg PO DAILY (DME) CAM walker See Rx Instructions .Route .MEDSUPPLY Qty: 1 0RF Rx Instructions: As directed tizanidine 4 mg capsule 4 mg PO TID PRN (Reason: muscle spasticity) Qty: 21 0RF carisoprodol [Soma] 250 mg tablet 250 mg PO TID PRN (Reason: muscle pain) Qty: 21 0RF tramadol 50 mg tablet 50 mg PO Q4H Qty: 30 0RF buprenorphine HCl 8 mg Tablet, Sublingual 12 mg SUBLINGUAL BID cetirizine 10 mg Tablet 10 mg PO DAILY epinephrine [EpiPen 2-Gentry] 0.3 mg/0.3 mL Auto-Injector 0.3 mg IM Q4H PRN (Reason: Allergic Reaction) tizanidine 2 mg capsule 2 mg PO Q6H PRN (Reason: muscle spasticity) Qty: 30 0RF Rx Instructions: do not exceed 3 doses per 24 hrs Discharge Orders: Discharge ED (Routine); Ordered 01/13/25 Ordered By: Lilliam Bazzi Referrals: Pennington,Adele, BULB PLANTER [Primary Care Provider, Nurse Practitioner] Patient Instructions: Superficial Thrombophlebitis (ED), Phlebitis (ED) Print Language: Greenlandic Coding Level of Care Code ED Icer Machine Operator for Yan Duran
[2025-01-13 15:05] VITALS: BP 155/98; PULSE 89; O2SAT 94
[2025-01-13 15:57] VITALS: BP 129/96; PULSE 87; O2SAT 97
== END 2025-01-13 15:57 | disposition home or self-care (01) ==
PROVIDERS: Emergency Provider Physician Assistant; PCP Nurse Practitioner Family
DX: I80.3 Phlebitis and thrombophlebitis of lower extremities, unspecified (principal); I10 Essential (primary) hypertension; Z86.73 Personal history of transient ischemic attack (TIA), and cerebral infarction without residual deficits; Z87.891 Personal history of nicotine dependence
CPT/HCPCS: 93971; 99284

== ENCOUNTER → 2025-01-15 14:14 | Outpatient (BNVA) | payer OTHER, SELFPAY | PROVIDERS: PCP Nurse Practitioner Family; Visit Provider Podiatrist Foot & Ankle Surgery | DX: Z98.890 Other specified postprocedural states (principal); S93.401A Sprain of unspecified ligament of right ankle, initial encounter; W13.2XXA Fall from, out of or through roof, initial encounter | CPT/HCPCS: 73650; 99024 ==

== ENCOUNTER 2025-01-25 13:02 | Emergency (ER) | payer OTHER, SELFPAY ==
[2025-01-25 13:17] VITALS: BP 138/91; PULSE 85; RESP 16; TEMP 36.7; O2SAT 97; BMI 27.6
--- NOTE | 2025-01-25 13:40 | XRR_ITS ---
PROCEDURE INFORMATION: Exam: XR Left Foot Exam date and time: 01/25/2025 1:46 PM Age: 34 years old Clinical indication: Pain; Wound/redness to ; ateral left foot; Post op lt calcaneous fixation x 6weeks ago TECHNIQUE: Imaging protocol: Radiologic exam of the left foot. Views: 3 or more views. COMPARISON: CR XR foot LT min 3V* [id number] 12/18/2024 2:58 PM FINDINGS: Bones/joints: Disuse osteopenia changes of the visualized osseous structures. There is an intra-articular fracture through the lateral aspect of the base of the 5th proximal phalanx. Postoperative changes of the calcaneus with 2 orthopedic screws. No dislocation. Soft tissues: Mild dorsal soft tissue swelling. XR/XR foot LT min 3V* [id number] IMPRESSION: As above.
[2025-01-25 14:00] VITALS: BP 122/76; PULSE 82; O2SAT 99
--- NOTE | 2025-01-25 14:05 | ED_ITS ---
HPI - Extremity Problem 2 General: Chief complaint: Extremity Injury, Lower Stated complaint: L foot pain and swelling Time Seen by Provider: 01/25/25 13:41 History of Present Illness: Patient is a pleasant 34-year-old gentleman status post left subtalar and calcaneus fusion on 12/05 with follow-up with podiatry 01/15 that has had increasing redness, pain to his anterior portion of his foot/surgical site for the last 7-10 days. Patient believes this started having pain and redness 1 or 2 days after his doctor's appointment. He is having difficulty with dorsi flexion and ambulation. He is wearing his boot. He states that at night this area becomes red and edematous. Denies any fever, chills. Initial injury is from falling from a roof. Denies any pain medication at this time. Patient's primary concern is his left foot redness and association with pain and ambulation. Associated symptoms: Deny chest pain, fever(s) or rash Related Data Home Medications ?Medication ?Instructions ?Recorded ?Confirmed cetirizine 10 mg tablet 10 mg PO DAILY 03/25/2401/11 bupropion HCl 150 mg tablet,12 hr 150 mg PO DAILY 01/1101/25/25 sustained-release pantoprazole 40 mg tablet,delayed 40 mg PO BID 01/25/25 release Previous Rx's ?Medication ?Instructions ?Recorded Cam boot to right #1 ea 11/24/24 freedom leg brace #1 ea 12/01/24 wheel chair leg extension #1 ea 12/01/24 CAM walker #1 ea 12/18/24 carisoprodol 250 mg tablet (Soma) 250 mg PO TID PRN mu scle pain #21 01/08/25 tabs tramadol 50 mg tablet 50 mg PO Q4H #30 tabs doxycycline hyclate 100 mg capsule 100 mg PO BID 14 da ys #28 caps 01/25/25 Allergies Allergy/AdvReac Type Severity Reaction Status Date / Time bee venom protein (honey bee) Allergy ALGY-Anaphy Verified 01/25/25 13:16 laxis Opioids - Morphine Analogues Allergy Unknown Verified 01/25/25 13:16 Review of Systems 2 General: Reports: 10 or more systems reviewed and unremarkable except in HPI and below Const: Denies: fever(s), chills, body aches or malaise Eyes: Denies: change in vision or blurry vision ENMT: Denies: throat pain, change in hearing or nasal congestion Card: Denies: chest pain or palpitations Resp: Denies: dyspnea or productive cough GI: Denies: abdominal pain, nausea or vomiting : Denies: flank pain or difficulty urinating Musc: Reports: extremity pain, extremity swelling, joint pain, joint swelling, joint redness, joint warmth, joint stiffness, limited range of motion, muscle cramps and muscle weakness; Denies: neck pain or back pain Skin/Breast: Denies: rash or pruritus Neuro: Denies: headache(s) or numbness in extremities Psych: Denies: anxiety or depression Endo: Denies: polyuria or polydipsia All/Imm: Denies: urticaria or throat swelling PFSH ED 2 PFSH: Medical History Paresthesia and pain of left extremity Paresthesia Muscle twitching Facial twitching TIA involving right internal carotid artery Chronic back pain Muscular dystrophy Hypertension Surgical History Status post laparoscopic cholecystectomy (09/19/21) 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 claean for 7 years. service: Yes (out 2012) status: Medically Discharged/Retired branch: [employer] Physical Exam 2 Const: COMMON NORMALS: no acute distress, average body habitus, patient oriented x3, no limitations, healthy appearing and alert GENERAL APPEARANCE: cooperative ORIENTATION/CONSCIOUSNESS: Yes awake, Yes oriented to person and Yes oriented to place HENMT: COMMON NORMALS: normocephalic and atraumatic HEAD & SCALP: n ormocephalic and atraumatic FACE & SINUS: normal facial exam MOUTH: Normal oral and palatal mucosa present and lip normal Eye: COMMON NORMALS: Equal, round and reactive pupils present and EOMs intact bilaterally GENERAL EYE: appearance normal, both eyes and all related structures VISUAL ACUITY: Yes acuity normal PUPIL: Yes Equal, round and reactive pupils present Neck/C-Spine: COMMON NORMALS: full ROM, no lymphadenopathy and supple Resp: COMMON NORMALS: No use of accessory muscles and clear to auscultation bilaterally EFFORT & INSPECTION: Yes able to speak in complete sentences A USCULTATION: clear to auscultation bilaterally Cardio: COMMON NORMALS: regular rate and regular rhythm RATE: regular rate RHYTHM: regular rhythm GI: COMMON NORMALS: Normal to inspection, nondistended, normoactive bowel sounds present, Soft to palpation and non-tender INSPECTION: Yes normal to inspection PALPATION: Yes Soft to palpation : COMMON NORMALS: Yes no CVA tenderness BLADDER/KIDNEY EXAM: Yes no CVA tenderness Back/Pelvis: COMMON NORMALS: no CVA tenderness Extremity: COMMON NORMALS: capillary refill normal GENERAL: Yes carpopedal spasm and Yes edema (mild local left foot) LEFT LOWER EXTREMITY: Yes foot & digits Left foot and digits: Yes inspection (local redness lateral proximal dorsum), Yes palpation (pain) and Yes ROM (decreased due to pain) EXTREMITY IMAGE (FRONT): 1. local redness, edema, and pain on palpation Neuro: COMMON NORMALS: patient oriented x3 SENSORIUM/ORIENTATION: Yes alert, Yes oriented to person and Yes oriented to place Course 2 Reevaluation(s): Reevaluation #1: no change with patient Vital Signs: Vital signs: Vital Signs Temperature 98.1 F 01/25/25 13:17 Pulse Rate 75 01/25/25 15:00 Respiratory Rate 16 01/25/25 13:17 Blood Pressure 124/75 01/25/25 15:00 Pulse Oximetry 98 01/25/25 15:00 Oxygen Delivery Me thod Room Air 01/25/25 15:00 MDM - Extremity (Nontraumatic) Medical Decision Making Patient presents ED with redness to left foot, localized edema, and pain. This occurred after his follow-up. He is on clindamycin for the last 1 week twice daily. Despite being on clindamycin, he has continued to have the symptoms. X- ray shows soft tissue swelling with his fifth phalanx fracture, which I assume is from his original fall 2 months ago. Discussed with patient a plan. Will change to doxycycline for improved coverage, compress his left lower extremity (explained to patient with visual compression socks), ice, elevate, and boot at all times during ambulation. He is to call his primary surgeon in the morning, and I discussed with patient his referral will be to the surgeon on-call, however he is to call his primary surgeon in the morning for follow-up next week. Patient states understanding. I also encourage probiotic or active culture yogurt to avoid infectious diarrhea. Lab Data Radiology Impressions Foot X-Ray 01/25/25 13:40 IMPRESSION: As above. All radiology interpretation(s) finalized by discharge ED provider radiology interpretation(s): Soft tissue swelling Discharge Plan Discharge Patient Disposition: Home Clinical Impression: Cellulitis of foot, left Condition: Stable Prescriptions: New doxycycline hyclate 100 mg capsule 100 mg PO BID 14 Days Qty: 28 0RF No Action (DME) Cam boot to right See Rx Instructions .Route .MEDSUPPLY Qty: 1 0RF Rx Instructions: As directed (DME) wheel chair leg extension See Rx Instructions .Route .MEDSUPPLY Qty: 1 0RF Rx Instructions: As directed (DME) freedom leg brace See Rx Instructions .Route .MEDSUPPLY Qty: 1 0RF Rx Instructions: As directed (DME) CAM walker See Rx Instructions .Route .MEDSUPPLY Qty: 1 0RF Rx Instructions: As directed carisoprodol [Soma] 250 mg tablet 250 mg PO TID PRN (Reason: muscle pain) Qty: 21 0RF tramadol 50 mg tablet 50 mg PO Q4H Qty: 30 0RF cetirizine 10 mg Tablet 10 mg PO DAILY bupropion HCl 150 mg tablet sustained-release 12 hr 150 mg PO DAILY pantoprazole 40 mg tablet,delayed release (DR/EC) 40 mg PO BID Discharge Orders: Discharge ED (Routine); Ordered 01/25/25 Ordered By: Caron Moura Referrals: Adele Pennington APN [Primary Care Provider, Nurse Practitioner] Ruslan Peguero MD [Physician, Orthopedics] Discharge Diet: Usual diet Discharge Activity: Limit activity as instructed Patient Instructions: P.R.I.C.E. Treatment (ED) Activity Restrictions/Additional Instructions: Stop clindamycin. Doxycycline has been sent to your pharmacy. Remember to take a probiotic or active culture yogurt to avoid infectious diarrhea. Call your primary surgeon in the morning for follow-up Wear your boot with ambulation Compress your left lower extremity as demonstrated. Ice, elevate, ibuprofen for pain. Return to ED for worsening symptoms, or fever. Print Language: Northern Irish Coding Level of Care Code ED Communications Project Manager for Yan Duran
[2025-01-25 14:30] VITALS: BP 108/79; PULSE 80; O2SAT 92
[2025-01-25 15:00] VITALS: BP 124/75; PULSE 75; O2SAT 98
[2025-01-25 16:15] VITALS: BP 134/89; PULSE 63; O2SAT 99
== END 2025-01-25 16:16 | disposition home or self-care (01) ==
PROVIDERS: Emergency Provider Physician Assistant; PCP Nurse Practitioner Family
DX: L03.116 Cellulitis of left lower limb (principal); Z87.891 Personal history of nicotine dependence; I10 Essential (primary) hypertension; Z86.73 Personal history of transient ischemic attack (TIA), and cerebral infarction without residual deficits
CPT/HCPCS: 73630; 99283

== ENCOUNTER 2025-02-08 10:56 | Emergency (ER) | payer OTHER, MEDICARE, SELFPAY ==
--- OUTSIDE RECORDS SUMMARY | 2025-01-15 08:45 | XMS_ITS ---
Author Name [facility] Address [address] [place] [id number] Care Team Providers Care Grease Monkey Name Role Phone FADUMO ROMERO Primary Care Provider Unavailabl e Insurance Providers: All historical and current Section Date Range: From patient's date of to the date document was created. This section includes the names of all active insurance providers for the patient. Insurance Provider Type of Coverage Plan Name Start of Policy Coverage End of Policy Coverage Group Number Member ID Insurance Provider's Telephone Number Policy Box's Name Patient's Relationship to Policy Box MEDICARE (WNR) MEDICARE (M) PART A December 11, 2017 PART A [id number] [employer]TE[employer] FISCHER PATIENT MEDICARE (WNR) MEDICARE (M) PART B December 11, 2017 PART B [id number] [employer] FISCHER PATIENT Selected Encounter This section includes the information on record at [place] for the Encounter. Date/Time Encounter Type Encounter Description Reason Provider Source Jan 15, 2025 01:45 PM OFF/OP EST DECEMBER X REQ PHY/QHP PRIMARY CARE/MEDICINE ICD-10-CM E86.0 Dehydration SAMANTHA RUANO Encounter Template Text not used by [facility] Assessments - Encounter Diagnoses This section includes the primary and secondary diagnoses documented for the Encounter. Date/Time Primary/Secondary Diagnosis Diagnosis Name Provider Source Jan 15, 2025 02:38 PM PRIMARY Dehydration IRAIS RUANO [facility] Plan of Treatment: Future Appointments (+ 6 months) and Future Tests (+/- 45 days) The Plan of Treatment section includes future care activities for the patient from all [place] treatmentfacilities. This section includes future appointments and future orders which are active, pending or scheduled. Future Appointments This section includes appointments that were scheduled to occur 6 months from the date of the Encounter, up to a maximum of 20 appointments. The data comes from all [place] treatment facilities. Appointment Date/Time Appointment Type Appointme nt Facility Name Jan 19, 2025 02:00 PM AMBULATORY - MEDICINE [facility] Jan 26, 2025 03:15 PM AM[facility]ULATORY - MEDICINE [facility] [place] Lab Results: +/- 30 days of the encounter This section includes the Chemistry and Hematology Lab Results on record with [place] for the patient. Radiology Reports and Pathology Reports are provided separately, in subsequent sections. Lab Results This section contains the Chemistry/Hematology Results that were resulted 30 days before or 30 daysafter the date of the Encounter. Date/Time Source Result Type Result - Unit Interpretation Reference Range Specimen Type Comment Jan 15, 2025 10:15 AM [facility] TSH (MA-PB) SERUM Specimen Type: SERUM No comment entered. Ordering Provider: FADUMO ROMERO Report Released Date/Time: Jan 24, 2024 02:56 PM Reporting Lab: [place] [facility] [address] [place] [address] Performing Lab: [place] [facility] [address] [place] [address] TSH 1.752 u[IU]/mL 0.47-5 Jan 15, 2025 10:15 AM [facility] HGA1C BLOOD Specimen Type: BLOOD No comment entered. Ordering Provider: FADUMO ROMERO Report Released Date/Time: Jan 24, 2024 02:56 PM Reporting Lab: [place] [facility] [address] [place] [address] Performing Lab: [place] [facility] [address] [place] [address] HGA1C 5.5 4.0-6.0 Jan 15, 2025 10:15 AM [facility] CHOLESTEROL PANEL (PB) PLASMA Specimen Type: P LASMA No comment entered. Ordering Provider: FADUMO ROMERO Report Released Date/Time: Jan 24, 2024 02:56 PM Reporting Lab: [place] [facility] [address] [place] [address] Performing Lab: [place] [facility] [address] [place] [address] CHOLESTEROL 111 mg/dL 0-200 TRIGLYCERIDE 91 mg/dL 0-150 CALCULATED LDL 60.8 mg/dL HDL(New) 32.0 mg/dL L >40 HDL % OF TOTAL CHOLESTEROL (PB) 28.8 >25 Jan 15, 2025 10:15 AM [facility] COMPREHENSIVE METABOLIC PANEL PLASMA Specimen Type: PLASMA No comment entered. Ordering Provider: FADUMO ROMERO Report Released Date/Time: Jan 24, 2024 02:56 PM Reporting Lab: [place] [facility] [address] [place] [address] Performing Lab: [place] [facility] [address] [place] [address] CREATININE 0.83 mg/dL 0.7-1.3 UREA NITROGEN 9 mg/dL 9-25 GLUCOSE 96 mg/dL 72-99 SODIUM 144 meq/L 136-145 POTASSIUM 3.7 meq/L 3.5-5 CHLORIDE 105 meq/L 98-107 CARBON DIOXIDE 27 meq/L 22-31 CALCIUM 9.7 mg/dL 8.4-10.4 PROTEIN 6.7 g/dL 6-8.6 ALBUMIN 4.2 g/dL 3.4-5 TOTAL BILIRUBIN 0.6 mg/dL 0.2-1.2 ALKALINE PHOSPHATASE 83 U/L 40-150 AST/SGOT 47 U/L H 5-34 ALT/SGPT 35 U/L 8-40 EGFR (CKD-EPI 2020) 116 Jan 15, 2025 10:15 AM [facility] CBC BLOOD Specimen Type: BLOOD No comment entered. Ordering Provider: FADUMO ROMERO Report Released Date/Time: Jan 24, 2024 02:56 PM Reporting Lab: [place] [facility] [address] [place] [address] Performing Lab: [place] [facility] [address] [place] [address] WBC 3.9 10*3/uL 3.6-11.2 RBC 4.38 10*6/uL 4.10-5.70 HGB 13.5 g/dL 13.1-16.8 HCT 40.1 38.2-48.4 MCV 91.6 fL 80.0-100.0 MCH 30.8 pg 27.0-34.0 MCHC 33.7 g/dL 33.0-36.0 PLT 236 10*3/uL 150-400 MPV 10.8 fL 7.5-11.2 RDW 11.9 11.8-15.1 LYMPHOCYTES, AUTO % 23.7 MONOCYTES, AUTO % 10.2 NEUTROPHILS, AUTO % 62.2 EOSINOPHILS, AUTO % 3.1 BASOPHILS, AUTO % 0.5 LYMPHOCYTES, ABSOLUTE 0.93 10*3/uL 0.77- 4.50 MONOCYTES, ABSOLUTE 0.40 10*3/uL 0.19-0. 8 NEUTROPHILS, ABSOLUTE 2.44 10*3/uL 2.10- 8.00 EOSINOPHILS, ABSOLUTE 0.12 10*3/uL 0.00- 0.60 BASOPHILS, ABSOLUTE 0.02 10*3/uL 0.00-0. 20 IMMATURE GRANS, AUTO % 0.3 IMMATURE GRANS, AUTO ABS 0.01 10*3/uL 0. 00-0.05 Vital Signs: All taken on the encounter date This section contains inpatient and outpatient Vital Signs collected on the date of the Encounter. Date/Time Temperature Pulse Blood Pressure Respiratory Rate SP02 Pain Height Weight Body Mass Index Source Jan 15, 2025 10:30 AM 89 120/87 17 97 207.4 28 [facility] Social History: Smoking Status (Most current) and Tobacco Use (All prior to encounter date) This section includes the most current, and the historical, smoking and tobacco- related health factors from the [place] facility where the Encounter took place. Current Smoking Status This section includes the most current smoking, or tobacco-related health factor, from the [place] facility where the Encounter took place. Date/Time Current Smoking Status Comment Prasad munguia Jan 24, 2024 02:00 PM [place]-TOBACCO FORMER USER [facility] Tobacco Use History This section includes a history of the smoking, or tobacco-related health factors, that were collected on or before the date of the Encounter. The data comes from the [place] facility where the Encounter took place. Date/Time Smoking Status/Tobacco Use Comment F acility Jan 24, 2024 02:00 PM VA-TOBACCO QUIT 5 TO < 15 YRS [facility] Dec 05, 2022 01:00 PM VA-TOBACCO FORMER USER [facility] Dec 05, 2022 01:00 PM VA-TOBACCO QUIT 5 TO < 15 YRS [facility] Nov 04, 2020 11:00 AM VA-TOBACCO DOESNT USE WI 30 MIN WAKEUP [facility] Nov 04, 2020 11:00 AM VA-TOBACCO USE 5 TO 15 YEARS [facility] Nov 04, 2020 11:00 AM VA-TOBACCO USE ADVICE [facility] Nov 04, 2020 11:00 AM VA-TOBACCO USE PROGRESSIVE CARE UNIT REGISTERED NURSE NO [facility] Nov 04, 2020 11:00 AM VA-TOBACCO USE MED NO [facility] Nov 04, 2020 11:00 AM VA-TOBACCO USER EVERY DAY [facility] Apr 12, 2018 03:03 PM VA-TOBACCO NEVER USED [facility] Jul 06, 2015 10:29 AM LIFETIME NON-USER OF TOBACCO [facility] Jan 29, 2014 11:10 AM CURRENT TOBACCO USER [facility] Jan 29, 2014 11:10 AM [facility]BACCO MED[facility]ER[facility] Jan 29, 2014 11:10 AM TOBACCO OFFERED PT MEDS (PROVIDE R) [facility] Jan 29, 2014 11:10 AM TOBACCO OFFERED STOP SMOKING CLI KEARA [facility] Encounter Notes: All associated encounter notes This section contains the clinical notes associated to the Encounter. Date/Time Encounter Note(s) Provider Source Jan 15, 2025 10:25 AM NURSING PROGRESS NOTE: LOCAL TITLE: NURSING NOTE PB STANDARD TITLE: NURSING PROGRESS NOTE DATE OF NOTE: JAN 15, 2025@10:25 ENTRY DATE: JAN 15, 2025@10:25:33 AUTHOR: IRAIS RUANO EXP COSIGNER: URGENCY: STATUS: COMPLETED NURSING NOTE PB Has ADDENDA This is a 34 year old MALE with known Allergies as noted: BEE VENOM On the following Active Medications: Active Outpatient Medications (including Supplies): Active Outpatient Medications Status 1) CETIRIZINE HCL 10MG TAB TAKE ONE TABLET BY MOUTH ONCE A DAY ACTIVE FOR ALLERGY SYMPTOMS. 2) DIAZEPAM 5MG TAB TAKE ONE TABLET BY MOUTH THREE TIMES A DAY ACTIVE NEEDED FOR SPASMS AVOID TAKING WITH GRAPEFRUIT JUICE. Indication: FOR MUSCLE SPASM 3) HYDROCHLOROTHIAZIDE 25MG TAB TAKE ONE-HALF TABLET BY MOUTH ACTIVE ONCE A DAY Indication: FOR HIGH BLOOD PRESSURE 4) LOSARTAN 100MG TAB TAKE ONE TABLET BY MOUTH ONCE A DAY TO ACTIVE LOWER BLOOD PRESSURE 5) NALOXONE HCL 4MG/SPRAY SOLN NASAL SPRAY USE 1 SPRAY (4MG) ACTIVE INTO ONE NOSTRIL ONLY ONE-TIME DO NOT PRIME NASAL SPRAY. SPRAY ONE DOSE IN ONE NOSTRIL, GIVE ADDITIONAL DOSE IF PATIENT DOES NOT START BREATHING WITHIN 2-3 MINUTES OR STOPS BREATHING AGAIN. CALL 911. IF USED, NOTIFY PROVIDER. Indication: FOR OPIOID OVERDOSE Active Non-VA Medications Status 1) Non-VA BUPRENORPHINE 8MG/NALOXONE 2MG SL TAB 1 AND 1/2 TABS ACTIVE (12MG/3MG) UNDER THE TONGUE TWICE A DAY Indication: FOR ASSISTANCE WITH DEPENDENCY 2) Non-VA CETIRIZINE HCL 10MG TAB 10MG BY MOUTH ONCE A DAY ACTIVE Indication: FOR ALLERGY SYMPTOMS 3) Non-VA CLONIDINE HCL 0.1MG TAB 0.15MG BY MOUTH ONCE A DAY ACTIVE Indication: FOR HIGH BLOOD PRESSURE 8 Total Medications C/C: Follow up on dehydration S: The presented to the clinic today with the complaint of continued dehydration. [place] reports that since he broke his left ankle he has not been able to drink much. Reports that drinking water makes him feel nauseous. Reports, I can drink juice or carbonated drinks like tay yasir but water makes me nauseous. The was seen on 01/09/25 for a nurse visit, received educated on importance of PO hydration. The also reports that he was seen in the ER on 01/10/25 with complaint of the veins in his right leg being very large almost bulging. The showed me a report on his phone that stated Superficial Thrombophlebitis. Asked the if he had talked to ER about being dehydrated, the reports that he did but reports that they did not do any labs and that they did not give him any fluids. O/A: The ambulated to the exam room with assistance hands free crutch, gait is impaired due using a hands free crutch for recent injury to the left leg. is alert and oriented, has even, unlabored breath sounds, mucosa was moist, good skin turgor. No notable dry or flacking skin, but the did not that he felt that it was dryer than normal. Vitals were stable today. Vital Signs: as charted P: Discussed the above symptoms and assessment with Dr. Chaparro. Let the know that he could try some liquid IV pks, sipping on it throughout the day. Also talked to the about trying some flavor pks for water to see if he is better able to tolerate. Also discuss setting a timer on his watch to go off every 10 minutes or so to remind him to drink some. Educated him to just take a few sips but to do it frequently to see if it helped. Reminded the that he had his annual PCP with Dr. Romero on Sunday. The is having labs done today, let him know that if the provider saw anything of concern in his labs when they came back in the morning we would let him know but otherwise instructed the to work on increasing his fluid intake and keep his PCP visit on Sunday. The voiced understanding, is in agreement with the plan and has no further questions or complaints at this time. The ambulated to the exit in satisfactory manner. RTC: as needed /hardeep/ Irais Ruano RN,BSN [facility] Signed: 01/15/2025 14:39 Receipt Acknowledged By: 01/20/2025 19:26 /es/ Fadumo Romero MD [facility] 01/15/2025 15:32 /es/ MD KIERRA BAEZ III[facility] 01/15/2025 ADDENDUM STATUS: COMPLETED Per [facility] Directive 1605.06, wristband documentation: Patient wristband was removed and destroyed by (staff name) Yenni Ruano RN and placed in the designated [employer] bin. /es/ Irais Ruano RN,BSAsael [place], [facility] Signed: 01/15/2025 14:40 01/16/2025 ADDENDUM STATUS: COMPLETED Called the and let him know that Dr. Chaparro had looked at his labs and wanted to let him know that there were no signs of dehydration and that Dr. Romero would go over his other labs with him on 01/19/25 The voiced understanding and had no further questions at this time. /hardeep/ Irais Ruano RN,[facility] [place], [facility] Signed: 01/16/2025 11:39 IRAIS RUANO [place] [facility]
--- OUTSIDE RECORDS SUMMARY | 2025-01-19 09:00 | XMS_ITS | Encounter Summary ---
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 thinking about how you might do this? Response not required due to responses to other questions. 4. Over the past month, have you had these thoughts and had some intention of acting on them? Response not required due to responses to other questions. 5. Over the past month, have you started to work out or worked out the details of how to kill yourself? Response not required due to responses to other questions. 6. If yes, at any time in the past month did you intend to carry out this plan? Response not required due to responses to other questions. 7. In your lifetime, have you ever done anything, started to do anything, or prepared to do anything to end your life (for example, collected pills, obtained a gun, gave away valuables, went to the roof but didn't jump)? No 8. If YES, was this within the past 3 months? Response not required due to responses to other questions. Pain Assessment: - PAIN ASSESSMENT: .. This patient's last pain assessment score was: 4 (01/19/2025 14:18). A detailed pain assessment showed the following: Pain characteristics (per patient's own words) Constant Location of current pain Leg, Low Back Patient's self identified pain goal: 0 Herpes Zoster (Shingles) Vaccine - L,N,P,PH,U: The patient declines to receive the recommended dose of zoster (shingles) vaccine. Immunization: ZOSTER RECOMBINANT Refusal Reason: PATIENT DECISION Patient refuses all immunization(s) in the ZOSTER group Date Documented: 01/19/25 14:27 /hardeep/ LIZETTE HOWARD LPN [facility] Signed: 01/19/2025 14:29 [facility]ARD [facility]
--- OUTSIDE RECORDS SUMMARY | 2025-02-03 05:17 | XMS_ITS | Encounter Summary ---
Author Name [facility] [facility] [place] Address [address] [place] [id number] Care Team Providers Care Er Rn Name Role Phone JOY AGUIRRE Primary Care Provider Unavailabl e Insurance Providers: [...] PART A December 11, 2017 PART A [id number] CORTE[employer] FISCHER PATIENT MEDICARE (WNR) MEDICARE (M) PART B December 11, 2017 PART B [id number] [employer]TE[employer] FISCHER PATIENT Selected Encounter This section includes the information on record at [place] for the Encounter. Date/Time Encounter Type Encounter Description Reason Provider Source Feb 03, 2025 10:17 AM PH1 ASSMT&MGMT NQHP 5-10 TELEPHONE PRIMARY CARE ICD-10-CM Z71.89 Other specified counseling SAMANTHA RUANO Encounter Template Text not used by [place] Assessments - Encounter Diagnoses This section includes the primary and secondary diagnoses documented for the Encounter. Date/Time Primary/Secondary Diagnosis Diagnosis Name Provider Source Feb 03, 2025 10:17 AM PRIMARY Other specified counseling LUCINDA RUANO [facility] Lab Results: +/- 30 days of the encounter This section includes the Chemistry and Hematology Lab Results on record with [facility] for the [facility]. Radiology Reports and Pathology Reports are provided separately, in subsequent sections. Lab Results This section contains the Chemistry/Hematology Results that were resulted 30 days before or 30 daysafter the date of the Encounter. Date/Time Source Result Type Result - Unit Interpretation Reference Range Specimen Type Comment Jan 15, 2025 10:15 AM [facility] HGA1C BLOOD Specimen Type: BLOOD No comment entered. Ordering Provider: JOY AGUIRRE Report Released Date/Time: Jan 24, 2024 02:56 PM Reporting Lab: [place] [facility] [address] [place] [address] Performing Lab: [place] [facility] [address] [place] [address] HGA1C 5.5 4.0-6.0 Jan 15, 2025 10:15 AM [facility] TSH (MA-PB) SERUM Specimen Typ e: SERUM No comment entered. Ordering Provider: JOY AGUIRRE Report Released Date/Time: Jan 24, 2024 02:56 PM Reporting Lab: [place] [facility] [address] [place] [address] Performing Lab: [place] [facility] [address] [place] [address] TSH 1.752 u[IU]/mL 0.47-5 Jan 15, 2025 10:15 AM [facility] CHOLESTEROL PANEL (PB) PLASMA Specimen Type: P LASMA No comment entered. Ordering Provider: JOY AGUIRRE Report Released Date/Time: Jan 24, 2024 02:56 PM Reporting Lab: [place] [facility] [address] [place] [address] Performing Lab: [place] [facility] [address] [place] [address] CHOLESTEROL 111 mg/dL 0-200 TRIGLYCERIDE 91 mg/dL 0-150 CALCULATED LDL 60.8 mg/dL HDL(New) 32.0 mg/dL L >40 HDL % OF TOTAL CHOLESTEROL (PB) 28.8 >25 Jan 15, 2025 10:15 AM [facility] COMPREHENSIVE METABOLIC PANEL PLASMA Specimen Type: PLASMA No comment entered. Ordering Provider: JOY AGUIRRE Report Released Date/Time: Jan 24, 2024 02:56 PM Reporting Lab: [place] [facility] [address] [place] [address] Performing Lab: [place] [facility] [address] [place] [address] CREATININE 0.83 mg/dL 0.7-1.3 UREA NITROGEN 9 [...] 2020) 116 Jan 15, 2025 10:15 AM [facility] CBC BLOOD Specimen Type: BLOOD No comment entered. Ordering Provider: JOY AGUIRRE Report Released Date/Time: Jan 24, 2024 02:56 PM Reporting Lab: [place] [facility] [address] [place] [address] Performing Lab: [place] [facility] [address] [place] [address] WBC 3.9 10*3/uL 3.6-11.2 RBC 4.38 10*6/uL [...] GRANS, AUTO ABS 0.01 10*3/uL 0. 00-0.05 Social History: Smoking Status (Most current) and Tobacco Use (All prior to encounter date) This section includes the most current, and the historical, smoking and tobacco- related health factors from the [place] facility where the Encounter took place. Current Smoking Status This section includes the most current smoking, or tobacco-related health factor, from the [place] facility where the Encounter took place. Date/Time Current Smoking Status Comment Facil ity Jan 19, 2025 02:00 PM VA-TOBACCO USE FORMER CIGARETTES [facility] Tobacco Use History This section includes a history of the smoking, or tobacco-related health factors, that were collected on or before the date of the Encounter. The data comes from the [place] facility where the Encounter took place. Date/Time Smoking Status/Tobacco Use Comment F acility Jan 19, 2025 02:00 PM VA-TOBACCO USE SOME DAYS ENDS [facility] Jan 19, 2025 02:00 PM VA-TOBACCO USE SOME DAYS OTHER T YPE [facility] Jan 24, 2024 02:00 PM VA-TOBACCO FORMER USER [facility] Jan 24, 2024 02:00 PM VA-TOBACCO QUIT 5 TO < 15 YRS [facility] Dec 05, 2022 01:00 PM VA-TOBACCO FORMER USER [facility] Dec 05, 2022 01:00 PM VA-TOBACCO QUIT 5 TO < 15 YRS [facility] Nov 04, 2020 11:00 AM VA-TOBACCO DOESNT USE WI 30 MIN WAKEUP [facility] Nov 04, 2020 11:00 AM VA-TOBACCO USE 5 TO 15 YEARS [facility] Nov 04, 2020 11:00 AM VA-TOBACCO USE ADVICE [facility] Nov 04, 2020 11:00 AM VA-TOBACCO USE SET DECORATOR NO [facility] Nov 04, 2020 11:00 AM VA-TOBACCO USE MED NO [facility] Nov 04, 2020 11:00 AM VA-TOBACCO USER EVERY DAY [facility] Apr 12, 2018 03:03 PM VA-TOBACCO NEVER USED [facility] Jul 06, 2015 10:29 AM LIFETIME NON-USER OF TOBACCO [facility] Jan 29, 2014 11:10 AM CURRENT TOBACCO USER [facility] Jan 29, 2014 11:10 AM TOBACCO MEDS OFFERED BUT DECLINE D [facility] Jan 29, 2014 11:10 AM TOBACCO OFFERED PT MEDS (PROVIDE R) [facility] Jan 29, 2014 11:10 AM TOBACCO OFFERED STOP SMOKING CLI KEARA [facility] Encounter Notes: All associated encounter notes This section contains the clinical notes associated to the Encounter. Date/Time Encounter Note(s) Provider Source Feb 03, 2025 10:17 AM TELEPHONE ENCOUNTE R NOTE: LOCAL TITLE: TELEPHONE NOTE STANDARD TITLE: TELEPHONE ENCOUNTER NOTE DATE OF NOTE: FEB 03, 2025@10:17 ENTRY DATE: FEB 03, 2025@10:17:24 AUTHOR: LUCINDA RUANO COSIGNER: URGENCY: STATUS: COMPLETED Called the to follow up with him after his ER visit on 01/25/25 for cellulitis. The reports that the redness and swelling are gone and the foot is doing much better. The further reports that his next follow up with Ortho is 02/12/25. Let the know that he should finish all antibiotics and be sure and keep all scheduled appointments. The has no further questions or concerns at this time. Patient Disposition: Home Clinical Impression: Cellulitis of foot, Left Condition: Stable Prescriptions: New doxycycline hyclate 100 mg capsule 100 mg PO BID 14 Days Qty: 28 0RF - /hardeep/ Lucinda Ruano, RN,BSN [place] Signed: 02/03/2025 10:23 LUCINDA RUANO [facility] [place] [facility]
--- OUTSIDE RECORDS SUMMARY | 2025-02-08 06:00 | XMS_ITS | Continuity of Care Document ---
Author Name [facility] Organization [facility] Care Team Providers Care Plastics Technician Name Role Phone [facility] Unavailable Unavailable Problems Combined list of problems from Department of 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 It does not include entries that were removed or entered in error. 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 Nov 04, 2020 Entered By: SCOTTY AGUIRRE Comment: severe anaphalaxis [place] [facility] Cervical radiculopathy Active Condition [place] [facility] Chronic back pain Active Condition [place] [facility] Chronic constipation Active Condition [place] [facility] Cramp in lower limb associated with sleep Active Condition [place] [facility] Depression ([facility] [id number]) Active Condition [place] [facility] Exposure to potentially hazardous substance Active Condition [facility] Headache Active Condition [place] [facility] HTN - Hypertension Active Condition [place] [facility] Legal problems/circumstances Active Condition [facility] Neck pain Active Condition [place] [facility] Obstructive sleep apnea Active Condition May 28, 2024 Entered By: SCOTTY AGUIRRE Comment: Auto CPAP 6-16cm [place] [facility] Opiate Dependence * Active Condition [facility] Opioid dependence, on agonist therapy Active Condition [place] [facility] Rheumatoid arthritis Active Condition [place] [facility] Sleep paralysis Active Condition [place] [facility] Closed fracture of of navicular bone of wrist Inactive Condition 08/21/2016 [facility] Dislocation of shoulder joint Inactive Condition 08/21/2016 [place] [facility] Homeless Inactive Condition 08/21/2016 [facility] Knee pain Inactive Condition 08/21/2016 [facility] Muscle atrophy (SNOMED CT 84161410) Inactive Condition 08/21/2016 [facility] Other injury into spleen without mention of open wound into cavity Inactive Condition 08/21/2016 [facility] Rib pain Inactive Condition 08/21/2016 [facility] Scapulalgia (SNOMED CT 11799969) Inactive Condition 08/21/2016 [facility] Thoracic back pain (SNOMED CT 251890029) Inactive Condition 08/21/2016 [facility] Unexplained weight loss Inactive Condition 08/21/2016 [facility] Diagnosis: ICD-10-CM Z71.89 Other specified counseling Active Diagnosis [facility] Diagnosis: ICD-10-CM Z71.9 Counseling, unspecified Active Diagnosis [facility] Diagnosis: ICD-10-CM I10 Essential (primary) hypertension Active Diagnosis [facility] Diagnosis: ICD-10-CM E86.0 Dehydration Active Diagnosis [facility] Diagnosis: ICD-10-CM G47.33 Obstructive sleep apnea (adult) (pediatric) Active Diagnosis [facility] Diagnosis: ICD-10-CM K02.52 Dental caries on pit and fissure surfc penetrat into dentin Active Diagnosis [facility] Medications Combined list of outpatient medications from Department of 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Medications provided include 1) outpatient medications from the last 15 months, and 2) patient-reported medications. Medication Details Route Status Patient Instructions Prescription Expires Prescription Number Last Dispense Date Ordering Provider Order Date Order Qty Source BUPRENORPHI NE HCL 8MG/NALOXON E HCL 2MG TAB,SUBLING UAL DISSOLVE 1 AND 1/2 TABS (12MG/3M G) UNDER THE TONGUE TWICE A DAY SUBLIN GUAL ACTIVE JOY AGUIRRE 2023 [facility] BU[facility] HCL 150MG 24HR TAB,SA TAKE ONE TABLET BY MOUTH ONCE A DAY FOR DEPRESSI ON SWALLOW WHOLE - DO NOT CRUSH OR CHEW. ORAL ACTIVE 01/20/2026 [id number] JOY AGUIRRE [address] [place] [address] [facility] CETIRIZINE HCL 10MG TAB TAKE ONE TABLET BY MOUTH ONCE A DAY FOR ALLERGY SYMPTOMS . ORAL ACTIVE 12/25/2025 [id number] 5 [facility] [address] [place] [address] [facility] CETIRIZINE HCL 10MG TAB TAKE ONE TABLET BY MOUTH ONCE A DAY ORAL ACTIVE [facility] 2023 [facility] CLONIDINE HCL 0.1MG TAB TAKE 1.5 TABLETS BY MOUTH ONCE A DAY ORAL ACTIVE [facility] 2023 [facility] DIAZEPAM 5MG TAB TAKE ONE TABLET BY MOUTH THREE TIMES A DAY NEEDED FOR MUSCLE SPASM FOR SPASMS AVOID TAKING WITH GRAPEFRU IT JUICE. ORAL ACTIVE 06/26/2025 [id number] 5 [facility] [address] [place] [address] [facility] DIAZEPAM 5MG TAB TAKE ONE TABLET BY MOUTH THREE TIMES A DAY NEEDED AVOID TAKING WITH GRAPEFRU IT JUICE. ORAL DISCONT INUED 06/19/2024 [id number] 4 [facility] [address] [place] [address] [facility] DIAZEPAM 5MG TAB TAKE ONE TABLET BY MOUTH THREE TIMES A DAY NEEDED AVOID TAKING WITH GRAPEFRU IT JUICE. ORAL DISCONT INUED 12/20/2023 [id number] 4 [facility] [address] [place] [address] [facility] DIAZEPAM 5MG TAB TAKE ONE TABLET BY MOUTH THREE TIMES A DAY NEEDED AVOID TAKING WITH GRAPEFRU IT JUICE. ORAL 12/20/2024 [id number] 5 [facility] [address] [place] [address] [facility] EPINEPHRINE (EQV-ADRENA CLICK) 0.3MG/0.3ML INJECTOR INJECT 1 PEN (0.3MG/0 .3ML) INTRAMUS CULARLY ONE-TIME NEEDED FOR ALLERGIC REACTION /ANAPHYL AXIS. INTRAM USCULA R 12/18/2024 [id number] 5 [facility] [address] [place] [address] [facility] EPINEPHRINE (EQV-EPI-PE N) 0.3MG/0.3ML INJECTOR INJECT 0.3MG (0.3ML) INTRAMUS CULARLY ONE-TIME NEEDED FOR ALLERGIC REACTION /ANAPHYL AXIS. INTRAM USCULA R DISCONT INUED (EDIT) 12/18/2024 [id number] 4 [facility] [address] [place] [address] [facility] HYDROCHLORO THIAZIDE 25MG TAB TAKE ONE-HALF TABLET BY MOUTH ONCE A DAY FOR HIGH BLOOD PRESSURE ORAL 01/24/2025 [id number] 5 [facility] [address] [place] [address] [facility] LOSARTAN POTASSIUM 100MG TAB TAKE ONE TABLET BY MOUTH ONCE A DAY TO LOWER BLOOD PRESSURE ORAL ACTIVE 12/25/2025 [id number] 5 [facility] [address] [place] [address] [facility] [place] POTASSIUM 100MG TAB TAKE ONE TABLET BY MOUTH ONCE A DAY TO LOWER BLOOD PRESSURE ORAL 08/15/2024 [id number] 4 [facility] [address] [place] [address] [facility] MELOXICAM 15MG TAB TAKE ONE TABLET BY MOUTH ONCE A DAY FOR PAIN OR INFLAMMA TION ORAL 08/15/2024 [id number] 4 [facility] [address] [place] [address] [facility] NALOXONE HCL 4MG/SPRAY SOLN,SPRAY, NASAL USE 1 SPRAY (4MG) INTO ONE NOSTRIL ONLY ONE-TIME FOR OPIOID OVERDOSE DO NOT PRIME NASAL SPRAY. SPRAY ONE DOSE IN ONE NOSTRIL, GIVE ADDITION AL DOSE IF PATIENT DOES NOT START BREATHIN G WITHIN 2-3 MINUTES OR STOPS BREATHIN G AGAIN. CALL 911. IF USED, NOTIFY PROVIDER . NASAL ACTIVE 01/01/2026 [id number] 5 DOREEN JETER 2024 [address] [facility] Non-VA Medication Assessment Done USE Document ion Only MOUTH ORAL ACTIVE IVELISSE KOLB [address] [place], [place] Allergies, Adverse Reactions, Alerts Combined list of allergies from Department of 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 It does not include entries that were removed or entered in error. Substance Category Reaction Severity Reaction type Status Date Reported Comments Source BEE [facility]OM Propensity to adverse reaction (finding) Anaphylaxis active 8 [facility] Immunizations Combined list of available immunizations from the Department of 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 Immunization Series Date Given Administered By Site Reaction Lot Number CVX Code Drug Vice President Business Development Status Comments Source ZOSTER RECOMBINANT 2022 ARIS PAT LEFT DELTO ID [id number] 187 complet ed [facility] AT [facility] TDAP 2020 115 complet ed [facility] TDAP 2009 115 complet ed ARMY HEP A, PED/ADOL, 2 DOSE 2 1998 83 complet ed HISTORICA L INFORMATI ON - FROM OTHER [facility] N HEP B, UNSPECIFIED FORMULATION 3 1998 45 complet ed HISTORICA L INFORMATI ON - FROM OTHER [facility] N HEP A, PED/ADOL, 2 DOSE 1997 83 complet ed HISTORICA L INFORMATI ON - FROM OTHER [facility], [facility] HEP B, UNSPECIFIED FORMULATION 2 1997 45 complet ed HISTORICA L INFORMATI ON - FROM OTHER [facility] N HEP A, PED/ADOL, 2 DOSE 1 1997 83 complet ed HISTORICA L INFORMATI ON - FROM OTHER [facility] N HEP B, ADOLESCENT OR PEDIATRIC 1 1997 08 complet ed HISTORICA L INFORMATI ON - FROM OTHER [facility] N MMR 2 1997 03 complet ed HISTORICA L INFORMATI ON - FROM OTHER [facility] N DTP 5 1992 01 complet ed [facility] - [facility]IV[facility] OPV 4 1992 02 complet ed HISTORICA L INFORMATI ON - FROM OTHER [facility] N DTP 4 1990 01 complet ed HISTORICA L INFORMATI ON - FROM OTHER REGISTRY, [facility] HIB (HBOC) 1 1990 47 complet ed HISTORICA L INFORMATI ON - FROM OTHER REGISTRY, [facility] HIB (PRP-T) 1 1990 48 complet ed HISTORICA L INFORMATI ON - FROM OTHER REGISTRY, [facility] DTP 3 1989 01 complet ed HISTORICA L INFORMATI ON - FROM OTHER REGISTRY, [facility] MMR 1 1989 03 complet ed HISTORICA L INFORMATI ON - FROM OTHER REGISTRY, [facility] TRIVALENT OPV 3 1989 02 complet ed HISTORICA L INFORMATI ON - FROM OTHER REGISTRY, [facility] DTP 2 1989 01 complet ed HISTORICA L INFORMATI ON - FROM OTHER REGISTRY, [facility] TRIVALENT OPV 2 1989 02 complet ed HISTORICA L INFORMATI ON - FROM OTHER REGISTRY, [facility] DTP 1 1988 01 complet ed HISTORICA L INFORMATI ON - FROM OTHER REGISTRY, [facility] N TRIVALENT OPV 1 1988 02 complet ed HISTORICA L INFORMATI ON - FROM OTHER REGISTRY, [facility] N Results Combined list of recent chemistry, hematology and other laboratory results from Department of Defense and Veterans Affairs, ranging from 15 months to all on record, depending upon the facility. Order Name Results Value Reference Range Date Interpretation Specimen Comments Source HGA1C HEMOGLOBIN A1C/HEMOGLO BIN.TOTAL IN BLOOD 5.5 4.0 - 6.0 01/15 Specimen Type: BLOOD No comment entered. Ordering Provider: JOY AGUIRRE Report Released Date/Time : Jan 24, 2024 02:56 PM Reporting Lab: [place] [facility] [address] [place] [address] Performin g Lab: [place] [facility] [address] [place] [address] [facility] TSH (MA-PB) THYROTROPIN [UNITS/VOLU ME] IN SERUM OR PLASMA 1.752 u[IU]/mL 0.47 - 5 01/15 Specimen Type: SERUM No comment entered. Ordering Provider: JOY AGUIRRE Report Released Date/Time : Jan 24, 2024 02:56 PM Reporting Lab: [place] [facility] [address] [place] [address] Performin g Lab: [place] [facility] [address] [place] [address] [facility] CHOLESTERO L PANEL (PB) CHOLESTEROL [MASS/VOLUM E] IN SERUM OR PLASMA 111 mg/dL 0 - 200 01/15 Specimen Type: PLASMA No comment entered. Ordering Provider: JOY AGUIRRE Report Released Date/Time : Jan 24, 2024 02:56 PM Reporting Lab: [place] [facility] [address] [place] [address] Performin g Lab: [place] [facility] [address] [place] [address] [facility] CHOLESTERO L PANEL (PB) TRIGLYCERID E [MASS/VOLUM E] IN SERUM OR PLASMA 91 mg/dL 0 - 150 01/15 Specimen Type: PLASMA No comment entered. Ordering Provider: JOY AGUIRRE Report Released Date/Time : Jan 24, 2024 02:56 PM Reporting Lab: [place] [facility] [address] [place] [address] Performin g Lab: [place] [facility] [address] [place] [address] [facility] CHOLESTERO L PANEL (PB) CHOLESTEROL IN LDL [MASS/VOLUM E] IN SERUM OR PLASMA BY CALCULATION 60.8 mg/dL 01/15 Specimen Type: PLASMA No comment entered. Ordering Provider: JOY AGUIRRE Report Released Date/Time : Jan 24, 2024 02:56 PM Reporting Lab: [place] [facility] [address] [place] [address] Performin g Lab: [place] [facility] [address] [place] [address] [facility] CHOLESTERO L PANEL (PB) CHOLESTEROL IN HDL [MASS/VOLUM E] IN SERUM OR PLASMA 32.0 mg/dL 40 01/15 L Specimen Type: PLASMA No comment entered. Ordering Provider: JOY AGUIRRE Report Released Date/Time : Jan 24, 2024 02:56 PM Reporting Lab: [place] [facility] [address] [place] [address] Performin g Lab: [place] [facility] [address] [place] [address] [facility] CHOLESTERO L PANEL (PB) CHOLESTEROL IN HDL/CHOLEST LLUVIA.TOTAL [MASS RATIO] IN SERUM OR PLASMA 28.8 25 01/15 Specimen Type: PLASMA No comment entered. Ordering Provider: JOY AGUIRRE Report Released Date/Time : Jan 24, 2024 02:56 PM Reporting Lab: [place] [facility] [address] [place] [address] Performin g Lab: [place] [facility] [address] [place] [address] [facility] COMPREHENS KENNEDY METABOLIC PANEL CREATININE [MASS/VOLUM E] IN SERUM OR PLASMA 0.83 mg/dL 0.7 - 1.3 01/15 Specimen Type: PLASMA No comment entered. Ordering Provider: JOY AGUIRRE Report Released Date/Time : Jan 24, 2024 02:56 PM Reporting Lab: [place] [facility] [address] [place] [address] Performin g Lab: [place] [facility] [address] [place] [address] [facility] COMPREHENS KENNEDY METABOLIC PANEL UREA NITROGEN [MASS/VOLUM E] IN SERUM OR PLASMA 9 mg/dL 9 - 25 01/15 Specimen Type: PLASMA No comment entered. Ordering Provider: JOY AGUIRRE Report Released Date/Time : Jan 24, 2024 02:56 PM Reporting Lab: [place] [facility] [address] [place] [address] Performin g Lab: [place] [facility] [address] [place] [address] [facility] COMPREHENS KENNEDY METABOLIC PANEL GLUCOSE [MASS/VOLUM E] IN SERUM OR PLASMA 96 mg/dL 72 - 99 01/15 Specimen Type: PLASMA No comment entered. Ordering Provider: JOY AGUIRRE Report Released Date/Time : Jan 24, 2024 02:56 PM Reporting Lab: [place] [facility] [address] [place] [address] Performin g Lab: [place] [facility] [address] [place] [address] [facility] COMPREHENS KENNEDY METABOLIC PANEL SODIUM [MOLES/VOLU ME] IN SERUM OR PLASMA 144 meq/L 136 - 145 01/15 Specimen Type: PLASMA No comment entered. Ordering Provider: JOY AGUIRRE Report Released Date/Time : Jan 24, 2024 02:56 PM Reporting Lab: [place] [facility] [address] [place] [address] Performin g Lab: [place] [facility] [address] [place] [address] [facility] COMPREHENS [place] METABOLIC PANEL POTASSIUM [MOLES/VOLU ME] IN SERUM OR PLASMA 3.7 meq/L 3.5 - 5 01/15 Specimen Type: PLASMA No comment entered. Ordering Provider: JOY AGUIRRE Report Released Date/Time : Jan 24, 2024 02:56 PM Reporting Lab: [place] [facility] [address] [place] [address] Performin g Lab: [place] [facility] [address] [place] [address] [facility] COMPREHENS [place] METABOLIC PANEL CHLORIDE [MOLES/VOLU ME] IN SERUM OR PLASMA 105 meq/L 98 - 107 01/15 Specimen Type: PLASMA No comment entered. Ordering Provider: JOY AGUIRRE Report Released Date/Time : Jan 24, 2024 02:56 PM Reporting Lab: [place] [facility] [address] [place] [address] Performin g Lab: [place] [facility] [address] [place] [address] [place] [facility] COMPREHENS [place] METABOLIC PANEL CARBON DIOXIDE, TOTAL [MOLES/VOLU ME] IN SERUM OR PLASMA 27 meq/L 22 - 31 01/15 Specimen Type: PLASMA No comment entered. Ordering Provider: JOY AGUIRRE Report Released Date/Time : Jan 24, 2024 02:56 PM Reporting Lab: [place] [facility] [address] [place] [address] Performin g Lab: [place] [facility] [address] [place] [address] [facility] COMPREHENS [place] METABOLIC PANEL CALCIUM [MASS/VOLUM E] IN SERUM OR PLASMA 9.7 mg/dL 8.4 - 10.4 01/15 Specimen Type: PLASMA No comment entered. Ordering Provider: JOY AGUIRRE Report Released Date/Time : Jan 24, 2024 02:56 PM Reporting Lab: [place] [facility] [address] [place] [address] Performin g Lab: [place] [facility] [address] [place] [address] [facility] COMPREHENS [place]ENN[place] METABOLIC PANEL PROTEIN [MASS/VOLUM E] IN SERUM OR PLASMA 6.7 g/dL 6 - 8.6 01/15 Specimen Type: PLASMA No comment entered. Ordering Provider: JOY AGUIRRE Report Released Date/Time : Jan 24, 2024 02:56 PM Reporting Lab: [place] [facility] [address] [place] [address] 8 Performin g Lab: [place] [facility] [address] [place] [address] [facility] COMPREHENS [place] METABOLIC PANEL ALBUMIN [MASS/VOLUM E] IN SERUM OR PLASMA 4.2 g/dL 3.4 - 5 01/15 Specimen Type: PLASMA No comment entered. Ordering Provider: JOY AGUIRRE Report Released Date/Time : Jan 24, 2024 02:56 PM Reporting Lab: [place] [facility] [address] [place] [address] Performin g Lab: [place] [facility] [address] [place] [address] [facility] COMPREHENS [place] METABOLIC PANEL BILIRUBIN.T OTAL [MASS/VOLUM E] IN SERUM OR PLASMA 0.6 mg/dL 0.2 - 1.2 01/15 Specimen Type: PLASMA No comment entered. Ordering Provider: JOY AGUIRRE Report Released Date/Time : Jan 24, 2024 02:56 PM Reporting Lab: [place] [facility] [address] [place] [address] Performin g Lab: [place] [facility] [address] [place] [address] [facility] COMPREHENS KENN[place]Y METABOLIC PANEL ALKALINE PHOSPHATASE [ENZYMATIC ACTIVITY/VO LUME] IN SERUM OR PLASMA 83 U/L 40 - 150 01/15 Specimen Type: PLASMA No comment entered. Ordering Provider: JOY AGUIRRE Report Released Date/Time : Jan 24, 2024 02:56 PM Reporting Lab: [place] [facility] [address] [place] [address] Performin g Lab: [place] [facility] [address] [place] [address] [facility] COMPREHENS [place] METABOLIC PANEL ASPARTATE AMINOTRANSF ERASE [ENZYMATIC ACTIVITY/VO LUME] IN SERUM OR PLASMA 47 U/L 5 - 34 01/15 H Specimen Type: PLASMA No comment entered. Ordering Provider: JOY AGUIRRE Report Released Date/Time : Jan 24, 2024 02:56 PM Reporting Lab: [place] [facility] [address] [place] [address] Performin g Lab: [place] [facility] [address] [place] [address] [facility] COMPREHENS [place]Y METABOLIC PANEL ALANINE AMINOTRANSF ERASE [ENZYMATIC ACTIVITY/VO LUME] IN SERUM OR PLASMA 35 U/L 8 - 40 01/15 Specimen Type: PLASMA No comment entered. Ordering Provider: JOY AGUIRRE Report Released Date/Time : Jan 24, 2024 02:56 PM Reporting Lab: [place] [facility] [address] [place] [address] Performin g Lab: [place] [facility] [address] [place] [address] [facility] COMPREHENS KENN[place]Y METABOLIC PANEL GLOMERULAR FILTRATION RATE/1.73 SQ M.PREDICTED [VOLUME RATE/AREA] IN SERUM, PLASMA OR BLOOD BY CREATININE- BASED FORMULA (CKD-EPI 2020) 116 01/15 Specimen Type: PLASMA No comment entered. Ordering Provider: JOY AGUIRRE Report Released Date/Time : Jan 24, 2024 02:56 PM Reporting Lab: [place] [facility] [address] [place] [address] Performin g Lab: [place] [facility] [address] [place] [address] [facility] CBC LEUKOCYTES [#/VOLUME] IN BLOOD BY AUTOMATED COUNT 3.9 10*3/uL 3.6 - 11.2 01/15 Specimen Type: BLOOD No comment entered. Ordering Provider: JOY AGUIRRE Report Released Date/Time : Jan 24, 2024 02:56 PM Reporting Lab: [place] [facility] [address] [place] [address] Performin g Lab: [place] [facility] [address] [place] [address] [facility] CBC ERYTHROCYTE S [#/VOLUME] IN BLOOD BY AUTOMATED COUNT 4.38 10*6/uL 4.10 - 5.70 01/15 Specimen Type: BLOOD No comment entered. Ordering Provider: JOY AGUIRRE Report Released Date/Time : Jan 24, 2024 02:56 PM Reporting Lab: [place] [facility] [address] [place] [address] Performin g Lab: [place] [facility] [address] [place] [address] [facility] CBC HEMOGLOBIN [MASS/VOLUM E] IN BLOOD 13.5 g/dL 13.1 - 16.8 01/15 Specimen Type: BLOOD No comment entered. Ordering Provider: JOY AGUIRRE Report Released Date/Time : Jan 24, 2024 02:56 PM Reporting Lab: [place] [facility] [address] [place] [address] Performin g Lab: [place] [facility] [address] [place] [address] [facility] CBC HEMATOCRIT [VOLUME FRACTION] OF BLOOD 40.1 38.2 - 48.4 01/15 Specimen Type: BLOOD No comment entered. Ordering Provider: JOY AGUIRRE Report Released Date/Time : Jan 24, 2024 02:56 PM Reporting Lab: [place] [facility] [address] [place] [address] Performin g Lab: [place] [facility] [address] [place] [address] [facility] CBC MCV [ENTITIC VOLUME] BY AUTOMATED COUNT 91.6 fL 80.0 - 100.0 01/15 Specimen Type: BLOOD No comment entered. Ordering Provider: JOY AGUIRRE Report Released Date/Time : Jan 24, 2024 02:56 PM Reporting Lab: [place] [facility] [address] [place] [address] Performin g Lab: [place] [facility] [address] [place] [address] [facility] CBC MCH [ENTITIC MASS] BY AUTOMATED COUNT 30.8 pg 27.0 - 34.0 01/15 Specimen Type: BLOOD No comment entered. Ordering Provider: JOY AGUIRRE Report Released Date/Time : Jan 24, 2024 02:56 PM Reporting Lab: [place] [facility] [address] [place] [address] Performin g Lab: [place] [facility] [address] [place] [address] [facility] CBC MCHC [MASS/VOLUM E] BY AUTOMATED COUNT 33.7 g/dL 33.0 - 36.0 01/15 Specimen Type: BLOOD No comment entered. Ordering Provider: JOY AGUIRRE Report Released Date/Time : Jan 24, 2024 02:56 PM Reporting Lab: [place] [facility] [address] [place] [address] 8 Performin g Lab: [place] [facility] [address] [place] [address] 8 [facility] CBC PLATELETS [#/VOLUME] IN BLOOD BY AUTOMATED COUNT 236 10*3/uL 150 - 400 01/15 Specimen Type: BLOOD No comment entered. Ordering Provider: JOY AGUIRRE Report Released Date/Time : Jan 24, 2024 02:56 PM Reporting Lab: [place] [facility] [address] [place] [address] 8 Performin g Lab: [place] [facility] [address] [place] [address] 8 [facility] CBC PLATELET MEAN VOLUME [ENTITIC VOLUME] IN BLOOD BY AUTOMATED COUNT 10.8 fL 7.5 - 11.2 01/15 Specimen Type: BLOOD No comment entered. Ordering Provider: JOY AGUIRRE Report Released Date/Time : Jan 24, 2024 02:56 PM Reporting Lab: [place] [facility] [address] [place] [address] 8 Performin g Lab: [place] [facility] [address] [place] [address] 8 [facility] CBC ERYTHROCYTE DISTRIBUTIO N WIDTH [RATIO] BY AUTOMATED COUNT 11.9 11.8 - 15.1 01/15 Specimen Type: BLOOD No comment entered. Ordering Provider: JOY AGUIRRE Report Released Date/Time : Jan 24, 2024 02:56 PM Reporting Lab: [place] [facility] [address] [place] [address] 8 Performin g Lab: [place] [facility] [address] [place] [address] 8 [facility] CBC LYMPHOCYTES /100 LEUKOCYTES IN BLOOD BY AUTOMATED COUNT 23.7 01/15 Specimen Type: BLOOD No comment entered. Ordering Provider: JOY AGUIRRE Report Released Date/Time : Jan 24, 2024 02:56 PM Reporting Lab: [place] [facility] [address] [place] [address] 8 Performin g Lab: [place] [facility] [address] [place] [address] 8 [facility] CBC MONOCYTES/1 00 LEUKOCYTES IN BLOOD BY AUTOMATED COUNT 10.2 01/15 Specimen Type: BLOOD No comment entered. Ordering Provider: JOY AGUIRRE Report Released Date/Time : Jan 24, 2024 02:56 PM Reporting Lab: [place] [facility] [address] [place] [address] 8 Performin g Lab: [place] [facility] [address] [place] [address] 8 [facility] CBC NEUTROPHILS /100 LEUKOCYTES IN BLOOD BY AUTOMATED COUNT 62.2 01/15 Specimen Type: BLOOD No comment entered. Ordering Provider: JOY AGUIRRE Report Released Date/Time : Jan 24, 2024 02:56 PM Reporting Lab: [place] [facility] [address] [place] [address] 8 Performin g Lab: [place] [facility] [address] [place] [address] 8 [facility] CBC EOSINOPHILS /100 LEUKOCYTES IN BLOOD BY AUTOMATED COUNT 3.1 01/15 Specimen Type: BLOOD No comment entered. Ordering Provider: JOY AGUIRRE Report Released Date/Time : Jan 24, 2024 02:56 PM Reporting Lab: [place] [facility] [address] [place] [address] 8 Performin g Lab: [place] [facility] [address] [place] [address] 8 [facility] CBC BASOPHILS/1 00 LEUKOCYTES IN BLOOD BY AUTOMATED COUNT 0.5 01/15 Specimen Type: BLOOD No comment entered. Ordering Provider: JOY AGUIRRE Report Released Date/Time : Jan 24, 2024 02:56 PM Reporting Lab: [place] [facility] [address] [place] [address] 8 Performin g Lab: [place] [facility] [address] [place] [address] 8 [facility] CBC LYMPHOCYTES [#/VOLUME] IN BLOOD BY AUTOMATED COUNT 0.93 10*3/uL 0.77 - 4.50 01/15 Specimen Type: BLOOD No comment entered. Ordering Provider: JOY AGUIRRE Report Released Date/Time : Jan 24, 2024 02:56 PM Reporting Lab: [place] [facility] [address] [place] [address] 8 Performin g Lab: [place] [facility] [address] [place] [address] 8 [facility] CBC MONOCYTES [#/VOLUME] IN BLOOD BY AUTOMATED COUNT 0.40 10*3/uL 0.19 - 0.8 01/15 Specimen Type: BLOOD No comment entered. Ordering Provider: JOY AGUIRRE Report Released Date/Time : Jan 24, 2024 02:56 PM Reporting Lab: [place] [facility] [address] [place] [address] 8 Performin g Lab: [place] [facility] [address] [place] [address] 8 [facility] CBC NEUTROPHILS [#/VOLUME] IN BLOOD BY AUTOMATED COUNT 2.44 10*3/uL 2.10 - 8.00 01/15 Specimen Type: BLOOD No comment entered. Ordering Provider: JOY AGUIRRE Report Released Date/Time : Jan 24, 2024 02:56 PM Reporting Lab: [place] [facility] [address] [place] [address] 8 Performin g Lab: [place] [facility] [address] [place] [address] 8 [facility] CBC EOSINOPHILS [#/VOLUME] IN BLOOD BY AUTOMATED COUNT 0.12 10*3/uL 0.00 - 0.60 01/15 Specimen Type: BLOOD No comment entered. Ordering Provider: JOY AGUIRRE Report Released Date/Time : Jan 24, 2024 02:56 PM Reporting Lab: [place] [facility] [address] [place] [address] 8 Performin g Lab: [place] [facility] [address] [place] [address] 8 [facility] CBC BASOPHILS [#/VOLUME] IN BLOOD BY AUTOMATED COUNT 0.02 10*3/uL 0.00 - 0.20 01/15 Specimen Type: BLOOD No comment entered. Ordering Provider: JOY AGUIRRE Report Released Date/Time : Jan 24, 2024 02:56 PM Reporting Lab: [place] [facility] [address] [place] [address] 8 Performin g Lab: [place] [facility] [address] [place] [address] 8 [facility] CBC IMMATURE GRANULOCYTE S/100 LEUKOCYTES IN BLOOD BY AUTOMATED COUNT 0.3 01/15 Specimen Type: BLOOD No comment entered. Ordering Provider: JOY AGUIRRE Report Released Date/Time : Jan 24, 2024 02:56 PM Reporting Lab: [place] [facility] [address] [place] [address] 8 Performin g Lab: [place] [facility] [address] [place] [address] 8 [facility] CBC IMMATURE GRANULOCYTE S [#/VOLUME] IN BLOOD BY AUTOMATED COUNT 0.01 10*3/uL 0.00 - 0.05 01/15 Specimen Type: BLOOD No comment entered. Ordering Provider: JOY AGUIRRE Report Released Date/Time : Jan 24, 2024 02:56 PM Reporting Lab: [place] [facility] [address] [place] [address] 8 Performin g Lab: [place] [facility] [address] [place] [address] [facility] VITAMIN D, 25-HYDROXY 25-HYDROXYV ITAMIN D3 [MASS/VOLUM E] IN SERUM OR PLASMA 32.6 ng/mL 30 - 96 01/23 Specimen Type: SERUM No comment entered. Ordering Provider: JOY AGUIRRE Report Released Date/Time : Jan 24, 2024 02:41 PM Reporting Lab: [place] [facility] [address] [place] [address] 8 Performin g Lab: [place] [facility] [address] [place] [address] [facility] DRUG SCREEN URINE-inho use (PB) OPIATES [PRESENCE] IN URINE BY SCREEN METHOD Negative 01/23 Specimen Type: URINE No comment entered. Ordering Provider: JOY AGUIRRE Report Released Date/Time : Jan 24, 2024 02:35 PM Reporting Lab: [place] [facility] [address] [place] [address] 8 Performin g Lab: [place] [facility] [address] [place] [address] 8 [facility] DRUG SCREEN URINE-inho use (PB) COCAINE [PRESENCE] IN URINE Negative 01/23 Specimen Type: URINE No comment entered. Ordering Provider: JOY AGUIRRE Report Released Date/Time : Jan 24, 2024 02:35 PM Reporting Lab: [place] [facility] [address] [place] [address] Performin g Lab: [place] [facility] [address] [place] [address] 8 [facility] DRUG SCREEN URINE-inho use (PB) TETRAHYDROC ANNABINOL [PRESENCE] IN URINE BY SCREEN METHOD Positive 01/23 Specimen Type: URINE No comment entered. Ordering Provider: JOY AGUIRRE Report Released Date/Time : Jan 24, 2024 02:35 PM Reporting Lab: [place] [facility] [address] [place] [address] 8 Performin g Lab: [place] [facility] [address] [place] [address] 8 [facility] DRUG SCREEN URINE-inho use (PB) PHENCYCLIDI NE [PRESENCE] IN URINE Negative 01/23 Specimen Type: URINE No comment entered. Ordering Provider: JOY AGUIRRE Report Released Date/Time : Jan 24, 2024 02:35 PM Reporting Lab: [place] [facility] [address] [place] [address] 8 Performin g Lab: [place] [facility] [address] [place] [address] [facility] DRUG SCREEN URINE-inho use (PB) BENZODIAZEP CECI [PRESENCE] IN URINE BY SCREEN METHOD Positive 01/23 Specimen Type: URINE No comment entered. Ordering Provider: JOY AGUIRRE Report Released Date/Time : Jan 24, 2024 02:35 PM Reporting Lab: [place] [facility] [address] [place] [address] 8 Performin g Lab: [place] [facility] [address] [place] [address] 8 [facility] DRUG SCREEN URINE-inho use (PB) BARBITURATE S [PRESENCE] IN URINE Negative 01/23 Specimen Type: URINE No comment entered. Ordering Provider: JOY AGUIRRE Report Released Date/Time : Jan 24, 2024 02:35 PM Reporting Lab: [place] [facility] [address] [place] [address] 8 Performin g Lab: [place] [facility] [address] [place] [address] [facility] DRUG SCREEN URINE-inho use (PB) AMPHETAMINE [PRESENCE] IN URINE BY SCREEN METHOD Negative 01/23 Specimen Type: URINE No comment entered. Ordering Provider: JOY AGUIRRE Report Released Date/Time : Jan 24, 2024 02:35 PM Reporting Lab: [place] [facility] [address] [place] [address] 8 Performin g Lab: [place] [facility] [address] [place] [address] [facility] DRUG SCREEN URINE-inho use (PB) CREATININE [MASS/VOLUM E] IN URINE 227.10 mg/dL 01/23 Specimen Type: URINE No comment entered. Ordering Provider: JOY AGUIRRE Report Released Date/Time : Jan 24, 2024 02:35 PM Reporting Lab: [place] [facility] [address] [place] [address] Performin g Lab: [place] [facility] [address] [place] [address] [facility] DRUG SCREEN URINE-inho use (PB) OXYCODONE CUTOFF [MASS/VOLUM E] IN URINE FOR SCREEN METHOD Negative 01/23 Specimen Type: URINE No comment entered. Ordering Provider: JOY AGUIRRE Report Released Date/Time : Jan 24, 2024 02:35 PM Reporting Lab: [place] [facility] [address] [place] [address] 8 Performin g Lab: [place] [facility] [address] [place] [address] 8 [facility] DRUG SCREEN URINE-inho use (PB) ETHANOL [MASS/VOLUM E] IN URINE <10.0mg/d L 0 - 20 01/23 L Specimen Type: URINE No comment entered. Ordering Provider: JOY AGUIRRE Report Released Date/Time : Jan 24, 2024 02:35 PM Reporting Lab: [place] [facility] [address] [place] [address] 8 Performin g Lab: [place] [facility] [address] [place] [address] [facility] TSH (MA-PB) THYROTROPIN [UNITS/VOLU ME] IN SERUM OR PLASMA 0.383 u[IU]/mL 0.47 - 5 01/23 L Specimen Type: SERUM No comment entered. Ordering Provider: JOY AGUIRRE Report Released Date/Time : Jan 17, 2024 09:21 AM Reporting Lab: [place] [facility] [address] [place] [address] 8 Performin g Lab: [place] [facility] [address] [place] [address] [facility] TSH (MA-PB) THYROXINE (T4) FREE [MASS/VOLUM E] IN SERUM OR PLASMA 0.73 ng/dL 0.70 - 1.48 01/23 Specimen Type: SERUM No comment entered. Ordering Provider: JOY AGUIRRE Report Released Date/Time : Jan 17, 2024 09:21 AM Reporting Lab: [place] [facility] [address] [place] [address] Performin g Lab: [place] [facility] [address] [place] [address] [facility] HGA1C HEMOGLOBIN A1C/HEMOGLO BIN.TOTAL IN BLOOD 5.6 4.0 - 6.0 01/23 Specimen Type: BLOOD No comment entered. Ordering Provider: JOY AGUIRRE Report Released Date/Time : Jan 17, 2024 09:21 AM Reporting Lab: [place] [facility] [address] [place] [address] 8 Performin g Lab: [place] [facility] [address] [place] [address] [facility] CHOLESTERO L PANEL (PB) CHOLESTEROL [MASS/VOLUM E] IN SERUM OR PLASMA 148 mg/dL 0 - 200 01/23 Specimen Type: PLASMA No comment entered. Ordering Provider: JOY AGUIRRE Report Released Date/Time : Jan 17, 2024 09:21 AM Reporting Lab: [place] [facility] [address] [place] [address] 8 Performin g Lab: [place] [facility] [address] [place] [address] [facility] CHOLESTERO L PANEL (PB) TRIGLYCERID E [MASS/VOLUM E] IN SERUM OR PLASMA 74 mg/dL 0 - 150 01/23 Specimen Type: PLASMA No comment entered. Ordering Provider: JOY AGUIRRE Report Released Date/Time : Jan 17, 2024 09:21 AM Reporting Lab: [place] [facility] [address] [place] [address] 8 Performin g Lab: [place] [facility] [address] [place] [address] [facility] CHOLESTERO L PANEL (PB) CHOLESTEROL IN LDL [MASS/VOLUM E] IN SERUM OR PLASMA BY CALCULATION 81.2 mg/dL 01/23 Specimen Type: PLASMA No comment entered. Ordering Provider: JOY AGUIRRE Report Released Date/Time : Jan 17, 2024 09:21 AM Reporting Lab: [place] [facility] [address] [place] [address] 8 Performin g Lab: [place] [facility] [address] [place] [address] [facility] CHOLESTERO L PANEL (PB) CHOLESTEROL IN HDL [MASS/VOLUM E] IN SERUM OR PLASMA 52.0 mg/dL 40 01/23 H Specimen Type: PLASMA No comment entered. Ordering Provider: JOY AGUIRRE Report Released Date/Time : Jan 17, 2024 09:21 AM Reporting Lab: [place] [facility] [address] [place] [address] 8 Performin g Lab: [place] [facility] [address] [place] [address] [facility] [place] [facility] CHOLESTERO L PANEL (PB) CHOLESTEROL IN HDL/CHOLEST LLUVIA.TOTAL [MASS RATIO] IN SERUM OR PLASMA 35.1 25 01/23 Specimen Type: PLASMA No comment entered. Ordering Provider: JOY AGUIRRE Report Released Date/Time : Jan 17, 2024 09:21 AM Reporting Lab: [place] [facility] [address] [place] [address] Performin g Lab: [place] [facility] [address] [place] [address] [place] [place] [facility] Vital Signs Combined list of inpatient and outpatient Vital Signs from Department of Defense and Veterans Affairs, ranging from 12 months to all on record, depending upon the facility. Vital Sign Value Date Comments Source SYSTOLIC BLOOD PRESSURE 137 01/19/2025 14:18:00 [facility] [place] [facility] DIASTOLIC BLOOD PRESSURE 83 01/19/2025 14:18:00 [facility] PULSE OXIMETRY 96 01/19/2025 14:18:00 [facility] WEIGHT 204.4 01/19/2025 14:18:00 [facility] [place] [facility] BMI 28 kg/m2 01/19/2025 14:18:00 [facility] PAIN 4 01/19/2025 14:18:00 [facility] HEIGHT 72.0 01/19/2025 14:18:00 [facility] TEMPERATURE 98.2 01/19/2025 14:18:00 [facility] PULSE 78 01/19/2025 14:18:00 [facility] RESPIRATION 18 01/19/2025 14:18:00 [facility] SYSTOLIC BLOOD PRESSURE 120 01/15/2025 10:30:00 [facility] DIASTOLIC BLOOD PRESSURE 87 01/15/2025 10:30:00 [facility] PULSE OXIMETRY 97 01/15/2025 10:30:00 [facility] WEIGHT 207.4 01/15/2025 10:30:00 [facility] BMI 28 kg/m2 01/15/2025 10:30:00 [facility] [place] [facility] PULSE 89 01/15/2025 10:30:00 [facility] RESPIRATION 17 01/15/2025 10:30:00 [facility] Encounters Combined list of: 1) Encounters from Department of Veterans Affairs facilities going backup to the last 18 months, not all VA inpatient encounters are included; 2) Encounters from the Department of Defense facilities going backup to 280 months. Location Location Details Encounter Type Encounter Number Reason For Visit Attending Provider ADM Date DC Date Status Disposition Source [facility] Outpatient Encounter [id number] 08/20 [facility] Outpatient Encounter [id number] 11/22 [facility] N [facility] Outpatient Encounter [id number] 11/22 [facility] Outpatient Encounter [id number] 11/29 [facility] N [facility] Outpatient Encounter [id number] 12/06 [facility] N [facility] Outpatient Encounter [id number] 12/09 [facility] Outpatient Encounter [id number] 12/17 [facility] Outpatient Encounter [id number] 12/18 [facility] OFFICE O/P EST MOD 30 MIN [id number] Diagnos is: ICD-10- CM I10 Essenti al (primar y) hyperte nsClarence Peters 01/23 [facility] Outpatient Encounter [id number] 01/23 [facility] Outpatient Encounter [id number] 02/06 [facility] Outpatient Encounter [id number] 02/17 [facility] Outpatient Encounter [id number] 02/17 [facility] Outpatient Encounter [id number] 03/05 [facility] [place] [facility] Outpatient Encounter [id number] 03/25 [place] [facility] Outpatient Encounter [id number] Clarence AGUIRRE 03/25 [facility] Outpatient Encounter [id number] 03/28 [facility] Outpatient Encounter [id number] 04/08 [facility] Outpatient Encounter [id number] 04/18 [facility] Outpatient Encounter [id number] 04/23 [facility] Outpatient Encounter [id number] 05/19 [facility] [place] [facility] SPECIAL SUPPLIES PHYS/QHP [id number] Diagnos is: ICD-10- CM G47.33 Obstruc tive sleep apnea (adult) ([facility]) EDILIAAVANIBREE ATIYA Chacon 05/30 [place] [facility] [place] [facility] [place] [id number] Diagnos is: ICD-10- CM K02.52 Dental caries on pit and fissure surfc penetra t into dentin DERIK SHARP Bianca 06/12 [place] [facility] Outpatient Encounter [id number] 06/16 [facility] Outpatient Encounter [id number] Diagnos is: ICD-10- CM G47.33 Obstruc tive sleep apnea (adult) ([facility]) T[facility] SOLANO 06[facility]17 [place] [facility] Outpatient Encounter [id number] 06/19 [facility] Outpatient Encounter [id number] 06/25 [facility] [id number] 06/25 [facility] Encounter [id number] 07/28 [facility] Encounter [id number] 07/30 [facility] En[facility] [id number] 08/28 [facility] PH1 ASSMT&MGMT NQHP 21-30 [id number] Diagnos is: ICD-10- CM G47.33 Obstruc tive sleep apnea (adult) ([facility]) TONY SOLANO 08/29 [facility] Outpatient Encounter [id number] 09/04 [facility] Outpatient Encounter [id number] 10/16 [facility] Outpatient Encounter [id number] 11/03 [facility] Outpatient Encounter [id number] 11/24 [facility] Outpatient Encounter [id number] JOHANN MAYEN RIL L 11/24 [facility] Outpatient Encounter [id number] 11/25 [facility] Outpatient Encounter [id number] 12/02 [facility] Outpatient Encounter [id number] 12/24 [facility] Outpatient Encounter [id number] JOHANN MAYEN RIL L 12/30 [facility] Outpatient Encounter [id number] LOTTIE HAYWOOD IE N 12/31 [facility]OP EST MAY X REQ PHY/QHP [id number] Diagnos is: ICD-10- CM E86.0 Dehydra tion CUSTRED,TO RRI J 01/09 [facility] Outpatient Encounter [id number] JOHANN MAYEN RIL L 01/14 [facility] OFF/OP EST DECEMBER X REQ PHY/QHP [id number] Diagnos is: ICD-10- CM E86.0 Dehydra tion JH FALCON 01/15 [facility] OFF[facility]P EST MOD 30 MIN [id number] Diagnos is: ICD-10- CM I10 Essenti al (primar y) hyperte nsion Clarence AGUIRRE 01/19 [facility] [place] [facility] Outpatient Encounter [id number] 01/19 [place] [facility] [place] [facility] Outpatient Encounter [id number] [id number] 01/20 [place] [facility] PH1 ASSMT&MGMT NQHP 5-10 [id number] Diagnos is: ICD-10- CM Z71.9 [place] ing, unspeci fied JH FALCON 01/23 [facility] Outpatient Encounter [id number] 01/[facility] En[facility] [id number] JOHANN MAYEN 01/27 [facility] Outpatient Encounter [id number] 01/28 [facility] N [facility] PH1 ASSMT&MGMT NQHP 5-10 [id number] Diagnos is: ICD-10- CM 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 Social History Type Response Date Comment Source Tobacco smoking status AZIS VA-TOBACCO USE FORMER CIGARETTES 01/19/2025 [facility] History of tobacco use VA-TOBACCO USE SOME DAYS ENDS 01/19/2025 [facility] History of tobacco use VA-TOBACCO FORMER USER 01/24/2024 [facility] History of tobacco use VA-TOBACCO FORMER USER 12/05/2022 [facility] History of tobacco use VA-TOBACCO USER EVERY DAY 11/04/2020 [facility] History of tobacco use VA-TOBACCO NEVER USED 04/12/2018 [facility] History of tobacco use LIFETIME NON-USER OF TOBACCO 07/06/2015 [facility] History of tobacco use TOBACCO OFFERED PT MEDS (PROVIDER) 01/29/2014 [facility] History of tobacco use CURRENT TOBACCO USER 12/01/2013 [facility] History of tobacco use CURRENT TOBACCO USER 05/09/2013 [facility] History of tobacco use TOBACCO OFFERED PT MEDS (PROVIDER) 01/16/2013 [facility] History of tobacco use TOBACCO MEDS OFFERED BUT DECLINED 01/14/2013 [facility] History of tobacco use TOBACCO OFFERED [facility] 01/13/2013 [facility] History of tobacco use TOBACCO OFFERED [facility] 11/12/2012 patient declined [facility]
--- OUTSIDE RECORDS SUMMARY | 2025-02-08 11:02 | XMS_ITS | Encounter Summary ---
Author Organization [facility] Address [address] [place] [address] Care Team Providers Care Academic Affairs Specialist Name Role Phone Unavailable Primary Care Provider Unavailabl e Encounter Details Date Type Department Care Team (Latest Contact Info) Description 07/10/2006 Outpatient Historical [facility] General and Trauma Surgery-[address] [place] [address] Alexander Garcia MD [facility] [address] [place] [address] Follow-Up Examination, Following Unspecified Surgery (Primary Dx) Social History Tobacco Use Types Packs/Day Years Used Date Smoking Tobacco: Never Assessed Sex and Gender Information Value Date Recorded Sex Assigned at Not on file 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
--- OUTSIDE RECORDS SUMMARY | 2025-02-08 11:02 | XMS_ITS | Data Portability ---
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 He knows for sure he has been exposed to RSV and COVID. RSV positive today. He has been advised to use Delsym OTC for cough. Discussed length of illness to be approximately 7-10 days. [email or web address] Not available 07/28/2023 15:05:20 Plan of Treatment Reminders Order Date Submit Date Provider Last Modified By Organization Details Last Modified Time Details Appointments None recorded. Lab SARS CoV 2 RNA, QL, nasopharynx 2022 023 [email or web address] ([facility] [address] [place] [address], [phone], 3 14:44:15 rsv (respirator y syncytial virus), rapid, nasopharyng eal [address] ([facility]), [address] [place] [address], [phone], 3 15:05:48 rapid flu (A+B), PCR [address] ([facility]), [address] [place], [address], 3 15:05:48 Referral None recorded. Procedures None recorded. Surgeries None recorded. Imaging None recorded. Medication Orders prednisone 20 mg tablet 2022 023 [facility], [address], [place], [address], 15:03:33 Patient TargetsNo targets recorded. Patient Instructions Encounter Date Encounter Id Patient Instructions Last Modified By Organization Details Last Modified Time 07/28/2023 [id number] Call or return for questions or concerns. [email or web address] Not available 07/28/2023 14:43:22 Reason for Referral None Reported. Results Created Date Observation Date Name Description Value Unit Range Abnormal Flag Note LastModifiedBy Organization Detail LastModifiedTime 07/28/20 23 07/28/2023 rsv (resp irato ry syncy tial virus ), rapid , nasop haryn geal RSV positi ve Not Available [facility] ([facility]) [address] [place], [address], 07/28/2023 14:30:50 07/28/20 23 07/28/2023 rapid flu (A+B) , PCR Influenza A negati ve Not Available [facility] ([facility]) [address] [place], [address], 07/28/2023 14:30:54 07/28/20 23 07/28/2023 rapid flu (A+B) , PCR Influenza B negati ve Not Available [facility] ([facility]) [address] [place], [address], 07/28/2023 14:30:54 07/28/20 23 07/28/2023 SARS CoV 2 RNA, QL, nasop haryn x COVID negati ve Not Available [facility] ([facility]) [address] [place], [address], 07/28/2023 13:59:45 Result Notes None recorded. Medical Equipment None Reported. Allergies No known drug allergies Medications Name Sig Start Date Stop Date Status Note LastModified by Organization Details LastModified Time prednisone 20 mg tablet Take 2 tablets by mouth once daily for 5 days 023 active Not Available Not Available Not Avai lable Vitals Date Recorded Body height Body mass index (BMI) Body weight Oxygen saturation Oxygen saturation in Arterial blood by Pulse oximetry Heart rate Respiratory rate Body temperature Systolic blood pressure Diastolic blood pressure Provider Name and Address Organization Details Last Updated DateTime 3 182.88 cm 30.5 kg/m2 052852. 28 g 99 % 99 % 64 /min 16 /min 97.3 [degF] 142 mm[Hg] 82 mm[Hg] Salena Rendon [facility], [email or web address] 14:07:04 Social History None recorded. Functional Status None recorded. Mental Status None recorded. Family History Nothing Reported. Medical History No medical history recorded. Immunizations Vaccine Type Date Status Note Provider Nam e and Address Organization Details Recorded Time zoster recombinant 12/05/2022 juanita LO, [address], [address], [facility], [email or web address] 07/28/2023 14:19:04 MMR 03/31/1998 juanita LO, [address], [address], [facility], [email or web address] 07/28/2023 14:19:04 MMR 04/03/1990 juanita LO [facility] [address] [place], [address], [facility], [facility] 07/28/2023 14:19:04 DTP 09/05/1989 juanita LO [facility] [address] [place], [address], [facility], [facility] 07/28/2023 14:19:04 DTP 10/07/1990 juanita LO, [facility] [address] [place], [address], [facility] 07/28/2023 14:19:04 DTP 04/02/1989 completed NEGRO LO, [facility] [address] [place], [address], [facility] 07/28/2023 14:19:04 DTP 04/03/1990 completed NEGRO LO, [facility] [address] [place] [address], [phone], [facility] 07/28/2023 14:19:04 DTP 05/05/1993 completed NEGRO LO, [facility] [address] [place] [address], [phone], [facility] 07/28/2023 14:19:04 Hep B, unspecified formulation 10/27/1998 completed NEGRO LO, [facility] [address] [place] [address], [address], [facility] 07/28/2023 14:19:04 Hep B, unspecified formulation 06/07/1998 completed NEGRO LO, [facility] [address] [place] [address], [phone], [facility] 07/28/2023 14:19:04 OPV 09/05/1989 completed NEGRO LO, [facility] [address] [place], [address], [facility] 07/28/2023 14:19:04 OPV 04/02/1989 completed NEGRO LO, [facility] [address] [place], [address], [facility] 07/28/2023 14:19:04 OPV 04/03/1990 completed BARRERA TRAN [address] [place], [address], [facility] 07/28/2023 14:19:04 OPV 05/05/1993 completed NEGRO LO [facility] [address] [place] [address], [phone], [facility] 07/28/2023 14:19:04 Hep B, adolescent or pediatric 04/14/1998 completed NEGRO LO [address], [address], [facility] 07/28/2023 14:19:04 Hep A, ped/adol, 2 dose 10/27/1998 completed NEGRO LO [address], [address], [facility] 07/28/2023 14:19:04 Hep A, ped/adol, 2 dose 04/14/1998 completed BARRERA TRAN [address] [place] [address], [address], [facility] 07/28/2023 14:19:04 Hep A, ped/adol, 2 dose 06/07/1998 juanita LO [address], [address], [facility] 07/28/2023 14:19:04 Hib (PRP-T) 08/28/1990 BARRERA Carrillo [address] [place] [address], [phone], [facility] 07/28/2023 14:19:04 Past Encounters Encounter ID Performer Location Encounter Start Date Encounter Closed Date Diagnosis/Indication Diagnosis SNOMED-CT Code Diagnosis ICD10 Code Diagnosis Note [id number] NEGROBARRERA INFANTE [facility]) [address] [place] [address] 07/28/2023 13:14:32 08/04/2023 07:51:31 Viral screening 062868838 Z11.52 Respirator y syncytial virus infection 38256549 B97.4 Health Concerns Section Related Observation LastModified by Organization Detai ls LastModified Time None Recorded Concern Status LastModified by Organization Details LastModified Time None Recorded Advance Directives Directive None Recorded Payers Insurance Date Sequence Insurance Name Policy Number Policy Box Covered Member ID Box Member ID Guarantor Name 08/04/2023 [place] - [facility] (MEDICARE) Avinash Nunezst [id number] 3 Avinash Limon 07/28/2023 1 [place] Avinash Nunezst [id number] Avinash Limon Notes Date Note Type Note Provider Name and Address Organization Details Recorded Time 07/28/2023 text/html Upper Respirator y SymptomsReported bypatient.Location:hea d; chest; throat; nasal; ears; face Quality:productive cough;hurts to swallow;nasal discharge Severity:mild; moderate Duration:symptoms lasting less than 2 weeks Onset/Timing:gradual Context:sick contact Associated Symptoms:no change in number of pillows needed to sleep at night; no vomiting; no nausea; no headache;yellow sputum;shortness of breath;fatigue;fever;m orning cough;sore throat;diarrhea BARRERA TRAN [address] [place], [address], [facility] 07/28/2023 15:05:27
--- OUTSIDE RECORDS SUMMARY | 2025-02-08 11:02 | XMS_ITS | Encounter Summary ---
Author Organization [facility] Address [address] [place] [address] Care Team Providers Care Dry Cleaning Manager Name Role Phone Unavailable Primary Care Provider Unavailabl e Encounter Details Date Type Department Care Team (Latest Contact Info) Description 08/30/2006 Outpatient Historical [facility] Orthopedics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
--- OUTSIDE RECORDS SUMMARY | 2025-02-08 11:02 | XMS_ITS | Encounter Summary ---
Author Organization [facility] Address [address] [place] [address] Care Team Providers Care Blanker Operator Name Role Phone Unavailable Primary Care Provider Unavailabl e Encounter Details Date Type Department Care Team (Late st Contact Info) Description 06/23/2006 Inpatient Historical HIS IN BED Giuliano Iqbal MD NO ADDRESS ON FILE Unspecified Spleen Injury without Mention of Open Wound into Cavity (Primary Dx) Social History Tobacco Use Types Packs/Day Years Used Date Smoking Tobacco: Never Assessed Sex and Gender Information Value Date Recorded Sex Assigned at Not on file 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 Gender Identity Not on file Sexual Orientation Not on file documented as of this encounter Plan of Treatment Not on file documented as of this encounter Procedures Procedure Name Priority Date/Time Associated Diagnosis Comments HEMOGLOBIN AND HEMATOCRIT Routine 06/28/2006 5:05 AM FIRE PREVENTION RESEARCH ENGINEER CREATININE, BODY FLUID Routine 06/27/2006 8:50 AM FIRE PREVENTION RESEARCH ENGINEER CBC WITH DIFFERENTIAL Routine 06/27/2006 5:40 AM FIRE PREVENTION RESEARCH ENGINEER BASIC METABOLIC PANEL Routine 06/27/2006 5:40 AM FIRE PREVENTION RESEARCH ENGINEER HEMOGLOBIN AND HEMATOCRIT Routine 06/26/2006 4:58 PM FIRE PREVENTION RESEARCH ENGINEER CBC WITH DIFFERENTIAL Routine 06/26/2006 5:17 AM FIRE PREVENTION RESEARCH ENGINEER BASIC METABOLIC PANEL Routine 06/26/2006 5:17 AM FIRE PREVENTION RESEARCH ENGINEER CBC WITH DIFFERENTIAL Routine 06/25/2006 5:27 AM FIRE PREVENTION RESEARCH ENGINEER BASIC METABOLIC PANEL Routine 06/25/2006 5:27 AM FIRE PREVENTION RESEARCH ENGINEER CBC WITH DIFFERENTIAL Routine 06/24/2006 11:53 AM FIRE PREVENTION RESEARCH ENGINEER PT AND APTT Routine 06/24/2006 5:46 AM FIRE PREVENTION RESEARCH ENGINEER CBC WITH DIFFERENTIAL Routine 06/24/2006 5:46 AM FIRE PREVENTION RESEARCH ENGINEER BASIC METABOLIC PANEL Routine 06/24/2006 5:45 AM FIRE PREVENTION RESEARCH ENGINEER ETHANOL LEVEL Routine 06/23/2006 11:32 PM FIRE PREVENTION RESEARCH ENGINEER BASIC METABOLIC PANEL Routine 06/23/2006 11:32 PM FIRE PREVENTION RESEARCH ENGINEER CBC WITH DIFFERENTIAL Routine 06/23/2006 11:13 PM FIRE PREVENTION RESEARCH ENGINEER CBC WITHOUT DIFFERENTIAL Routine 06/23/2006 7:01 PM FIRE PREVENTION RESEARCH ENGINEER PROTIME-INR Routine 06/23/2006 6:02 PM FIRE PREVENTION RESEARCH ENGINEER GLUCOSE URINALYSIS, QUALITATIVE Routine 06/23/2006 5:29 PM FIRE PREVENTION RESEARCH ENGINEER URINALYSIS MICROSCOPY ONLY Routine 06/23/2006 5:29 PM FIRE PREVENTION RESEARCH ENGINEER URINALYSIS W/REFLEX MICROSCOPIC Routine 06/23/2006 5:29 PM FIRE PREVENTION RESEARCH ENGINEER CBC WITH DIFFERENTIAL Routine 06/23/2006 5:18 PM FIRE PREVENTION RESEARCH ENGINEER documented in this encounter Results * (ABNORMAL) HEMOGLOBIN AND HEMATOCRIT (06/28/2006 5:05 AM FIRE PREVENTION RESEARCH ENGINEER) HEMOGLOBIN 9.3(L) 13.0 - 16.0 g/dL INTERFACE SYSTEM HEMATOCRIT 27.5(L) 37.0 - 49.0 % INTERFACE SYSTEM 06/28/2006 5:05 AM FIRE PREVENTION RESEARCH ENGINEER Jonathan Aikne MD HEMATOLOGY ORDERABLES Final Result INTERFACE SYSTEM Refer to clinic/hospital department * CREATININE, BODY FLUID (06/27/2006 8:50 AM FIRE PREVENTION RESEARCH ENGINEER) SOURCE FLUID ARNEL Drainage INTER FACE SYSTEM CREATININE, FLD 0.5 mg/dL INTERFACE SYSTEM Comment: Reference Ranges have not been established. 06/27/2006 8:50 AM FIRE PREVENTION RESEARCH ENGINEER us Jonathan Aiken MD BODY FLUIDS AND STOOLS Padmini l Result Performing Organization Address [facility] Phone Number INTERFACE SYSTEM Refer to clinic/hospital department * (ABNORMAL) BASIC METABOLIC PANEL (06/27/2006 5:40 AM FIRE PREVENTION RESEARCH ENGINEER) GLUCOSE 89 70 - 110 mg/dL INTERFACE SYSTEM BUN 12 9 - 20 mg/dL INTERFACE SYSTEM CREATININE 0.6(L) 0.7 - 1.5 mg/dL INTERFACE SYSTEM SODIUM 135(L) 136 - 145 mEq/L INTERFACE SYSTEM POTASSIUM 3.5 3.5 - 5.0 mEq/L INTERFACE SYSTEM CHLORIDE 99 95 - 110 mEq/L INTERFACE SYSTEM CO2 29 22 - 32 mmol/l INTERFACE SYSTEM ANION GAP 11 9 - 20 mEq/L INTERFACE SYSTEM OSMOLALITY, CALCULATED 277 275 - 295 mOsm/Kg INTERFACE SYSTEM CALCIUM 9.1 8.4 - 10.5 mg/dL INTERFACE SYSTEM 06/27/2006 5:40 AM FIRE PREVENTION RESEARCH ENGINEER Jonathan Aiken MD CHEMISTRY ORDERABLES Final Result Performing Organization Address [facility] Phone Number INTERFACE SYSTEM Refer to clinic/hospital department * (ABNORMAL) CBC WITH DIFFERENTIAL (06/27/2006 5:40 AM FIRE PREVENTION RESEARCH ENGINEER) WBC 7.7 4.5 - 13.5 K/ul INTERFACE SYSTEM RBC 3.18(L) 4.30 - 5.30 Mil/ul INTERFACE SYSTEM HEMOGLOBIN 9.6(L) 13.0 - 16.0 g/dL INTERFACE SYSTEM HEMATOCRIT 27.6(L) 37.0 - 49.0 % INTERFACE SYSTEM MCV 86.8 78.0 - 98.0 Fl INTERFACE SYSTEM MCH 30.2 26.0 - 32.0 pg INTERFACE SYSTEM MCHC 34.8 33.0 - 35.0 g/dL INTERFACE SYSTEM RDW 12.4 11.0 - 14.5 % INTERFACE SYSTEM PLATELETS 164 140 - 440 K/ul INTERFACE SYSTEM MPV 9.4 8.9 - 12.8 Fl INTERFACE SYSTEM NEUTROPHILS 74.2 42.2 - 75.2 % INTERFACE SYSTEM LYMPHOCYTES 12.2(L) 24.0 - 44.0 % INTERFACE SYSTEM MONOCYTES 12.2(H) 2.0 - 10.0 % INTERFACE SYSTEM EOSINOPHILS 1.3 0.0 - 7.0 % INTERFACE SYSTEM BASOPHILS 0.1 0.0 - 1.0 % INTERFACE SYSTEM NEUTROPHIL ABSOLUTE 5.7 2.0 - 8.0 K/uL INTERFACE SYSTEM LYMPHOCYTE ABSOLUTE 0.9(L) 1.2 - 4.0 K/ul INTERFACE SYSTEM MONOCYTE ABSOLUTE 0.9(H) 0.1 - 0.6 K/ul INTERFACE SYSTEM EOSINOPHIL ABSOLUTE 0.1 0.0 - 0.7 K/ul INTERFACE SYSTEM BASOPHILS ABSOLUTE 0.0 0.0 - 0.2 K/ul INTERFACE SYSTEM 06/27/2006 5:40 AM FIRE PREVENTION RESEARCH ENGINEER Jonathan Aiken MD HEMATOLOGY ORDERABLES Final Result INTERFACE SYSTEM Refer to clinic/hospital department * (ABNORMAL) HEMOGLOBIN AND HEMATOCRIT (06/26/2006 4:58 PM FIRE PREVENTION RESEARCH ENGINEER) HEMOGLOBIN 9.3(L) 13.0 - 16.0 g/dL INTERFACE SYSTEM HEMATOCRIT 27.3(L) 37.0 - 49.0 % INTERFACE SYSTEM 06/26/2006 4:58 PM FIRE PREVENTION RESEARCH ENGINEER Jonathan Aiken MD HEMATOLOGY ORDERABLES Final Result INTERFACE SYSTEM Refer to clinic/hospital department * (ABNORMAL) BASIC METABOLIC PANEL (06/26/2006 5:17 AM FIRE PREVENTION RESEARCH ENGINEER) GLUCOSE 97 70 - 110 mg/dL INTERFACE SYSTEM BUN 13 9 - 20 mg/dL INTERFACE SYSTEM CREATININE 0.6(L) 0.7 - 1.5 mg/dL INTERFACE SYSTEM SODIUM 136 136 - 145 mEq/L INTERFACE SYSTEM POTASSIUM 3.8 3.5 - 5.0 mEq/L INTERFACE SYSTEM CHLORIDE 99 95 - 110 mEq/L INTERFACE SYSTEM CO2 30 22 - 32 mmol/l INTERFACE SYSTEM ANION GAP 11 9 - 20 mEq/L INTERFACE SYSTEM OSMOLALITY, CALCULATED 280 275 - 295 mOsm/Kg INTERFACE SYSTEM CALCIUM 8.4 8.4 - 10.5 mg/dL INTERFACE SYSTEM 06/26/2006 5:17 AM FIRE PREVENTION RESEARCH ENGINEER Jonathan Aiken MD CHEMISTRY ORDERABLES Final Result INTERFACE SYSTEM Refer to clinic/hospital department * (ABNORMAL) CBC WITH DIFFERENTIAL (06/26/2006 5:17 AM FIRE PREVENTION RESEARCH ENGINEER) WBC 8.7 4.5 - 13.5 K/ul INTERFACE SYSTEM RBC 3.09(L) 4.30 - 5.30 Mil/ul INTERFACE SYSTEM HEMOGLOBIN 9.3(L) 13.0 - 16.0 g/dL INTERFACE SYSTEM HEMATOCRIT 27.2(L) 37.0 - 49.0 % INTERFACE SYSTEM MCV 88.0 78.0 - 98.0 Fl INTERFACE SYSTEM MCH 30.1 26.0 - 32.0 pg INTERFACE SYSTEM MCHC 34.2 33.0 - 35.0 g/dL INTERFACE SYSTEM RDW 12.8 11.0 - 14.5 % INTERFACE SYSTEM PLATELETS 142 140 - 440 K/ul INTERFACE SYSTEM MPV 10.1 8.9 - 12.8 Fl INTERFACE SYSTEM NEUTROPHILS 74.5 42.2 - 75.2 % INTERFACE SYSTEM LYMPHOCYTES 13.0(L) 24.0 - 44.0 % INTERFACE SYSTEM MONOCYTES 11.9(H) 2.0 - 10.0 % INTERFACE SYSTEM EOSINOPHILS 0.5 0.0 - 7.0 % INTERFACE SYSTEM BASOPHILS 0.1 0.0 - 1.0 % INTERFACE SYSTEM NEUTROPHIL ABSOLUTE 6.5 2.0 - 8.0 K/uL INTERFACE SYSTEM LYMPHOCYTE ABSOLUTE 1.1(L) 1.2 - 4.0 K/ul INTERFACE SYSTEM MONOCYTE ABSOLUTE 1.0(H) 0.1 - 0.6 K/ul INTERFACE SYSTEM EOSINOPHIL ABSOLUTE 0.0 0.0 - 0.7 K/ul INTERFACE SYSTEM BASOPHILS ABSOLUTE 0.0 0.0 - 0.2 K/ul INTERFACE SYSTEM 06/26/2006 5:17 AM FIRE PREVENTION RESEARCH ENGINEER us Jonathan Aiken MD HEMATOLOGY ORDERABLES Final Result Performing Organization Address [facility] de Phone Number INTERFACE SYSTEM Refer to clinic/hospital department * (ABNORMAL) BASIC METABOLIC PANEL (06/25/2006 5:27 AM FIRE PREVENTION RESEARCH ENGINEER) GLUCOSE 98 70 - 110 mg/dL INTERFACE SYSTEM BUN 13 9 - 20 mg/dL INTERFACE SYSTEM CREATININE 0.7 0.7 - 1.5 mg/dL INTERFACE SYSTEM SODIUM 135(L) 136 - 145 mEq/L INTERFACE SYSTEM POTASSIUM 4.1 3.5 - 5.0 mEq/L INTERFACE SYSTEM CHLORIDE 101 95 - 110 mEq/L INTERFACE SYSTEM CO2 27 22 - 32 mmol/l INTERFACE SYSTEM ANION GAP 11 9 - 20 mEq/L INTERFACE SYSTEM OSMOLALITY, CALCULATED 279 275 - 295 mOsm/Kg INTERFACE SYSTEM CALCIUM 8.5 8.4 - 10.5 mg/dL INTERFACE SYSTEM 06/25/2006 5:27 AM FIRE PREVENTION RESEARCH ENGINEER us Giuliano Iqbal MD CHEMISTRY ORDERABLES Final Result Performing Organization Address [facility] Phone Number INTERFACE SYSTEM Refer to clinic/hospital department * (ABNORMAL) CBC WITH DIFFERENTIAL (06/25/2006 5:27 AM FIRE PREVENTION RESEARCH ENGINEER) WBC 15.3(H) 4.5 - 13.5 K/ul INTERFACE SYSTEM RBC 3.82(L) 4.30 - 5.30 Mil/ul INTERFACE SYSTEM HEMOGLOBIN 11.7(L) 13.0 - 16.0 g/dL INTERFACE SYSTEM HEMATOCRIT 33.7(L) 37.0 - 49.0 % INTERFACE SYSTEM MCV 88.2 78.0 - 98.0 Fl INTERFACE SYSTEM MCH 30.6 26.0 - 32.0 pg INTERFACE SYSTEM MCHC 34.7 33.0 - 35.0 g/dL INTERFACE SYSTEM RDW 12.9 11.0 - 14.5 % INTERFACE SYSTEM PLATELETS 147 140 - 440 K/ul INTERFACE SYSTEM MPV 10.1 8.9 - 12.8 Fl INTERFACE SYSTEM NEUTROPHILS 80.9(H) 42.2 - 75.2 % INTERFACE SYSTEM LYMPHOCYTES 6.1(L) 24.0 - 44.0 % INTERFACE SYSTEM MONOCYTES 12.9(H) 2.0 - 10.0 % INTERFACE SYSTEM BASOPHILS 0.1 0.0 - 1.0 % INTERFACE SYSTEM NEUTROPHIL ABSOLUTE 12.4(H) 2.0 - 8.0 K/uL INTERFACE SYSTEM LYMPHOCYTE ABSOLUTE 0.9(L) 1.2 - 4.0 K/ul INTERFACE SYSTEM MONOCYTE ABSOLUTE 2.0(H) 0.1 - 0.6 K/ul INTERFACE SYSTEM BASOPHILS ABSOLUTE 0.0 0.0 - 0.2 K/ul INTERFACE SYSTEM 06/25/2006 5:27 AM FIRE PREVENTION RESEARCH ENGINEER us Giuliano Iqbal MD HEMATOLOGY ORDERABLES Final Result INTERFACE SYSTEM Refer to clinic/hospital department * (ABNORMAL) CBC WITH DIFFERENTIAL (06/24/2006 11:53 AM FIRE PREVENTION RESEARCH ENGINEER) WBC 11.7 4.5 - 13.5 K/ul INTERFACE SYSTEM RBC 4.00(L) 4.30 - 5.30 Mil/ul INTERFACE SYSTEM HEMOGLOBIN 12.3(L) 13.0 - 16.0 g/dL INTERFACE SYSTEM HEMATOCRIT 35.2(L) 37.0 - 49.0 % INTERFACE SYSTEM MCV 88.0 78.0 - 98.0 Fl INTERFACE SYSTEM MCH 30.8 26.0 - 32.0 pg INTERFACE SYSTEM MCHC 34.9 33.0 - 35.0 g/dL INTERFACE SYSTEM RDW 12.9 11.0 - 14.5 % INTERFACE SYSTEM PLATELETS 190 140 - 440 K/ul INTERFACE SYSTEM MPV 10.5 8.9 - 12.8 Fl INTERFACE SYSTEM NEUTROPHILS 77.7(H) 42.2 - 75.2 % INTERFACE SYSTEM LYMPHOCYTES 7.5(L) 24.0 - 44.0 % INTERFACE SYSTEM MONOCYTES 14.6(H) 2.0 - 10.0 % INTERFACE SYSTEM EOSINOPHILS 0.1 0.0 - 7.0 % INTERFACE SYSTEM BASOPHILS 0.1 0.0 - 1.0 % INTERFACE SYSTEM NEUTROPHIL ABSOLUTE 9.1(H) 2.0 - 8.0 K/uL INTERFACE SYSTEM LYMPHOCYTE ABSOLUTE 0.9(L) 1.2 - 4.0 K/ul INTERFACE SYSTEM MONOCYTE ABSOLUTE 1.7(H) 0.1 - 0.6 K/ul INTERFACE SYSTEM EOSINOPHIL ABSOLUTE 0.0 0.0 - 0.7 K/ul INTERFACE SYSTEM BASOPHILS ABSOLUTE 0.0 0.0 - 0.2 K/ul INTERFACE SYSTEM 06/24/2006 11:5 3 AM FIRE PREVENTION RESEARCH ENGINEER us Giuliano Iqbal MD HEMATOLOGY ORDERABLES Final Result Performing Organization Address [facility] Phone Number INTERFACE SYSTEM Refer to clinic/hospital department * (ABNORMAL) PT AND APTT (06/24/2006 5:46 AM FIRE PREVENTION RESEARCH ENGINEER) PROTIME 19.1(H) 13.0 - 15.7 Secs INTERFACE SYSTEM Comment: As of 06 note change in normal range. INR 1.5 INTERFACE SYSTEM Comment: Expected Values for INR: DVT/PE Goal INR 2.5; range 2.0 - 3.0 Valve Replacement Tissue Goal INR 2.5; range 2.0 - 3.0 Mechanical Goal INR 3.0; range 2.5 - 3.5 POST-DC Goal INR 2.5; range 2.0 - 3.0 or Goal 3.0; range 2.5 - 3.5 Atrial Fibrillation Goal INR 2.5; range 2.0 - 3.0 Ischemic Stroke Goal INR 2.5; range 2.0 - 3.0 For additional information see Guidelines for Anticoagulation available from the pharmacy [facility]. PTT 31.3 21.5 - 34.4 Secs INTERFACE SYSTEM Comment: Therapeutic Range: Hi-level PE/DVT heparin protocol 90.1 -110 sec Lo-level PE/DVT heparin protocol 75.1 - 95 sec Cardiac Heparin Protocol 85.1 - 100 sec Neuro Heparin Protocol 70.1 - 85 sec As of 09/06/05 note change in APTT Normal Range. 06/24/2006 5:46 AM FIRE PREVENTION RESEARCH ENGINEER Result Ayan Iqbal MD HEMATOLOGY ORDERABLES Final Result Performing Organization Address [facility] Phone Number INTERFACE SYSTEM Refer to clinic/hospital department * (ABNORMAL) CBC WITH DIFFERENTIAL (06/24/2006 5:46 AM FIRE PREVENTION RESEARCH ENGINEER) WBC 14.8(H) 4.5 - 13.5 K/ul INTERFACE SYSTEM RBC 3.91(L) 4.30 - 5.30 Mil/ul INTERFACE SYSTEM HEMOGLOBIN 11.9(L) 13.0 - 16.0 g/dL INTERFACE SYSTEM HEMATOCRIT 34.4(L) 37.0 - 49.0 % INTERFACE SYSTEM MCV 88.0 78.0 - 98.0 Fl INTERFACE SYSTEM MCH 30.4 26.0 - 32.0 pg INTERFACE SYSTEM MCHC 34.6 33.0 - 35.0 g/dL INTERFACE SYSTEM RDW 12.9 11.0 - 14.5 % INTERFACE SYSTEM PLATELETS 172 140 - 440 K/ul INTERFACE SYSTEM MPV 10.1 8.9 - 12.8 Fl INTERFACE SYSTEM NEUTROPHILS 83.2(H) 42.2 - 75.2 % INTERFACE SYSTEM LYMPHOCYTES 6.6(L) 24.0 - 44.0 % INTERFACE SYSTEM MONOCYTES 10.1(H) 2.0 - 10.0 % INTERFACE SYSTEM BASOPHILS 0.1 0.0 - 1.0 % INTERFACE SYSTEM NEUTROPHIL ABSOLUTE 12.3(H) 2.0 - 8.0 K/uL INTERFACE SYSTEM LYMPHOCYTE ABSOLUTE 1.0(L) 1.2 - 4.0 K/ul INTERFACE SYSTEM MONOCYTE ABSOLUTE 1.5(H) 0.1 - 0.6 K/ul INTERFACE SYSTEM BASOPHILS ABSOLUTE 0.0 0.0 - 0.2 K/ul INTERFACE SYSTEM 06/24/2006 5:46 AM FIRE PREVENTION RESEARCH ENGINEER us Giuliano Iqbal MD HEMATOLOGY ORDERABLES Final Result INTERFACE SYSTEM Refer to clinic/hospital department * (ABNORMAL) BASIC METABOLIC PANEL (06/24/2006 5:45 AM FIRE PREVENTION RESEARCH ENGINEER) GLUCOSE 120(H) 70 - 110 mg/dL INTERFACE SYSTEM BUN 11 9 - 20 mg/dL INTERFACE SYSTEM CREATININE 0.8 0.7 - 1.5 mg/dL INTERFACE SYSTEM SODIUM 135(L) 136 - 145 mEq/L INTERFACE SYSTEM POTASSIUM 4.6 3.5 - 5.0 mEq/L INTERFACE SYSTEM CHLORIDE 107 95 - 110 mEq/L INTERFACE SYSTEM CO2 20(L) 22 - 32 mmol/l INTERFACE SYSTEM ANION GAP 13 9 - 20 mEq/L INTERFACE SYSTEM OSMOLALITY, CALCULATED 280 275 - 295 mOsm/Kg INTERFACE SYSTEM CALCIUM 8.2(L) 8.4 - 10.5 mg/dL INTERFACE SYSTEM 06/24/2006 5:45 AM FIRE PREVENTION RESEARCH ENGINEER Giuliano Iqbal MD CHEMISTRY ORDERABLES Final Result Performing Organization Address [facility] Phone Number INTERFACE SYSTEM Refer to clinic/hospital department * ETHANOL LEVEL (06/23/2006 11:32 PM FIRE PREVENTION RESEARCH ENGINEER) ETHANOL <10 <=10 mg/dL INTERFACE SYSTEM 06/23/2006 11:3 2 PM FIRE PREVENTION RESEARCH ENGINEER Narendra Murphy III, DO CHEMISTRY ORDERABLES Fi nal Result Performing Organization Address [facility] Phone Number INTERFACE SYSTEM Refer to clinic/hospital department * (ABNORMAL) BASIC METABOLIC PANEL (06/23/2006 11:32 PM FIRE PREVENTION RESEARCH ENGINEER) GLUCOSE 151(H) 70 - 110 mg/dL INTERFACE SYSTEM BUN 11 9 - 20 mg/dL INTERFACE SYSTEM CREATININE 0.9 0.7 - 1.5 mg/dL INTERFACE SYSTEM SODIUM 137 136 - 145 mEq/L INTERFACE SYSTEM POTASSIUM 4.5 3.5 - 5.0 mEq/L INTERFACE SYSTEM CHLORIDE 108 95 - 110 mEq/L INTERFACE SYSTEM CO2 24 22 - 32 mmol/l INTERFACE SYSTEM ANION GAP 10 9 - 20 mEq/L INTERFACE SYSTEM OSMOLALITY, CALCULATED 286 275 - 295 mOsm/Kg INTERFACE SYSTEM CALCIUM 8.0(L) 8.4 - 10.5 mg/dL INTERFACE SYSTEM 06/23/2006 11:3 2 PM FIRE PREVENTION RESEARCH ENGINEER Narendra Murphy III, DO CHEMISTRY ORDERABLES Fi nal Result Performing Organization Address [facility] Phone Number INTERFACE SYSTEM Refer to clinic/hospital department * (ABNORMAL) CBC WITH DIFFERENTIAL (06/23/2006 11:13 PM FIRE PREVENTION RESEARCH ENGINEER) WBC 19.9(H) 4.5 - 13.5 K/ul INTERFACE SYSTEM RBC 4.25(L) 4.30 - 5.30 Mil/ul INTERFACE SYSTEM HEMOGLOBIN 13.0 13.0 - 16.0 g/dL INTERFACE SYSTEM HEMATOCRIT 37.5 37.0 - 49.0 % INTERFACE SYSTEM MCV 88.2 78.0 - 98.0 Fl INTERFACE SYSTEM MCH 30.6 26.0 - 32.0 pg INTERFACE SYSTEM MCHC 34.7 33.0 - 35.0 g/dL INTERFACE SYSTEM RDW 12.7 11.0 - 14.5 % INTERFACE SYSTEM PLATELETS 173 140 - 440 K/ul INTERFACE SYSTEM MPV 10.9 8.9 - 12.8 Fl INTERFACE SYSTEM NEUTROPHILS 89.9(H) 42.2 - 75.2 % INTERFACE SYSTEM LYMPHOCYTES 2.0(L) 24.0 - 44.0 % INTERFACE SYSTEM MONOCYTES 8.0 2.0 - 10.0 % INTERFA CE SYSTEM BASOPHILS 0.1 0.0 - 1.0 % INTERFAC E SYSTEM NEUTROPHIL ABSOLUTE 17.9(H) 2.0 - 8.0 K/uL INTERFACE SYSTEM LYMPHOCYTE ABSOLUTE 0.4(L) 1.2 - 4.0 K/ul INTERFACE SYSTEM MONOCYTE ABSOLUTE 1.6(H) 0.1 - 0.6 K/ul INTERFACE SYSTEM BASOPHILS ABSOLUTE 0.0 0.0 - 0.2 K/ul INTERFACE SYSTEM PERIPHERAL BLOOD SMEAR REVIEW Automated Diff Automated Diff INTERFACE SYSTEM 06/23/2006 11:1 3 PM FIRE PREVENTION RESEARCH ENGINEER us Giuliano Iqbal MD HEMATOLOGY ORDERABLES Final Result INTERFACE SYSTEM Refer to clinic/hospital department * (ABNORMAL) CBC WITHOUT DIFFERENTIAL (06/23/2006 7:01 PM FIRE PREVENTION RESEARCH ENGINEER) WBC 20.8(H) 4.5 - 13.5 K/ul INTERFACE SYSTEM RBC 2.82(L) 4.30 - 5.30 Mil/ul INTERFACE SYSTEM HEMOGLOBIN 8.6(L) 13.0 - 16.0 g/dL INTERFACE SYSTEM HEMATOCRIT 24.6(L) 37.0 - 49.0 % INTERFACE SYSTEM MCV 87.2 78.0 - 98.0 Fl INTERFACE SYSTEM MCH 30.5 26.0 - 32.0 pg INTERFACE SYSTEM MCHC 35.0 33.0 - 35.0 g/dL INTERFACE SYSTEM RDW 12.3 11.0 - 14.5 % INTERFACE SYSTEM PLATELETS 181 140 - 440 K/ul INTERFACE SYSTEM MPV 9.8 8.9 - 12.8 Fl INTERFACE SYSTEM NEUTROPHILS 86.3(H) 42.2 - 75.2 % INTERFACE SYSTEM LYMPHOCYTES 3.3(L) 24.0 - 44.0 % INTERFACE SYSTEM MONOCYTES 10.4(H) 2.0 - 10.0 % INTERFACE SYSTEM NEUTROPHIL ABSOLUTE 17.9(H) 2.0 - 8.0 K/uL INTERFACE SYSTEM LYMPHOCYTE ABSOLUTE 0.7(L) 1.2 - 4.0 K/ul INTERFACE SYSTEM MONOCYTE ABSOLUTE 2.2(H) 0.1 - 0.6 K/ul INTERFACE SYSTEM BASOPHILS ABSOLUTE 0.0 0.0 - 0.2 K/ul INTERFACE SYSTEM 06/23/2006 7:01 PM FIRE PREVENTION RESEARCH ENGINEER us Giuliano Iqbal MD HEMATOLOGY ORDERABLES Final Result INTERFACE SYSTEM Refer to clinic/hospital department * (ABNORMAL) PROTIME-INR (06/23/2006 6:02 PM FIRE PREVENTION RESEARCH ENGINEER) PROTIME 26.6(H) 13.0 - 15.7 Secs INTERFACE SYSTEM Comment: As of 06 note change in normal range. INR 2.3 INTERFACE SYSTEM Comment: Expected Values for INR: DVT/PE Goal INR 2.5; range 2.0 - 3.0 Valve Replacement Tissue Goal INR 2.5; range 2.0 - 3.0 Mechanical Goal INR 3.0; range 2.5 - 3.5 POST-DC Goal INR 2.5; range 2.0 - 3.0 or Goal 3.0; range 2.5 - 3.5 Atrial Fibrillation Goal INR 2.5; range 2.0 - 3.0 Ischemic Stroke Goal INR 2.5; range 2.0 - 3.0 For additional information see Guidelines for Anticoagulation available from the [facility]. 06/23/2006 6:02 PM FIRE PREVENTION RESEARCH ENGINEER us Edward G Wiegers III, DO HEMATOLOGY ORDERABLES F inal Result INTERFACE SYSTEM Refer to clinic/hospital department * (ABNORMAL) GLUCOSE URINALYSIS, QUALITATIVE (06/23/2006 5:29 PM FIRE PREVENTION RESEARCH ENGINEER) GLUCOSE, URINE 2000(AA) Negative INTER FACE SYSTEM Comment: Potentially critical/toxic GLUCOSE called by [place], with verbal read back, at 06/23/2006 17:52. 06/23/2006 5:29 PM FIRE PREVENTION RESEARCH ENGINEER us Physician Sj Ed URINE ORDERABLES Final Result Performing Organization Address [facility] [[email or web address]] Co de Phone Number INTERFACE SYSTEM Refer to clinic/hospital department * (ABNORMAL) URINALYSIS (06/23/2006 5:29 PM FIRE PREVENTION RESEARCH ENGINEER) COLOR UA Blood tinged(A) Straw INTERFACE SYSTEM CLARITY UA SL CLOUDY Clear INTERFACE SYSTEM LEUKOCYTE ESTERASE UA NEGATIVE NEGATIVE INTERFACE SYSTEM NITRITE UA POSITIVE(A) NEGATIVE INTERFA CE SYSTEM PH UA 7.0 5.0 - 9.0 INTERFACE SYSTEM PROTEIN UA 100 mg/dl(A) NEGATIVE INTERFACE SYSTEM Comment: As of 05 positive protein results obtained on routine urinalysis will not be confirmed by sulfosalicylic acid (SSA) precipitation. Current methodology for protein detection is highly sensitive for detection of albumin; therefore, confirmation is not necessary. KETONES UA NEGATIVE NEGATIVE INTERFACE SYSTEM UROBILINOGEN UA 0.2 0.2 INTE RFACE SYSTEM BILIRUBIN UA NEGATIVE NEGATIVE INTERFA CE SYSTEM BLOOD UA Large(A) NEGATIVE INTERFACE SYSTEM SPECIFIC GRAVITY UA 1.015 1.005 - 1.030 INTERFACE SYSTEM MICRO EXAM Yes(A) No INTERFACE SYSTEM 06/23/2006 5:29 PM FIRE PREVENTION RESEARCH ENGINEER Physician Sj Ed URINE ORDERABLES Final Result Performing Organization Address [facility] [[email or web address]] Co de Phone Number INTERFACE SYSTEM Refer to clinic/hospital department * (ABNORMAL) URINALYSIS MICROSCOPY ONLY (06/23/2006 5:29 PM FIRE PREVENTION RESEARCH ENGINEER) WBC URINE 0-2 0 - 2 INTERFACE SYSTEM RBC UA 16-25(A) 0 - 2 INTERFACE SYSTEM HYALINE CAST None Seen 0 - 2 INTERFA CE SYSTEM BACTERIA UA Moderate(A ) None Seen INTERFACE SYSTEM 06/23/2006 5:29 PM FIRE PREVENTION RESEARCH ENGINEER us Physician Sj Ed URINE ORDERABLES Final Result Performing Organization Address [facility]/ZIP Co de Phone Number INTERFACE SYSTEM Refer to clinic/hospital department * (ABNORMAL) CBC WITH DIFFERENTIAL (06/23/2006 5:18 PM FIRE PREVENTION RESEARCH ENGINEER) WBC 26.7(H) 4.5 - 13.5 K/ul INTERFACE SYSTEM RBC 4.00(L) 4.30 - 5.30 Mil/ul INTERFACE SYSTEM HEMOGLOBIN 12.0(L) 13.0 - 16.0 g/dL INTERFACE SYSTEM HEMATOCRIT 35.1(L) 37.0 - 49.0 % INTERFACE SYSTEM MCV 87.8 78.0 - 98.0 Fl INTERFACE SYSTEM MCH 30.0 26.0 - 32.0 pg INTERFACE SYSTEM MCHC 34.2 33.0 - 35.0 g/dL INTERFACE SYSTEM RDW 12.3 11.0 - 14.5 % INTERFACE SYSTEM PLATELETS 263 140 - 440 K/ul INTERFACE SYSTEM MPV 10.4 8.9 - 12.8 Fl INTERFACE SYSTEM NEUTROPHILS 87.8(H) 42.2 - 75.2 % INTERFACE SYSTEM LYMPHOCYTES 5.7(L) 24.0 - 44.0 % INTERFACE SYSTEM MONOCYTES 6.4 2.0 - 10.0 % INTERFACE SYSTEM BASOPHILS 0.1 0.0 - 1.0 % INTERFACE SYSTEM NEUTROPHIL ABSOLUTE 23.5(H) 2.0 - 8.0 K/uL INTERFACE SYSTEM LYMPHOCYTE ABSOLUTE 1.5 1.2 - 4.0 K/ul INTERFACE SYSTEM MONOCYTE ABSOLUTE 1.7(H) 0.1 - 0.6 K/ul INTERFACE SYSTEM BASOPHILS ABSOLUTE 0.0 0.0 - 0.2 K/ul INTERFACE SYSTEM 06/23/2006 5:18 PM FIRE PREVENTION RESEARCH ENGINEER Physician Sj Ed HEMATOLOGY ORDERABLES Final Resu lt INTERFACE SYSTEM Refer to clinic/hospital department documented in this encounter Visit Diagnoses Diagnosis Unspecified spleen injury without mention of open wound into cavity- Primary documented in this encounter
--- OUTSIDE RECORDS SUMMARY | 2025-02-08 11:02 | XMS_ITS | Clinical Summary ---
Author Organization [facility] Address [address] [place] [address] Care Team Providers Care Layer Out Plate Glass Name Role Phone Unavailable Primary Care Provider Unavailabl e Immunizations Immunization Administration Dates Next Due (M-M-R II/PRIORIX)(12 MO UP) MEASLES, MUMPS AND RUBELLA VIRUS VACCINE, 0.5 ML IM/SUBCUT 03/31/1998,04/03/1990 Dt Dtp Dtap Vaccine 05/05/1993, 1,04/03/1990,1989 HIB, Unspecified Formulation 08/28/1990 Hepatitis A Vaccine 10/27/1998,06/07/1998,1997 Hepatitis B Vaccine 10/27/1998,06/07/1998,1997 IPV/OPV 05/05/1993,04/03/1990,09/05/1989 Social History Tobacco Use Types Packs/Day Years Used Date Smoking Tobacco: Never Assessed Sex and Gender Information Value Date Recorded Sex Assigned at Not on file Legal Sex Male 4:59 AM [employer] Gender Identity Not on file Sexual Orientation Not on file Plan of Treatment Health Maintenance Due Date Last Done Comments DTAP/TDAP/TD VACCINES (5 - Tdap) 1999 05/05/1993, 10/07/1990, 04/03/1990, Additional history exists INFLUENZA VACCINE (#1) 2024 HEPATITIS B VACCINES Completed 10/27/1998, 06/07/1998, 04/14/1998 HPV VACCINES Aged Out No longer eligi ble based on patient's age to complete this topic Insurance [facility]
--- OUTSIDE RECORDS SUMMARY | 2025-02-08 11:02 | XMS_ITS | Patient Health Record ---
Author Organization [facility] Address [address] [place] [address] [place] [address] Care Team Providers Care Medical Billing Coordinator Name Role Phone NUZHAT GAFFNEY Primary Care Provider Unavaila Nuzhat Epps Unavailable [phone] Brandt Hollins Unavailable [phone] Adele Pennington Unavailable [phone] Daniel Herrmann Unavailable Allergies No Known Allergies Results Component Value Reference Range Notes CRP [id number] Reviewed date:03/11/2024 01:36:51 PM Interpretation: Performing Lab: Notes/Report: Diagnosis Description: Acquired absence of spleen CRP <.40 .40-1.00 MG/DL Thyroid Stimulating Hormone (TSH) 41623 Reviewed date:03/11/2024 01:36:54 PM Interpretation: Performing Lab: Notes/Report: Diagnosis Description: Acquired absence of spleen TSH .953 .358-3.740 MlU/ML Sedimentation Rate 16224 Reviewed date:03/11/2024 01:36:56 PM Interpretation: Performing Lab: Notes/Report: Diagnosis Description: Acquired absence of spleen Sed Rate 3 0-15 MM/HR Comprehensive Metabolic Pane l (CMP) 14044 Reviewed date:03/11/2024 01:37:08 PM Interpretation: Performing Lab: Notes/Report: Diagnosis Description: Acquired absence of spleen Glucose Serum 91 71-110 MG/DL Testing perfor med at [facility], [address] [place] [address] [place] [address]. CLIA ID#: [id number] BUN 10 7-21 MG/DL Creat 1.05 .57-1.17 MG/DL A-yrpzxl-r-benzoquinone imine (NAPQI) is a metabolite of acetaminophen, NAPQI concentrations of apparoximately 10 mg/L correlation to toxic levels of acetaminophen demonstrates a greater than or equil to 10% change in results. NAPQI concentrations greater than this may lead to falsely depressed results for patient samples. Use of this assay is not recommended for patients undergoing treatment with phenindione, due to the potential for falsely depressed results. GFR 94.6 Calculation per formed from GFR calculator provided by the [employer]. Glomerular Filtration rate(GRF) is the best overall index of kidney function. Normal GFR varies according to age,sex, body size, and declines with age. The [employer] recommends using the CKD-EPI Creatinine Equation(2020) to estimate GFR. BUN/Creat Ratio 9.5 12.0-20.0 % Total Protein 6.7 5.8-8.0 G/DL Albumin 4.4 3.2-4.8 G/DL Globulin 2.3 2.3-3.5 G/DL Alb/Glob 1.9 0.8-2.2 Calcium 9.8 8.7-10.4 MG/DL Sodium 142 136-145 MMOL/L Potassium 3.8 3.5-5.1 MMOL/L Chloride 105 98-107 MMOL/L CO2 31.2 20.0-31.0 MMOL/L Anion Gap 10 5-15 Alk Phos 86 46-116 Bili Total .5 .3-1.2 MG/DL Use of this ass ay is not recommended for patients undergoing treatment with eltrombopag due to the potential for falsely elevated results. AST/SGOT 27 15-37 UNIT/L ALT/SGPT 24 12-78 UNIT/L Osmo Serum,Calculated 293 280-300 MOSM/KG CBC w\ Auto Diff 71304 Reviewed date:03/11/2024 01:37:01 PM Interpretation: Performing Lab: Notes/Report: Diagnosis Description: Acquired absence of spleen WBC 4.6 4.5-11.0 X10'3 RBC 4.13 4.50-5.90 X10'6 Hgb 13.0 13.5-17.5 G/DL Hct 39.9 41.0-53.0 % MCV 96.6 80.0-100.0 FL MCH 31.5 27.0-31.0 PG MCHC 32.6 31.0-37.0 G/DL Platelet 187 150-400 X10'3 RDW-SD 45.1 35.0-49.0 FL RDW-CV 12.7 12.2-15.6 % MPV 10.3 9.2-12.0 FL Neutro Auto% 74.5 40.0-70.0 % Lymph Auto% 13.6 22.0-44.0 % Wilcox Auto% 10.2 3.0-7.0 % Eos Auto% .9 2.0-4.0 % Baso Auto% 0.4 0.0-1.0 % Imm Gran% .4 .0-.4 % Neutro Abs 3.45 .80-7.70 Absolute Neutrophil Count 3450 Lymph Abs .63 .10-4.10 Wilcox Abs .47 .20-1.00 Eos Abs .04 .00-.40 Baso Abs .02 .00-.20 Imm Gran Abs .02 .00-.10 NRBC# .00 .00-.20 NRBC% .00 .00-.20 /100 int act WBC's Reason For Referral No Information Medications Medication SIG (Take, Route, Frequency, Duration) Notes Start Date End Date Status Losartan Potassium 100 MG 1 tablet Orally Once a day in am for 30 days Active Gabapentin 300 MG TAKE ONE CAPSULE BY MOUTH THREE TIMES DAILY Oral for 30 Not-Taking cloNIDine HCl 0.1 MG 1 tablet Orally Onc e a day prn bp over 180/100 for 30 days Active Metoprolol Succinate ER 25 MG 1 tablet Orally Once a day in evening for 30 days Not-Taking Cetirizine HCl 10 MG 1 tablet Orally Onc e a day Active Spironolactone-HCTZ 25-25 MG 1 tablet Orally Once a day for 90 days 03/05/2024 02/28/2025 Active predniSONE 10 MG (21) as directed Orally Not-Taking diazePAM 5 MG (Schedule IV Drug) TAKE ONE TABLET BY MOUTH TWICE DAILY NEEDED FOR SPASMS Oral Three times a day for 30 days Active ProAir HFA 108 (90 Base) MCG/ACT inhale TWO puffs BY MOUTH EVERY 4 TO 6 HOURS NEEDED Inhalation for 16 Not-Taking Suboxone 2-0.5 MG 1 tablets under the tongue and allow to dissolve Sublingual Twice a day Active Triamterene-HCTZ 37.5-25 MG TAKE ONE TABLET BY MOUTH EVERY DAY NEEDED FOR swelling Oral for 30 Not-Taking Meloxicam 7.5 MG 1 tablet Orally Once a day Active Megestrol Acetate 40 MG/ML take 10ml BY MOUTH ONCE daily for 30 days Active Acyclovir 400 MG 1 tablet Orally Thre e times a day for 7 days 09/02/2024 Active Carisoprodol 350 MG 1 tablet as needed Orally Three times a day for 30 days 01/08/2025 Active Multivitamin Adult - as directed Orally Active Pantoprazole Sodium 40 mg 1 tablet po Twice a day for 30 days Active traMADol HCl 50 MG 1 tablet as needed Orally 4 times a day for 30 days 01/08/2025 Active Albuterol Sulfate HFA 108 (90 Base) MCG/ACT 2 puff as needed Inhalation every 4 hrs 07/30/2023 Active Suboxone 2-0.5 MG 1 film under the tongue and allow to dissolve Sublingual Once a day Not-Taking Immunizations Vaccine Route Administration Date Status Comme nts Flucelvax Trivalent, Syringe 0.5 mL, PF Unknown 024 Refused Social History Tobacco Use: Social History Observation Description Date Details (start date - stop date) Former Smoker NA - NA xTobacco Use/Smoking Question Answer Notes Are you a former smoker How long has it been since you last smoked? 1-5 years Alcohol Screen (Audit-C) Question Answer Notes Did you have a drink containing alcohol in the p ast year? No Points 0 Interpretation Negative PHQ-9 Question Answer Notes Little interest or pleasure in doing things Not at all Feeling down, depressed, or hopeless Not at all Trouble falling or staying asleep, or sleeping t oo much Not at all Feeling tired or having little energy Not at all Poor appetite or overeating Not at all Feeling bad about yourself, or that you are a failure, or have let yourself or your family down Not at all Trouble concentrating on thi ngs, such as reading the newspaper or watching television Not at all Moving or speaking so slowly that other people could have noticed. Or the opposite ? being so fidgety or restless that you have been moving around a lot more than usual Not at all Thoughts that you would be b marcelo off , or of hurting yourself in some way Not at all Total Score 0 Section Notes: 09-21-22 PHQ9 10/23/23 PHQ9 09-21-22 PHQ9 10/23/23 PHQ9 09-21-22 PHQ9 10/23/23 PHQ9 09-21-22 PHQ9 09-21-22 PHQ9 09-21-22 PHQ9 10/23/23 PHQ9 09-21-22 PHQ9 10/23/23 PHQ9 01/08/25 PHQ9 09-21-22 PHQ9 10/23/23 PHQ9 09-21-22 PHQ9 10/23/23 PHQ9 09-21-22 PHQ9 10/23/23 PHQ9 09-21-22 PHQ9 09-21-22 PHQ9 09-21-22 PHQ9 09-21-22 PHQ9 09-21-22 PHQ9 10/23/23 PHQ9 09-21-22 PHQ9 09-21-22 PHQ9 Problems Problem Type SNOMED Code ICD Code Onset Dates Problem Status W/U Status Risk Notes Problem Anxiety (74849067) Anxiety (F41.9) Active confirmed Problem Sinusitis (36474251) Sinusitis (J32.9) Active confirmed Problem Recurrent sinusitis (040662818) Recurrent sinusitis (J32.9) Active confirmed Problem Hypertension (27350701) Hypertension (I10) Active confirmed Problem Loss of appetite (26082736) Decreased appetite (R63.0) Active confirmed Problem Cold sore (4295992) Cold sore (B00.1) Active confirmed Problem 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 Problem 198803070 Postprandial bloating (R14.0) Active confirmed Vital Signs Heart Rate 85 /min 01/08/2025 Temperature 97.8 degrees Fahrenheit 01/08/2025 Respiratory Rate 20 /min 01/08/2025 Height-cm 182.88 cm 01/08/2025 Oximetry 99 % 01/08/2025 Blood pressure diastolic 78 mm Hg 01/08/2025 Weight-kg 102.06 kg 01/08/2025 Height 72 in 01/08/2025 Blood pressure systolic 122 mm Hg 01/08/2025 Weight 225 lbs 01/08/2025 BMI 30.51 kg/m2 01/08/2025 Encounters Encounter Location Date Provider Diagnosis [facility] [address] [address] 02/20/2024 Daniel Herrmann Exudative tonsillitis J03.90 and Post-splenectomy Z90.81 [facility] [address] [place] [address] 03/05/2024 Daniel Herrmann Hypertension I10 and Post-splenectomy Z90.81 [facility] [address] [place] [address] 04/08/2024 Daniel Herrmann Hypertension I10 ; Post-splenectomy Z90.81 and Postprandial bloating R14.0 [facility] [address] [place] [address] 07/09/2024 Nuzhat Gaffney Postprandial bloating R14.0 ; Decreased appetite R63.0 ; Encounter for immunization Z23 and Immunization not carried out because of patient refusal Z28.21 [facility] [address] [address] 08/18/2024 Adele Pennington Influenza B J10.1 ; Bronchitis J40 and Wheezes R06.2 [facility] [address] [place] [address] 09/02/2024 Nuzhat Gaffney Cold sore B00.1 [facility] [address] [address] 01/08/2025 Nuzhat Gaffney Closed displaced fracture of right calcaneus, unspecified portion of calcaneus, initial encounter S92.001A and Depression screen Z13.31 [facility] [address] [address] [facility]20[facility] [address] [place] [address] 10/23/2024 Brandt Hollins Assessments Encounter Date Diagnosis (ICD Code) Assessment Notes Treatment Notes Treatment Clinical Notes Section Notes 03/05/2024 Hypertension (ICD-10 - I10) 03/05/2024 Post-splenectomy (ICD-10 - Z90.81) 04/08/2024 Hypertension (ICD-10 - I10) 04/08/2024 Post-splenectomy (ICD-10 - Z90.81) 07/09/2024 Decreased appetite (ICD-10 - R63.0) 07/09/2024 Postprandial bloating (ICD-10 - R14.0) 09/02/2024 Cold sore (ICD-10 - B00.1) RTC with any concerns. 01/08/2025 Closed displaced fracture of right calcaneus, unspecified portion of calcaneus, initial encounter (ICD-10 - S92.001A) Keep apt with specialist as scheduled. RTC in 2 months for recheck. 08/18/2024 Influenza B (ICD-10 - J10.1) 02/20/2024 Exudative tonsillitis (ICD-10 - J03.90) 02/20/2024 Post-splenectomy (ICD-10 - Z90.81) 08/18/2024 Bronchitis (ICD-10 - J40) z jasper depomedrol/deca dron im 08/18/2024 Wheezes (ICD-10 - R06.2) 01/08/2025 Depression screen (ICD-10 - Z13.31) 04/08/2024 Postprandial bloating (ICD-10 - R14.0) 07/09/2024 Encounter for immunization (ICD-10 - Z23) 07/09/2024 Immunization not carried out because of patient refusal (ICD-10 - Z28.21) 08/18/2024 Other Questions asked and answered; discharged to home. Plan Of Treatment No Information Insurance Providers Payer Name Payer Address Payer Phone Subscriber Number Group Number Insured Name Patient Relationship to Insured Coverage Start Date Coverage End Date [place] Medicare [address] [place] [phone] [id number] Avinash Limon Self - patient is the insured Medications Administered Medication Instructions Date of Administration Dosage Notes DEPO-Medrol 12/20/2023 40 mg [id number] 3-01 Patient tolerated well. DEPO-Medrol 08/18/2024 40 mg ndc 44967-895 3-10 pt tolerated well/instructed to wait 20 min DEPO-Medrol 07/30/2023 40 mg [id number] 3-01 Patient tolerated well. DEPO-Medrol 10/09/2023 40 mg ndc 44048-295 3-01 pt tolerated well/instructed to wait 20 min DEPO-Medrol 10/23/2023 40 mg [id number] 3-01 Patient tolerated well. dexAMETHasone 2022 8 mg [id number] 239-30 Patient tolerated well dexAMETHasone 07/30/2023 4 mg [id number]-25308-9 423-00 Patient tolerated well. dexAMETHasone 10/09/2023 4 mg ndc 64263-2 423-00 pt tolerated well/instructed to wait 20 min dexAMETHasone 10/23/2023 4 mg [id number]-09169-2 423-00 Patient tolerated well. dexAMETHasone 12/20/2023 4 mg [id number]-90238-9 423-00 Patient tolerated well. dexAMETHasone 08/18/2024 4 mg ndc 63060-9 423-00 pt tolerated well/instructed to wait 20 min Ketorolac Tromethamine 02/20/2023 60 mg nd [id number] Patient tolerated well. Ketorolac Tromethamine 01/08/2025 60 mg nd [id number] tient tolerated well. Rocephin 10/23/2023 1 g [id number] -11 Patient tolerated well. Rocephin 12/20/2023 1 g dyj-[address] -11 Patient tolerated well. Rocephin 02/20/2024 1 g Medical (General) History Medical History History ICD Code arthritis migraine headaches back trouble hypertension hemorrhoids anxiety depression fibromyalgia osteoporosis rheumatoid arthritis muscular dystrophy Surgical History Surgery Date(Month/Year) abdominal blunt force trauma repair splenectomy cerebral nerve L elbow carpal tunnel release gall bladder removal left arm right leg left wrist Hospitalization History Reason Date(Month/Year) see surgical
--- OUTSIDE RECORDS SUMMARY | 2025-02-08 11:03 | XMS_ITS | Data Portability ---
Author Organization [facility] Salinas, [facility] Address [address] [place] [address] Assessment No assessment recorded. Plan of Treatment Reminders Order Date Submit Date Provider Last Modified By Organization Details Last Modified Time Details Appointments None record ed. Lab None record ed. Referral None record ed. Procedures None record ed. Surgeries None record ed. Imaging None record ed. Medication Orders None record ed. Patient TargetsNo targets recorded. Patient Instructions Encounter Date Encounter Id Patient Instructions Last Modified By Organization Details Last Modified Time 07/24/2019 [id number] Pt examined and discussed with Oscar Combs PA-C. I agree with treatment plan and follow up. [email or web address] Not available 07/24/2019 21:45:18 Reason for Referral None Reported. Problems Name Problem SNOMED Code Status Onset Date Resolution Date Notes Provider Name and Address Organization Details Recorded Time Muscular dystrophy 35383403 Active 2018 GERARDO Diaz 9 14:50:32 Hypertensive disorder 49726700 Active 2018 GERARDO Diaz 9 14:50:37 Anxiety 27138385 Active 2018 GERARDO Diaz 9 14:50:42 Problem Notes None recorded. Procedures Surgical History Date Name Laterality Status Provider Name and Address Organization Details Recorded Time Unlisted px abdomen muscskel completed Will Salinas 07/24/2019 14:52:09 splenectomy completed Will Salinas 07/24/2019 14:52:26 removal of foreign body completed Will Salinas 07/24/2019 14:52:47 Imaging Results None recorded. Procedure Notes None recorded. Medical Equipment None Reported. Allergies No known drug allergies Medications Name Sig Start Date Stop Date Status Note LastModified by Organization Details LastModified Time losartan 50 mg tablet Take 1 tablet twice a day by oral route. active Not Available Not Available No t Available methocarbamol 750 mg tablet Take 1 tablet twice a day by oral route. active Not Available Not Available No t Available diazepam 5 mg tablet Take 1 tablet twice a day by oral route. active Not Available Not Available No t Available Vitals Date Recorded Body weight Heart rate Oxygen saturation Oxygen saturation in Arterial blood by Pulse oximetry Body temperature Systolic blood pressure Diastolic blood pressure Provider Name and Address Organization Details Last Updated DateTime 9 83588.0 4 g 50 /min 100 % 100 % 97.6 [degF] 164 mm[Hg] 88 mm[Hg] Will Salinas 9 14:49:58 Social History Question Answer Notes LastModified by Organizat ion Details LastModified Time Tobacco Smoking Status [facility]oker Not Available [facility] 06/15/2020 03:38:53 Are You Blind Or Do You Have Difficulty Seeing? No [id number] Information not available 06/15/2020 What Is Your Level Of Caffeine Consumption? Moderate [id number] Information not available 06/15/2020 Are You Deaf Or Do You Have Serious Difficulty Hearing? No [id number] Information not available 06/15/2020 What Type Of Diet Are You Following? REGULAR [id number] Information not available 06/15/2020 Hard Of Hearing Or Deaf In One Or Both Ears? No [email or web address] Information not available 07/24/2019 Legally Blind In One Or Both Eyes? No [email or web address] Information not available 07/24/2019 Live Alone Or With Others? With Others [email or web address] Information not available 07/24/2019 Risk Assessment Medium [email or web address] Informati on not available 07/24/2019 Marital Status [email or web address] Informatio n not available 07/24/2019 How Many Children Do You Have? 0 [id number] Information not available 06/15/2020 Performs Monthly Self-breast Exam? No Information not available 07/24/2019 Seat Belts Used Routinely Yes [email or web address] Information not available 07/24/2019 Are You Sexually Active? Yes [id number] Information not available 06/15/2020 Smoke Alarm In Home Yes [email or web address] Information not available 07/24/2019 Are You Passively Exposed To Smoke? No [email or web address] Information not available 07/24/2019 How Much Tobacco Do You Smoke? 1 PPD [id number] Information not available 06/15/2020 General Stress Level High Information not available 07/24/2019 How Many Years Have You Smoked Tobacco? 6 [id number] Information not available 06/15/2020 Do You Have Difficulty Walking Or Climbing Stairs? Yes [id number] Information not available 06/15/2020 Sex: Unknown Functional Status Question Answer Note LastModified by Organizat ion Details LastModified Time What is your level of alcohol consumption? None [id number] Information not available 06/15/2020 Do you or have you ever used smokeless tobacco? Never used smokeless tobacco [id number] Information not available 06/15/2020 Are you able to care for yourself? Yes [id number] Information not available 06/15/2020 Do you or have you ever used e-cigarettes or vape? Never used electronic cigarettes [id number] Information not available 06/15/2020 What is your exercise level? None [id number] Information not available 06/15/2020 Mental Status Question Answer Note LastModified by Organization D etails LastModified Time Do you have difficulty concentrating, remembering or making decisions? No [id number] Information no t available 06/15/2020 Family History Nothing Reported. Medical History No medical history recorded. 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 Pt has supporting documents with him from [place]. Advised him that we would f/u next week for mm card. Essential hypertension 64573915 I10 continue taking medication as prescribed . Health Concerns Section Related Observation LastModified by Organization Detai ls LastModified Time None Recorded Concern Status LastModified by Organization Details LastModified Time None Recorded Advance Directives Directive None Recorded Payers Insurance Date Sequence Insurance Name Policy Number Policy Box Covered Member ID Box Member ID Guarantor Name 06/18/2021 1 [place] Avinash Limon [id number] Jsutin Limon Notes Date Note Type Note Provider Name and Address Organization Details Recorded Time 07/24/2019 text/html Musculoskeletal PainReported bypatient.Quality:willie p Severity:worsening;int erference with sleep Duration:present for >12 months Timing:constant; pain at night Context:trauma; prior back problems; used medication for back pain; had evaluations by back specialist; previous surgery; previous MRI Aggravating factors:movement/posit ioning Associated Symptoms:weak limbs;tingling;numbnes s of the legs/feet ADL (Activities of Daily Living)do not improve with medication New pt here to establish PCP and is interested in a medical marijuana card. Pt states that he doesn't take any narcotics and would like the MM card to help the pain he experiences from 2009 [facility] Pt states that he has been sampled on several different medications through the years including narcotics. pt states that he has had shrapnel removed from legs, several abdominal surgeries. Tigre Salinas MD [address] [place], [address], [facility] Salinas 07/24/2019 21:45:22
[2025-02-08 11:08] VITALS: BP 112/82; PULSE 79; TEMP 36.8; O2SAT 99; BMI 26.3
[2025-02-08 11:50] LABS: Bilirubin Urine 1+ (Negative); Blood Urine Negative (Negative); Glucose Urine UA Negative (Normal); Ketones Urine 1+ (Negative); Leukocyte Esterase Urine Negative (Negative); Nitrate Urine Negative (Negative); Protein Urine 1+ (Negative); Urine Appearance Clear (CLEAR); Urine Color Dark Yellow (Yellow); pH Urine 5.5 (5-7)
[2025-02-08 11:52] LABS: Add Urine Microscopic? YES; Bacteria Urine None Seen /hpf; Hyaline Casts Urine 45.09 /lpf; WBC Urine 0-5 /hpf (0-5)
[2025-02-08 11:57] LABS: Basophils % 0.3 %; Eosinophils # 0.2 10^3/uL (0.0-0.8); Eosinophils % 4.1 %; Hematocrit 40.3 % (37-53); Lymphocytes # 0.9 10^3/uL (0.8-4.8); Lymphocytes % 23.4 %; Mean Corpuscular HGB Conc 33.5 g/dL (30-55); Mean Corpuscular Hemoglobin 30.1 pg (27-33); Mean Platelet Volume 10.2 fL (7.4-10.4); Monocytes # 0.5 10^3/uL (0.2-0.9); Monocytes % 11.5 %; Neutrophils # 2.38 10^3/uL (1.8-7.7); Neutrophils % 60.4 %; Nucleated Red Blood Cells % 0 %; Platelet Count 163 10^3/cmm (157-399); Red Blood Count 4.48 10^6/uL (3.85-5.65); Red Cell Distribution Width 12.3 % (12.1-15.1); White Blood Count 3.93 10^3/uL (3.29-11.43)
[2025-02-08 12:03] LABS: Specific Gravity, Urine 1.034 (1.005-1.030); UA Slide Review UA Slide Review Perf
[2025-02-08 12:15] LABS: Alanine Aminotransferase 39 U/L (0-41); Albumin Level 3.9 g/dL (3.5-5.2); Alkaline Phosphatase 103 U/L (40-130); Anion Gap 16.7 (5-19); Aspartate Amino Transferase 50 U/L (0-40); Blood Urea Nitrogen 10 mg/dL (6-20); Calcium 10.1 mg/dL (8.5-10.5); Carbon Dioxide 25 mmol/L (22-29); Chloride 98 mmol/L (98-107); Globulin 2.5 g/dL (1.3-4.6); Glomerular Filtration Rate 95.5 mL/min (90-130); Glucose 91 mg/dL (65-115); Osmolality Calculated 281 mOsm/kg (285-295); Potassium 3.7 mmol/L (3.5-5.1); Sodium 136 mmol/L (136-145); Total Bilirubin 0.6 mg/dL (0.15-1.2); Total Protein 6.4 g/dL (6.6-8.7)
[2025-02-08 12:16] LABS: Lactic Sepsis W/Reflex 1.3 mmol/L (0.5-2.2)
--- NOTE | 2025-02-08 12:30 | W.ED.MALEGU ---
HPI - Male Genitourinary General: Chief complaint: Urogenital-Male Stated complaint: urinary / low back pain Time Seen by Provider: 02/08/25 11:45 History of Present Illness: Chief complaint is urinary frequency. Patient states that since Sunday he feels like he needs to urinate all the time. He states that he feels like he cannot empty his bladder completely. He states that it wakes him up at night and he constantly feels like he has to urinate. He has some suprapubic fullness. No abdominal pain. He states he does have a low back ache and he indicates a low midline lumbar area and he states it will radiate to the side as well. He states that he has had a temp up to 100.1. He has had surgery on his left heel and it is healing well. He takes Tylenol and ibuprofen for his left heel pain. He states no increased pain or new pain in his heel. He is on Suboxone but denies taking any other opiate or pain medication. Denies any history of IV drug use. No headache chest pain shortness of breath or cough. No vomiting or diarrhea. No loss of bowel control. No numbness or weakness in his legs. No neck pain. No headache. Related Data Home Medications ?Medication ?Instructions ?Recorded ?Confirmed cetirizine 10 mg tablet 10 mg PO DAILY 03/25/24 01/25/25 bupropion HCl 150 mg tablet,12 hr 150 mg PO DAILY 01/25/25 01/25/25 sustained-release pantoprazole 40 mg tablet,delayed 40 mg PO BID 01/25/25 01/25/25 release Previous Rx's ?Medication ?Instructions ?Recorded Cam boot to right #1 ea 11/24/24 freedom leg brace #1 ea 12/01/24 wheel chair leg extension #1 ea 12/01/24 CAM walker #1 ea 12/18/24 carisoprodol 250 mg tablet (Soma) 250 mg PO TID PRN muscle pain #21 01/08/25 tabs tramadol 50 mg tablet 50 mg PO Q4H #30 tabs 01/08/25 mupirocin 2 % topical ointment 1 applic topical TID #15 grams 01/26/25 cephalexin 500 mg capsule 500 mg PO TID 7 days #21 caps 01/29/25 cephalexin 500 mg capsule 500 mg PO Q6H 7 days #28 caps 02/08/25 Allergies Allergy/AdvReac Type Severity Reaction Status Date / Time bee venom protein (honey bee) Allergy ALGY-Anaphy Verified 02/08/25 11:11 laxis Opioids - Morphine Analogues Allergy Unknown Verified 02/08/25 11:11 [facility] ED PFSH: Medical History Paresthesia and pain of left extremity Paresthesia Muscle twitching Facial twitching TIA involving right internal carotid artery Chronic back pain Muscular dystrophy Hypertension Surgical History Status post laparoscopic cholecystectomy (09/19/21) 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 claean for 7 years. service: Yes (out 2012) status: Medically Discharged/Retired branch: [employer] Vital Signs: Vital signs: Vital Signs Temperature 98.2 F 02/08/25 11:08 Pulse Rate 79 02/08/25 11:08 Blood Pressure 112/82 02/08/25 11:08 Pulse Oximetry 99 02/08/25 11:08 Oxygen Delivery Me thod Room Air 02/08/25 11:08 MDM - Male Medical Decision Making Patient presents complaining of urinary frequency and urgency. He also has had some low back pain. He denies any trauma or injury to his low back. He denies IV drug use. He states he has had temp up to 100.1. He denies history of prostate problems. Denies new sexual partners or penile drip or rash or sores. No testicle pain. He denies any loss of bowel or bladder control and no numbness weakness or tingling his arms or legs. Patient has intact sensation in his inner thighs and intact motor distally. His left foot is well-appearing with no focal tenderness no erythema or significant swelling. He has intact pulses. He denies any increased pain or swelling in the foot to suggest he has infection in his foot or osteomyelitis. Patient has intact sensation in his inner thighs and proximally and distally denies any numbness or tingling to suggest cauda equina syndrome. He does have some low back ache but he sits up and moves freely in the bed has no vertebral tenderness and denies IV drug abuse or history of valvular heart disease to suggest epidural abscess or hematoma or discitis. He has no CVA tenderness. History not suggestive of renal colic or hydronephrosis. He may have urinary retention so we will get a bladder scan. CBC CMP urinalysis were ordered. White count is normal. Creatinine is within normal limits. Urinalysis not suggestive of infection. Patient's white blood cell count is low but not elevated. CRP and sed rate are not elevated to suggest significant acute inflammatory process. With no history of IV drug abuse and normal sed rate and CRP probability of osteomyelitis or discitis be very low combined with low pretest probability. Urinalysis not suggestive of infection however with his urinary symptoms we will go ahead and place on antibiotic in case he has some prostatitis or occult UTI pending cultures. I discussed with the patient limits of ED evaluation. I discussed imaging of his abdomen but he states he only has some abdominal discomfort or fullness right before he needs to urinate. He states he has no pain otherwise. He had no significant tenderness on exam to suggest acute appendicitis. He had no significant urinary retention on bladder scan to suggest cauda equina or obstruction. Patient med list indicates cephalexin but he states he is not on that anymore and that was a long time ago. Patient does have a history of UTIs he reports. Reasonable to place him on a course of cephalexin pending return of his urine culture results. I advised however broad differential and limits of ED evaluation. I discussed doing MRI of his spine. Patient feels comfortable with continued outpatient management with low probability of serious spinal infection after review of results history and exam. Advised however signs symptoms of concern to watch and return for and close outpatient follow-up. Lab Data 02/08/25 11:51 02/08/25 11:51 Laboratory Results WBC 3.93 10^3/uL (3.29-11.43) 02/08/25 11:51 RBC 4.48 10^6/uL (3.85-5.65) 02/08/25 11:51 Hgb 13.50 g/dL (11.27-16.99) 02/08/25 11:51 Hct 40.3 % (37-53) 02/08/25 11:51 MCV 90.0 fl (82-101) 02/08/25 11:51 MCH 30.1 pg (27-33) 02/08/25 11:51 MCHC 33.5 g/dL (30-55) 02/08/25 11:51 RDW 12.3 % (12.1-15.1) 02/08/25 11:51 Plt Count 163 10^3/cmm (157-399) 02/08/25 11:51 MPV 10.2 fL (7.4-10.4) 02/08/25 11:51 Neut % (Auto) 60.4 % 02/08/25 11:51 Lymph % (Auto) 23.4 % 02/08/25 11:51 [place] % (Auto) 11.5 % 02/08/25 11:51 Eos % (Auto) 4.1 % 02/08/25 11:51 Baso % (Auto) 0.3 % 02/08/25 11:51 Neut # (Auto) 2.38 10^3/uL (1.8-7.7) 02/08/25 11:51 Lymph # (Auto) 0.9 10^3/uL (0.8-4.8) 02/08/25 11:51 [place] # (Auto) 0.5 10^3/uL (0.2-0.9) 02/08/25 11:51 Eos # (Auto) 0.2 10^3/uL (0.0-0.8) 02/08/25 11:51 Baso # (Auto) 0.0 10^3/uL (0.0-0.1) 02/08/25 11:51 Nucleated RBC % (auto) 0 % 02/08/25 11:51 Nucleated RBCs # 0.0 /100WBC 02/08/25 11:51 ESR 5 mm/hr (0-10) 02/08/25 11:51 Sodium 136 mmol/L (136-145) 02/08/25 11:51 Potassium 3.7 mmol/L (3.5-5.1) 02/08/25 11:51 Chloride 98 mmol/L (98-107) 02/08/25 11:51 Carbon Dioxide 25 mmol/L (22-29) 02/08/25 11:51 Anion Gap 16.7 (5-19) 02/08/25 11:51 BUN 10 mg/dL (6-20) 02/08/25 11:51 Creatinine 0.9 mg/dL (0.7-1.2) 02/08/25 11:51 GFR Calculation 95.5 mL/min (90-130) 02/08/25 11:51 Glucose 91 mg/dL (65-115) 02/08/25 11:51 Calculated Osmolality 281 mOsm/kg (285-295) L 02/08/25 11:51 Lactic Acid 1.3 mmol/L (0.5-2.2) 02/08/25 11:51 Calcium 10.1 mg/dL (8.5-10.5) 02/08/25 11:51 Total Bilirubin 0.6 mg/dL (0.15-1.2) 02/08/25 11:51 AST 50 U/L (0-40) H 02/08/25 11:51 ALT 39 U/L (0-41) 02/08/25 11:51 Alkaline Phosphatase 103 U/L (40-130) 02/08/25 11:51 C-Reactive Protein 3.0 mg/L (0.0-4.9) 02/08/25 11:51 Total Protein 6.4 g/dL (6.6-8.7) L 02/08/25 11:51 Albumin 3.9 g/dL (3.5-5.2) 02/08/25 11:51 Globulin 2.5 g/dL (1.3-4.6) 02/08/25 11:51 Urine Color Dark yellow (Yellow) A 02/08/25 11:30 Urine Appearance Clear (CLEAR) 02/08/25 11:30 Urine pH 5.5 (5-7) 02/08/25 11:30 Ur Specific [place] 1.034 (1.005-1.030) H 02/08/25 11:30 Urine Protein 1+ (Negative) A 02/08/25 11:30 Urine Glucose (UA) Negative (Normal) 02/08/25 11:30 Urine Ketones 1+ (Negative) H 02/08/25 11:30 Urine Blood Negative (Negative) 02/08/25 11:30 Urine Nitrate Negative (Negative) 02/08/25 11:30 Urine Bilirubin 1+ (Negative) H 02/08/25 11:30 Urine Urobilinogen 1.0 mg/dL (Negative) 02/08/25 11:30 Ur Leukocyte Esterase Negative (Negative) 02/08/25 11:30 Urine RBC 3-5 /hpf (0-2) 02/08/25 11:30 Urine WBC 0-5 /hpf (0-5) 02/08/25 11:30 Ur Squamous Epith Cells 6-10 /hpf (0-5) 02/08/25 11:30 Calcium Oxalate Crystal 10-15 /hpf H 02/08/25 11:30 Amorphous Sediment Not Reportable 02/08/25 11:30 Urine Bacteria None seen /hpf (NONE) 02/08/25 11:30 Hyaline Casts 45.09 /lpf 02/08/25 11:30 Urine Opiates Screen Negative ng/mL (Negative) 02/08/25 11:30 Ur Barbiturates Screen Negative ng/mL (Negative) 02/08/25 11:30 Ur Phencyclidine Scrn Negative ng/mL (Negative) 02/08/25 11:30 Ur Amphetamines Screen Negative ng/mL (Negative) 02/08/25 11:30 U Benzodiazepines Scrn Positive ng/mL (Negative) H 02/08/25 11:30 Urine Cocaine Screen Negative ng/mL (Negative) 02/08/25 11:30 U Marijuana (THC) Screen Negative ng/mL (Negative) 02/08/25 11:30 No radiology studies performed this visit Discharge Plan Discharge Patient Disposition: Home Clinical Impression: Dysuria Condition: Stable Prescriptions: New cephalexin 500 mg capsule 500 mg PO Q6H 7 Days Qty: 28 0RF No Action (DME) Cam boot to right See Rx Instructions .Route .MEDSUPPLY Qty: 1 0RF Rx Instructions: As directed (DME) wheel chair leg extension See Rx Instructions .Route .MEDSUPPLY Qty: 1 0RF Rx Instructions: As directed (DME) freedom leg brace See Rx Instructions .Route .MEDSUPPLY Qty: 1 0RF Rx Instructions: As directed (DME) CAM walker See Rx Instructions .Route .MEDSUPPLY Qty: 1 0RF Rx Instructions: As directed carisoprodol [Soma] 250 mg tablet 250 mg PO TID PRN (Reason: muscle pain) Qty: 21 0RF tramadol 50 mg tablet 50 mg PO Q4H Qty: 30 0RF mupirocin 2 % ointment 1 applic topical TID Qty: 15 0RF Rx Instructions: apply to wound TID and as needed with dressing changes, cover with band-aid cephalexin 500 mg capsule 500 mg PO TID 7 Days Qty: 21 0RF cetirizine 10 mg Tablet 10 mg PO DAILY bupropion HCl 150 mg tablet sustained-release 12 hr 150 mg PO DAILY pantoprazole 40 mg tablet,delayed release (DR/EC) 40 mg PO BID Discharge Orders: Discharge ED (Routine); Ordered 02/08/25 Ordered By: Jase Topete Referrals: Pennington,Adele, TEMPORARY STAFF ACCOUNTANT [Primary Care Provider, Nurse Practitioner] Patient Instructions: Opioid Safety, Pain Management, Patient Portal & Toby Instructions Activity Restrictions/Additional Instructions: Make sure to drink plenty of fluid. Follow-up on your urine culture and other test results with your doctor. Recheck with your doctor in 2 to 3 days. Come back if worsening or concerning back pain, fever, vomiting, abdominal pain, worsening symptoms. Come back immediately if you develop loss of feeling in your groin area or loss of bowel or bladder control, any worse or concerning symptoms. 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
[2025-02-08 12:55] LABS: Erythrocyte Sedimentation Rate 5 mm/hr (0-10)
[2025-02-08 13:10] LABS: Amphetamines Screen Urine Negative (Negative); Barbiturates Screen Urine Negative (Negative); Benzodiazepines Screen Urine Positive (Negative); Cocaine Screen Urine Negative (Negative); Opiate Screen Urine Negative (Negative); PCP Screen Urine Negative (Negative); THC Screen Urine Negative (Negative)
== END 2025-02-08 14:40 | disposition home or self-care (01) ==
PROVIDERS: Emergency Medicine; Emergency Provider Emergency Medicine; PCP Nurse Practitioner Family
DX: R30.0 Dysuria (principal); I10 Essential (primary) hypertension; Z86.73 Personal history of transient ischemic attack (TIA), and cerebral infarction without residual deficits
CPT/HCPCS: 36415; 80053; 80306; 81001; 83605; 85025; 85651; 86140; 87086; 99283

== ENCOUNTER 2025-02-12 13:17 | Outpatient (CLI) | payer OTHER, SELFPAY ==
--- NOTE | 2025-02-12 13:21 | XR_ITS ---
WS: [id number] XR calcaneus LT min 2V [id number] REASON FOR EXAM: post op FINDINGS: Long screw fixation of previous calcaneal fracture with arthrodesis of the subtalar joint. Surgical appliances are intact and in proper position and alignment unchanged compared to 01/25/2025. XR/XR calcaneus LT min 2V [id number] IMPRESSION: Stable postoperative left foot as above.
== END 2025-02-12 13:18 | disposition home or self-care (01) ==
PROVIDERS: PCP Nurse Practitioner Family; Visit Provider Podiatrist Foot & Ankle Surgery
DX: Z98.890 Other specified postprocedural states (principal); S93.401D Sprain of unspecified ligament of right ankle, subsequent encounter; W13.2XXD Fall from, out of or through roof, subsequent encounter
CPT/HCPCS: 73650; 99024

== ENCOUNTER → 2025-03-12 13:15 | Outpatient (BNVA) | payer OTHER, SELFPAY | PROVIDERS: PCP Nurse Practitioner Family; Visit Provider Podiatrist Foot & Ankle Surgery | DX: Z98.890 Other specified postprocedural states (principal); S93.491D Sprain of other ligament of right ankle, subsequent encounter; S92.012D Displaced fracture of body of left calcaneus, subsequent encounter for fracture with routine healing; W13.2XXD Fall from, out of or through roof, subsequent encounter; M19.172 Post-traumatic osteoarthritis, left ankle and foot | CPT/HCPCS: 73650; 99213 ==

== ENCOUNTER 2025-03-14 10:32 | Emergency (ER) | payer OTHER, SELFPAY ==
--- OUTSIDE RECORDS SUMMARY | 2025-03-12 05:40 | XMS_ITS ---
Author Organization [facility] Address [address] [place] [address] Care Team Providers Care Gravedigger Name Role Phone NUZHAT REN Primary Care Provider Unavaila Nuzhat Epps Unavailable [phone] PenningtonAdele Unavailable [phone] Allergies No Known Allergies REASON FOR VISIT Patient to clinic needing medications for upcoming cruise. Medications Medication SIG (Take, Route, Frequency, Duration) Notes Start Date End Date Status Suboxone 2-0.5 MG Tablet Sublingual 1 tablets under the tongue and allow to dissolve Sublingual Twice a day Active diazePAM 5 MG Tablet (Schedule IV Drug) TAKE ONE TABLET BY MOUTH TWICE DAILY NEEDED FOR SPASMS Oral Three times a day; Duration: 30 days Active Losartan Potassium 100 MG Tablet 1 tablet Orally Once a day in am; Duration: 30 days Active Meloxicam 7.5 MG Tablet 1 tablet Orally Once a day Active cloNIDine HCl 0.1 MG Tablet 1 tablet Orally Once a day prn bp over 180/100; Duration: 30 days Active Albuterol Sulfate HFA 108 (90 Base) MCG/ACT Aerosol Solution 2 puff as needed Inhalation every 4 hrs 07/30/2023 Active Multivitamin Adult - Tablet as directed Orally Active Scopolamine 1 MG/3DAYS Patch 72 Hour 1 patch to skin behind the ear as needed Transdermal q 3 days; Duration: 30 days 03/12/2025 Active Ondansetron HCl 4 MG Tablet 1 tablet Orally q 4 hours prn nausea; Duration: 30 03/12/2025 Active Metoprolol Succinate ER 25 MG Tablet Extended Release 24 Hour 1 tablet Orally Once a day in evening; Duration: 30 days Not-Taking ProAir HFA 108 (90 Base) MCG/ACT Aerosol Solution inhale TWO puffs BY MOUTH EVERY 4 TO 6 HOURS NEEDED Inhalation; Duration: 16 Not-Taking Suboxone 2-0.5 MG Film 1 film under the tongue and allow to dissolve Sublingual Once a day Not-Taking predniSONE 10 MG (21) Tablet Therapy Pack as directed Orally 11/13/2023 No t-Taking Triamterene-HCTZ 37.5-25 MG Tablet TAKE ONE TABLET BY MOUTH EVERY DAY NEEDED FOR swelling Oral; Duration: 30 Not-Taking Gabapentin 300 MG Capsule TAKE ONE CAPSU LE BY MOUTH THREE TIMES DAILY Oral; Duration: 30 Not-Taking Pantoprazole Sodium 40 mg Tablet Delayed Release 1 tablet po Twice a day; Duration: 30 days Active traMADol HCl 50 MG Tablet 1 tablet as ne eded Orally 4 times a day; Duration: 30 days 01/08/2025 Active Carisoprodol 350 MG Tablet 1 tablet as needed Orally Three times a day; Duration: 30 days 01/08/2025 Active Acyclovir 400 MG Tablet 1 tablet Orally Three times a day; Duration: 7 days 09/02/2024 Active Megestrol Acetate 40 MG/ML Suspension take 10ml BY MOUTH ONCE daily; Duration: 30 days Active Cetirizine HCl 10 MG Tablet 1 tablet Orally Once a day Active Social History Tobacco Use: Social History Observation Description Date Details (start date - stop date) Former Smoker NA - NA Social History Tobacco Use: Social Info Question Answer Notes Tobacco Control (Standard) Tobacco use: Former smoker How long has it been since you last smoked? 1-5 years Section Notes: 09-21-22 PHQ9 10/23/23 PHQ9 01/08/25 PHQ9 Vital Signs Temperature 97.5 degrees Fahrenheit 03/12/20 25 Blood pressure systolic 100 mm Hg 03/12/20 25 Blood pressure diastolic 43 mm Hg 025 Heart Rate 94 /min 03/12/2025 Respiratory Rate 20 /min 03/12/2025 Height 72 in 03/12/2025 Weight 175 lbs 03/12/2025 BMI 23.73 kg/m2 03/12/2025 Oximetry 100 % 03/12/2025 Height-cm 182.88 cm 03/12/2025 Weight-kg 79.38 kg 03/12/2025 Encounters Encounter Location Date Provider Diagnosis [facility] Office [address] [address] 03/12/2025 Adele Pennington Travel advice encounter Z71.89 and Anxiety F41.9 Assessments Encounter Date Diagnosis (ICD Code) Assessment Notes Treatment Notes Treatment Clinical Notes Section Notes 03/12/2025 Travel advice encounter (ICD-10 - Z71.89) scopalamine zofran 03/12/2025 Anxiety (ICD-10 - F41.9) [facility]ium ([facility]) 03/12/2025 Other Questions asked and answered; discharged to home. Plan Of Treatment Medication Medication Name Sig Start Date Stop Date Notes Scopolamine 1 MG/3DAYS Patch 72 Hour 1 patch to skin behind the ear as needed Transdermal q 3 days; Duration: 30 days 03/12/2025 Ondansetron HCl 4 MG Tablet 1 tablet Ora lly q 4 hours prn nausea; Duration: 30 03/12/2025 Treatment Notes Assessment Notes Travel advice encounter scopalamine zofran Anxiety valium ([facility]) Other Questions asked and answered; discharged to home. Next Appt Details Follow Up: prn, Reason: History and Physical Notes * Examination Category Sub-Category Detail Notes Category Not es General Examination GENERAL APPEARANCE: alert, w ell hydrated, in no distress, converses well HEAD: normocephalic, atrau matic EYES: PERRL; normal conjun ctiva EARS: ... NECK/THYROID: neck supple, full ra nge of motion, no JVD, without thyromegaly or masses HEART: Regular rate and rhy thm, S1 S2 normal LUNGS: clear to auscultatio n bilaterally, no wheezes, rales, or rhonchi NEUROLOGIC: alert and oriented, cerebellar function normal, cognitive exam grossly normal, gait normal SKIN: warm and dry EXTREMITIES: no clubbing, cyanosi s, or edema. 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 * HPI: P rovider Note: patient is analert 34 year old male known to practice and here for recheck and medications discussed with patient medications/diagnoses states he was thinking m,aybe needed xanax for trip advised patient not indicated due to bid daily [facility]ium [facility] try 1/2 tabs/space out meds as indicated and [facility] ok [facility] the [facility] going [facility] for 6 days; concerned may have increased anxiety; discussed with patient motion sickness; never on cruise before complains of nerves bad around others in groups has valium [facility] will e [facility] scopalamine transdermal as well as zofran prn follow up [facility] regular provider. * ROS: G eneral - Multi System: Musculoskeletal R EPORTS left foot pain. * Medical History: Arthritis Migraine headaches Back trouble Hypertension Hemorrhoids Anxiety Depression Fibromyalgia Osteoporosis Rheumatoid arthritis Muscular dystrophy Medical History Verified * Surgical History: abdominal blunt force trauma repair splenectomy left wrist right leg left arm gall bladder removal carpal tunnel release cerebral nerve L elbow Surgical History verified. * Hospitalization/Major Diagno stic Procedure: see surgical Hospitalization Verified. * Family History: F ather: alive, neuropathy, reflux. M other: alive, hypothyroidism, copd, abdominal hernia. M aternal Grand Mother: stroke. F amily History Verified.. cousins: prostate cancer, colon cancers. * Social History: T obacco Use: T obacco Control (Standard) T obacco use: F ormer smoker H ow long has it been since you last smoked??1-5 years S ocial History Verified. PHQ9 10/23/23 PHQ9 01/08/25 PHQ9. * Medications: T akingMultivitamin Adult - Tablet as directed Orally Albuterol Sulfate HFA 108 (90 Base) MCG/ACT Aerosol Solution 2 puff as needed Inhalation every 4 hrs diazePAM 5 MG Tablet (Schedule IV Drug) TAKE ONE TABLET BY MOUTH TWICE DAILY NEEDED FOR SPASMS Oral Three times a day Suboxone 2-0.5 MG Tablet Sublingual 1 tablets under the tongue and allow to dissolve Sublingual Twice a day Meloxicam 7.5 MG Tablet 1 tablet Orally Once a day Losartan Potassium 100 MG Tablet 1 tablet Orally Once a day in am cloNIDine HCl 0.1 MG Tablet 1 tablet Orally Once a day prn bp over 180/100 Cetirizine HCl 10 MG Tablet 1 tablet Orally Once a day Megestrol Acetate 40 MG/ML Suspension take 10ml BY MOUTH ONCE daily Acyclovir 400 MG Tablet 1 tablet Orally Three times a day Pantoprazole Sodium 40 mg Tablet Delayed Release 1 tablet po Twice a day Carisoprodol 350 MG Tablet 1 tablet as needed Orally Three times a day traMADol HCl 50 MG Tablet 1 tablet as needed Orally 4 times a day Taking Multivitamin Adult - Tablet as directed Orally Taking Albuterol Sulfate HFA 108 (90 Base) MCG/ACT Aerosol Solution 2 puff as needed Inhalation every 4 hrs Taking diazePAM 5 MG Tablet (Schedule IV Drug) TAKE ONE TABLET BY MOUTH TWICE DAILY NEEDED FOR SPASMS Oral Three times a day Taking Suboxone 2-0.5 MG Tablet Sublingual 1 tablets under the tongue and allow to dissolve Sublingual Twice a day Taking Meloxicam 7.5 MG Tablet 1 tablet Orally Once a day Taking Losartan Potassium 100 MG Tablet 1 tablet Orally Once a day in am Taking cloNIDine HCl 0.1 MG Tablet 1 tablet Orally Once a day prn bp over 180/100 Taking Cetirizine HCl 10 MG Tablet 1 tablet Orally Once a day Taking Megestrol Acetate 40 MG/ML Suspension take 10ml BY MOUTH ONCE daily Taking Acyclovir 400 MG Tablet 1 tablet Orally Three times a day Taking Pantoprazole Sodium 40 mg Tablet Delayed Release 1 tablet po Twice a day Taking Carisoprodol 350 MG Tablet 1 tablet as needed Orally Three times a day Taking traMADol HCl 50 MG Tablet 1 tablet as needed Orally 4 times a day Not-TakingSuboxone 2-0.5 MG Film 1 film under the tongue and allow to dissolve Sublingual Once a day ProAir HFA 108 (90 Base) MCG/ACT Aerosol Solution inhale TWO puffs BY MOUTH EVERY 4 TO 6 HOURS NEEDED Inhalation Triamterene-HCTZ 37.5-25 MG Tablet TAKE ONE TABLET BY MOUTH EVERY DAY NEEDED FOR swelling Oral predniSONE 10 MG (21) Tablet Therapy Pack as directed Orally Gabapentin 300 MG Capsule TAKE ONE CAPSULE BY MOUTH THREE TIMES DAILY Oral Metoprolol Succinate ER 25 MG Tablet Extended Release 24 Hour 1 tablet Orally Once a day in evening Not-Taking Suboxone 2-0.5 MG Film 1 film under the tongue and allow to dissolve Sublingual Once a day Not-Taking ProAir HFA 108 (90 Base) MCG/ACT Aerosol Solution inhale TWO puffs BY MOUTH EVERY 4 TO 6 HOURS NEEDED Inhalation Not-Taking Triamterene-HCTZ 37.5-25 MG Tablet TAKE ONE TABLET BY MOUTH EVERY DAY NEEDED FOR swelling Oral Not-Taking predniSONE 10 MG (21) Tablet Therapy Pack as directed Orally Not-Taking Gabapentin 300 MG Capsule TAKE ONE CAPSULE BY MOUTH THREE TIMES DAILY Oral Not-Taking Metoprolol Succinate ER 25 MG Tablet Extended Release 24 Hour 1 tablet Orally Once a day in evening * Allergies: N .K.D.A.yesAllergies Verified. Objective: * Vitals: H t: 72 in, Wt:175lbs, Wt-k.38 kg, BMI:23.73Index, Temp:97.5F, BP:100/43mm Hg, HR:94/min, RR:20/min, Oxygen sat %:100%, O2 Source: RA, Pain scale: 3 1-10, Ht- cm: 182.88 cm. * Examination: G eneral Examination: GENERAL APPEARANCE: a lert, well hydrated, in no distress, converses well. HEAD: n ormocephalic, atraumatic. EYES: P ERRL; normal conjunctiva. EARS: . ... NECK/THYROID: n masha supple, full range of motion, no JVD, without thyromegaly or masses. SKIN: w arm and dry. HEART: R egular rate and rhythm, S1 S2 normal. LUNGS: c lear to auscultation bilaterally, no wheezes, rales, or rhonchi. EXTREMITIES: n o clubbing, cyanosis, or edema.. NEUROLOGIC: a lert and oriented, cerebellar function normal, cognitive exam grossly normal, gait normal. PSYCH: a lert, oriented, cognitive function intact, cooperative with exam, good eye contact, mood/affect full range, speech clear. Assessment: * Assessment: 1. T ravel advice encounter - Z71.89 (Primary) 2 . A nxiety - F41.9 ? Plan: * Treatment: 2. A nxiety Notes: valium ([facility]) 3. O thers Notes: Questions asked and answered; discharged to home. * Procedure Codes: 3 078F DIAST BP < 80 MM [id number] SYST BP LT 130 MM HG * Preventive Medicine: Screenings: D EPRESSION SCREENING: Date of most recent screenin 01/08/2025 The patient denies: a nxiety, depressed mood, difficulty sleeping, lack of energy, lack of interest in things that were enjoyable, poor appetite, sadness, thoughts of harming him/herself, thought of harming someone else, trouble concentrating, weight gain, weight loss, any depressive symptoms at this time Suicidal ideation: h as never been expressed/considered Homicidal ideation: h as never been expressed/considered * Follow Up: p rn Billing Information: * Visit Code: 42017 Office Visit, Est Pt., Level 3. * Procedure Codes: 3078F DIAST BP < 80 MM HG. 3074F SYST BP LT 130 MM HG. Care Plan Details* * Sign off status: Completed true * Provider: Clarence Pennington CUSTOMER SERVICE OPERATOR Date: 0 03/12/2025 Generated for Cristo edgar/Lulu/Itaitting on: 0 03/14/2025 10:39 AM CDT
--- OUTSIDE RECORDS SUMMARY | 2025-03-14 10:37 | XMS_ITS | Continuity of Care Document ---
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 It does not include entries that were removed or entered in error. 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 Nov 04, 2020 Entered By: JOY AGUIRRE Comment: severe anaphalaxis [place] [facility] Cervical radiculopathy Active Condition [place] [facility] Chronic back pain Active Condition [place] [facility] Chronic constipation Active Condition [place] [facility] Cramp in lower limb associated with sleep Active Condition [place] [facility] Depression ([facility] [id number]) Active Condition [place] [facility] Exposure to potentially hazardous substance Active Condition [facility] Headache Active Condition [place] [facility] HTN - Hypertension Active Condition [place] [facility] Legal problems/circumstances [facility] Neck pain Active Condition [place] [facility] Obstructive sleep apnea Active Condition May 28, 2024 Entered By: JOY AGUIRRE Comment: Auto CPAP 6-16cm [place] [facility] Opiate Dependence * Active Condition [facility] Opioid dependence, on agonist therapy Active Condition [place] [facility] Rheumatoid arthritis Active Condition [place] [facility] Sleep paralysis Active Condition [place] [facility] Closed fracture of of navicular bone of wrist Inactive Condition 08/21/2016 [facility] Dislocation of shoulder joint Inactive Condition 08/21/2016 [place] [facility] Homeless Inactive Condition 08/21/2016 [place] [facility] Knee pain Inactive Condition 08/21/2016 [place] [facility] Muscle atrophy (SNOMED CT [id number]) Inactive Condition 08/21/2016 [place] [facility] Other injury into spleen without mention of open wound into cavity Inactive Condition 08/21/2016 [place] [facility] Rib pain Inactive Condition 08/21/2016 [place] [facility] Scapulalgia (SNOMED CT [id number]) Inactive Condition 08/21/2016 [place] [facility] Thoracic back pain (SNOMED CT [id number]) Inactive Condition 08/21/2016 [facility] Unexplained weight loss Inactive Condition 08/21/2016 [place] [facility] Need For Vaccination Hepatitis B Inactive Condition DoD family problems Inactive Condition DoD Laboratory Studies Inactive Condition Do D ACNE CYSTIC Inactive Condition if no improvement with above regimen, consider dermatology consult DoD PHARYNGITIS ACUTE Inactive Condition co ncern for strep - no lab available DoD Vaccines Prophylactic Need Against Influenza Inactive Condition Do D joint pain, localized in the knee Active Condition renewed meds as he said they helpedprofile extendedhas not gone to physical therapy as directed - consult re-entered DoD CLOSED STRESS FRACTURE OF TIBIA Active Condition DoD Cast Inactive Condition DoD CLOSED FRACTURE OF PROXIMAL TIBIA RIGHT Active Condition DoD GARCIA SPLINT Inactive Condition DoD ACNE Inactive Condition Grade III acne (bilateral cheeks, with old pitting scars). DoD WRIST SPRAIN Inactive Condition LT wris t. LT wrist XR today = NO obvious fx/disloc (wet reading); RAD report = pending. LT wrist (rigid) splint given today for comfort. DoD visit for: examination of subpopulation Inactive Condition DoD ASSESS PATIENT CONDITION WORK-RELATED OCCUPATIONAL DISEASE Inactive Condition DoD Patient Education - Injury Prevention Inactive Condition DoD visit for: ears / hearing exam Inactive Condition DoD Patient Education - Self-Examination Of Testes Active Condition DoD visit for: occupational health / fitness exam Active Condition DoD visit for: single organ system exam eyes Inactive Condition Do D visit for: prisoner physical examination Active Condition DoD visit for: screening exam pulmonary tuberculosis Inactive Condition DoD Blood Chemistry Screening Tests As Part Of General Physical Exam Inactive Condition DoD visit for: administrative purpose Inactive Condition Do D Parent Education: Drug Abuse Active Condition DoD HEARING LOSS Active Condition DoD SINUSITIS Active Condition DoD sore throat Inactive Condition DoD PSYCHIATRIC DIAGNOSIS OR CONDITION DEFERRED ON AXIS I Active Condition DoD PROGRESSIVE MUSCULAR DYSTROPHY Active Condition DoD OPIOID DEPENDENCE Active Condition DoD OPIOID DEPENDENCE IN REMISSION Active Condition DoD Anticipatory Guidance: Illicit Drug Use Active Condition DoD NICOTINE DEPENDENCE - CONTINUOUS Active Condition DoD tingling (paresthesia) Active Condition DoD pain in the arms Active Condition DoD headache Inactive Condition DoD SEGMENTAL DYSFUNCTION OF THORACIC REGION Active Condition DoD DISLOCATION OF STERNUM Active Condition DoD SEGMENTAL DYSFUNCTION OF UPPER EXTREMITIES Active Condition DoD MUSCLE SPASM Active Condition DoD SEGMENTAL DYSFUNCTION OF CERVICAL REGION Active Condition DoD SEGMENTAL DYSFUNCTION OF PELVIC REGION Active Condition DoD INJURY OF UPPER EXTREMITY HAND Inactive Condition DoD visit for: services physical pre-deployment Inactive Condition DoD UPPER RESPIRATORY INFECTION Inactive Condition DoD Other Physical Therapy Inactive Condition DoD NERVE PALSY Active Condition DoD midback pain Active Condition DoD OPIOID ABUSE Active Condition DoD ACQUIRED DEFORMITY UPPER EXTREMITY Active Condition DoD CHRONIC PAIN SYNDROME Active Condition DoD upper back pain (between shoulder blades) Active Condition DoD OPIOID-RELATED DISORDERS Active Condition DoD Anticipatory Guidance: Alcohol Use Active Condition DoD Consultation With An Addictions Counselor Active Condition DoD SUBSTANCE USE DISORDERS Active Condition DoD Observation For Suspected Condition Inactive Condition DoD SKIN ABSCESS Inactive Condition DoD Aftercare Inactive Condition DoD insomnia Active Condition DoD INFECTIOUS DISEASE - RICKETTSIA Active Condition DoD ANAPHYLAXIS Active Condition DoD [place] FEVER Active Condition DoD MUSCULAR ATROPHY Active Condition DoD Level Of Consciousness Active Condition DoD NICOTINE DEPENDENCE Active Condition Do D PROGRESSIVE MUSCULAR DYSTROPHY FASCIOSCAPULOHUMERAL Active Condition DoD CONDITIONS INFLUENCING HEALTH STATUS Inactive Condition DoD BONE CYST Active Condition DoD MYOFASCIAL PAIN SYNDROME Active Condition 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 DoD 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 DoD Inquiry And Counseling: Medication Admin And Compliance Inactive Condition DoD visit for: services physical separation Active Condition DoD ALLERGIC RHINITIS Active Condition DoD ASSESSMENT OF PATIENT CONDITION WORK STATUS Inactive Condition DoD LUMBAGO Active Condition DoD Patient Education - Proper Use Of Medications Inactive Condition DoD SINUS BRADYCARDIA Active Condition DoD visit for: issue repeat prescription for medication Inactive Condition DoD GASTRITIS DRUG-INDUCED Active Condition DoD visit for: therapeutic drug monitoring Inactive Condition DoD Myoclonus Active Condition DoD CHRONIC PAIN Active Condition DoD Brace Inactive Condition DoD visit for: issue repeat prescription Inactive Condition DoD muscle weakness Inactive Condition DoD blurry vision Active Condition DoD Occupational Therapy Inactive Condition DoD Patient Counseling: Inactive Condition D oD SEDATIVE/HYPNOTIC-OTIS HAIDER SLEEP DISORDER DURING INTOXICATION Active Condition DoD PHASE OF LIFE OR LIFE CIRCUMSTANCE PROBLEM Active Condition DoD LATE EFFECT OF INJURY TO CRANIAL NERVE Active Condition DoD reported physical trauma Inactive Condition DoD CONCUSSION, PROLONGED LOC (>24 HR) AND RETURN TO PREV. LEVEL Active Condition DoD NO PSYCHIATRIC DIAGNOSIS OR CONDITION ON AXIS I Active Condition DoD NERVE PALSY LONG THORACIC Active Condition DoD NEURITIS BRACHIAL Active Condition DoD Blood Pressure Isolated Elevated Active Condition DoD limb pain Active Condition DoD NERVE PALSY LONG THORACIC RIGHT Active Condition DoD NERVE PALSY LONG THORACIC LEFT Active Condition DoD NERVE PALSY ULNAR Active Condition DoD visit for: screening exam Inactive Condition DoD INJURY TO SPINAL NERVE ROOT BRACHIAL PLEXUS Active Condition DoD CRUSH INJURY SCAPULA Active Condition D oD BRACHIAL RADICULOPATHY Active Condition DoD CLOSED FRACTURE OF CLAVICLE Active Condition DoD visit for: follow-up exam Inactive Condition DoD Vaccines Prophylactic Need Against Smallpox Inactive Condition DoD Vaccines Prophylactic Need Against Bacterial Diseases Inactive Condition DoD visit for: services physical Active Condition DoD Need For Vaccination Typhoid Inactive Condition DoD Need For Vaccination Hepatitis A Inactive Condition [facility] Diagnosis: ICD-10-CM Z71.89 Other specified counseling Active Diagnosis [facility] Diagnosis: ICD-10-CM Z71.9 Counseling, unspecified Active Diagnosis [facility] Diagnosis: ICD-10-CM I10 Essential (primary) hypertension Active Diagnosis [facility] Diagnosis: ICD-10-CM E86.0 Dehydration Active Diagnosis [facility] Diagnosis: ICD-10-CM G47.33 Obstructive sleep apnea (adult) (pediatric) Active Diagnosis [facility] Diagnosis: ICD-10-CM K02.52 Dental caries on pit and fissure surfc penetrat into dentin Active Diagnosis [facility] Medications Combined list of outpatient medications [...] DAY SUBLIN GUAL ACTIVE JOY AGUIRRE 2023 [facility] BUPROPION HCL 150MG 24HR TAB,SA TAKE ONE TABLET BY MOUTH ONCE A DAY FOR DEPRESSI ON SWALLOW WHOLE - DO NOT CRUSH OR CHEW. ORAL DISCONT INUED BY PROVIDE R 01/20/2026 [id number] JOY AGUIRRE [address] [place] [address] [facility] CETIRIZINE HCL 10MG TAB TAKE ONE TABLET BY MOUTH ONCE A DAY FOR ALLERGY SYMPTOMS . ORAL ACTIVE 12/25/2025 [id number] 5 [place], [facility] [address] [place] [address] [facility]OC CETIRIZINE HCL 10MG TAB TAKE ONE TABLET BY MOUTH ONCE A DAY ORAL ACTIVE TIMOTHY, JOY 2023 [facility] CLONIDINE HCL 0.1MG TAB TAKE 1.5 TABLETS BY MOUTH ONCE A DAY ORAL ACTIVE TIMOTHY, JOY 2023 [facility] diazePAM (U/D) 5 MG ORAL TAB TAKE ONE TABLET BY MOUTH THREE TIMES A DAY NEEDED AVOID TAKING WITH GRAPEFRU IT JUICE. 06/19/2024 [id number] 4 [place], [facility] [address] [place] [address] Divisio n diazePAM (U/D) 5 MG ORAL TAB TAKE ONE TABLET BY MOUTH THREE TIMES A DAY NEEDED AVOID TAKING WITH GRAPEFRU IT JUICE. 06/19/2024 [id number] 4 [place], [facility] [address] [place] [address] Divisio n DIAZEPAM 5MG TAB TAKE ONE TABLET BY MOUTH THREE TIMES A DAY NEEDED FOR MUSCLE SPASM FOR SPASMS AVOID TAKING WITH GRAPEFRU IT JUICE. ORAL ACTIVE 06/26/2025 [id number] 5 [facility], [facility] [address] [place] [address] [facility]OC DIAZEPAM 5MG TAB TAKE ONE TABLET BY MOUTH THREE TIMES A DAY NEEDED AVOID TAKING WITH GRAPEFRU IT JUICE. ORAL DISCONT INUED 06/19/2024 [id number] 4 [facility], [facility] [address] [place] [address] [facility]OC DIAZEPAM 5MG TAB TAKE ONE TABLET BY MOUTH THREE TIMES A DAY NEEDED AVOID TAKING WITH GRAPEFRU IT JUICE. ORAL 12/20/2024 [id number] 5 TIMOTHY, JOY [address] [place] [address] [facility]OC EPINEPHRINE (EQV-ADRENA CLICK) 0.3MG/0.3ML INJECTOR INJECT 1 PEN (0.3MG/0 .3ML) INTRAMUS CULARLY ONE-TIME NEEDED FOR ALLERGIC REACTION /ANAPHYL AXIS. INTRAM USCULA R 12/18/2024 [id number] 5 [facility] [address] [place] [address] EPINEPHRINE (EQV-EPI-PE N) 0.3MG/0.3ML INJECTOR INJECT 0.3MG (0.3ML) INTRAMUS CULARLY ONE-TIME NEEDED FOR ALLERGIC REACTION /ANAPHYL AXIS. INTRAM USCULA R DISCONT INUED (EDIT) 12/18/2024 [id number] 4 [facility] [address] [place] [address] Epinephrine 1mg/mL Solution, Intramuscul ar (Epipen), 0.3mL Prefilled Pen INJECT 0.3MG (0.3ML) INTRAMUS CULARLY ONE-TIME NEEDED FOR ALLERGIC REACTION /ANAPHYL AXIS. Discont inued 12/18/2024 [id number] 4 [facility] [address] [place] [address] Divisio n Epinephrine 1mg/mL, Injection, 0.3 mL Auto-Inject or INJECT 1 PEN (0.3MG/0 .3ML) INTRAMUS CULARLY ONE-TIME NEEDED FOR ALLERGIC REACTION /ANAPHYL AXIS. 12/18/2024 [id number] 4 [facility] [address] [place] [address] Divisio n Hydrochloro thiazide (Oretic) Tablet 25 mg Oral TAKE ONE-HALF TABLET BY MOUTH ONCE A DAY FOR HIGH BLOOD PRESSURE 01/24/2025 [id number] 4 [facility] [address] [place] [address] Divisio n HYDROCHLORO THIAZIDE 25MG TAB TAKE ONE-HALF TABLET BY MOUTH ONCE A DAY FOR HIGH BLOOD PRESSURE ORAL 01/24/2025 [id number] 5 [facility] [address] [place] [address] LOSARTAN POTASSIUM 100MG TAB TAKE ONE TABLET BY MOUTH ONCE A DAY TO LOWER BLOOD PRESSURE ORAL ACTIVE 12/25/2025 [id number] 5 TIMOTHY, JOY [address] [place], [place] [address] [place] POTASSIUM 100MG TAB TAKE ONE TABLET BY MOUTH ONCE A DAY TO LOWER BLOOD PRESSURE ORAL 08/15/2024 [id number] 4 TIMOTHY, JOY [address] [place] [address] [facility]OC MELOXICAM 15MG TAB TAKE ONE TABLET BY MOUTH ONCE A DAY FOR PAIN OR INFLAMMA TION ORAL 08/15/2024 [id number] 4 TIMOTHY, JOY [address] [place] [address] [facility]OC NALOXONE HCL 4MG/SPRAY SOLN,SPRAY, NASAL USE 1 SPRAY (4MG) INTO ONE NOSTRIL ONLY ONE-TIME FOR OPIOID OVERDOSE DO NOT PRIME NASAL SPRAY. SPRAY ONE DOSE IN ONE NOSTRIL, GIVE ADDITION AL DOSE IF PATIENT DOES NOT START BREATHIN G WITHIN 2-3 MINUTES OR STOPS BREATHIN G AGAIN. CALL 911. IF USED, NOTIFY PROVIDER . NASAL ACTIVE 01/01/2026 [id number] 5 DOREEN JETER [address] [place] [facility] Non-[facility] Medication Assessment Done USE Document ion Only MOUTH ORAL ACTIVE IVELISSE KOLB 2013 [facility] VENLAFAXINE HCL 75MG 24HR CAP,SA TAKE ONE CAPSULE BY MOUTH ONCE A DAY FOR DEPRESSI ON WITH FOOD. DO NOT ABRUPTLY DISCONTI NUE MEDICATI ON. ORAL ACTIVE 02/24/2026 [id number] 5 [facility] JOY [address] [place] [address] Allergies, Adverse Reactions, Alerts Combined list of allergies from Department of 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 It does not include entries that were removed or entered in error. Substance Category Reaction Severity Reaction type Status Date Reported Comments Source BEE VENOM Propensity to adverse reaction (finding) Anaphylaxis active 8 [facility] BUPROPION Propensity to adverse reactions to drug (finding) Increased frequency of urination active 5 [facility] OPIOID NARCOTICS - OTHER {Cla } Drug allergy (disorder) Other: *WT CS 15-D LIMIT* active 0 [facility] [place] [address] OTHER Drug allergy (disorder) Unknown active 9 [place] [address] Immunizations Combined list of available immunizations from the Department of 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 Immunization Series Date Given Administered By Site Reaction Lot Number CVX Code Drug Ec Teacher Status Comments Source ZOSTER RECOMBINANT 2022 ARIS PAT LEFT DELTO ID [id number] complet ed [facility] AT [facility] TDAP 2020 115 complet ed [facility] tuberculin skin test; purified protein derivative solution, intradermal 0 2010 [id number] Transcribed (TRS) complet ed tuberculi n skin test; purified protein derivativ e solution, intraderm al DoD typhoid Vi capsular polysaccharid e vaccine 1 2010 [id number] Sanofi Pasteur ([facility]) complet ed typhoid Vi capsular polysacch aride vaccine DoD influenza virus vaccine, split virus (incl. purified surface antigen)-reti red CODE 1 2009 [id number] Unknown (UNK) comple t ed influenza virus vaccine, split virus (incl. purified surface antigen)- retired CODE [facility] Novel influenza-H1N 1-09, injectable 1 2009 [id number] 127 [employer] Narinder. (NOV) complet Novel influenza -[id number], injectabl e [facility] Novel influenza-H1N 1-09, injectable 1 2009 TEGANQUE FOLEY Francia [id number] 127 [employer] Narinder. (NOV) complet Novel influenza -[id number], injectabl e DoD TDAP 2009 115 complet [facility] influenza virus vaccine, split virus (incl. purified surface antigen)-reti red CODE 1 2008 [id number] 1A 15 CS [employer] (CSL) complet ed influenza virus vaccine, split virus (incl. purified surface antigen)- retired CODE DoD influenza virus vaccine, split virus (incl. 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 purified surface antigen)- retired CODE DoD anthrax vaccine 1 2007 UNK 24 [employer] [place] ([facility]) complet ed anthrax vaccine DoD vaccinia (smallpox) vaccine 1 2007 UNK 75 [facility] ([facility]) complet ed vaccinia (smallpox ) vaccine DoD hepatitis B vaccine, adult dosage 2 2007 Unknown, Provider [id number] [facility] (SKB) complet ed hepatitis B vaccine, adult dosage DoD hepatitis A vaccine, adult dosage 2 2007 Unknown, Provider [id number] Merck (MSD) complet ed hepatitis A vaccine, adult dosage DoD tuberculin skin test; purified protein derivative solution, intradermal 1 2007 Unknown, Provider [id number] Rachael (PD) complet ed tuberculi n skin test; purified protein derivativ e solution, intraderm al DoD typhoid Vi capsular polysaccharid e vaccine 1 2007 Unknown, Provider [id number] Other (OTH) complet ed typhoid Vi capsular polysacch aride vaccine DoD hepatitis B vaccine, adult dosage 2 2007 UNK 43 Unknown (UNK) comple t ed hepatitis B vaccine, adult dosage DoD hepatitis A vaccine, adult dosage 2 2007 UNK 52 Unknown (UNK) comple t ed hepatitis A vaccine, adult dosage DoD typhoid Vi capsular polysaccharid e vaccine 1 2007 [id number] Unknown (UNK) comple t ed typhoid Vi capsular polysacch aride vaccine DoD influenza virus vaccine, live, attenuated, for intranasal use 1 2006 SHALINI ROB [id number] [employer]. (MED) complet ed influenza virus vaccine, live, attenuate d, for intranasa l use DoD hepatitis B vaccine, adult dosage 1 2006 UNK 43 Unknown (UNK) comple t ed hepatitis B vaccine, adult dosage DoD hepatitis A vaccine, adult dosage 1 2006 UNK 52 Unknown (UNK) comple t ed hepatitis A vaccine, adult dosage DoD measles, mumps and rubella virus vaccine 1 2006 [id number] Merck (MSD) complet ed measles, mumps and rubella virus vaccine DoD tetanus and diphtheria toxoids, adsorbed, preservative free, for adult use (2 Lf of tetanus toxoid and 2 Lf of diphtheria toxoid) 1 2006 [id number] Sanofi Pasteur ([facility]) complet ed tetanus and diphtheri a toxoids, adsorbed, preservat kennedy free, for adult use (2 Lf of tetanus toxoid and 2 Lf of diphtheri a toxoid) [facility] poliovirus vaccine, inactivated 1 2006 [id number] Sanofi Pasteur ([facility]) complet ed polioviru s vaccine, inactivat ed DoD influenza virus vaccine, split virus (incl. purified surface antigen)-reti red CODE 1 2006 UNK 15 Sanofi Pasteur ([facility]) complet ed influenza virus vaccine, split virus (incl. purified surface antigen)- retired CODE DoD varicella virus vaccine 1 2006 UNK 21 Unknown (UNK) Not Given varicella virus vaccine DoD hepatitis B vaccine, adult dosage 1 2006 UNK 43 Unknown (UNK) Not Given hepatitis B vaccine, adult dosage DoD hepatitis A vaccine, adult dosage 1 2006 UNK 52 Unknown (UNK) Not Given hepatitis A vaccine, adult dosage DoD meningococcal polysaccharid e (groups A, C, Y and W-135) diphtheria toxoid conjugate vaccine (MCV4P) 1 2006 [id number] Sanofi Pasteur ([facility]) complet ed meningoco ccal polysacch aride (groups A, C, Y and W-135) diphtheri a toxoid conjugate vaccine (MCV4P) DoD HEP A, PED/ADOL, 2 DOSE 2 1998 83 complet ed HISTORICA L INFORMATI ON - FROM OTHER [facility] HEP B, UNSPECIFIED FORMULATION 3 1998 45 complet ed HISTORICA L INFORMATI ON - [facility] HEP A, PED/ADOL, 2 DOSE 1997 83 complet ed HISTORICA L INFORMATI ON - FROM OTHER [facility] HEP B, UNSPECIFIED FORMULATION 2 1997 45 complet ed HISTORICA L INFORMATI ON - FROM OTHER [facility] HEP A, PED/ADOL, 2 DOSE 1 1997 83 complet ed HISTORICA L INFORMATI ON - FROM OTHER REGISTRY, [facility] HEP B, ADOLESCENT OR PEDIATRIC 1 1997 08 complet ed HISTORICA L INFORMATI ON - FROM OTHER REGISTRY, [facility] MMR 2 1997 03 complet ed HISTORICA L INFORMATI ON - FROM OTHER REGISTRY, [facility] DTP 5 1992 01 complet ed HISTORICA L INFORMATI ON - FROM OTHER REGISTRY, [facility] TRIVALENT OPV 4 1992 02 complet ed HISTORICA L INFORMATI ON - FROM OTHER REGISTRY, [facility] DTP 4 1990 01 complet ed HISTORICA L INFORMATI ON - FROM OTHER REGISTRY, [facility] HIB (HBOC) 1 1990 47 complet ed HISTORICA L INFORMATI ON - FROM OTHER REGISTRY, [facility] HIB (PRP-T) 1 1990 48 complet ed HISTORICA L INFORMATI ON - FROM OTHER REGISTRY, [facility] DTP 3 1989 01 complet ed HISTORICA L INFORMATI ON - FROM OTHER REGISTRY, [facility] MMR 1 1989 03 complet ed HISTORICA L INFORMATI ON - FROM OTHER REGISTRY, [facility] TRIVALENT OPV 3 1989 02 complet ed HISTORICA L INFORMATI ON - FROM OTHER REGISTRY, [facility] DTP 2 1989 01 complet ed HISTORICA L INFORMATI ON - FROM OTHER REGISTRY, [facility] TRIVALENT OPV 2 1989 02 complet ed HISTORICA L INFORMATI ON - FROM OTHER REGISTRY, [facility] DTP 1 1988 01 complet ed HISTORICA L INFORMATI ON - FROM OTHER REGISTRY, [facility] TRIVALENT OPV 1 1988 02 complet ed HISTORICA L INFORMATI ON - FROM OTHER REGISTRY, [facility] Results Combined list of recent [...] 02:56 PM Reporting Lab: [place] [facility] [address] [place] [address] Performin g Lab: [place] [facility] [address] [place] [address] [facility] TSH (MA-PB) THYROTROPIN [UNITS/VOLU ME] IN SERUM OR PLASMA 1.752 u[IU]/mL 0.47 - 5 01/15 Specimen Type: SERUM No comment entered. Ordering Provider: JOY AGUIRRE Report Released Date/Time : Jan 24, 2024 02:56 PM Reporting Lab: [place] [facility] [address] [place] [address] Performin g Lab: [place] [facility] [address] [place] [address] [facility] CHOLESTERO L PANEL (PB) CHOLESTEROL [MASS/VOLUM E] IN SERUM OR PLASMA 111 mg/dL 0 - 200 01/15 Specimen Type: PLASMA No comment entered. Ordering Provider: JOY AGUIRRE Report Released Date/Time : Jan 24, 2024 02:56 PM Reporting Lab: [place] [facility] [address] [place] [address] Performin g Lab: [place] [facility] [address] [place] [address] 8 [facility] CHOLESTERO L PANEL (PB) TRIGLYCERID E [MASS/VOLUM E] IN SERUM OR PLASMA 91 mg/dL 0 - 150 01/15 Specimen Type: PLASMA No comment entered. Ordering Provider: JOY AGUIRRE Report Released Date/Time : Jan 24, 2024 02:56 PM Reporting Lab: [place] [facility] [address] [place] [address] 8 Performin g Lab: [place] [facility] [address] [place] [address] 8 [facility] CHOLESTERO L PANEL (PB) CHOLESTEROL IN LDL [MASS/VOLUM E] IN SERUM OR PLASMA BY CALCULATION 60.8 mg/dL 01/15 Specimen Type: PLASMA No comment entered. Ordering Provider: JOY AGUIRRE Report Released Date/Time : Jan 24, 2024 02:56 PM Reporting Lab: [place] [facility] [address] [place] [address] 8 Performin g Lab: [place] [facility] [address] [place] [address] 8 [facility] CHOLESTERO L PANEL (PB) CHOLESTEROL IN HDL [MASS/VOLUM E] IN SERUM OR PLASMA 32.0 mg/dL 40 01/15 L Specimen Type: PLASMA No comment entered. Ordering Provider: JOY AGUIRRE Report Released Date/Time : Jan 24, 2024 02:56 PM Reporting Lab: [place] [facility] [address] [place] [address] 8 Performin g Lab: [place] [facility] [address] [place] [address] 8 [facility] CHOLESTERO L PANEL (PB) CHOLESTEROL IN HDL/CHOLEST LLUVIA.TOTAL [MASS RATIO] IN SERUM OR PLASMA 28.8 25 01/15 Specimen Type: PLASMA No comment entered. Ordering Provider: JOY AGUIRRE Report Released Date/Time : Jan 24, 2024 02:56 PM Reporting Lab: [place] [facility] [address] [place] [address] 8 Performin g Lab: [place] [facility] [address] [place] [address] 8 [facility] COMPREHENS KENNEDY METABOLIC PANEL CREATININE [MASS/VOLUM E] IN SERUM OR PLASMA 0.83 mg/dL 0.7 - 1.3 01/15 Specimen Type: PLASMA No comment entered. Ordering Provider: JOY AGUIRRE Report Released Date/Time : Jan 24, 2024 02:56 PM Reporting Lab: [place] [facility] [address] [place] [address] 8 Performin g Lab: [place] [facility] [address] [place] [address] 8 [facility] COMPREHENS [place]Y METABOLIC PANEL UREA NITROGEN [MASS/VOLUM E] IN SERUM OR PLASMA 9 mg/dL 9 - 25 01/15 Specimen Type: PLASMA No comment entered. Ordering Provider: JOY AGUIRRE Report Released Date/Time : Jan 24, 2024 02:56 PM Reporting Lab: [place] [facility] [address] [place] [address] 8 Performin g Lab: [place] [facility] [address] [place] [address] 8 [facility] COMPREHENS [place]Y METABOLIC PANEL GLUCOSE [MASS/VOLUM E] IN SERUM OR PLASMA 96 mg/dL 72 - 99 01/15 Specimen Type: PLASMA No comment entered. Ordering Provider: JOY AGUIRRE Report Released Date/Time : Jan 24, 2024 02:56 PM Reporting Lab: [place] [facility] [address] [place] [address] 8 Performin g Lab: [place] [facility] [address] [place] [address] 8 [facility] COMPREHENS [place] METABOLIC PANEL SODIUM [MOLES/VOLU ME] IN SERUM OR PLASMA 144 meq/L 136 - 145 01/15 Specimen Type: PLASMA No comment entered. Ordering Provider: JOY AGUIRRE Report Released Date/Time : Jan 24, 2024 02:56 PM Reporting Lab: [place] [facility] [address] [place] [address] 8 Performin g Lab: [place] [facility] [address] [place] [address] 8 [facility] COMPREHENS [place] METABOLIC PANEL POTASSIUM [MOLES/VOLU ME] IN SERUM OR PLASMA 3.7 meq/L 3.5 - 5 01/15 Specimen Type: PLASMA No comment entered. Ordering Provider: JOY AGUIRRE Report Released Date/Time : Jan 24, 2024 02:56 PM Reporting Lab: [place] [facility] [address] [place] [address] 8 Performin g Lab: [place] [facility] [address] [place] [address] 8 [facility] COMPREHENS [place] METABOLIC PANEL CHLORIDE [MOLES/VOLU ME] IN SERUM OR PLASMA 105 meq/L 98 - 107 01/15 Specimen Type: PLASMA No comment entered. Ordering Provider: JOY AGUIRRE Report Released Date/Time : Jan 24, 2024 02:56 PM Reporting Lab: [place] [facility] [address] [place] [address] 8 Performin g Lab: [place] [facility] [address] [place] [address] 8 [facility] COMPREHENS [place] METABOLIC PANEL CARBON DIOXIDE, TOTAL [MOLES/VOLU ME] IN SERUM OR PLASMA 27 meq/L 22 - 31 01/15 Specimen Type: PLASMA No comment entered. Ordering Provider: JOY AGUIRRE Report Released Date/Time : Jan 24, 2024 02:56 PM Reporting Lab: [place] [facility] [address] [place] [address] 8 Performin g Lab: [place] [facility] [address] [place] [address] 8 [facility] COMPREHENS [place]Y METABOLIC PANEL CALCIUM [MASS/VOLUM E] IN SERUM OR PLASMA 9.7 mg/dL 8.4 - 10.4 01/15 Specimen Type: PLASMA No comment entered. Ordering Provider: JOY AGUIRRE Report Released Date/Time : Jan 24, 2024 02:56 PM Reporting Lab: [place] [facility] [address] [place] [address] 8 Performin g Lab: [place] [facility] [address] [place] [address] 8 [facility] COMPREHENS [place] METABOLIC PANEL PROTEIN [MASS/VOLUM E] IN SERUM OR PLASMA 6.7 g/dL 6 - 8.6 01/15 Specimen Type: PLASMA No comment entered. Ordering Provider: JOY AGUIRRE Report Released Date/Time : Jan 24, 2024 02:56 PM Reporting Lab: [place] [facility] [address] [place] [address] 8 Performin g Lab: [place] [facility] [address] [place] [address] 8 [facility] COMPREHENS [place] METABOLIC PANEL ALBUMIN [MASS/VOLUM E] IN SERUM OR PLASMA 4.2 g/dL 3.4 - 5 01/15 Specimen Type: PLASMA No comment entered. Ordering Provider: JOY AGUIRRE Report Released Date/Time : Jan 24, 2024 02:56 PM Reporting Lab: [place] [facility] [address] [place] [address] 8 Performin g Lab: [place] [facility] [address] [place] [address] 8 [facility] COMPREHENS [place] METABOLIC PANEL BILIRUBIN.T OTAL [MASS/VOLUM E] IN SERUM OR PLASMA 0.6 mg/dL 0.2 - 1.2 01/15 Specimen Type: PLASMA No comment entered. Ordering Provider: JOY AGUIRRE Report Released Date/Time : Jan 24, 2024 02:56 PM Reporting Lab: [place] [facility] [address] [place] [address] 8 Performin g Lab: [place] [facility] [address] [place] [address] 8 [facility] COMPREHENS [place] METABOLIC PANEL ALKALINE PHOSPHATASE [ENZYMATIC ACTIVITY/VO LUME] IN SERUM OR PLASMA 83 U/L 40 - 150 01/15 Specimen Type: PLASMA No comment entered. Ordering Provider: JOY AGUIRRE Report Released Date/Time : Jan 24, 2024 02:56 PM Reporting Lab: [place] [facility] [address] [place] [address] 8 Performin g Lab: [place] [facility] [address] [place] [address] 8 [facility] COMPREHENS [place] METABOLIC PANEL ASPARTATE AMINOTRANSF ERASE [ENZYMATIC ACTIVITY/VO LUME] IN SERUM OR PLASMA 47 U/L 5 - 34 01/15 H Specimen Type: PLASMA No comment entered. Ordering Provider: JOY AGUIRRE Report Released Date/Time : Jan 24, 2024 02:56 PM Reporting Lab: [place] [facility] [address] [place] [address] 8 Performin g Lab: [place] [facility] [address] [place] [address] 8 [facility] COMPREHENS [place]Y METABOLIC PANEL ALANINE AMINOTRANSF ERASE [ENZYMATIC ACTIVITY/VO LUME] IN SERUM OR PLASMA 35 U/L 8 - 40 01/15 Specimen Type: PLASMA No comment entered. Ordering Provider: JOY AGUIRRE Report Released Date/Time : Jan 24, 2024 02:56 PM Reporting Lab: [place] [facility] [address] [place] [address] 8 Performin g Lab: [place] [facility] [address] [place] [address] 8 [facility] COMPREHENS [place] METABOLIC PANEL GLOMERULAR FILTRATION RATE/1.73 SQ M.PREDICTED [VOLUME RATE/AREA] IN SERUM, PLASMA OR BLOOD BY CREATININE- BASED FORMULA (CKD-EPI 2020) 116 01/15 Specimen Type: PLASMA No comment entered. Ordering Provider: JOY AGUIRRE Report Released Date/Time : Jan 24, 2024 02:56 PM Reporting Lab: [place] [facility] [address] [place] [address] 8 Performin g Lab: [place] [facility] [address] [place] [address] 8 [facility] CBC LEUKOCYTES [#/VOLUME] IN BLOOD BY AUTOMATED COUNT 3.9 10*3/uL 3.6 - 11.2 01/15 Specimen Type: BLOOD No comment entered. Ordering Provider: JOY AGUIRRE Report Released Date/Time : Jan 24, 2024 02:56 PM Reporting Lab: [place] [facility] [address] [place] [address] 8 Performin g Lab: [place] [facility] [address] [place] [address] 8 [facility] CBC ERYTHROCYTE S [#/VOLUME] IN BLOOD BY AUTOMATED COUNT 4.38 10*6/uL 4.10 - 5.70 01/15 Specimen Type: BLOOD No comment entered. Ordering Provider: JOY AGUIRRE Report Released Date/Time : Jan 24, 2024 02:56 PM Reporting Lab: [place] [facility] [address] [place] [address] 8 Performin g Lab: [place] [facility] [address] [place] [address] 8 [facility] CBC HEMOGLOBIN [MASS/VOLUM E] IN BLOOD 13.5 g/dL 13.1 - 16.8 01/15 Specimen Type: BLOOD No comment entered. Ordering Provider: JOY AGUIRRE Report Released Date/Time : Jan 24, 2024 02:56 PM Reporting Lab: [place] [facility] [address] [place] [address] 8 Performin g Lab: [place] [facility] [address] [place] [address] 8 [facility] CBC HEMATOCRIT [VOLUME FRACTION] OF BLOOD 40.1 38.2 - 48.4 01/15 Specimen Type: BLOOD No comment entered. Ordering Provider: JOY AGUIRRE Report Released Date/Time : Jan 24, 2024 02:56 PM Reporting Lab: [place] [facility] [address] [place] [address] 8 Performin g Lab: [place] [facility] [address] [place] [address] 8 [facility] CBC MCV [ENTITIC VOLUME] BY AUTOMATED COUNT 91.6 fL 80.0 - 100.0 01/15 Specimen Type: BLOOD No comment entered. Ordering Provider: JOY AGUIRRE Report Released Date/Time : Jan 24, 2024 02:56 PM Reporting Lab: [place] [facility] [address] [place] [address] 8 Performin g Lab: [place] [facility] [address] [place] [address] 8 [facility] CBC MCH [ENTITIC MASS] BY AUTOMATED COUNT 30.8 pg 27.0 - 34.0 01/15 Specimen Type: BLOOD No comment entered. Ordering Provider: JOY AGUIRRE Report Released Date/Time : Jan 24, 2024 02:56 PM Reporting Lab: [place] [facility] [address] [place] [address] 8 Performin g Lab: [place] [facility] [address] [place] [address] 8 [facility] CBC MCHC [MASS/VOLUM E] BY AUTOMATED COUNT 33.7 g/dL 33.0 - 36.0 01/15 Specimen Type: BLOOD No comment entered. Ordering Provider: JOY AGUIRRE Report Released Date/Time : Jan 24, 2024 02:56 PM Reporting Lab: [place] [facility] [address] [place] [address] 8 Performin g Lab: [place] [facility] [address] [place] [address] 8 [facility] CBC PLATELETS [#/VOLUME] IN BLOOD BY AUTOMATED COUNT 236 10*3/uL 150 - 400 01/15 Specimen Type: BLOOD No comment entered. Ordering Provider: JOY AGUIRRE Report Released Date/Time : Jan 24, 2024 02:56 PM Reporting Lab: [place] [facility] [address] [place] [address] 8 Performin g Lab: [place] [facility] [address] [place] [address] 8 [facility] CBC PLATELET MEAN VOLUME [ENTITIC VOLUME] IN BLOOD BY AUTOMATED COUNT 10.8 fL 7.5 - 11.2 01/15 Specimen Type: BLOOD No comment entered. Ordering Provider: JOY AGUIRRE Report Released Date/Time : Jan 24, 2024 02:56 PM Reporting Lab: [place] [facility] [address] [place] [address] 8 Performin g Lab: [place] [facility] [address] [place] [address] 8 [facility] CBC ERYTHROCYTE DISTRIBUTIO N WIDTH [RATIO] BY AUTOMATED COUNT 11.9 11.8 - 15.1 01/15 Specimen Type: BLOOD No comment entered. Ordering Provider: JOY AGUIRRE Report Released Date/Time : Jan 24, 2024 02:56 PM Reporting Lab: [place] [facility] [address] [place] [address] 8 Performin g Lab: [place] [facility] [address] [place] [address] 8 [facility] CBC LYMPHOCYTES /100 LEUKOCYTES IN BLOOD BY AUTOMATED COUNT 23.7 01/15 Specimen Type: BLOOD No comment entered. Ordering Provider: JOY AGUIRRE Report Released Date/Time : Jan 24, 2024 02:56 PM Reporting Lab: [place] [facility] [address] [place] [address] 8 Performin g Lab: [place] [facility] [address] [place] [address] 8 [facility] CBC MONOCYTES/1 00 LEUKOCYTES IN BLOOD BY AUTOMATED COUNT 10.2 01/15 Specimen Type: BLOOD No comment entered. Ordering Provider: JOY AGUIRRE Report Released Date/Time : Jan 24, 2024 02:56 PM Reporting Lab: [place] [facility] [address] [place] [address] 8 Performin g Lab: [place] [facility] [address] [place] [address] 8 [facility] CBC NEUTROPHILS /100 LEUKOCYTES IN BLOOD BY AUTOMATED COUNT 62.2 01/15 Specimen Type: BLOOD No comment entered. Ordering Provider: JOY AGUIRRE Report Released Date/Time : Jan 24, 2024 02:56 PM Reporting Lab: [place] [facility] [address] [place] [address] 8 Performin g Lab: [place] [facility] [address] [place] [address] 8 [facility] CBC EOSINOPHILS /100 LEUKOCYTES IN BLOOD BY AUTOMATED COUNT 3.1 01/15 Specimen Type: BLOOD No comment entered. Ordering Provider: JOY AGUIRRE Report Released Date/Time : Jan 24, 2024 02:56 PM Reporting Lab: [place] [facility] [address] [place] [address] 8 Performin g Lab: [place] [facility] [address] [place] [address] 8 [facility] CBC BASOPHILS/1 00 LEUKOCYTES IN BLOOD BY AUTOMATED COUNT 0.5 06/05 /2025 Specimen Type: BLOOD No comment entered. Ordering Provider: JOY AGUIRRE Report Released Date/Time : Jan 24, 2024 02:56 PM Reporting Lab: [place] [facility] [address] [place] [address] 8 Performin g Lab: [place] [facility] [address] [place] [address] 8 [facility] CBC LYMPHOCYTES [#/VOLUME] IN BLOOD BY AUTOMATED COUNT 0.93 10*3/uL 0.77 - 4.50 01/15 Specimen Type: BLOOD No comment entered. Ordering Provider: JOY AGUIRRE Report Released Date/Time : Jan 24, 2024 02:56 PM Reporting Lab: [place] [facility] [address] [place] [address] 8 Performin g Lab: [place] [facility] [address] [place] [address] 8 [facility] CBC MONOCYTES [#/VOLUME] IN BLOOD BY AUTOMATED COUNT 0.40 10*3/uL 0.19 - 0.8 01/15 Specimen Type: BLOOD No comment entered. Ordering Provider: JOY AGUIRRE Report Released Date/Time : Jan 24, 2024 02:56 PM Reporting Lab: [place] [facility] [address] [place] [address] 8 Performin g Lab: [place] [facility] [address] [place] [address] 8 [facility] CBC NEUTROPHILS [#/VOLUME] IN BLOOD BY AUTOMATED COUNT 2.44 10*3/uL 2.10 - 8.00 01/15 Specimen Type: BLOOD No comment entered. Ordering Provider: JOY AGUIRRE Report Released Date/Time : Jan 24, 2024 02:56 PM Reporting Lab: [place] [facility] [address] [place] [address] 8 Performin g Lab: [place] [facility] [address] [place] [address] 8 [facility] CBC EOSINOPHILS [#/VOLUME] IN BLOOD BY AUTOMATED COUNT 0.12 10*3/uL 0.00 - 0.60 06/05 /2025 Specimen Type: BLOOD No comment entered. Ordering Provider: JOY AGUIRRE Report Released Date/Time : Jan 24, 2024 02:56 PM Reporting Lab: [place] [facility] [address] [place] [address] 8 Performin g Lab: [place] [facility] [address] [place] [address] 8 [facility] CBC BASOPHILS [#/VOLUME] IN BLOOD BY AUTOMATED COUNT 0.02 10*3/uL 0.00 - 0.20 01/15 Specimen Type: BLOOD No comment entered. Ordering Provider: JOY AGUIRRE Report Released Date/Time : Jan 24, 2024 02:56 PM Reporting Lab: [place] [facility] [address] [place] [address] 8 Performin g Lab: [place] [facility] [address] [place] [address] 8 [facility] CBC IMMATURE GRANULOCYTE S/100 LEUKOCYTES IN BLOOD BY AUTOMATED COUNT 0.3 01/15 Specimen Type: BLOOD No comment entered. Ordering Provider: JOY AGUIRRE Report Released Date/Time : Jan 24, 2024 02:56 PM Reporting Lab: [place] [facility] [address] [place] [address] 8 Performin g Lab: [place] [facility] [address] [place] [address] 8 [facility] CBC IMMATURE GRANULOCYTE S [#/VOLUME] IN BLOOD BY AUTOMATED COUNT 0.01 10*3/uL 0.00 - 0.05 01/15 Specimen Type: BLOOD No comment entered. Ordering Provider: JOY AGUIRRE Report Released Date/Time : Jan 24, 2024 02:56 PM Reporting Lab: [place] [facility] [address] [place] [address] 8 Performin g Lab: [place] [facility] [address] [place] [address] 8 [facility] VITAMIN D, 25-HYDROXY 25-HYDROXYV ITAMIN D3 [MASS/VOLUM E] IN SERUM OR PLASMA 32.6 ng/mL 30 - 96 01/23 Specimen Type: SERUM No comment entered. Ordering Provider: JOY AGUIRRE Report Released Date/Time : Jan 24, 2024 02:41 PM Reporting Lab: [place] [facility] [address] [place] [address] 8 Performin g Lab: [place] [facility] [address] [place] [address] 8 [facility] DRUG SCREEN URINE-inho use (PB) OPIATES [PRESENCE] IN URINE BY SCREEN METHOD Negative 01/23 Specimen Type: URINE No comment entered. Ordering Provider: JOY AGUIRRE Report Released Date/Time : Jan 24, 2024 02:35 PM Reporting Lab: [place] [facility] [address] [place] [address] 8 Performin g Lab: [place] [facility] [address] [place] [address] 8 [facility] DRUG SCREEN URINE-inho use (PB) COCAINE [PRESENCE] IN URINE Negative 01/23 Specimen Type: URINE No comment entered. Ordering Provider: JOY AGUIRRE Report Released Date/Time : Jan 24, 2024 02:35 PM Reporting Lab: [place] [facility] [address] [place] [address] 8 Performin g [facility]: [place] [facility] [address] [place] [address] 8 [facility] DRUG SCREEN URINE-inho use (PB) TETRAHYDROC ANNABINOL [PRESENCE] IN URINE BY SCREEN METHOD Positive 01/23 Specimen Type: URINE No comment entered. Ordering Provider: JOY AGUIRRE Report Released Date/Time : Jan 24, 2024 02:35 PM Reporting Lab: [place] [facility] [address] [place] [address] [facility] Lab: [place] [facility] [address] [place] [address] [facility] DRUG SCREEN URINE-inho use (PB) PHENCYCLIDI NE [PRESENCE] IN URINE Negative 01/23 Specimen Type: URINE No comment entered. Ordering Provider: JOY AGUIRRE Report Released Date/Time : Jan 24, 2024 02:35 PM Reporting Lab: [place] [facility] [address] [place] [address] [facility] [place] [facility] [address] [place] [address] [facility] DRUG SCREEN URINE-inho use (PB) BENZODIAZEP CECI [PRESENCE] IN URINE BY SCREEN METHOD Positive 01/23 Specimen Type: URINE No comment entered. Ordering Provider: JOY AGUIRRE Report Released Date/Time : Jan 24, 2024 02:35 PM Reporting Lab: [place] [facility] [address] [place] [address] [facility] [place] [facility] [address] [place] [address] [facility] DRUG SCREEN URINE-inho use (PB) BARBITURATE S [PRESENCE] IN URINE Negative 01/23 Specimen Type: URINE No comment entered. Ordering Provider: JOY AGUIRRE Report Released Date/Time : Jan 24, 2024 02:35 PM Reporting Lab: [place] [facility] [address] [place] [address] [facility] Lab[facility] [place] [facility] [address] [place] [address] [facility] DRUG SCREEN URINE-inho use (PB) AMPHETAMINE [PRESENCE] IN URINE BY SCREEN METHOD Negative 01/23 Specimen Type: URINE No comment entered. Ordering Provider: JOY AGUIRRE Report Released Date/Time : Jan 24, 2024 02:35 PM Reporting Lab: [place] [facility] [address] [place] [address] [facility] Lab[facility] [place] [facility] [address] [place] [address] [facility] DRUG SCREEN URINE-inho use (PB) CREATININE [MASS/VOLUM E] IN URINE 227.10 mg/dL 01/23 Specimen Type: URINE No comment entered. Ordering Provider: JOY AGUIRRE Report Released Date/Time : Jan 24, 2024 02:35 PM Reporting Lab: [place] [facility] [address] [place] [address] [facility] Lab: [place] [facility] [address] [place] [address] [facility] DRUG SCREEN URINE-inho use (PB) OXYCODONE CUTOFF [MASS/VOLUM E] IN URINE FOR SCREEN METHOD Negative 01/23 Specimen Type: URINE No comment entered. Ordering Provider: JOY AGUIRRE Report Released Date/Time : Jan 24, 2024 02:35 PM Reporting Lab: [place] [facility] [address] [place] [address] Performin g Lab: [place] [facility] [address] [place] [phone] [facility] DRUG SCREEN URINE-inho use (PB) ETHANOL [MASS/VOLUM E] IN URINE <10.0mg/d L 0 - 20 01/23 L Specimen Type: URINE No comment entered. Ordering Provider: JOY AGUIRRE Report Released Date/Time : Jan 24, 2024 02:35 PM Reporting Lab: [place] [facility] [address] [place] [address] Performin g Lab: [place] [facility] [address] [place] [phone] [facility] TSH ([place]-PB) THYROTROPIN [UNITS/VOLU ME] IN SERUM OR PLASMA 0.383 u[IU]/mL 0.47 - 5 01/23 L Specimen Type: SERUM No comment entered. Ordering Provider: JOY AGUIRRE Report Released Date/Time : Jan 17, 2024 09:21 AM Reporting Lab: [place] [facility] [address] [place] [address] Performin g Lab: [place] [facility] [address] [place] [phone] [facility] TSH ([place]-PB) THYROXINE (T4) FREE [MASS/VOLUM E] IN SERUM OR PLASMA 0.73 ng/dL 0.70 - 1.48 01/23 Specimen Type: SERUM No comment entered. Ordering Provider: JOY AGUIRRE Report Released Date/Time : Jan 17, 2024 09:21 AM Reporting Lab: [place] [facility] [address] [place] [address] Performin g Lab: [place] [facility] [address] [place] [address] [facility] HGA1C HEMOGLOBIN A1C/HEMOGLO BIN.TOTAL IN BLOOD 5.6 4.0 - 6.0 01/23 Specimen Type: BLOOD No comment entered. Ordering Provider: JOY AGUIRRE Report Released Date/Time : Jan 17, 2024 09:21 AM Reporting Lab: [place] [facility] [address] [place] [address] Performin g Lab: [place] [facility] [address] [place] [address] [facility] CHOLESTERO L PANEL (PB) CHOLESTEROL [MASS/VOLUM E] IN SERUM OR PLASMA 148 mg/dL 0 - 200 01/23 Specimen Type: PLASMA No comment entered. Ordering Provider: JOY AGUIRRE Report Released Date/Time : Jan 17, 2024 09:21 AM Reporting Lab: [place] [facility] [address] [place] [address] Performin g Lab: [place] [facility] [address] [place] [address] [facility] CHOLESTERO L PANEL (PB) TRIGLYCERID E [MASS/VOLUM E] IN SERUM OR PLASMA 74 mg/dL 0 - 150 01/23 Specimen Type: PLASMA No comment entered. Ordering Provider: JOY AGUIRRE Report Released Date/Time : Jan 17, 2024 09:21 AM Reporting Lab: [place] [facility] [address] [place] [address] Performin g Lab: [place] [facility] [address] [place] [address] [facility] CHOLESTERO L PANEL (PB) CHOLESTEROL IN LDL [MASS/VOLUM E] IN SERUM OR PLASMA BY CALCULATION 81.2 mg/dL 01/23 Specimen Type: PLASMA No comment entered. Ordering Provider: JOY AGUIRRE Report Released Date/Time : Jan 17, 2024 09:21 AM Reporting Lab: [place] [facility] [address] [place] [address] Performin g Lab: [place] [facility] [address] [place] [address] [place] [facility] CHOLESTERO L PANEL (PB) CHOLESTEROL IN HDL [MASS/VOLUM E] IN SERUM OR PLASMA 52.0 mg/dL 40 01/23 H Specimen Type: PLASMA No comment entered. Ordering Provider: JOY AGUIRRE Report Released Date/Time : Jan 17, 2024 09:21 AM Reporting Lab: [place] [facility] [address] [place] [address] Performin g Lab: [place] [facility] [address] [place] [address] [facility] CHOLESTERO L PANEL (PB) CHOLESTEROL IN HDL/CHOLEST LLUVIA.TOTAL [MASS RATIO] IN SERUM OR PLASMA 35.1 25 01/23 Specimen Type: PLASMA No comment entered. Ordering Provider: JOY AGUIRRE Report Released Date/Time : Jan 17, 2024 09:21 AM Reporting Lab: [place] [facility] [address] [place] [address] Performin g Lab: [place] [facility] [address] [place] [address] [facility] Vital Signs Combined list of inpatient and outpatient Vital Signs from Department of Defense and Veterans Affairs, ranging from 12 months to all on record, depending upon the facility. Vital Sign Value Date Comments Source SYSTOLIC BLOOD PRESSURE 137 01/19/2025 14:18:00 [facility] DIASTOLIC BLOOD PRESSURE 83 01/19/2025 14:18:00 [facility] PULSE OXIMETRY 96 01/19/2025 14:18:00 [facility] WEIGHT 204.4 01/19/2025 14:18:00 [facility] BMI 28 kg/m2 01/19/2025 14:18:00 [facility] PAIN 4 01/19/2025 14:18:00 [facility] HEIGHT 72.0 01/19/2025 14:18:00 [place] [facility] TEMPERATURE 98.2 01/19/2025 14:18:00 [facility] PULSE 78 01/19/2025 14:18:00 [place] [facility] RESPIRATION 18 01/19/2025 14:18:00 [place] [facility] SYSTOLIC BLOOD PRESSURE 120 01/15/2025 10:30:00 [place] [facility] DIASTOLIC BLOOD PRESSURE 87 01/15/2025 10:30:00 [place] [facility] PULSE OXIMETRY 97 01/15/2025 10:30:00 [facility] [place] [facility] WEIGHT 207.4 01/15/2025 10:30:00 [place] [facility] BMI 28 kg/m2 01/15/2025 10:30:00 [place] [facility] PULSE 89 01/15/2025 10:30:00 [place] [facility] RESPIRATION 17 01/15/2025 10:30:00 [place] [facility] Encounters Combined list of: 1) Encounters from Department of Veterans Affairs facilities going backup to the last 18 months, not all VA inpatient encounters are included; 2) Encounters from the Department of Defense facilities going backup to 280 months. Location Location Details Encounter Type Encounter Number Reason For Visit Attending Provider ADM Date DC Date Status Disposition Source [facility] [place] Hearing Conserv[place] ion Exam) OUTPATIENT [id number] LATRICE HUGHES 12/26 Released w/o Limitations [facility] [place] [facility] [place] OUTPATIENT [id number] ALEX MICHEL 12/31 Released w/o Limitations [facility] [place] [facility] [place]PAT[place] [id number] acne and wrist pain AMANDEEP CHAVARRIA 03/18 Released with Work/Duty Limitations [facility] [place] [facility] [place] OUTPATIENT [id number] leg pain OLGA BARON 04/18 Released with Work/Duty Limitations [facility] [place] [facility] [place] [id number] Orthope dic Device MAR PAUL Courtney 04/18 Released w/o Limitations [facility] [place] [facility] [place] [id number] leg pain OLGA BARON W 04/23 Released with Work/Duty Limitations [facility] [place] [facility] [place]) [place] [id number] CLOSED FRACTUR E OF PROXIMA L TIBIA RIGHT ALYSSA LAMBERT 04/24 Released with Work/Duty Limitations [facility] [place] [facility] [place]) [place] [id number] Orthope dic Device MAR PAUL Courtney 04/24 Released w/o Limitations [facility] [place] [facility] [place]) [place] [id number] f/u con lv ALYSSA LAMBERT 05/23 Released w/o Limitations [facility] [place] [facility](ZZZ N Primary Care) OUTPATIENT [id number] right leg pain MANGO SCOTT 06/14 Released with Work/Duty Limitations [facility] N Immunizat ion) OUTPATIENT [id number] Influen za vaccine SRP prevent ion SHALINI ROB 06/28 Released w/o Limitations [facility](ZZZ N Immuniz ation[facility](ZZZCM N Primary Care) OUTPATIENT [id number] throat infecti on MANGO SCOTT P 07/22 Released w/o Limitations [facility](ZZZ CMN Primary Care) [facility] N Primary Care) OUTPATIENT [id number] Right leg pain KARLIJH VIDALEL Sylvain 08/19 Released with Work/Duty Limitations [facility] CMN Primary Care) [facility] N Immunizat ion) OUTPATIENT [id number] Prevent ion SRP Lab studies SHALINI ROB Courtney 09/06 Released w/o Limitations [facility] N Primary Care) OUTPATIENT [id number] Prevent ion SRP CORA LYNDON A 10/30 Released w/o Limitations [facility] Primary Care) [facility](CMN Pre/Post Deploymen t) OUTPATIENT [id number] ISHAN DELGADO 11/27 Released w/o Limitations [facility] Pre/Pos t Deploym ent) [facility] N Primary Care) OUTPATIENT [id number] Smallpo x read ISHAN DELGADO 12/04 Released w/o Limitations [facility] Primary Care) [facility] N Primary Care) OUTPATIENT [id number] f/u knee pain KAISERMALOU AZULNANDO 12/09 Released with Work/Duty Limitations [facility] Primary Care) Theater Facility OUTPATIENT [id number] 05/16 Sick at Home/Quarter s Theater Facilit y [facility] [place]) OUTPATIENT [id number] low back pain new oif pt. SHANT ESCALANTE 05/28 Released with Work/Duty Limitations [facility] Neurosu rgery) [facility] Orthopedi cs) OUTPATIENT [id number] BRACHIA L RADICUL JESE MIRANDA 05/29 Released w/o Limitations [facility] Orthope dics) [facility]) OUTPATIENT [id number] needs results oif pt OLGA SAMUELS 06/02 Released w/o Limitations [facility] Neurosu rgery) [facility]) OUTPATIENT [id number] ACCOUNTING INTERN JOSE M BRAVO 06/03 Released w/o Limitations [facility]) [facility] Physical Medicine) OUTPATIENT [id number] BRACHIA L RADICUL OPATHY EMG JOSE M FAITH 06/04 Released w/o Limitations [facility] Physica l Medicin e) [facility](L Physical Medicine) OUTPATIENT [id number] EMG JOSE M FAITH 06/09 Released w/o Limitations [facility](LSL Physica l Medicin e) [facility]) OUTPATIENT [id number] PAIN MANAGEM ENT JASIEL JARRELL 06/09 Released with Work/Duty Limitations [facility]) [facility]) OUTPATIENT [id number] OIF FU EMG results from beatrice conn OLGA SAMUELS L 06/10 Released with Work/Duty Limitations [facility] Neurosu rgery) [facility]) OUTPATIENT [id number] f/u JOSE M BRAVO 06/10 Released w/o Limitations [facility]) [facility]) OUTPATIENT [id number] OIF FU OLGA SAMUELS L 06/11 Released with Work/Duty Limitations [facility] Neurosu rgery) [facility]) OUTPATIENT [id number] f/u JOSE M BRAVO 06/12 Released w/o Limitations [facility]) [facility](L Orthopedi cs) OUTPATIENT [id number] OIF f/u Left Shoulde r, Arm, and Hand Pain HARMONY JESE L 06/17 Released w/o Limitations [facility] Orthope dics) [facility](ZZZLS L Orthopedi cs Hand) OUTPATIENT [id number] Bilater al bracial plexus injury RASHARD HOWARD L 06/18 Released with Work/Duty Limitations [facility](ZZZ LSL Orthope dics Hand) [facility]) OUTPATIENT [id number] [facility] CLIVEORCBMIMA JOSE M MONTES S 06/18 Released w/o Limitations [facility](LS [facility]) [facility]) OUTPATIENT [id number] TRANSFE R TO LOCAL CARE SURJIT WILKES 06/19 Released w/o Limitations [facility]) [facility](Ca se Managemen t Cl WR) OUTPATIENT [id number] initial LUCIA Jackson S 06/22 Released w/o Limitations [facility]( Case Managem ent Cl WR) [facility](ZZ Newton Cl WR) OUTPATIENT [id number] Initial NIGEL HURD 06/22 Released w/o Limitations [facility]( ZZWarri or Cl WR) [facility](Al lergy Cl WR) OUTPATIENT [id number] Flu RADHA GUADALUPE 06/24 Released w/o Limitations [facility]( Allergy Cl WR) [facility](ZZ Traumatic Brain Injury WR) OUTPATIENT [id number] tbi screen NINA THOMAS 06/25 Released w/o Limitations [facility]( ZZTraum atic Brain Injury WR) [facility](ZZ Neurology Cl WR) OUTPATIENT [id number] MARY HERNANDEZ 06/25 Released w/o Limitations [facility]( ZZNeuro logy Cl WR) [facility](De rmatolo Cl WR) OUTPATIENT [id number] HAVEN RAYGOZA 06/29 Released w/o Limitations [facility]( Dermato lo Cl WR) [facility](ZZ Newton Cl WR) OUTPATIENT [id number] Medicat ion refill SANDI BRITTON 06/29 Released w/o Limitations [facility]( ZZWarri or Cl WR) [facility](Oc cup Therap WR) OUTPATIENT [id number] NEURITI S BRACHIA L KAYLA VIZCAINO P 07/01 Released w/o Limitations [facility]( Occup Therap WR) [facility](ZZ Newton Cl WR) OUTPATIENT [id number] f/u on plan of care NIGEL HURD Moris 07/01 Released w/o Limitations [facility]( ZZWarri or Cl WR) [facility](Ca se Managemen t Cl WR) OUTPATIENT [id number] transio [facility] goals LUCIA VELASQUEZ S 07/01 Released w/o Limitations [facility]( Case Managem ent Cl WR) [facility] DIRECT TO MTF FROM OTHER THAN ER OR APU [id number] ALYSSA CONNOLLY 07/02 RETURNED TO DUTY [facility](Ca se Managemen t Cl WR) OUTPATIENT [id number] Dischar ged from [facility] TERESO URIARTE 07/03 Released w/o Limitations [facility]( Case Managem ent Cl WR) [facility](ZZ Newton Cl WR) OUTPATIENT [id number] Initial NIGEL HURD 07/06 Released w/o Limitations [facility]( ZZWarri or Cl WR) [facility](ZZ Neurology Cl WR) TELE CONSULT [id number] Call he wants to see you SOON. MARY HERNANDEZ 07/06 [facility]( ZZNeuro logy Cl WR) [facility](Oc cup Therap WR) OUTPATIENT [id number] KAYLA VIZCAINO P 07/06 Released w/o Limitations [facility]( Occup Therap WR) [facility](Ca se Managemen t Cl WR) OUTPATIENT [id number] LUCIA VELASQUEZ S 07/07 Released w/o Limitations [facility]( Case Managem ent Cl WR) [facility](Oc cup Therap WR) OUTPATIENT [id number] RASHARD MCKEON 07/08 Released with Work/Duty Limitations [facility]( Occup Therap WR) [facility](Or tho Applia WR) OUTPATIENT [id number] HAYLIE FULTON 07/08 Released w/o Limitations [facility]( Ortho Applia WR) [facility](Oc cup Therap WR) OUTPATIENT [id number] KAYLA VIZCAINO 07/08 Released w/o Limitations [facility]( Occup Therap WR) [facility](ZZ Phys Med Cl WR) OUTPATIENT [id number] NEURITI S SHIRLEY L JEFFREY THURSTON 07/13 Released w/o Limitations [facility]( ZZPhys Med Cl WR) [facility](ZZ Newton Cl WR) OUTPATIENT [id number] Sick call NIGEL HURD 07/13 Released w/o Limitations [facility]( ZZWarri or Cl WR) [facility](Oc cup Therap WR) OUTPATIENT [id number] JAZZ MELTON 07/13 Released with Work/Duty Limitations [facility]( Occup Therap WR) [facility](Oc cup Therap WR) OUTPATIENT [id number] JAZZ MELTON 07/14 Released with Work/Duty Limitations [facility]( Occup Therap WR) [facility](ZZ Newton Cl WR) OUTPATIENT [id number] F/U on plan of care NIGEL HURD 07/14 Released w/o Limitations [facility]( ZZWarri or Cl WR) [facility](Ca se Managemen t Cl WR) OUTPATIENT [id number] TransLUCIA Acosta 07/14 Released w/o Limitations [facility]( Case Managem ent Cl WR) [facility](ZZ Neurology Cl WR) OUTPATIENT [id number] [facility] LEVON TAYLOR 07/16 Released w/o Limitations [facility]( ZZNeuro logy Cl WR) [facility](ZZ Newton Cl WR) OUTPATIENT [id number] NIGEL HURD 07/16 Released w/o Limitations [facility]( ZZWarri or Cl WR) [facility](Oc cup Therap WR) OUTPATIENT [id number] SHARA MAYFIELD 07/16 Released with Work/Duty Limitations [facility]( Occup Therap WR) [facility](Oc cup Therap WR) OUTPATIENT [id number] JAZZ MELTON 07/17 Released with Work/Duty Limitations [facility]( Occup Therap WR) [facility](ZZ Neurology Cl WR) OUTPATIENT [id number] muscle weaknes s JACQUELYNQUE ARELLANO E 07/20 Released w/o Limitations [facility]( ZZNeuro logy Cl WR) [facility](Ca se Managemen t Cl WR) OUTPATIENT [id number] [facility] LUCIA Guzman S 07/20 Released w/o Limitations [facility]( Case Managem ent Cl WR) [facility](ZZ Newton Cl WR) OUTPATIENT [id number] Medicat ion refill MARIANNE ALVARADO D 07/20 Released w/o Limitations [facility]( ZZWarri or Cl WR) [facility](ZZ Neurology Cl WR) TELE CONSULT [id number] Email request from [employer] case managermgr Velasquez request ing EMG for pt. ERIN BUITRAGO S 07/27 [facility]( ZZNeuro logy Cl WR) [facility](ZZ Newton Cl WR) TELE CONSULT [id number] FL14 sent by email NIGEL HURD 07/31 [facility]( ZZWarri or Cl WR) [facility](Ca se Managemen t Cl WR) [facility]PAT[facility] [id number] [facility] Released w/o Limitations [facility]( Case Managem ent Cl WR) [facility](Ca se Managemen t Cl WR) OUTPATIENT [id number] [facility] LUCIA Gant S 08/04 Released w/o Limitations [facility]( Case Managem ent Cl WR) [facility](ZZ Newton Cl WR) OUTPATIENT [id number] NIGEL HURD E 08/05 Released w/o Limitations [facility]( ZZWarri or Cl WR) [facility](ZZ Newton Cl WR) OUTPATIENT [id number] Med reconci lliatles n (Single Provide r) CIERA NORTON T 08/05 Released w/o Limitations [facility]( ZZWarri or Cl WR) [facility](ZZ Newton Cl WR) OUTPATIENT [id number] NIGEL HURD E 08/10 Released w/o Limitations [facility]( ZZWarri or Cl WR) [facility](Ca se Managemen t Cl WR) OUTPATIENT [id number] [facility] LUCIA Thorpe S 08/10 Released w/o Limitations [facility]( Case Managem ent Cl WR) [facility](ZZ Pain Mgmt Cl WR) OUTPATIENT [id number] JOSE TALAMANTES P 08/12 Released w/o Limitations [facility]( ZZPain Mgmt Cl WR) [facility](Ca se Managemen t Cl WR) OUTPATIENT [id number] [facility] LUCIA Palencia S 08/20 Released w/o Limitations [facility]( Case Managem ent Cl WR) [facility](ZZ Newton Cl WR) OUTPATIENT [id number] sick call MARIANNE ALVARADO 08/20 Released w/o Limitations [facility]( ZZWarri or Cl WR) [facility](ZZ Newton Cl WR) OUTPATIENT [id number] medicat ion refill MARIANNE ALVARADO 08/26 Released w/o Limitations [facility]( ZZWarri or Cl WR) [facility](ZZ Newton Cl WR) OUTPATIENT [id number] medicat ion review --walk in HICIERA T 08/26 Released w/o Limitations [facility]( ZZWarri or Cl WR) [facility](Ca se Managemen t Cl WR) OUTPATIENT [id number] [facility] LUCIA Thorpe S 08/26 Released w/o Limitations [facility]( Case Managem ent Cl WR) [place] [address](Kiran e Managemen t [facility]) OUTPATIENT [id number] initial meet and CROW Mccormick 09/01 Released w/o Limitations [facility] [place] [address](C ase Managem ent [facility]) [place] [address](War rior Primary Care Old) OUTPATIENT [id number] wt= meet and greet cm:KAYLA Cesar 09/01 Released with Work/Duty Limitations [facility] [place] [address](W arrior Primary Care Old) [place] [address](Mac matology [facility]) OUTPATIENT [id number] ACNE CYSTIC DANIEL PANDEY 09/03 Released w/o Limitations [facility] [place] [address](D ermatol ogy [facility]) [place] [address](Kelechi rology, [facility]) TELE CONSULT [id number] Referal Issue REMIGIO NUNEZ 09/04 [facility] [place] [address](N eurolog y, [facility]) [place] [address](Kiran e Managemen t [facility]) OUTPATIENT [id number] MANUEL GILL CROW Piero 09/07 Released w/o Limitations [facility] [place] [address](C ase Managem ent [facility]) [place] [address](Kiran e Managemen t [facility]) OUTPATIENT [id number] BIFFLEYMARITA GILL CROW Piero 09/14 Released w/o Limitations [facility] [place] [address](C ase Managem ent [facility]) [place] [address](War rior Primary Care Old) OUTPATIENT [id number] wt=Swol genie tonsils and refill pain meds. KAYLA SALGADO 09/15 Released with Work/Duty Limitations [facility] [place] [address](W arrior Primary Care Old) [place] [address](Kelechi rology/El ectromyeo gram/Nerv e Conductio n Study) OUTPATIENT [id number] PER REMIGIO SERNA 09/17 Released w/o Limitations [facility] [place] [address](N eurolog y/Elect romyeog bridgette/Ner ve Conduct ion Study) [place] [address](Kiran e Managemen t [facility]) OUTPATIENT [id number] BIFFLEYASS JAIRO, CROW M 09/21 Released w/o Limitations [facility] [place] [address](C ase Managem ent [facility]) [place] [address](Kelechi rosalie, [facility]) OUTPATIENT [id number] ACNE CYSTIC EMRE WEIR 09/24 Released w/o Limitations [facility] [place] [address](N eurolog y, ASC) [place] [address](Kiran e Managemen t [facility]) OUTPATIENT [id number] weekly appt BIFFLEYASS JAIRO, CROW M 10/01 Released w/o Limitations [facility] [place] [address](C ase Managem ent [facility]) [place] [address](War rior Primary Care Old) OUTPATIENT [id number] wt= medicat ion refill KAYLA SALGADO 10/02 Released with Work/Duty Limitations [facility] [place] [address](W arrior Primary Care Old) [place] [address](War rior Primary Care Old) OUTPATIENT [id number] wt= med rec SOPHIA CAMPUZANO 10/06 Released w/o Limitations [facility] [place] [address]([facility]) [place] [address](Kiran e Managemen t [facility]) OUTPATIENT [id number] weekly appt BIFFLEYASS JAIRO, CROW M 10/06 Released w/o Limitations [facility] [place] [address](C ase Managem ent [facility]) [place] [address](Kiran e [employer]agemen t [facility]) OUTPATIENT [id number] weekly appt BIFFLEYASS JAIRO, CROW M 10/13 Released w/o Limitations [facility] [place] [address](C ase Managem ent [facility]) [place] [address](Kiran e Managemen t [facility]) OUTPATIENT [id number] weekly appt CROW FARRELL M 10/22 Released w/o Limitations [facility] [place] [address](C ase Managem ent [facility]) [place] [address](Kiran e Managemen t [facility]) OUTPATIENT [id number] BIFCROW CASPER M 10/26 Released w/o Limitations [facility] [place] [address](C ase Managem ent [facility]) [place] [address]([facility]) OUTPATIENT [id number] wt= medicat ion refill KIMEBRLYKAYLA Valdez 10/26 Released with Work/Duty Limitations [facility] [place] [address]([facility]) [place] [address]([facility]) OUTPATIENT [id number] wt= back/sh oulder pain KAYLA SALGADO 10/29 Released with Work/Duty Limitations [facility] [place] [address]([facility]) [place] [address](Kiran e Managemen t [facility]) OUTPATIENT [id number] CROW FARRELL M 11/02 Released w/o Limitations [facility] [place] [address](C ase Managem ent [facility]) [place] [address]([facility] OUTPATIENT [id number] OXANAIA L ANNY Arreaga 11/05 Released w/o Limitations [facility] [place] [address]([facility] [place] [address](Kelechi wiggins [facility]) TELE CONSULT [id number] update EMRE EWIR 11/05 [facility] [place] [address](N eurolog y, [facility]) [place] [address](Kiran e Managemen t [facility]) OUTPATIENT [id number] skin rash LAINE CALDERON 11/06 Released w/o Limitations [facility] [place] [address](C ase Managem ent [facility]) [place] [address](Kiran e Managemen t [facility]) OUTPATIENT [id number] BIFFLEYASS CROW GILL Piero 11/09 Released w/o Limitations [facility] [place] [address](C ase Managem ent [facility]) [place] [address](Mac matology [facility]) OUTPATIENT [id number] KATHERIN DANIEL L 11/10 Released w/o Limitations [facility] [place] [address](D ermatol ogy [facility]) [place] [address]([facility]) OUTPATIENT [id number] BONE CYST JEZ ARCHIBALD 11/17 Released w/o Limitations [facility] [place] [address](O rthoped ics, [facility]) [place] [address](Kelechi rology/El ectromyeo gram/Nerv e Conductio n Study) OUTPATIENT [id number] PLEASE READ CONSULT REMIGIO NUNEZ 11/17 Released w/o Limitations [facility] [place] [address](N eurolog y/Elect romyeog bridgette/Ner ve Conduct ion Study) [place] [address]([facility] OUTPATIENT [id number] 2 week f/u w/ANNY Alexis 11/18 Released w/o Limitations [facility] [place] [address](P ain [facility]v [facility]) [place] [address](Kiran e Managemen t [facility]) OUTPATIENT [id number] weekly appt BIFFLEYASS JAIROCROW Lugo M 11/18 Released w/o Limitations [facility] [place] [address](C ase Managem ent [facility]) [place] [address](Ort warner, [facility]) TELE CONSULT [id number] Casewmora hidalgo from [facility] request s call back DRAGANJEZ 11/18 [facility] [place] [address](O rthoped [facility], [facility]) [place] [address]([facility]) OUTPATIENT [id number] wt= debilit ating progres sive disease KAYLA SALGADO 11/23 Released with Work/Duty Limitations [facility] [place] [address]([facility]) [place] [address](Kiran e Managemen t [facility]) OUTPATIENT [id number] BIFFLEYASS JAIROCROW Lugo M 11/23 Released w/o Limitations [facility] [place] [address](C ase Managem ent [facility]) [place] [address]([facility] OUTPATIENT [id number] Cx Inj JOE, BALDOMERO E 11/25 Released w/o Limitations [facility] [place] [address](P ain [facility]) [place] [address](Kiran e Managemen t [facility]) OUTPATIENT [id number] weekly BIFFLEYASS JAIROCROW Lugo M 11/30 Released w/o Limitations [facility] [place] [address](C ase Managem ent [facility]) [place] [address](Kelechi wiggins, [facility]) TELE CONSULT [id number] Lab Tests EMRE WEIR 12/01 [facility] [place] [address](N eurolog y, [facility]) [place] [address](Kiran e Managemen t [facility]) OUTPATIENT [id number] weekly appt BIFFLEYASS CROW GILL Piero 12/10 Released w/o Limitations KATHERINE [place] [address](C ase Managem ent [facility]) [place] [address](Kiran e Managemen t [facility]) OUTPATIENT [id number] BIFFLEYASS JAIROCROW Piero 12/14 Released w/o Limitations KATHERINE [place] [address](C ase Managem ent [facility]) [place] [address](Mac matology [facility]) OUTPATIENT [id number] DANIEL PANDEY 12/15 Released w/o Limitations [facility] [place] [address](D ermatol ogy [facility]) [place] [address]([facility] Outpat [facility]) OUTPATIENT [id number] f/u w/ANNY Alexis 12/16 Released w/o Limitations [facility] [place] [address]([facility] [place] [address](Kiran e Managemen t [facility]) OUTPATIENT [id number] weekly appt BIFFLEYASS JAIROCROW Piero 12/22 Released w/o Limitations KATHERINE [place] [address](C ase Managem ent [facility]) [place] [address](Kiran e Managemen t [facility]) OUTPATIENT [id number] BIFFLEYASS CROW GILL Piero 12/28 Released w/o Limitations KATHERINE [place] [address](C ase Managem ent [facility]) [place] [address]([facility]) OUTPATIENT [id number] F/U LEFT HUMERUS JEZ ARCHIBALD 12/31 Released w/o Limitations KATHERINE [place] [address](O rthoped ics, [facility]) [place] [address](Kiran e Managemen t [facility]) OUTPATIENT [id number] weekly appt BIFFLEYASS JAIRO, CROW M 01/05 Released w/o Limitations [facility] [place] [address](C ase Managem ent [facility]) [place] [address](Kiran e Managemen t [facility]) OUTPATIENT [id number] weekly appt BIFFLEYASS JAIRO, CROW M 01/12 Released w/o Limitations [facility] [place] [address](C ase Managem ent [facility]) [place] [address]([facility] TELE CONSULT [id number] ANNY Mac S 01/12 [facility] [place] [address](P ain [facility]) [place] [address](Renny n [facility]) OUTPATIENT [id number] 1 month f/u w/ANNY Alexis S 01/18 Released w/o Limitations [facility] [place] [address](P ain [facility]) [place] [address](Kiran e Managemen t [facility]) OUTPATIENT [id number] BIFFLEYASS JAIRO, CROW M 01/18 Released w/o Limitations [facility] [place] [address](C ase Managem ent [facility]) [place] [address](Kelechi rosalie, [facility]) OUTPATIENT [id number] F/U PER EMRE HUGGINS 01/20 Released w/o Limitations [facility] [place] [address](N eurolog y, [facility]) [place] [address](Kiran e Managemen t [facility]) OUTPATIENT [id number] weekly appt BIFFLEYASS JAIROCROW M 02/01 Released w/o Limitations [facility] [place] [address](C ase Managem ent [facility]) [place] [address]([facility]) OUTPATIENT [id number] WT=MEDI CATIONS REFILL KAYLA SALGADO 02/01 Released with Work/Duty Limitations [facility] [place] [address]([facility]) [place] [address](Kiran e Managemen t [facility]) OUTPATIENT [id number] weekly appt BIFFLEYASS JAIROCROW M 02/08 [facility] Limitations [facility] [place] [address](C ase Managem ent [facility]) [place] [address]([facility]) OUTPATIENT [id number] wt=pain meds re:eval KAYLA SALGADO 02/09 Released with Work/Duty Limitations [facility] [place] [place] [address]([facility]) [place] [address]([facility]) OUTPATIENT [id number] wt=prof shereen (-20 February) KAYLA SALGADO 02/18 Released with Work/Duty Limitations [facility] [place] [address]([facility]) [place] [address](Kiran e Managemen t [facility]) OUTPATIENT [id number] weekly appt BIFFLEYASS JAIRO, CROW M 02/22 Released w/o Limitations [facility] [place] [address](C ase Managem ent [facility]) [place] [address]([facility]) OUTPATIENT [id number] wt=meds eval (per CM) KAYLA SALGADO 02/22 Released with Work/Duty Limitations KATHERINE Yash [place] [address]([facility]) [place] [address]([facility]) OUTPATIENT [id number] [facility] rx TATIANNASOPHIA 02/23 Released w/o Limitations [facility] [place] [address]([facility]) [place] [address]([facility]) OUTPATIENT [id number] MINERVA RAMIREZ Norma 02/23 Released w/o Limitations [facility] [place] [address]([facility] Rehabil itation [facility]) [place] [address](Kelechi rosalie, [facility]) OUTPATIENT [id number] F/U EMRE WEIR 02/24 Released w/o Limitations [facility] [place] [address](N eurolog y, [facility]) [place] [address](Kiran e Managemen t [facility]) OUTPATIENT [id number] weekly appt CROW FARRELL 03/01 Released w/o Limitations [facility] [place] [address](C ase Managem ent [facility]) [place] [address](Mac matology [facility]) OUTPATIENT [id number] DANIEL PANDEY 03/02 Released w/o Limitations [facility] [place] [address](D ermatol ogy [facility]) [place] [address]([facility]) OUTPATIENT [id number] wt=musc ular problem s 2wk f/u.(pe norma messina) KAYLA SALGADO 03/04 Released with Work/Duty Limitations [facility] [place] [address]([facility]) [place] [address](Kiran e Managemen t [facility]) OUTPATIENT [id number] weekly appt BIFFLEYASS JAIRO CROW M 03/08 Released w/o Limitations [facility] [place] [address](C ase Managem ent [facility]) [place] [address](Kelechi rology/El ectromyeo gram/Nerv e Conductio n Study) OUTPATIENT [id number] muscula r weaknes s EDWIN SILVESTRENDY 03/11 Released w/o Limitations [facility] [place] [address](N eurolog y/Elect romyeog bridgette/Ner ve Conduct ion Study) [place] [address](Kiran e Managemen t [facility]) OUTPATIENT [id number] weekly appt BIFFLEYASS JAIRO CROW M 03/15 Released w/o Limitations [facility] [place] [address](C ase Managem ent [facility]) [place] [address]([facility]) DENTAL [id number] CREWSGAVIN 03/19 Released w/o Limitations [facility] [place] [address](B [facility]) [place] [address]([facility]) OUTPATIENT [id number] wt=med refills /allerg ies. KAYLA SALGADO 03/19 Released with Work/Duty Limitations [facility] [place] [address]([facility]) [place] [address](Kiran e Managemen t [facility]) OUTPATIENT [id number] weekly appt BIFFLEYMARITA GILL CROW M 03/22 Released w/o Limitations [facility] [place] [address](C ase Managem ent [facility]) [place] [address]([facility]) TELE CONSULT [id number] KAYLA SALGADO 03/24 [facility] [place] [address]([facility]) [place] [address]([facility]) TELE CONSULT [id number] KAYLA SALGADO 03/25 [facility] [place] [address]([facility]) [place] [address]([facility]) OUTPATIENT [id number] wt=SM out of meds/re questin g meds refills . (per CM) KAYLA SALGADO 04/05 Released with Work/Duty Limitations [facility] [place] [address]([facility]) [place] [address](Kiran e Managemen t [facility]) OUTPATIENT [id number] weekly appt BIFFLEYASS CROW GILL M 04/14 Released w/o Limitations [facility] [place] [address](C ase Managem ent [facility]) [place] [address](Mac matology [facility]) OUTPATIENT [id number] KATHERIN DANIEL Courtney 04/15 Released w/o Limitations [facility] [place] [address](Antonia torres [facility]) [place] [address] ER, DIRECT TO [facility] [phone] AKILEY GRAFF L 04/25 [facility] [place] [place] [address] [place] [address](Kiran e Managemen t [facility]) OUTPATIENT [id number] weekly appt BIFFLEYASS JAIROCROW Lugo M 04/26 Released w/o Limitations [facility] [place] [address](C ase Managem ent [facility]) [place] [address]([facility]) INPATIENT [id number] wt=walk in per KAYLA Stevenson 04/27 Inpatient- Discharged to Home/Self-ca re [facility] [place] [place] [address]([facility]) [facility] [place] [address](All ergy Clinic [facility]) OUTPATIENT [id number] WALK IN SHARIFA CONNELLY 04/28 Released w/o Limitations [facility] [place] [address](A llergy Clinic [facility]) [place] [address](Kiran e Managemen t [facility]) OUTPATIENT [id number] weekly appt BIFFLEYASS JAIRO, CROW M 05/06 Released w/o Limitations [facility] [place] [address](C ase Managem ent [facility]) [place] [address]([facility]) OUTPATIENT [id number] wt=medi cation 1mo f/u KAYLA SALGADO 05/07 Released with Work/Duty Limitations [facility] [place] [address]([facility]) [place] [address](Kiran e Managemen t [facility]) OUTPATIENT [id number] weekly appt BIFFLEYASS JAIRO, CROW M 05/10 Released w/o Limitations [facility] [place] [address](C ase Managem ent [facility]) [place] [address](Kiran e Managemen t [facility]) OUTPATIENT [id number] weekly appt BIFFLEYASS JAIRO, CROW M 05/17 Released w/o Limitations [facility] [place] [address](C ase Managem ent [facility]) [place] [address](Inf ectious Dis [facility]) OUTPATIENT [id number] hospita l f/u BETH EDUARDO 05/17 Released w/o Limitations [facility] [place] [address](I nfectio us Dis [facility] ) [place] [address]([facility]) OUTPATIENT [id number] F/U (CTP) MINERVA RAMIREZ 05/18 Released w/o Limitations [facility] [place] [address](S Rehabil itation Clinic) [place] [address]([facility] Re[facility] ation [facility]) OUTPATIENT [id number] F/U (CTP) MINERVA RAMIREZ R 05/21 Released w/o Limitations [facility] [place] [address](S Rehabil itation Clinic) [place] [address](Kiran e Managemen t [facility]) OUTPATIENT [id number] weekly appt BIFFLEYASS JAIROCROW M 05/25 Released w/o Limitations [facility] [place] [address](C ase Managem ent [facility]) [place] [address]([facility]) OUTPATIENT [id number] wt=meds refills (SM left his meds at home over the long weekend ) KAYLA SALGADO 05/25 Released with Work/Duty Limitations [facility] [place] [address]([facility]) [place] [address](Kiran e Managemen t [facility]) OUTPATIENT [id number] weekly appt BIFFLMOE GILLCROW M 05/31 Released w/o Limitations [facility] [place] [address](C ase Managem ent [facility]) [place] [address](Mac matology, [facility]) OUTPATIENT [id number] f/u on acne and [facility] n fever FILOMENALETIYANNI 05/31 Released w/o Limitations [facility] [place] [address]([facility] [place] [address](Kiran e Managemen t [facility]) OUTPATIENT [id number] weekly appt BIFFLEYMARITA GILLCROW M 06/08 Released w/o Limitations [facility] [place] [address](C ase Managem ent [facility]) [place] [address]([facility]) OUTPATIENT [id number] wt med KAYLA Persaud 06/08 Released with Work/Duty Limitations [facility] [place] [address]([facility]) [place] [address](Kiran e Managemen t [facility]) OUTPATIENT [id number] weekly BIFFLEYASS JAIROCROW Lugo M 06/14 Released w/o Limitations [facility] [place] [address](C ase Managem ent [facility]) [place] [address]([facility] Rehabilit ation Clinic) OUTPATIENT [id number] F/U MINERVA RAMIREZ 06/17 Released w/o Limitations [facility] [place] [address]([facility] Rehabil itation Clinic) [place] [address](Kelechi rosalie, [facility]) OUTPATIENT [id number] EMRE WEIR 06/29 Released w/o Limitations [facility] [place] [address](N eurolog y, [facility]) [place] [address](Kiran e Managemen [facility]) OUTPATIENT [id number] weekly appt BIFFLEYASS JAIROCROW Lugo M 06/29 Released w/o Limitations [facility] [place] [address](C ase Managem ent [facility]) [place] [address]([facility]) OUTPATIENT [id number] ok per devonte med KAYLA Persaud 07/05 Released with Work/Duty Limitations [facility] [place] [address]([facility]) [place] [address](Kiran e Managemen t [facility]) OUTPATIENT [id number] weekly appt BIFFLEYASS CROW GILL 07/07 Released w/o Limitations KATHERINE [place] [address](C ase Managem ent [facility]) [place] [address](Mac matology, [facility]) OUTPATIENT [id number] HAYLIE BOWLING 07/19 Released w/o Limitations [facility] [place] [address](Antonia torres,[facility]) [place] [address](Kiran e Managemen t [facility]) OUTPATIENT [id number] weekly appt BIFFLEYCROW BUI M 07/21 Released w/o Limitations [facility] [place] [address](C ase Managem ent [facility]) [place] [address] OUTPATIENT [id number] Muscle biopsy for FSHD SASHA ISABEL Sylvain 07/22 Released w/o Limitations [facility] [place] [address](N eurolog y, [facility]) [place] [address]([place] TELE CONSULT [id number] F/u from biopsy DESTIN EMRE Knight 07/22 [facility] [place] [address](N eurolog y, [facility]) [place] [address]([facility]) OUTPATIENT [id number] med rx JESE ESTRADA 08/17 Released w/o Limitations [facility] [place] [address]([facility]) [place] [address](Kiran e Managemen t [facility]) OUTPATIENT [id number] weekly appt BIFCROW CASPER M 08/18 Released w/o Limitations [facility] Militar y Treatme nt Facilit [place] [address](C ase Managem ent [facility]) [place] [address]([facility]) OUTPATIENT [id number] f/u on med refKAYLA Franco 08/18 Released with Work/Duty [facility] [place] [address]([facility]) [facility] [place] [address](All ergy [facility]) OUTPATIENT [id number] Bee MADAN RANGEL 08/20 Released w/o Limitations [facility] [place] [address](A llergy Clinic [facility]) [facility] [place] [address](Kiran e Managemen t [facility]) OUTPATIENT [id number] weekly appt BIFFLEYASS CROW GILL 08/25 Released w/o Limitations [facility] [place] [address](C ase Managem ent [facility]) [place] [address](Amirah rgency [facility]) OUTPATIENT [id number] RICH HERNANDEZ 08/25 Released w/o Limitations [facility] [place] [address](E mergenc y Med [facility]) [place] [address]([facility] OUTPATIENT [id number] f/u MINERVA RAMIREZ 08/26 Released w/o Limitations [facility] [place] [address](S Rehabil itation Clinic) [place] [address]([facility]) OUTPATIENT [id number] WT=ER F/U KAYLA SALGADO 08/26 Released with Work/Duty Limitations [facility] [place] [address]([facility]) [place] [address]([facility]) OUTPATIENT [id number] red med rx JESE ESTRADA 08/31 Released w/o Limitations [facility] [place] [address]([facility]) [place] [address]([facility]) OUTPATIENT [id number] wt=med rec SOPHIA CAMPUZANO 08/31 Released w/o Limitations [facility] [place] [address]([facility]) [place] [address]([facility]) OUTPATIENT [id number] wt=f/u on results of muscle biopsy and evaluat e him to see how he is doing KAYLA SALGADO 08/31 Released with Work/Duty Limitations [facility] [place] [address]([facility]) [place] [address](Kiran e Managemen t [facility]) OUTPATIENT [id number] weekly appt BIFFLEYASS JAIRO CROW M 09/01 Released w/o Limitations [facility] [place] [address](C ase Managem ent [facility]) [place] [address](Kiran e Managemen t [facility]) OUTPATIENT [id number] weekly appt BIFFLEYASS JAIRO CROW M 09/08 Released w/o Limitations [facility] [place] [address](C ase Managem ent [facility]) [place] [address](NMB Medical Exams [facility]) OUTPATIENT [id number] MUSCULA R ATROPHY BETSYROGERIOALEC R 09/28 Released with Work/Duty Limitations [facility] [place] [address]( EB Medical Exams [facility]) [place] [address](Kiran e Managemen t [facility]) TELE CONSULT [id number] weekly BIFFLEYASS JAIRO, CROW M 09/28 [facility] [place] [address](C ase Managem ent [facility]) [place] [address]([facility]) OUTPATIENT [id number] wt=prof ile update ([id number] EB10) KAYLA SALGADO 09/29 Released with Work/Duty Limitations [facility] [place] [address]([facility]) [place] [address](Kiran e Managemen t [facility]) OUTPATIENT [id number] weekly appt BIFFLEYASS JAIROCROW Piero 10/01 Released w/o Limitations [facility] [place] [address](C ase Managem ent [facility]) [place] [address](Kiran e Managemen t [facility]) OUTPATIENT [id number] weekly appt BIFFLEYASS JAIROCROW M 10/06 Released w/o Limitations [facility] [place] [address](C ase Managem ent [facility]) [place] [address](Mac matology, [facility]) OUTPATIENT [id number] HAYLIE Ross 10/07 Released w/o Limitations [facility] [place] [address](Antonia torres,[facility]) [place] [address]([facility] OUTPATIENT [id number] MUSCULA R ATROPHY LYLA ARREOLA 10/08 Released w/o Limitations [facility] [place] [address](P ain [facility] [place] [address]([facility]) OUTPATIENT [id number] follow up with LYLA De León 10/13 Released w/o Limitations [facility] [place] [address](P ain [facility] [place] [address](Kiran e Managemen t [facility]) OUTPATIENT [id number] weekly appt BIFFLEYMARITA JAIROCROW Piero 10/13 Released w/o Limitations [facility] [place] [address](C ase Managem ent [facility]) [place] [address]([facility]) OUTPATIENT [id number] 2wk f/u Muscula r Atrophy KAYLA SALGADO 10/15 Released with Work/Duty Limitations [facility] [place] [address]([facility]) [facility] [place] [address](Renny n [facility] Outpat [facility]) TELE CONSULT [id number] DME issue LYLA ARREOLA Kang 10/15 [facility] [place] [address](P ain Sv Outpat [facility]) [place] [address](Kelechi rology, [facility]) OUTPATIENT [id number] spec MAAMESASHA KAYE P 10/18 Released w/o Limitations [facility] [place] [address](N eurolog y, [facility]) [place] [address](Renny n [facility] Outmot [facility]) OUTPATIENT [id number] f/u w/MERY MendozaON J 10/19 Released w/o Limitations [facility] [place] [address](P ain [facility] Outpat [facility]) [place] [address](PT Inpatient [facility]) OUTPATIENT [id number] ACQUIRE D DEFORMI TY UPPER EXTREMI TY SHERI NEAL 10/19 Released w/o Limitations [facility] [place] [address](P T Inpatie nt [facility]) [place] [address]([facility]) OUTPATIENT [id number] KAYLA MCCRAY 10/21 Released with Work/Duty Limitations [facility] [place] [address]([facility]) [facility] [place] [address](Kiran e Managemen t [facility]) TELE CONSULT [id number] weekly appt BIFFLEYCROW BUI 10/21 [facility] [place] [address](C ase Managem ent [facility]) [place] [address](Kiran e Managemen t [facility]) TELE CONSULT [id number] weekly BIFFLEYASS JAIRO, CROW M 11/03 [facility] [place] [address](C ase Managem ent [facility]) [place] [address](Kiran e Managemen t [facility]) OUTPATIENT [id number] weekly appt BIFFLEYASS JAIRO, CROW M 11/10 Released w/o Limitations [facility] [place] [address](C ase Managem ent [facility]) [place] [address](Kiran e Managemen t [facility]) OUTPATIENT [id number] weekly appt BIFFLEYASS JAIRO, CROW M 11/17 Released w/o Limitations [facility] [place] [address](C ase Managem ent [facility]) [place] [address](PT Inpatient [facility]) OUTPATIENT [id number] SHERI NEAL 11/18 Released w/o Limitations [facility] [place] [address](P T Inpatie nt [facility]) [place] [address]([facility]) TELE CONSULT [id number] KAYLA SALGADO 11/22 [facility] [place] [address]([facility]) [place] [address](PT Inpatient [facility]) OUTPATIENT [id number] JAVIER MAYFIELD 11/23 Released w/o Limitations [facility] [place] [address](P T Inpatie nt BAM) [place] [address](Kiran e Managemen t [facility]) OUTPATIENT [id number] weekly appt BIFFLEYASS JAIRO, CROW M 11/24 Released w/o Limitations [facility] [place] [address](C ase Managem ent [facility]) [place] [address](PT Inpatient [facility]) OUTPATIENT [id number] JAVIER MAYFIELD 11/24 Released w/o Limitations [facility] [place] [address](P T Inpatie nt [facility]) [place] [address]([facility]) OUTPATIENT [id number] WT-COLD SINCE YESTERD AY-PER KAYLA LOCO 11/25 Sick at Home/Quarter s [facility] [place] [address]([facility]) [place] [address](PT Inpatient [facility]) TELE CONSULT [id number] medical supply SHERI NEAL Norma 11/29 [facility] [place] [address](P T Inpatie nt [facility]) [place] [address](PT Inpatient [facility]) OUTPATIENT [id number] ANTONIO MAN 11/30 Released w/o Limitations [facility] [place] [address](P T Inpatie nt [facility]) [place] [address](Kiran e Managemen t [facility]) OUTPATIENT [id number] weekly appt CROW FARRELL 12/01 Released w/o Limitations [facility] [place] [address](C ase Managem ent [facility]) [place] [address](PT Inpatient [facility]) OUTPATIENT [id number] ANTONIO MAN 12/01 Released w/o Limitations [facility] [place] [address](P T Inpatie nt [facility]) [place] [address](Kiran e Managemen t [facility]) OUTPATIENT [id number] weekly appt CROW FARRELL 12/13 Released w/o Limitations [facility] [place] [address](C ase Managem ent [facility]) [place] [address](Kiran e Managemen t [facility]) OUTPATIENT [id number] weekly appt JAREK FARRELLA M 12/15 Released w/o Limitations [facility] [place] [address](C ase Managem ent [facility]) [place] [address](PT Inpatient [facility]) OUTPATIENT [id number] SHERI NEAL 12/15 Released w/o Limitations [facility] [place] [address](P T Inpatie nt [facility]) [place] [address]([facility]) TELE CONSULT [id number] KAYLA SALGADO 12/15 [facility] [place] [address]([facility]) [place] [address](War ri[facility] Primary [facility]) TELE CONSULT [id number] KAYLA SALGADO 12/21 [facility] [place] [address]([facility]) [place] [address](War ri[facility] Primary [facility]) OUTPATIENT [id number] 90 day profile aki QUINTANAKAYLA DAVIS 12/24 Released with Work/Duty Limitations [facility] [place] [address]([facility]) [place] [address](Kiran e Managemen t [facility]) OUTPATIENT [id number] weekly appt BIFFLEYASS JAIRO CROW M 12/27 Released w/o Limitations [facility] [place] [address](C ase Managem ent [facility]) [place] [address](Kiran e Managemen t [facility]) OUTPATIENT [id number] weekly appt BIFFLEYASS JAIRO CROW M 12/28 Released w/o Limitations [facility] [place] [address](C ase Managem ent [facility]) [place] [address](Kiran e Managemen t [facility]) OUTPATIENT [id number] weekly BIFFLEYASS JAIROCROW Lugo M 12/28 Released w/o Limitations [facility] [place] [address](C ase Managem ent [facility]) [facility] [place] [address](Kiran e Managemen t [facility]) OUTPATIENT [id number] weekly appt BIFFLEYASS JAIROCROW Lugo 01/05 Released w/o Limitations [facility] [place] [address](C ase Managem ent [facility]) [facility] [place] [address](Kiran e Managemen t [facility]) OUTPATIENT [id number] weekly appt BIFFLEYASS JAIROCROW Lugo M 01/12 Released w/o Limitations [facility] [place] [address](C ase Managem ent [facility]) [place] [address]([facility]) OUTPATIENT [id number] wt increas ed in pain KAYLA SALGADO 01/13 Released with Work/Duty Limitations [facility] [place] [address](W [facility]) [facility] [place] [address](Kiran e Managemen t [facility]) OUTPATIENT [id number] PIPPA RUCKER 01/18 Released w/o Limitations [facility] [place] [address](C ase Managem ent [facility]) [facility] [place] [address](War ri[facility] Primary [facility]) TELE CONSULT [id number] KAYLA SALGADO 01/18 [facility] [place] [address](W [facility] Primary [facility]) [facility] [place] [address](War ri[facility] Primary [facility] Old) OUTPATIENT [id number] cm has concern s that WT may be over medicat ing. JESE ESTRADA 01/18 Released w/o Limitations [facility] [place] [address](W [facility] Primary [facility]) [facility] [place] [address](Kiran e Managemen t [facility]) OUTPATIENT [id number] Weekly appt BRIDGET ADIN W 01/19 Released w/o Limitations [facility] [place] [address](C ase Managem ent [facility]) [place] [address](War [facility]) OUTPATIENT [id number] wt profile evaluat ion to drive (per triad mtg) KAYLA SALGADO 01/21 Released with Work/Duty Limitations [facility] [place] [address]([facility]) [place] [address](Kiran e Managemen t [facility]) TELE CONSULT [id number] weekly BIFFLEYASS JAIROCROW Lugo M 01/26 [facility] [place] [place] [address](C ase Managem ent [facility]) [place] [address]([facility] ropractic [facility]) OUTPATIENT [id number] PROGRES SIVE MUSCULA R DYSTROP HY FASCIOS CAPULOH UMERAL STULGAJONATHAN A 02/01 Released w/o Limitations [facility] [place] [place] [address]([facility]) [place] [address](Kiran e Managemen t [facility]) OUTPATIENT [id number] weekly appt BIFFLEYASS JAIROCROW Lugo M 02/02 Released w/o Limitations [facility] [place] [address](C ase Managem ent [facility]) [place] [address]([facility]) TELE CONSULT [id number] KAYLA SALGADO 02/02 [facility] [place] [address](W [facility]) [place] [address](War ri[facility] Primary [facility]) OUTPATIENT [id number] 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 KAYLA SALGADO 02/04 Released with Work/Duty Limitations KATHERINE Yash [place] [address]([facility]) [place] [address](Kiran e Managemen t [facility]) OUTPATIENT [id number] weekly appt BIFFLEYASS JAIRO, CROW M 02/15 Released w/o Limitations [facility] [place] [address](C ase Managem ent [facility]) [place] [address](Kiran e Managemen t [facility]) OUTPATIENT [id number] weekly (resche duled ) BIFFLEYASS JAIRO, CROW M 02/15 Released w/o Limitations [facility] [place] [address](C ase Managem ent [facility]) [place] [address](Kiran e Managemen t [facility]) OUTPATIENT [id number] weekly appt BIFFLEYASS JAIRO, CROW M 02/16 Released w/o Limitations [facility] [place] [address](C ase Managem ent [facility]) [place] [address](Kiran e Managemen t [facility]) OUTPATIENT [id number] BIFFLEYASS JAIRO, CROW M 02/22 Released w/o Limitations [facility] [place] [address](C ase Managem ent [facility]) [place] [address]([facility] OUTPATIENT [id number] JONATHAN DE LA ROSA 03/01 Released w/o Limitations [facility] [place] [address](Patti moise [facility], [facility]) [place] [address]([facility]) OUTPATIENT [id number] JONATHAN DE LA ROSA 03/03 Released w/o Limitations [facility] [place] [address](Patti moise [facility], [facility]) [place] [address](Kiran e Managemen t [facility]) TELE CONSULT [id number] weekly BIFFLEYASS JAIROCROW Lugo M 03/03 [facility] [place] [address](C ase Managem ent [facility]) [place] [address](Amirah rgency [facility]) OUTPATIENT [id number] MERY MANCINII M 03/07 Released w/o Limitations [facility] [place] [address](E mergenc y Med [facility]) [facility] [place] [address](Kiran e Managemen t [facility]) TELE CONSULT [id number] weekly BIFFLEYASS JAIROCROW Lugo M 03/07 [facility] [place] [address](C ase Managem ent [facility]) [place] [address] AD DIRECT TO [facility] TRNF TO [facility] [id number] ALYCE CHAN 03/08 RETURNED TO DUTY [facility] [place] [address] [place] [address](Kiran e Managemen t [facility]) OUTPATIENT [id number] weekly appt [facility] CROW GILL M 03/15 Released w/o Limitations [facility] [place] [place] [address](C ase Managem ent [facility]) [place] [address](Ikran e Managemen t [facility]) INPATIENT [id number] [facility]05 Inpatient- Still a Patient [facility] [place] [address](C ase Managem ent [facility]) [place] [address]([facility]) OUTPATIENT [id number] hosp d/c ALEJANDRA Apple 04/07 Released with Work/Duty Limitations [facility] [place] [place] [address]([facility]) [place] [address](Kiran e Managemen t [facility]) INPATIENT [id number] weekly appt BIFFLEYASS JAIROCROW Lugo M 04/13 Inpatient- Still a Patient [facility] [place] [address](C ase Managem ent [facility]) [place] [address](Kelechi rolog, [facility]) OUTPATIENT [id number] spec per Dr. Gauthier request EMRE GAUTHIER 04/19 Released w/o Limitations [facility] [place] [address](N eurolog y, [facility]) [place] [address]([address] [facility]) OUTPATIENT [id number] EMG EMRE GAUTHIER 04/19 Released w/o Limitations [facility] [place] [address](N eurolog y, [facility]) [place] [address](Kiran e Managemen [facility]) OUTPATIENT [id number] weekly appt BIFFLEYASS JAIRO, CROW M 04/20 Released w/o Limitations [facility] [place] [address](C ase Managem ent [facility]) [place] [address](Kiran e Managemen t [facility]) OUTPATIENT [id number] weekly appt BIFFLEYASS JAIRO, CROW M 04/27 Released w/o Limitations [facility] [place] [address](C ase Managem ent [facility]) [place] [address]([facility]) OUTPATIENT [id number] med ALAN Carlisle 05/02 Released w/o Limitations [facility] [place] [address]([facility]) [place] [address](Kiran e Managemen t [facility]) OUTPATIENT [id number] weekly appt BIFFLEYASS JAIROCROW Lguo M 05/04 Released w/o Limitations [facility] [place] [address](C ase Managem ent [facility] B[facility]) [facility] [place] [address](War ri[facility]) OUTPATIENT [id number] wt med rec KENNAALAN Courtney 05/09 Released w/o Limitations [facility] [place] [address]([facility]) [place] [address](War ri[facility]) OUTPATIENT [id number] Profile update and med refill ALEJANDRA RUDOLPH 05/09 Released with Work/Duty Limitations [facility] [place] [address](W [facility] [place] [address](Kiran e Managemen t [facility]) OUTPATIENT [id number] weekly appt BIFFLEYASS JAIRO, CROW M 05/11 Released w/o Limitations [facility] [place] [address](C ase Managem ent [facility]) [place] [address]([facility]) OUTPATIENT [id number] med rx ALAN PIERSON 05/17 Released w/o Limitations [facility] [place] [address]([facility]) [place] [address](Kiran e Managemen t [facility]) OUTPATIENT [id number] weekly appt BIFFLEYASS JAIRO, CROW M 05/18 Released w/o Limitations [facility] [place] [address](C ase Managem ent [facility]) [place] [address]([facility]) OUTPATIENT [id number] wt=f/u med rec wkly black w/provi ALEJANDRA Holly 05/24 Released with Work/Duty Limitations [facility] [place] [address]([facility]) [place] [address]([facility] Rehabil[facility] ation Clinic) OUTPATIENT [id number] GOAL SETTING NARAYAN COATS 05/25 Released w/o Limitations [facility] [place] [address](S [facility] Rehabil itation [facility]) [facility] [place] [address](Kiran e Managemen t [facility]) OUTPATIENT [id number] CONNOR ALEM M 05/26 Released w/o Limitations [facility] [place] [address](C ase Managem ent [facility]) [facility] [place] [address](Kiran e Managemen t [facility]) OUTPATIENT [id number] weekly BIFFLEYASS JAIRO, CROW M 05/31 Released w/o Limitations [facility] [place] [address](C ase Managem ent [facility]) [place] [address]([facility]) OUTPATIENT [id number] wt=linda k med rec pcm ALEJANDRA RUDOLPH 06/01 Released with Work/Duty Limitations [facility] [place] [address]([facility]) [facility] [place] [address](All ergy Clinic [facility]) OUTPATIENT [id number] SHARIFA Cunningham 06/03 Released w/o Limitations [facility] [place] [address](A llergy Clinic [facility]) [place] [address](Kiran e Managemen t [facility]) OUTPATIENT [id number] weekly appt BIFFLEYASS JAIRO, CROW M 06/07 Released w/o Limitations [facility] [place] [address](C ase Managem ent [facility]) [facility] [place] [place] [address]([facility]) OUTPATIENT [id number] wt-linda k med rec f/u ALAN PIERSON 06/08 Released w/o Limitations [facility] [place] [address]([facility]) [facility] [place] [address](Kiran e Managemen t [facility]) OUTPATIENT [id number] weekly appt BIFFLEYASS JAIRO, CROW M 06/08 Released w/o Limitations [facility] [place] [address](C ase Managem ent [facility]) [place] [address](Kiran e Managemen t [facility]) OUTPATIENT [id number] weekly BIFFLEYASS JAIRO, CROW M 06/15 Released w/o Limitations [facility] [place] [address](C ase Managem ent [facility]) [place] [address]([facility]) OUTPATIENT [id number] -[facility] med rec KENNAALAN Courtney 06/21 Released w/o Limitations [facility] [place] [address]([facility]) [place] [address](Med ical Examinati on Old) OUTPATIENT [id number] CHPT 14 PT I [facility] [phone] ROSEMARIE JARRELL 06/29 Released w/o Limitations [facility] [place] [address](M edical Examina tion Old) [place] [address](Kiran e Managemen t [facility]) OUTPATIENT [id number] weekly BIFFLEYASS JAIRO, CROW M 07/05 Released w/o Limitations [facility] [place] [address](C ase Managem ent [facility]) [place] [address](Kiran e Managemen t [facility]) OUTPATIENT [id number] weekly BIFFLEYASS JAIRO, CROW M 07/06 Released w/o Limitations [facility] [place] [address](C ase Managem ent [facility]) [place] [address](Kiran e Managemen t [facility]) TELE CONSULT [id number] weekly BIFFLEYASS JAIRO, CROW M 07/15 [facility] [place] [address](C ase Managem ent [facility]) [facility] [place] [address]([facility]) OUTPATIENT [id number] 90 day eval/ profile update ALEJANDRA RUDOLPH Sylvain 07/18 Released with Work/Duty Limitations [facility] [place] [address]([facility]) [place] [address]([facility] Rehabilit ation Clinic) OUTPATIENT [id number] F/U MINERVA RAMIREZ 07/19 Released w/o Limitations [facility] [place] [address]([facility] Rehabil itation Clinic) [place] [address](Kiran e Managemen t [facility]) OUTPATIENT [id number] weekly appt CROW FARRELL 07/20 Released w/o Limitations [facility] [place] [address](C ase Managem ent [facility]) [place] [address]([facility]) OUTPATIENT [id number] -[facility] k med rec (starts LV Jul) ALAN PIERSON 07/25 Released w/o Limitations [facility] [place] [address]([facility]) [place] [address](Kiran e Managemen t [facility]) OUTPATIENT [id number] CROW FARRELL 07/27 Released w/o Limitations [facility] [place] [address](C ase Managem ent [facility]) [place] [address](Kiran e Managemen t [facility]) OUTPATIENT [id number] weekly appt KAUSHAL CASTAÑEDA 08/01 Released with Work/Duty Limitations [facility] [place] [address](C ase Managem ent [facility]) [place] [address](Kiran e Managemen t [facility]) OUTPATIENT [id number] weekly appt BIFFLEYCROW BUI 08/10 Released w/o Limitations [facility] [place] [address](C ase Managem ent [facility]) [place] [address] ER, DIRECT TO [facility] [id number] JENNIFER SALVADOR 08/16 RETURNED TO DUTY [facility] [place] [address] [place] [address](Kiran e Managemen t [facility]) INPATIENT [id number] weekly appt BIFYOSEPHEYMARITA JAIROCROW M 08/23 Inpatient- Still a Patient [facility] [place] [address](C ase Managem ent [facility]) [place] [address](BDO [address]ometry [facility]) OUTPATIENT [id number] chapter POLY Hall 08/23 Released w/o Limitations [facility] [place] [address](B DO Optomet ry [facility]) [place] [address](Hea ring Conservat ion, [facility]) OUTPATIENT [id number] chapter LIDIA BROWN 08/24 Released w/o Limitations [facility] [place] [address](H earing Conserv ation, [facility]) [place] [address]([facility]) OUTPATIENT [id number] [facility] med rec/dis c from hosp 08/23 ALEJANDRA RUDOLPH 08/24 Released with Work/Duty Limitations [facility] [place] [address]([facility]) [place] [address](Kiran e Managemen t [facility]) OUTPATIENT [id number] weekly appt VINCENTYOSEPHEYMARITA CROW GILL M 08/24 Released w/o Limitations [facility] [place] [address](C ase Managem ent [facility]) [place] [address](Med ical Examinati on Old) OUTPATIENT [id number] CHPT 14 PT II [facility] [phone] IVELISSE JAIMES 08/25 Released w/o Limitations [facility] [place] [address](M edical Examina tion Old) [place] [address]([facility]) TELE CONSULT [id number] NEEDS EXTENSI ON TO LR IN CARE. ALEJANDRA RUDOLPH P 09/07 [facility] [place] [address]([facility]) [place] [address](Kiran e Managemen t [facility]) TELE CONSULT [id number] weekly update BIFFLEYCROW BUI 09/12 [facility] [place] [address](C ase Managem ent [facility]) [place] [address](Kiran e Managemen t [facility]) INPATIENT [id number] weekly appt BIFFLEYCROW BUI 09/12 [facility]- [facility] [place] [place] [address](C ase Managem ent [facility]) [place] [address](Kiran e Managemen t [facility]) OUTPATIENT [id number] weekly BIFFLEYASS JAIROCROW Lugo M 09/27 Released w/o Limitations [facility] [place] [address](C ase Managem ent [facility]) [place] [address]([facility]) TELE CONSULT [id number] NEEDS EXTENSI ON TO LR TO 1. ALEJANDRA RUDOLPH P 09/27 [facility] [place] [address]([facility]) [place] [address](Kiran e Managemen t [facility]) TELE CONSULT [id number] BIFFLEYMARITA JAIROCROW Lugo M 10/04 [facility] [place] [address](C ase Managem ent [facility]) [place] [address]([facility]) OUTPATIENT [id number] WT F/U DISCHAR GE FROM MER ALEJANDRA NINA 10/20 Released with Work/Duty Limitations [facility] [place] [address]([facility]) [place] [address](Amirah rgency [facility]) INPATIENT [id number] MARIA GUADALUPE FRIEND Y 10/21 Inpatient- Still a Patient [facility] [place] [address](E mergenc y [facility]) [place] [address](Kiran e Managemen t [facility]) TELE CONSULT [id number] tcon BIFOHEYASS JAIROCROW Lugo M 10/21 [facility] [place] [address](C ase Managem ent [facility]) [place] [address](Kiran e Managemen t [facility]) OUTPATIENT [id number] tcon BIFFLEYASS JAIRO, CROW M 11/28 Released w/o Limitations [facility] [place] [address](C ase Managem ent [facility]) [place] [address](Kiran e Managemen t [facility]) TELE CONSULT [id number] tcon BIFFLEYASS JAIROCROW Lugo M 12/06 [facility] [place] [address](C ase Managem ent [facility]) [place] [address](Kiran e Managemen t [facility]) OUTPATIENT [id number] walk in BIFOHEYCROW BUI M 12/13 Released w/o Limitations [facility] [place] [address](C ase Managem ent [facility]) [place] [address]([facility]) OUTPATIENT [id number] hospita l dischar ge ALEJANDRA RUDOLPH 12/16 Released with Work/Duty Limitations [facility] [place] [address]([facility]) [place] [address](Amirah rgency [facility]) OUTPATIENT [id number] MALINA BARRAGAN W 12/20 Released w/o Limitations [facility] [place] [address](E mergenc y [facility]) [place] [address](Kiran e Managemen t [facility]) TELE CONSULT [id number] tcon BIFFLEYASS JAIRO, CROW M 01/18 [facility] [place] [address](C ase Managem ent [facility]) [place] [address](Kiran e Managemen t [facility]) TELE CONSULT [id number] tcon BIFFLEYASS JAIRO, CROW M 02/01 [facility] [place] [address](C ase Managem ent [facility]) [facility], [place]([facility]) OUTPATIENT [id number] order and obtain recepti on SARATH Griffith 02/03 Released w/o Limitations [facility] ZORAIDA Purcell(Join t Regiona l Correct ional Fa) [place], [place]([facility]) OUTPATIENT [id number] plant JOSE Bolanos 02/03 Released w/o Limitations [facility] Correct [facility]) [place] [address](Amirah rgency [facility]) OUTPATIENT [id number] MALINA BARRAGAN 02/03 Released w/o Limitations [facility] [place] [address](E mergenc y [facility]) [place]([facility] OUTPATIENT [id number] Read JOSE BOLANOS 02/08 Released w/o Limitations [facility] [place](Join t Region[facility] l Correct ional Fa) [facility] [place] [address](Kiran e Managemen t [facility]) OUTPATIENT [id number] ADMIN/o utproce ssing BIFFLEYASS CROW GILL 02/15 Released w/o Limitations [facility] [place] [address](C ase Managem ent [facility]) [place]([facility]) OUTPATIENT [id number] Physica l BERTO SPEARS 02/17 Released w/o Limitations [facility] ZORAIDA Jane(Join t Regiona l Correct ional Fa) [place]([facility]) OUTPATIENT [id number] Acne QUE ZEPEDA P 02/21 Released w/o Limitations [facility] [place](Join t Region[place] l Correct ional Fa) [facility]ric B[facility] [place](Physic al Examinati on) OUTPATIENT [id number] chapter phase 1 LESLIE SOSA 05/12 Released w/o Limitations [facility] [employer] [place](Phys ical Exam[place]ion) [facility] [place] [employer] [place]Physic [place] Examin[place] on) OUTPATIENT [id number] CHAPTER PART2 GEETHA BATRES 05/16 Released w/o Limitations [facility] [employer] [place](Phys ical Examina tion) [facility] Outpatient Encounter [id number] 11/22 [facility] Outpatient Encounter [id number] 11/22 [facility] Outpatient Encounter [id number] 11/29 [facility] Outpatient Encounter [id number] 12/06 [facility] N [facility] Outpatient Encounter [id number] 12/09 [facility] N [facility] Outpatient Encounter [id number] 12/17 [facility] Outpatient Encounter [id number] 12/18 [facility] OFFICE O/P EST MOD 30 MIN [id number] Diagnos is: ICD-10- CM I10 Essenti al (primar y) hyperte nsion Clarence AGUIRRE 01/23 [facility] Outpatient Encounter [id number] 01/23 [facility] Outpatient Encounter [id number] 02/06 [facility] Outpatient Encounter [id number] 02/17 [facility] Outpatient Encounter [id number] 02/17 [facility] N [facility] Outpatient Encounter [id number] 03/05 [facility] Outpatient Encounter [id number] 03/25 [facility] Outpatient Encounter [id number] Clarence AGUIRRE 03/25 [facility] Outpatient Encounter [id number] 03/28 [facility] Outpatient Encounter [id number] 04/08 [facility] Outpatient Encounter [id number] 04/18 [facility] Outpatient Encounter [id number] 04/23 [facility] N [facility] Outpatient Encounter [id number] 05/19 [facility] PHYS/QHP [id number] Diagnos is: ICD-10- CM G47.33 Obstruc tive sleep apnea (adult) ([facility] [place]) BREE THIBODEAUX 05/30 [facility] [place] [id number] Diagnos is: ICD-10- CM K02.52 Dental caries on pit and fissure surfc penetra t into dentin DERIK SHARP 06/12 [facility] Outpatient Encounter [id number] 06/16 [facility] Outpatient Encounter [id number] Diagnos is: ICD-10- CM G47.33 Obstruc tive sleep apnea (adult) ([facility] [place]) TONY SOLANO 06/17 [facility] Outpatient Encounter [id number] 06/19 [facility] Outpatient Encounter [id number] 06/25 [facility] Outpatient Encounter [id number] 06/25 [facility] Outpatient Encounter [id number] 07/28 [facility] Outpatient Encounter [id number] 07/30 [facility] Outpatient Encounter [id number] 08/28 [facility] PH1 ASSMT&MGMT NQHP 21-30 [id number] Diagnos is: ICD-10- CM G47.33 Obstruc tive sleep apnea (adult) ([place]) TONY SOLANO 08/29 [facility] Outpatient Encounter [id number] 09/04 [facility] Outpatient Encounter [id number] 10/16 [facility] Outpatient Encounter [id number] 11/03 [facility] Outpatient Encounter [id number] 11/24 [facility] Outpatient Encounter [id number] JOHANN MAYEN L 11/24 [facility] N [facility] Outpatient Encounter [id number] 11/25 [facility] N [facility] Outpatient Encounter [id number] 12/02 [facility] Outpatient Encounter [id number] 12/[address] [facility] Outpatient Encounter [id number] JOHANN MAYEN RIL L 12/30 [facility] Outpatient Encounter [id number] LOTTIE HAYWOOD IE N 12/31 [facility] OFF/OP EST MAY X REQ PHY/QHP [id number] Diagnos is: ICD-10- CM E86.0 Dehydra tion CUSTRED,TO RRI J 01/09 [facility] Outpatient Encounter [id number] JOHANN MAYEN RIL L 01/14 [facility] OFF/OP EST MAY X REQ PHY/QHP [id number] Diagnos is: ICD-10- CM E86.0 Dehydra tion EZEKIELJH 01/15 [facility] OFFICE O/P EST MOD 30 MIN [id number] Diagnos is: ICD-10- CM I10 Essenti al (primar y) hyperte nsion Clarence AGUIRRE 01/19 [facility] Outpatient Encounter [id number] 01/[address] 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 JH FALCON R 01/23 [facility] Outpatient Encounter [id number] 01/26 [facility] Outpatient Encounter [id number] JOHANN MAYEN RIL L 01/27 [facility] Outpatient Encounter [id number] 01/28 [facility] Outpatient Encounter [id number] 02/02 [facility] PH1 ASSMT&MGMT NQHP 5-10 [id number] Diagnos is: ICD-10- CM 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 Procedures Combined list of: 1) Procedures from Department of Veterans Affairs facilities going back up to thelast 18 months, not all VA non-surgical procedures are included; 2) All procedures from the Department of Defense facilities. Procedure Procedure Type Code Date Perfomer Comments Sourc e SKIN TEST; TUBERCULOSIS, INTRADERMAL 2010 [facility] NEEDLE ELECTROMYOGRAPHY; LIMITED STUDY OF MUSCLES IN 1 EXTREMITY OR NON-LIMB (AXIAL) MUSCLES (UNILATERAL OR BILATERAL), OTHER THAN THORACIC PARASPINAL, CRANIAL NERVE SUPPLIED MUSCLES, OR SPHINCTERS 2007 [facility] NERVE CONDUCTION, AMPLITUDE AND LATENCY/VELOCITY STUDY, EACH NERVE; SENSORY 2007 [facility] IMMUNIZATION ADMINISTRATION (INCLUDES PERCUTANEOUS, INTRADERMAL, SUBCUTANEOUS, OR INTRAMUSCULAR INJECTIONS); EACH ADDITIONAL VACCINE (SINGLE OR COMBINATION VACCINE/TOXOID) 2007 [facility] SKIN TEST; TUBERCULOSIS, INTRADERMAL 2007 [facility] FAMILY PSYCHOTHERAPY (CONJOINT PSYCHOTHERAPY) (WITH PATIENT PRESENT), 50 MINUTES 2007 [facility] IMMUNIZATION ADMINISTRATION BY INTRANASAL OR ORAL ROUTE; 1 VACCINE (SINGLE OR COMBINATION VACCINE/TOXOID) 2006 [facility] CASE MANAGEMENT, EACH 15 MINUTES 2008 [facility] MEDICATION THERAPY MANAGEMENT SERVICE(S) PROVIDED BY A PHARMACIST, INDIVIDUAL, [id number] WITH PATIENT, WITH ASSESSMENT AND INTERVENTION IF PROVIDED; INITIAL 15 MINUTES, ESTABLISHED PATIENT 2008 DoD CASE MANAGEMENT, EACH 15 MINUTES 2008 DoD CASE MANAGEMENT, EACH 15 MINUTES 2007 [facility] MEDICATION THERAPY MGT SERVICE(S) PROVIDED,A PHARMACIST,MECHEIV,FACE- TO-FACE W PATIENT,WITH ASSESS & INTERVENE IF PROVIDED;EA ADDITION 15 MINUTES (LIST SEPARATELY IN ADDITION TO CODE FOR PRIM SERVICE) 2007 DoD CASE MANAGEMENT, EACH 15 MINUTES 2007 DoD CASE MANAGEMENT, EACH 15 MINUTES 2007 DoD CASE MANAGEMENT, EACH 15 MINUTES 2007 [facility] ELECTROENCEPHALOGRAM (EEG); INCLUDING RECORDING AWAKE AND DROWSY 2007 [facility] THERAPEUTIC ACTIVITIES, DIRECT (ONE-ON-ONE) PATIENT CONTACT (USE OF DYNAMIC ACTIVITIES TO IMPROVE FUNCTIONAL PERFORMANCE), EACH 15 MINUTES 2007 [facility] THERAPEUTIC ACTIVITIES, DIRECT (ONE-ON-ONE) PATIENT CONTACT (USE OF DYNAMIC ACTIVITIES TO IMPROVE FUNCTIONAL PERFORMANCE), EACH 15 MINUTES 2007 DoD CASE MANAGEMENT, EACH 15 MINUTES 2007 [facility]D THERAPEUTIC ACTIVITIES, DIRECT (ONE-ON-ONE) PATIENT CONTACT (USE OF DYNAMIC ACTIVITIES TO IMPROVE FUNCTIONAL PERFORMANCE), EACH 15 MINUTES 2007 [facility] THERAPEUTIC ACTIVITIES, DIRECT (ONE-ON-ONE) PATIENT CONTACT (USE OF DYNAMIC ACTIVITIES TO IMPROVE FUNCTIONAL PERFORMANCE), EACH 15 MINUTES 2007 DoD THERAPEUTIC PROCEDURE, 1 OR MORE AREAS, EACH 15 MINUTES; THERAPEUTIC EXERCISES TO DEVELOP STRENGTH AND ENDURANCE, RANGE OF MOTION AND FLEXIBILITY 2007 DoD SHOULDER ORTHOSIS, FIGURE OF EIGHT DESIGN ABDUCTION RESTRAINER, CANVAS AND WEBBING, PREFABRICATED, [id number] 2007 [facility] THERAPEUTIC ACTIVITIES, DIRECT (ONE-ON-ONE) PATIENT CONTACT (USE OF DYNAMIC ACTIVITIES TO IMPROVE FUNCTIONAL PERFORMANCE), EACH 15 MINUTES 2007 DoD CASE MANAGEMENT, EACH 15 MINUTES 2007 [facility] THERAPEUTIC ACTIVITIES, DIRECT (ONE-ON-ONE) PATIENT CONTACT (USE OF DYNAMIC ACTIVITIES TO IMPROVE FUNCTIONAL PERFORMANCE), EACH 15 MINUTES 2007 [facility] INDIVIDUAL PSYCHOTHERAPY, INSIGHT ORIENTED, BEHAVIOR MODIFYING AND/OR SUPPORTIVE, IN AN OFFICE OR OUTPATIENT FACILITY, APPROXIMATELY 20 TO 30 MINUTES [id number] WITH THE PATIENT 2007 [facility] INDIVIDUAL PSYCHOTHERAPY, INSIGHT ORIENTED, BEHAV MODIFY &/ SUPPORTIVE, IN AN INPATIENT HOSPITAL, PARTIAL HOSP/RESIDENTIAL CARE SETTING, APPROX 20-30 MIN [id number] W THE PAT;W MED EVAL & MGT SER 2007 [facility]D PHARMACOLOGIC MANAGEMENT, INCLUDING PRESCRIPTION, USE, AND REVIEW OF MEDICATION WITH NO MORE THAN MINIMAL MEDICAL PSYCHOTHERAPY 2007 [facility] INDIVIDUAL PSYCHOTHERAPY, INSIGHT ORIENTED, BEHAVIOR MODIFYING AND/OR SUPPORTIVE, IN AN INPATIENT HOSPITAL, PARTIAL HOSPITAL OR RESIDENTIAL CARE SETTING, APPROX 20-30 MINUTES [id number] W THE PAT 2007 [facility] PHARMACOLOGIC MANAGEMENT, INCLUDING PRESCRIPTION, USE, AND REVIEW OF MEDICATION WITH NO MORE THAN MINIMAL MEDICAL PSYCHOTHERAPY 2007 DoD INFUSION, NORMAL SALINE SOLUTION, STERILE (500 ML = 1 UNIT) 2007 DoD CASE MANAGEMENT, EACH 15 MINUTES 2007 [facility] THERAPEUTIC PROCEDURE, 1 OR MORE AREAS, EACH 15 MINUTES; THERAPEUTIC EXERCISES TO DEVELOP STRENGTH AND ENDURANCE, RANGE OF MOTION AND FLEXIBILITY 2007 [facility] INDIVIDUAL PSYCHOTHERAPY, INSIGHT ORIENTED, BEHAVIOR MODIFYING AND/OR SUPPORTIVE, IN AN OFFICE OR OUTPATIENT FACILITY, APPROXIMATELY 45 TO 50 MINUTES [id number] WITH THE PATIENT 2007 [facility] IMMUNIZATION ADMINISTRATION (INCLUDES PERCUTANEOUS, INTRADERMAL, SUBCUTANEOUS, OR INTRAMUSCULAR INJECTIONS); 1 VACCINE (SINGLE OR COMBINATION VACCINE/TOXOID) 2007 [facility] PSYCHIATRIC DIAGNOSTIC INTERVIEW EXAMINATION 2007 DoD CASE MANAGEMENT, EACH 15 MINUTES 2007 DoD SCREENING TEST OF VISUAL ACUITY, QUANTITATIVE, BILATERAL 2010 DoD SKIN TEST; TUBERCULOSIS, INTRADERMAL 2010 [facility] HANDLING AND/OR CONVEYANCE OF SPECIMEN FOR TRANSFER FROM THE OFFICE TO A LABORATORY 2010 [facility] POSTOPERATIVE FOLLOW-UP VISIT, NORMALLY INCLUDED IN THE SURGICAL PACKAGE, INDICATE THAT EVALUATION & MANAGEMENT SERVICE WAS PERFORMED DURING A POSTOPERATIVE PERIOD REASON RELATED ORIGINAL PROCEDURE 2006 [facility] APPLICATION OF LONG LEG CAST (THIGH TO TOES); 2006 [facility] APPLICATION OF LONG LEG CAST (THIGH TO TOES); WALKER OR AMBULATORY TYPE 2006 [facility] ORTHOTIC(S) MANAGEMENT AND TRAINING (INCLUDING ASSESSMENT AND FITTING WHEN NOT OTHERWISE REPORTED),UPPER EXTREMITY(IES),LOWER EXTREMITY(IES) AND/OR TRUNK,INITIAL ORTHOTIC(S) ENCOUNTER,EACH 15 MINUTES 2006 DoD BUPRENORPHINE IMPLANT, 74.2 MG 2006 [facility] DETERMINATION OF REFRACTIVE STATE 2006 [facility] SPECIAL REPORTS SUCH INSURANCE FORMS, MORE THAN THE INFORMATION CONVEYED IN THE USUAL MEDICAL COMMUNICATIONS OR STANDARD REPORTING FORM 2006 [facility] PSYCHIATRIC DIAGNOSTIC INTERVIEW EXAMINATION 2010 DoD SCREENING TEST OF VISUAL ACUITY, QUANTITATIVE, BILATERAL 2010 DoD PT A e ment Kinetic Training PT Assessment Kinetic Training 39732 2007 SHARA MAYFIELD DoD Exercises A isted Exercises For ROM Exercises Assisted Exercises For ROM 90894 2007 SHARA MAYFIELD DoD Case Management, each 15 minutes 2007 LUCIA VELASQUEZ DoD PT A e ment Kinetic Training PT Assessment Kinetic Training 83118 2007 KAYLA VIZCAINO DoD Exercises A isted Exercises For ROM Exercises Assisted Exercises For ROM 31781 2007 KAYLA VIZCAINO DoD Case Management, each 15 minutes 2007 LUCIA VELASQUEZ DoD PT A e ment Kinetic Training PT Assessment Kinetic Training 29219 2007 KAYLA VIZCAINO [facility] Exercises A isted Exercises For ROM Exercises Assisted [place]ercises [place] ROM 30788 2007 KAYLA VIZCAINO [facility] Social Work Individual Outpatient Counseling 20-30 Minutes Social Work Individual Outpatient Counseling 20-30 Minutes [id number] 2007 MIGUEL GOLDMAN [facility] Psychoactive Medication Management Psychoactive Medication Management 94296 2007 DEISY MARTIN [facility] Exercises A isted Exercises For ROM Exercises Assisted Exercises For ROM 93195 2007 KAYLA VIZCAINO [facility] Occupational Therapy Evaluation Occupational Therapy Evaluation 70545 2007 KAYLA VIZCAINO [facility] Case Management, each 15 minutes 2007 LUCIA VELASQUEZ [facility] Social Work Individual Outpatient Counseling 45-50 Minutes Social Work Individual Outpatient Counseling 45-50 Minutes [id number] 2007 IMGUEL GOLDMAN [facility] Influenza Split Virus Vaccine Age 3+ Years Intramuscular 2007 RADHA GUADALUPE [facility] Immunization Administration One Vaccine Immunization Administration One Vaccine 62249 2007 RADHA GUADALUPE [facility] Case Management, each 15 minutes 2007 LUCIA VELASQUEZ [facility] Psychiatric Evaluation Comprehensive Examination Psychiatric Evaluation Comprehensive Examination 87130 2007 LEVON ANTHONY [facility] EMG Limited Study EMG Limited Study 24280 2007 JOSE M FAITH bilateral studies [facility] NCS Brachial Plexus Sensory Pathway NCS Brachial Plexus Sensory Pathway 79317 2007 JOSE M FAITH left [employer] [facility] nerves tested [facility] EMG Limited Study EMG Limited Study 39459 2007 JOSE M FAITH [facility] NCS Left Ulnar Nerve Motor Function NCS Left Ulnar Nerve Motor Function 74220 2007 JOSE M FAITH [facility] NCS Left Ulnar Nerve Sensory Function (Orthodromic) NCS Left Ulnar Nerve Sensory Function (Orthodromic) 40554 2007 JOSE M FAITH [facility] NCS Left Median Nerve Sensory Function (Orthodromic) NCS Left Median Nerve Sensory Function (Orthodromic) 72333 2007 JOSE M FAITH [facility] NCS Left Radial Nerve Sensory Function NCS Left Radial Nerve Sensory Function 83046 2007 JOSE M FAITH [facility] NCS Left Median Nerve Motor Function NCS Left Median Nerve Motor Function 73480 2007 JOSE M FAITH 2 separate NCS to thumb and to index finger [facility] Screening Test Of Visual Acuity, Quantitative, Bilateral Screening Test Of Visual Acuity, Quantitative, Bilateral 27801 2007 ISHAN DELGADO Anthrax Vaccine, For Subcutaneous Use 2007 ISHAN DELGADO [facility] Immunization Administration One Vaccine Immunization Administration One Vaccine 84331 2007 ISHAN DELGADO Immunization Administration Each Additional Vaccine 2007 ISHAN DELGADO Typhoid Vaccine Vi Capsular Polysaccharide, For Intramus Use Typhoid Vaccine Vi Capsular Polysaccharide, For Intramus Use 94922 2007 LYNDON SHEPHERD Hepatitis B Vaccine (Active); 20 Years and Above 2007 LYNDON SHEPHERD Hepatitis A Vaccine Adult Dosage (Intramuscular Use) Hepatitis A Vaccine Adult Dosage (Intramuscular Use) 10688 2007 LYNDON SHEPHERD Immunization Administration Each Additional Vaccine 2007 LYNDON SHEPHERD Immunization Administration One Vaccine Immunization Administration One Vaccine 82142 2007 LYNDON SHEPHERD Skin Test Anergy Tuberculin Intradermal Skin Test Anergy Tuberculin Intradermal 24175 2007 LYNDON SHEPHERD Venipuncture Venipuncture 21418 2007 LYNDON SHEPHERD Clinical Social Work Counseling Marital 2007 NIXON LIN Venipuncture Venipuncture 74556 2007 SHALINI ROB Influenza Virus Vaccine Live Intranasal 2006 LYNDON SHEPHERD Immunization Administration One Vaccine Immunization Administration One Vaccine 63908 2006 LYNDON SHEPHERD Orthopedic Casting Long Leg Cast Orthopedic Casting Long Leg Cast 94577 2006 MAR PAUL Non weight bearing Traci Ya Supervised Ordering / Handling / Fitting Patient Devices Supervised Ordering / Handling / Fitting Patient Devices 41306 2006 MAR PAUL Physical Therapy Education Orthotics Training Initial 15 Min 2006 MAR PAUL Orthopedic Casting Long Leg Cast Orthopedic Casting Long Leg Cast 40103 2006 MAR PAUL Non Weight Bearing Traci Ya Supervised Ordering / Handling / Fitting Patient Devices Supervised Ordering / Handling / Fitting Patient Devices 36980 2006 MAR PAUL [facility] Physical Therapy Education Orthotics Training Initial 15 Min 2006 MAR PAUL [facility] Geomorphology Teacher Educ Orthotics Training Additional 15 Minutes 2006 OLGA BARON [facility] Screening Test Of Visual Acuity, Quantitative, Bilateral Screening Test Of Visual Acuity, Quantitative, Bilateral 80558 2006 ANDREW BUITRAGO Determination Of Refractive State Determination Of Refractive State [address].-Supervised Group Educational Services [address] Services Special Review / Reporting Of Patient Status Services Special Review / Reporting Of Patient Status 34927 2006 LATRICE HUGHES [facility] Ear mold/insert, not disposable, any type 2006 LATRICE HUGHES [facility] Audiometry Group Testing Audiometry Group Testing 26625 2006 LATRICE HUGHES [facility] Coordinated care fee, risk adjusted maintenance, Level 5 2009 CROW VELÁZQUEZ [facility] Health And Behavior Intervention, Each 15 Minutes Individual Health And Behavior Intervention, Each 15 Minutes Individual 33657 2009 MANGO COLLINS Coordinated care fee, risk adjusted maintenance, Level 4 2009 CROW VELÁZQUEZ [facility] Social Work Individual Outpatient Counseling 20-30 Minutes Social Work Individual Outpatient Counseling 20-30 Minutes 46125 2009 AMSOUD AUSTIN [facility] Social Work Individual Outpatient Counseling 45-50 Minutes Social Work Individual Outpatient Counseling 45-50 Minutes 01228 2009 MASOUD AUSTIN [facility] Coordinated care fee, risk adjusted maintenance, Level 4 2009 ADIN GILL [facility] Health And Behavior Intervention, Each 15 Minutes Individual Health And Behavior Intervention, Each 15 Minutes Individual 88693 2009 MANGO COLLINS [facility] Coordinated care fee, risk adjusted maintenance, Level 5 2009 JAREK VELÁZQUEZA M [facility] Health And Behavior Intervention, Each 15 Minutes Individual Health And Behavior Intervention, Each 15 Minutes Individual 22618 2009 MANGO COLLINS [facility] Health And Behav A e mt Each 15 Min Initial A e ment Health And Behav Assessmt Each 15 Min Initial Assessment 36966 2009 SHARA JOHNSON [facility] Coordinated care fee, risk adjusted maintenance, Level 4 2009 CROW VELÁZQUEZ [facility] Health And Behavior Intervention, Each 15 Minutes Individual Health And Behavior Intervention, Each 15 Minutes Individual 70958 2009 MANGO COLLINS [facility] Physical Therapy: ___ Se ion Segments, 15 Minutes Each Physical Therapy: ___ Session Segments, 15 Minutes Each 23169 2009 SHERI NEAL [facility] Physical Medicine Physical Therapy Re-Evaluation Physical Medicine Physical Therapy Re-Evaluation 00463 2009 SHERI NEAL Coordinated care fee, risk adjusted maintenance, Level 4 2009 CROW VELÁZQUEZ [facility] Health And Behavior Intervention, Each 15 Minutes Individual Health And Behavior Intervention, Each 15 Minutes Individual 96450 2009 MANGO COLLINS [facility] Psychiatric Evaluation Comprehensive Examination Psychiatric Evaluation Comprehensive Examination 09060 2009 SHARA JOHNSON Coordinated care fee, risk adjusted maintenance, Level 5 2009 CROW VELÁZQUEZ Modalities Heat Hot Packs Modalities Heat Hot Packs 64533 2009 ANTONIO MAN Traction Cervical Traction Cervical 05563 2009 ANTONIO MAN Physical Therapy: ___ Se ion Segments, 15 Minutes Each Physical Therapy: ___ Session Segments, 15 Minutes Each 68516 2009 ANTONIO MAN Physical Therapy: ___ Se ion Segments, 15 Minutes Each Physical Therapy: ___ Session Segments, 15 Minutes Each 33671 2009 ANTONIO MAN Modalities Heat Hot Packs Modalities Heat Hot Packs 65674 2009 JAVIER MAYFIELD Physical Therapy: ___ Se ion Segments, 15 Minutes Each Physical Therapy: ___ Session Segments, 15 Minutes Each 98133 2009 JAVIER MAYFIELD Coordinated care fee, risk adjusted maintenance, Level 4 2009 CROW VELÁZQUEZ Modalities Heat Hot Packs Modalities Heat Hot Packs 47906 2009 JAVIER MAYFIELD Physical Therapy: ___ Se ion Segments, 15 Minutes Each Physical Therapy: ___ Session Segments, 15 Minutes Each 75952 2009 JAVIER MAYFIELD [facility] Health And Behav Intervention, Each 15 Min Grp (2 Or More) Health And Behav Intervention, Each 15 Min Grp (2 Or More) 93691 2009 MANGO COLLINS [facility] Coordinated care fee, risk adjusted maintenance, Level 4 2009 CROW VELÁZQUEZ [facility] Tape, waterproof, per 18 sq. in. 2009 SHERI NEAL APPROX 20 , BILAT SHOULDERS, SCAPS [facility] Orthopedic Strapping Shoulder Orthopedic Strapping Shoulder 12619 2009 SHERI NEAL [facility] Physical Therapy: ___ Se ion Segments, 15 Minutes Each Physical Therapy: ___ Session Segments, 15 Minutes Each 68701 2009 SHERI NEAL [facility] Physical Medicine Physical Therapy Re-Evaluation Physical Medicine Physical Therapy Re-Evaluation 46565 2009 SHERI NEAL [facility] Health And Behavior Intervention, Each 15 Minutes Individual Health And Behavior Intervention, Each 15 Minutes Individual 35572 2009 MANGO COLLINS [facility] Orthopedic Strapping Shoulder Orthopedic Strapping Shoulder 72629 2009 SHERI NEAL [facility] Osteopathic Manip Treatment (OMT) 1-2 Body Regions Involved Osteopathic Manip Treatment (OMT) 1-2 Body Regions Involved 68933 2009 SHERI NEAL [facility] Physical Medicine Physical Therapy Evaluation Physical Medicine Physical Therapy Evaluation 75813 2009 SHERI NEAL [facility] Health And Behav A e mt Each 15 Min Initial A e ment Health And Behav Assessmt Each 15 Min Initial Assessment 85747 2009 MANGO COLLINS [facility] Health And Behavior Intervention, Each 15 Minutes Individual Health And Behavior Intervention, Each 15 Minutes Individual 04599 2009 MANGO COLLINS [facility] Alcohol and/or drug services; case management 2009 GLENIS CALDERON [facility] Behavioral health counseling and therapy, per 15 minutes 2009 GLENIS CALDERON [facility] Psychiatric Evaluation Comprehensive Examination Psychiatric Evaluation Comprehensive Examination 43570 2009 MARLA MINER [facility] Alcohol and/or drug services; case management 2009 GLENIS CALDERON [facility] Behavioral health counseling and therapy, per 15 minutes 2009 GLENIS CALDERON [facility] Health And Behavior Intervention, Each 15 Minutes Individual Health And Behavior Intervention, Each 15 Minutes Individual 37737 2009 MANGO COLLINS [facility] Alcohol and/or drug a e ment 2009 GLENIS CALDERON [facility] Alcohol and/or drug services; crisis intervention (outpatient) 2009 JOSE SCOTT [facility] Health And Behavior Intervention, Each 15 Minutes Individual Health And Behavior Intervention, Each 15 Minutes Individual 94131 2009 MANGO COLLINS [facility] Med Management By Pharmacist Initial 15 Min Estab Patient Med Management By Pharmacist Initial 15 Min Estab Patient 71904 2009 SOPHIA CAMPUZANO [facility] Influenza Virus Vaccine Pandemic Formulation Influenza Virus Vaccine Pandemic Formulation 77813 2009 QUE ALFONSO Immunization Administration One Vaccine Immunization Administration One Vaccine 34632 2009 QUE ALFONSO VIS GIVEN, SEE IMMUNIZATION MODULE [facility] Health And Behavior Intervention, Each 15 Minutes Individual Health And Behavior Intervention, Each 15 Minutes Individual 94226 2009 MANGO COLLINS [facility] Layer Closure Of Wound Arms 2.6 to 7.5 cm Layer Closure Of Wound Arms 2.6 to 7.5 cm 28158 2008 SASHA ISABEL [facility] Biopsy Muscle Deep Biopsy Muscle Deep 2008 SASHA ISABEL [facility] Health And Behavior Intervention, Each 15 Minutes Individual Health And Behavior Intervention, Each 15 Minutes Individual 20674 2008 MANGO COLLINS [facility] Health And Behavior Intervention, Each 15 Minutes Individual Health And Behavior Intervention, Each 15 Minutes Individual 17961 2008 MANGO COLLINS [facility] Health And Behavior Intervention, Each 15 Minutes Individual Health And Behavior Intervention, Each 15 Minutes Individual 65270 2008 MANGO COLLINS [facility] Health And Behavior Intervention, Each 15 Minutes Individual Health And Behavior Intervention, Each 15 Minutes Individual 51350 2008 MANGO COLLINS [facility] Health And Behavior Intervention, Each 15 Minutes Individual Health And Behavior Intervention, Each 15 Minutes Individual 18584 2008 MANGO COLLINS [facility] Health And Behavior Intervention, Each 15 Minutes Individual Health And Behavior Intervention, Each 15 Minutes Individual 43399 2008 MANGO COLLINS [facility] EMG Of One Extremity and Related Paraspinal Areas EMG Of One Extremity and Related Paraspinal Areas 61975 2008 NIRMALA SHALINI [facility] Health And Behavior Intervention, Each 15 Minutes Individual Health And Behavior Intervention, Each 15 Minutes Individual 66698 2008 MANGO COLLINS [facility] Med Management By Pharmacist Initial 15 Min Estab Patient Med Management By Pharmacist Initial 15 Min Estab Patient [id number] 2008 SOPHIA CAMPUZANO [facility] Health And Behavior Intervention, Each 15 Minutes Individual Health And Behavior Intervention, Each 15 Minutes Individual 53854 2008 MANGO COLLINS Health And Behavior Intervention, Each 15 Minutes Individual Health And Behavior Intervention, Each 15 Minutes Individual 71546 2008 MANGO COLLINS Health And Behavior Intervention, Each 15 Minutes Individual Health And Behavior Intervention, Each 15 Minutes Individual 00903 2008 MANGO COLLINS Nerve Block Peripheral Nerve 2008 TANIA FUENTES Procedure Note: Informed consent was obtained. The patient was positioned comfortably in the supine position. There was no evidence of infection at the site of needle insertion. Sterile skin prep. Physical landmarks were identified and sites were confirmed with fluoroscopy and ultrasound. 7-8 ml of 1%lidocaine/0. 5% marcaine and 10mg triamcinolone were injected to each middle scalene muscle. The patient was observed for 30 minutes and tolerated the procedure well. [facility] Fluoroscopic Guidance/Localiz Of Needle For Spinal Injection 2008 TANIA FUENTES [facility] EMG Specific Truncal Group EMG Specific Truncal Group 75821 2008 REMIGIO NUNEZ [facility] EMG Cranial Nerve Distribution EMG Cranial Nerve Distribution 84015 2008 REMIGIO NUNEZ [facility] EMG Limited Study 2008 REMIGIO NUNEZ Health And Behavior Intervention, Each 15 Minutes Individual Health And Behavior Intervention, Each 15 Minutes Individual 36144 2008 MANGO COLLINS Health And Behavior Intervention, Each 15 Minutes Individual Health And Behavior Intervention, Each 15 Minutes Individual 40736 2008 MANGO COLLINS Health And Behavior Intervention, Each 15 Minutes Individual Health And Behavior Intervention, Each 15 Minutes Individual 43395 2008 MANGO COLLINS [facility] Med Management By Pharmacist Initial 15 Min New Patient Med Management By Pharmacist Initial 15 Min New Patient 62389 2008 SOPHIA CAMPUZANO [facility] NCS Amplitude/Latency/[place] Motor With F-Wave Study NCS Amplitude/Latenc y/Velocity Motor With F-Wave Study 41841 2008 REMIGIO NUNEZ [facility] NCS Velocity Sciatic Nerve Sensory Pathway NCS Velocity Sciatic Nerve Sensory Pathway 58474 2008 REMIGIO NUNEZ EMG Of Extremities and Related Paraspinal Areas EMG Of Extremities and Related Paraspinal Areas 37654 2008 REMIGIO NUNEZ NCS Brachial Plexus Motor Pathway NCS Brachial Plexus Motor Pathway 32240 2008 REMIGIO NUNEZ NCS Brachial Plexus Sensory Pathway NCS Brachial Plexus Sensory Pathway 64749 2008 REMIGIO NUNEZ EMG Cranial Nerve Distribution Bilateral EMG Cranial Nerve Distribution Bilateral 69406 2008 REMIGIO NUNEZ [facility] Health And Behavior Intervention, Each 15 Minutes Individual Health And Behavior Intervention, Each 15 Minutes Individual 34841 2008 MANGO COLLINS [facility] Case Management, each 15 minutes 2008 LUCIA VELASQUEZ [facility] Med Management By Pharmacist Initial 15 Min Estab Patient Med Management By Pharmacist Initial 15 Min Estab Patient [id number] 2008 SANTOS STALEY [facility] Case Management, each 15 minutes 2008 LUCIA VELASQUEZ [facility] Medication Management By Pharmacist Each Additional 15 Min Medication Management By Pharmacist Each Additional 15 Min 76057 2007 ANTONIO MORTENSEN [facility] Med Management By Pharmacist Initial 15 Min Estab Patient Med Management By Pharmacist Initial 15 Min Estab Patient [id number] 2007 ANTONIO MORTENSEN [facility] Case Management, each 15 minutes 2007 LUCIA VELASQUEZ [facility] Case Management, each 15 minutes 2007 LUCIA VELASQUEZ EEG Technique Exam Recording Awake And Drowsy EEG Technique Exam Recording Awake And Drowsy 57364 2007 QUE VALLADARES [facility] Case Management, each 15 minutes 2007 LUCIA VELASQUEZ Exercises A isted Exercises For ROM Exercises Assisted Exercises For ROM 94899 2007 JAZZ MELTON [facility] PT A e ment Kinetic Training PT Assessment Kinetic Training 70010 2007 JAZZ MELTON [facility] Shoulder orthosis, figure of eight design abduction restrainer, canvas and webbing, prefabricated, [id number] 2007 HAYLIE FULTON [facility] Psychiatric Evaluation Comprehensive Examination Psychiatric Evaluation Comprehensive Examination 14543 2010 HAYLIE JOEL intake interview plus 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 [facility] Screening Test Of Visual Acuity, Quantitative, Bilateral Screening Test Of Visual Acuity, Quantitative, Bilateral 56567 2010 LESLIE SOSA [facility] Coordinated care fee, maintenance rate 2010 CROW VELÁZQUEZ [facility] Skin Test Anergy tuberculin Skin Test Anergy tuberculin 70339 2010 BAO KAUFMAN [facility] Immunization Administration One Vaccine Immunization Administration One Vaccine 72047 2010 BAO KAUFMAN [facility] -Supervised Specimen Handling / Transfer: Office To Lab -Supervised Specimen Handling / Transfer: Office To Lab 22261 2010 SARATH MOREIRA [facility] Venipuncture Venipuncture 94440 2010 SARATH MOREIRA [facility] Coordinated care fee, risk adjusted maintenance, Level 5 2010 CROW VELÁZQUEZ [facility] Coordinated care fee, risk adjusted maintenance, Level 3 2010 CROW VELÁZQUEZ [facility] Coordinated care fee, risk adjusted maintenance, Level 5 2010 CROW VELÁZQUEZ [facility] Behavioral health counseling and therapy, per 15 minutes 2010 GLNEIS CALDERON [facility] Psych Ther Indiv Interact Appr 20-30 Min W/ Med Eval Manage Psych Ther Indiv Interact Appr 20-30 Min W/ Med Eval Manage 70621 2010 MARLA MINER [facility] Health And Behavior Intervention, Each 15 Minutes Individual Health And Behavior Intervention, Each 15 Minutes Individual 92003 2010 MANGO COLLINS [facility] [facility] Coordinated care fee, maintenance rate 2010 CROW VELÁZQUEZ [facility] Coordinated care fee, risk adjusted maintenance, Level 4 2010 CRWO VELÁZQUEZ [facility] Coordinated care fee, risk adjusted maintenance, Level 5 2010 JAREK VELÁZQUEZA M [facility] Behavioral health counseling and therapy, per 15 minutes 2010 GLENIS CALDERON [facility] Health And Behavior Intervention, Each 15 Minutes Individual Health And Behavior Intervention, Each 15 Minutes Individual [id number] 2010 MANGO COLLINS [facility] Coordinated care fee, risk adjusted maintenance, Level 4 2010 BIFFLEYCALVIN, CROW M [facility] Coordinated care fee, risk adjusted maintenance, Level 5 2010 BIFFLEYCALVIN, CROW M [facility] Coordinated care fee, risk adjusted maintenance, Level 5 2010 BIFFLEYASSJAIRO, CROW M [facility] Coordinated care fee, risk adjusted maintenance, Level 5 2010 BIFFLEYCALVIN, CROW M [facility] Coordinated care fee, risk adjusted maintenance, Level 4 2010 BIFFLEYCALVIN CROW M [facility] Audiometry Group Testing Audiometry Group Testing [id number] 2010 LIIDA BROWN [facility] Health And Behavior Intervention, Each 15 Minutes Individual Health And Behavior Intervention, Each 15 Minutes Individual [id number] 2010 MANGO COLLINS [facility] Screening Test Of Visual Acuity, Quantitative, Bilateral Screening Test Of Visual Acuity, Quantitative, Bilateral [id number] 2010 POLY CAMPBELL [facility] Coordinated care fee, risk adjusted maintenance, Level 4 2010 BIFCHINO CROW Piero [facility] Psychiatric Evaluation Comprehensive Examination Psychiatric Evaluation Comprehensive Examination [id number] 2010 HAYLIE GARCIA [facility] Medication Management By Pharmacist Each Additional 15 Min Medication Management By Pharmacist Each Additional 15 Min [id number] 2009 ALAN PIERSON [facility] Coordinated care fee, risk adjusted maintenance, Level 3 2009 BIFFLEYCALVIN CROW M [facility] Coordinated care fee, risk adjusted maintenance 2009 KAUSHAL CASTAÑEDA [facility] Coordinated care fee, risk adjusted maintenance, Level 4 2009 BIFFLEYCALVIN CROW M [facility] Coordinated care fee, risk adjusted maintenance, Level 5 2009 MELANIA CROW M [facility] Med Management By Pharmacist Initial 15 Min Estab Patient Med Management By Pharmacist Initial 15 Min Estab Patient [id number] 2009 ALAN PIERSON [facility] Alcohol and/or drug services; group counseling by a clinician 2009 JOSE SCOTT [facility] Alcohol and/or drug services; group counseling by a clinician 2009 JOSE SCOTT [facility] Coordinated care fee, risk adjusted maintenance, Level 4 2009 CROW VELÁZQUEZ [facility] Health And Behavior Intervention, Each 15 Minutes Individual Health And Behavior Intervention, Each 15 Minutes Individual [id number] 2009 MANGO COLLINS [facility] Med Management By Pharmacist Initial 15 Min Estab Patient Med Management By Pharmacist Initial 15 Min Estab Patient [id number] 2009 ALAN PIERSON [facility] Psychiatric Evaluation Comprehensive Examination Psychiatric Evaluation Comprehensive Examination [id number] 2009 KIERRA LIU [facility] Alcohol and/or drug services; case management 2009 JOSE SCOTT [facility] Coordinated care fee, risk adjusted maintenance, Level 4 2009 CROW VELÁZQUEZ [facility] Alcohol and/or drug services; group counseling by a clinician 2009 EBONY NASCIMENTO [facility] Alcohol and/or drug services; group counseling by a clinician 2009 JOSE SCOTT [facility] Coordinated care fee, risk adjusted maintenance, Level 5 2009 CROW VELÁZQUEZ Alcohol and/or drug services; group counseling by a clinician 2009 JOSE SCOTT [facility] Behavioral health counseling and therapy, per 15 minutes 2009 GLENIS CALDERON [facility] Coordinated care fee, risk adjusted maintenance, Level 4 2009 CROW VELÁZQUEZ Med Management By Pharmacist Initial 15 Min Estab Patient Med Management By Pharmacist Initial 15 Min Estab Patient [id number] 2009 ALAN PIERSON [facility] Alcohol and/or drug services; case management 2009 GLENIS CALDERON [facility] Coordinated care fee, risk adjusted maintenance, Level 4 2009 CROW VELÁZQUEZ [facility] Influenza Split Virus Vaccine Age 3+ Years Intramuscular 2009 SHARIFA CONNELLY [facility] Immunization Administration One Vaccine Immunization Administration One Vaccine 65020 2009 SHARIFA CONNELLY [facility] Coordinated care fee, risk adjusted maintenance, Level 4 2009 CROW VELÁZQUEZ Alcohol and/or drug services; group counseling by a clinician 2009 JOSE SCOTT [facility] Alcohol and/or drug services; case management 2009 GLENIS CALDERON [facility] Behavioral health counseling and therapy, per 15 minutes 2009 GLENIS CALDERON [facility] Health And Behavior Intervention, Each 15 Minutes Individual Health And Behavior Intervention, Each 15 Minutes Individual [id number] 2009 MANGO COLLINS [facility] Coordinated care fee, maintenance rate 2009 ALEM RYAN DoD Med Management By Pharmacist Initial 15 Min Estab Patient Med Management By Pharmacist Initial 15 Min Estab Patient [id number] 2009 ALAN PIERSON [facility] Alcohol and/or drug services; group counseling by a clinician 2009 JOSE SCOTT [facility] Coordinated care fee, risk adjusted maintenance, Level 4 2009 CROW VELÁZQUEZ [facility] Psychiat Therapy Indiv Appr 45-50 Min W/ Med Eval Managemt Psychiat Therapy Indiv Appr 45-50 Min W/ Med Eval Managemt [id number] 2009 RADHA RICO [facility] Med Management By Pharmacist Initial 15 Min Estab Patient Med Management By Pharmacist Initial 15 Min Estab Patient [id number] 2009 ALAN PIERSON [facility] Psych Ther Indiv Interact Appr 20-30 Min W/ Med Eval Manage Psych Ther Indiv Interact Appr 20-30 Min W/ Med Eval Manage [id number] 2009 MARLA MINER [facility] Alcohol and/or drug services; group counseling by a clinician 2009 JOSE SCOTT [facility] Coordinated care fee, risk adjusted maintenance, Level 4 2009 CROW VELÁZQUEZ [facility] Behavioral health counseling and therapy, per 15 minutes 2009 GLENIS CALDERON [facility] Social Work Individual Outpatient Counseling 45-50 Minutes Social Work Individual Outpatient Counseling 45-50 Minutes [id number] 2009 BRYAN MURO [facility] Alcohol and/or drug services; group counseling by a clinician 2009 JOSE SCOTT [facility] Coordinated care fee, risk adjusted maintenance, Level 4 2009 CORW VELÁZQUEZ [facility] Psychiatric Evaluation Comprehensive Examination Psychiatric Evaluation Comprehensive Examination [id number] 2009 MARLA MINER [facility] Health And Behavior Intervention, Each 15 Minutes Individual Health And Behavior Intervention, Each 15 Minutes Individual [id number] 2009 MANGO COLLINS [facility] Alcohol and/or drug services; group counseling by a clinician 2009 JOSE SCOTT [facility] EMG Limited Study 2009 EMRE GAUTHIER [facility] EMG Of One Extremity and Related Paraspinal Areas EMG Of One Extremity and Related Paraspinal Areas [id number] 2009 EMRE GAUTHIER [facility] Behavioral health counseling and therapy, per 15 minutes 2009 GLENIS CALDERON [facility] Coordinated care fee, risk adjusted maintenance, Level 4 2009 CROW VELÁZQUEZ [facility] Psychiatric Evaluation Comprehensive Examination Psychiatric Evaluation Comprehensive Examination [id number] 2009 RADHA RICO [facility] Behavioral health counseling and therapy, per 15 minutes 2009 JOSE SCOTT Health And Behavior Intervention, Each 15 Minutes Individual Health And Behavior Intervention, Each 15 Minutes Individual [id number] 2009 MANGO COLLINS [facility] Alcohol and/or drug services; group counseling by a clinician 2009 JOSE SCOTT [facility] Behavioral health counseling and therapy, per 15 minutes 2009 GLENIS CALDERON Coordinated care fee, risk adjusted maintenance, Level 5 2009 CROW VELÁZQUEZ Behavioral health counseling and therapy, per 15 minutes 2009 JOSE SCOTT Coordinated care fee, risk adjusted maintenance, Level 5 2009 CROW VELÁZQUEZ Coordinated care fee, risk adjusted maintenance, Level 5 2009 CROW VELÁZQUEZ Behavioral health counseling and therapy, per 15 minutes 2009 GLENIS CALDERON [facility] -Supervised Services Provision Of Special Supplies -Supervised Services Provision Of Special Supplies [id number] 2009 JONATHAN DE LA ROSA [facility] Chiropractic Manip Treatmt (CMT) Spinal One To Two Regions Chiropractic Manip Treatmt (CMT) Spinal One To Two Regions [id number] 2009 JONATHAN DE LA ROSA Coordinated care fee, risk adjusted maintenance, Level 4 2009 CROW VELÁZQUEZ [facility] Modalities Traction Manual (Each Region 15 Minutes) Modalities Traction Manual (Each Region 15 Minutes) [id number] 2009 JONATHAN DE LA ROSA [facility] Chiropractic Manip Treatmt (CMT) Extraspinal One Or More Reg Chiropractic Manip Treatmt (CMT) Extraspinal One Or More Reg [id number] 2009 JONATHAN DE LA ROSA Chiropractic Manip Treatmt (CMT) Spinal Three To Four Region Chiropractic Manip Treatmt (CMT) Spinal Three To Four Region [id number] 2009 JONATHAN DE LA ROSA Coordinated care fee, risk adjusted maintenance, Level 5 2009 CROW VELÁZQUEZ Coordinated care fee, risk adjusted maintenance, Level 4 2009 CROW VELÁZQUEZ [facility] Social History Combined list of available smoking, tobacco, and other social history from Department of 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 Social History Type Response Date Comment Source Tobacco smoking status MAIS VA-TOBACCO USE FORMER CIGARETTES 01/19/2025 [facility] History of tobacco use VA-TOBACCO USE SOME DAYS OTHER TYPE 01/19/2025 [facility] History of tobacco use [facility] of tobacco use VA-TOBACCO FORMER USER 12/05/2022 [facility] History of tobacco use VA-TOBACCO USER EVERY DAY 11/04/2020 [facility] History of tobacco use VA-TOBACCO NEVER USED 04/12/2018 [facility] History of tobacco use LIFETIME NON-USER OF TOBACCO 07/06/2015 [facility] History of tobacco use TOBACCO OFFERED PT MEDS (PROVIDER) 01/29/2014 [facility] History of tobacco use CURRENT TOBACCO USER 12/01/2013 [facility] History of tobacco use CURRENT TOBACCO USER 05/09/2013 [facility] History of tobacco use TOBACCO OFFERED PT MEDS (PROVIDER) 01/16/2013 [facility] History of tobacco use TOBACCO MEDS OFFERED BUT DECLINED 01/14/2013 [facility] History of tobacco use TOBACCO [facility]ED [facility] 01/13/2013 [facility] History of tobacco use TOBACCO OFFERED [facility] 11/12/2012 patient declined [facility] This section is an empty social history section. DoD
--- OUTSIDE RECORDS SUMMARY | 2025-03-14 10:38 | XMS_ITS | Patient Health Record ---
Author Organization [facility] Address [address] [place] [address] Care Team Providers Care Side Show Entertainer Name Role Phone LISBETH GAFFNEY Primary Care Provider UnavailLisbeth Cleary Unavailable [phone] Brandt Hollins Unavailable [phone] Adele Pennington Unavailable [phone] Daniel Herrmann Unavailable Allergies No Known Allergies Reason For Referral No Information Medications Medication SIG (Take, Route, Frequency, Duration) Notes Start Date End Date Status Pantoprazole Sodium 40 mg Tablet Delayed Release 1 tablet po Twice a day; Duration: 30 days Active Albuterol Sulfate HFA 108 (90 Base) MCG/ACT Aerosol Solution 2 puff as needed Inhalation every 4 hrs 07/30/2023 Active traMADol HCl 50 MG Tablet 1 tablet as ne eded Orally 4 times a day; Duration: 30 days 01/08/2025 Active Multivitamin Adult - Tablet as directed Orally Active Carisoprodol 350 MG Tablet 1 tablet as needed Orally Three times a day; Duration: 30 days 01/08/2025 Active Scopolamine 1 MG/3DAYS Patch 72 Hour 1 patch to skin behind the ear as needed Transdermal q 3 days; Duration: 30 days 03/12/2025 Active Suboxone 2-0.5 MG Tablet Sublingual 1 tablets under the tongue and allow to dissolve Sublingual Twice a day Active ProAir HFA 108 (90 Base) MCG/ACT Aerosol Solution inhale TWO puffs BY MOUTH EVERY 4 TO 6 HOURS NEEDED Inhalation; Duration: 16 Not-Taking Ondansetron HCl 4 MG Tablet 1 tablet Orally q 4 hours prn nausea; Duration: 30 03/12/2025 Active diazePAM 5 MG Tablet (Schedule IV Drug) TAKE ONE TABLET BY MOUTH TWICE DAILY NEEDED FOR SPASMS Oral Three times a day; Duration: 30 days Active Suboxone 2-0.5 MG Film 1 film under the tongue and allow to dissolve Sublingual Once a day Not-Taking Losartan Potassium 100 MG Tablet 1 tablet Orally Once a day in am; Duration: 30 days Active predniSONE 10 MG (21) Tablet Therapy Pack as directed Orally 11/13/2023 No t-Taking Meloxicam 7.5 MG Tablet 1 tablet Orally Once a day Active Triamterene-HCTZ 37.5-25 MG Tablet TAKE ONE TABLET BY MOUTH EVERY DAY NEEDED FOR swelling Oral; Duration: 30 Not-Taking Cetirizine HCl 10 MG Tablet 1 tablet Orally Once a day Active Metoprolol Succinate ER 25 MG Tablet Extended Release 24 Hour 1 tablet Orally Once a day in evening; Duration: 30 days Not-Taking cloNIDine HCl 0.1 MG Tablet 1 tablet Orally Once a day prn bp over 180/100; Duration: 30 days Active Gabapentin 300 MG Capsule TAKE ONE CAPSU LE BY MOUTH THREE TIMES DAILY Oral; Duration: 30 Not-Taking Acyclovir 400 MG Tablet 1 tablet Orally Three times a day; Duration: 7 days 09/02/2024 Active Megestrol Acetate 40 MG/ML Suspension take 10ml BY MOUTH ONCE daily; Duration: 30 days Active Immunizations Vaccine Route Administration Date Status Comme nts Flucelvax Trivalent, Syringe 0.5 mL, PF Unknown 024 Refused Social History Tobacco Use: Social History Observation Description Date Details (start date - stop date) Former Smoker NA - NA Social History Depression Screening Social Info Question Answer Notes PHQ-9 Little interest or pleasure in doing thin gs Not at all Feeling down, depressed, or [...] way Not at all Total Score 0 Drugs/Alcohol: Social Info Question Answer Notes Alcohol Screen (Audit-C) Did you have a drink containing alcohol in the past year? No Points 0 Interpretation Negative Drugs Have you used drugs other than those for medical reasons in the past 12 months? No Tobacco Use: Social Info Question Answer Notes Tobacco Control (Standard) Tobacco use: Former smoker How long has it been since you last smoked? 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 Section Notes: 09-21-22 PHQ9 09-21-22 PHQ9 09-21-22 PHQ9 10/23/23 PHQ9 2-05-05 PHQ9 10/23/23 PHQ9 2 PHQ9 10/23/23 PHQ9 2 PHQ9 10/23/23 PHQ9 01/08/25 PHQ9 2-- PHQ9 10/23/23 PHQ9 2 PHQ9 09-21-22 PHQ9 09-21-22 PHQ9 09-21-22 PHQ9 09-21-22 PHQ9 09-21-22 PHQ9 09-21-22 PHQ9 10/23/23 PHQ9 -05-05 PHQ9 10/23/23 PHQ9 2 PHQ9 10/23/23 PHQ9 2-05-05 PHQ9 10/23/23 PHQ9 09-21-22 PHQ9 10/23/23 PHQ9 01/08/25 PHQ9 Problems Problem Type SNOMED Code ICD Code Onset Dates Problem Status W/U Status Risk Notes Problem Anxiety (97865344) Anxiety (F41.9) Active confirmed Problem Sinusitis (61594747) Sinusitis (J32.9) Active confirmed Problem Recurrent sinusitis (444444650) Recurrent sinusitis (J32.9) Active confirmed Problem Hypertension (54782339) Hypertension (I10) Active confirmed Problem Decrease in appetite (finding) (35693137) Decreased appetite (R63.0) Active confirmed Problem Cold sore (0450458) Cold sore (B00.1) Active confirmed Problem 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 Problem Flatulence, eructation and gas pain (921408555) Postprandial bloating (R14.0) Active confirmed Vital Signs Heart Rate 94 /min 03/12/2025 Temperature 97.5 degrees Fahrenheit 03/12/2025 Respiratory Rate 20 /min 03/12/2025 Blood pressure diastolic 43 mm Hg 03/12/2025 Oximetry 100 % 03/12/2025 Height-cm 182.88 cm 03/12/2025 Weight-kg 79.38 kg 03/12/2025 Height 72 in 03/12/2025 Blood pressure systolic 100 mm Hg 03/12/2025 Weight 175 lbs 03/12/2025 BMI 23.73 kg/m2 03/12/2025 Encounters Encounter Location Date Provider Diagnosis [facility] [address] [address] 03/12/2025 [facility] Travel advice encounter Z71.89 and Anxiety F41.9 [facility] [address] [address] 07/09/2024 Lisbeth Gaffney Postprandial bloating R14.0 ; Decreased appetite R63.0 ; Encounter for immunization Z23 and Immunization not carried out because of patient refusal Z28.21 [facility] [address] [place] [address] 04/08/2024 Daniel Herrmann Hypertension I10 ; Post-splenectomy Z90.81 and Postprandial bloating R14.0 [facility] [address] [place] [address] 01/08/2025 Lisbeth Gaffney Closed displaced fracture of right calcaneus, unspecified portion of calcaneus, initial encounter S92.001A and Depression screen Z13.31 [facility] [address] [place] [address] 09/02/2024 Lisbeth Gaffney Cold sore B00.1 [facility] [address] [place] [address] 08/18/2024 Adele Pennington Influenza B J10.1 ; Bronchitis J40 and Wheezes R06.2 [facility] [address] [place] [address] 10/23/2024 Brandt Hollins Assessments Encounter Date Diagnosis (ICD Code) Assessment Notes Treatment Notes Treatment Clinical Notes Section Notes 04/08/2024 Hypertension (ICD-10 - I10) 04/08/2024 Post-splenectomy (ICD-10 - Z90.81) 07/09/2024 Decreased appetite (ICD-10 - R63.0) 07/09/2024 Postprandial bloating (ICD-10 - R14.0) 08/18/2024 Bronchitis (ICD-10 - J40) z jasper depomedrol/deca dron im 08/18/2024 Influenza B (ICD-10 - J10.1) 09/02/2024 Cold sore (ICD-10 - B00.1) RTC with any concerns. 01/08/2025 Closed displaced fracture of right calcaneus, unspecified portion of calcaneus, initial encounter (ICD-10 - S92.001A) Keep apt with specialist as scheduled. RTC in 2 months for recheck. 03/12/2025 Anxiety (ICD-10 - F41.9) valium ([place]) 03/12/2025 Travel advice encounter (ICD-10 - Z71.89) scopalamine zofran 01/08/2025 Depression screen (ICD-10 - Z13.31) 08/18/2024 Wheezes (ICD-10 - R06.2) 04/08/2024 Postprandial bloating (ICD-10 - R14.0) 07/09/2024 Encounter for immunization (ICD-10 - Z23) 07/09/2024 Immunization not carried out because of patient refusal (ICD-10 - Z28.21) 08/18/2024 Other Questions asked and answered; discharged to home. 03/12/2025 Other Questions asked and answered; discharged to home. Plan Of Treatment No Information Insurance Providers Payer Name Payer Address Payer Phone Subscriber Number Group Number Insured Name Patient Relationship to Insured Coverage Start Date Coverage End Date [place] [address] [place] [phone] [id number] Avinash Limon Self - patient is the insured Medications Administered Medication Instructions Date of Administration Dosage Notes DEPO-Medrol 12/20/2023 40 mg [id number] 3-01 Patient tolerated well. DEPO-Medrol 08/18/2024 [place] [id number] 3-10 pt tolerated well/instructed to wait 20 min DEPO-Medrol 07/30/2023 40 mg [id number] 3-01 Patient tolerated well. DEPO-Medrol 10/09/2023 [place] [address] 3-01 pt tolerated well/instructed to wait 20 min DEPO-Medrol 10/23/2023 40 mg [id number] 3-01 Patient tolerated well. dexAMETHasone 2022 8 mg [id number] 239-30 Patient tolerated well dexAMETHasone 07/30/2023 4 mg [id number] 423-00 Patient tolerated well. dexAMETHasone 10/09/2023 4 mg ndc 42465-0 423-00 pt tolerated well/instructed to wait 20 min dexAMETHasone 10/23/2023 4 mg [id number] 423-00 Patient tolerated well. dexAMETHasone 12/20/2023 4 mg [id number] 423-00 Patient tolerated well. dexAMETHasone 08/18/2024 4 mg ndc [id number] 423-00 pt tolerated well/instructed to wait 20 min Ketorolac Tromethamine 02/20/2023 60 mg nd [id number] Patient tolerated well. Ketorolac Tromethamine 01/08/2025 60 mg nd [id number] tient tolerated well. Rocephin 10/23/2023 1 g [id number] -11 Patient tolerated well. Rocephin 12/20/2023 1 g [id number] -11 Patient tolerated well. Rocephin 02/20/2024 1 g Medical (General) History Medical History History ICD Code arthritis migraine headaches back trouble hypertension hemorrhoids anxiety depression fibromyalgia osteoporosis rheumatoid arthritis muscular dystrophy Surgical History Surgery Date(Month/Year) abdominal blunt force trauma repair splenectomy left wrist right leg left arm gall bladder removal carpal tunnel release cerebral nerve L elbow Hospitalization History Reason Date(Month/Year) see surgical
--- OUTSIDE RECORDS SUMMARY | 2025-03-14 10:38 | XMS_ITS | Encounter Summary ---
Author Organization [facility] Address [address] [place] [address] Care Team Providers Care Human Services Care Specialist Name Role Phone Unavailable Primary Care Provider Unavailabl e Encounter Details Date Type Department Care Team (Latest Contact Info) Description 08/30/[address] [facility] 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
--- OUTSIDE RECORDS SUMMARY | 2025-03-14 10:38 | XMS_ITS | Clinical Summary ---
[facility] Address [address] 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
--- OUTSIDE RECORDS SUMMARY | 2025-03-14 10:39 | XMS_ITS | Encounter Summary ---
Author Organization [facility] Address [address] [place] [address] Care Team Providers Care Teacher Public Health Name Role Phone Unavailable Primary Care Provider Unavailabl e Encounter Details Date Type Department Care Team (Latest Contact Info) Description 07/10/2006 Outpatient Historical [facility] General and Trauma Surgery-[address] [place] [address] Alexander Garica MD [facility] [address] [place] [address] Follow-Up Examination, Following Unspecified Surgery (Primary Dx) Social History Tobacco Use Types Packs/Day Years Used Date Smoking Tobacco: Never Assessed Sex and Gender Information Value Date Recorded Sex Assigned at Not on file 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
--- OUTSIDE RECORDS SUMMARY | 2025-03-14 10:39 | XMS_ITS | Encounter Summary ---
Author Organization [facility] Address [address] [place] [address] Care Team Providers Care Beet Flumer Name Role Phone Unavailable Primary Care Provider [...] on file Legal Sex Male 4:59 AM HABITAT BIOLOGIST Gender Identity Not on file Sexual Orientation Not on file documented as of this encounter Plan of Treatment Not on file documented as of this encounter Procedures Procedure Name Priority Date/Time Associated Diagnosis Comments HEMOGLOBIN AND HEMATOCRIT Routine 06/28/2006 5:05 AM HABITAT BIOLOGIST CREATININE, BODY FLUID Routine 06/27/2006 8:50 AM HABITAT BIOLOGIST CBC WITH DIFFERENTIAL Routine 06/27/2006 5:40 AM HABITAT BIOLOGIST BASIC METABOLIC PANEL Routine 06/27/2006 5:40 AM HABITAT BIOLOGIST HEMOGLOBIN AND HEMATOCRIT Routine 06/26/2006 4:58 PM HABITAT BIOLOGIST CBC WITH DIFFERENTIAL Routine 06/26/2006 5:17 AM HABITAT BIOLOGIST BASIC METABOLIC PANEL Routine 06/26/2006 5:17 AM HABITAT BIOLOGIST CBC WITH DIFFERENTIAL Routine 06/25/2006 5:27 AM HABITAT BIOLOGIST BASIC METABOLIC PANEL Routine 06/25/2006 5:27 AM HABITAT BIOLOGIST CBC WITH DIFFERENTIAL Routine 06/24/2006 11:53 AM HABITAT BIOLOGIST PT AND APTT Routine 06/24/2006 5:46 AM HABITAT BIOLOGIST CBC WITH DIFFERENTIAL Routine 06/24/2006 5:46 AM HABITAT BIOLOGIST BASIC METABOLIC PANEL Routine 06/24/2006 5:45 AM HABITAT BIOLOGIST ETHANOL LEVEL Routine 06/23/2006 11:32 PM HABITAT BIOLOGIST BASIC METABOLIC PANEL Routine 06/23/2006 11:32 PM HABITAT BIOLOGIST CBC WITH DIFFERENTIAL Routine 06/23/2006 11:13 PM HABITAT BIOLOGIST CBC WITHOUT DIFFERENTIAL Routine 06/23/2006 7:01 PM HABITAT BIOLOGIST PROTIME-INR Routine 06/23/2006 6:02 PM HABITAT BIOLOGIST GLUCOSE URINALYSIS, QUALITATIVE Routine 06/23/2006 5:29 PM HABITAT BIOLOGIST URINALYSIS MICROSCOPY ONLY Routine 06/23/2006 5:29 PM HABITAT BIOLOGIST URINALYSIS W/REFLEX MICROSCOPIC Routine 06/23/2006 5:29 PM HABITAT BIOLOGIST CBC WITH DIFFERENTIAL Routine 06/23/2006 5:18 PM HABITAT BIOLOGIST documented in this encounter Results * (ABNORMAL) HEMOGLOBIN AND HEMATOCRIT (06/28/2006 5:05 AM HABITAT BIOLOGIST) HEMOGLOBIN 9.3(L) 13.0 - 16.0 g/dL INTERFACE SYSTEM HEMATOCRIT 27.5(L) 37.0 - 49.0 % INTERFACE SYSTEM 06/28/2006 5:05 AM HABITAT BIOLOGIST Jonathan Aiken MD HEMATOLOGY ORDERABLES Final Result INTERFACE SYSTEM Refer to clinic/hospital department * CREATININE, BODY FLUID (06/27/2006 8:50 AM HABITAT BIOLOGIST) SOURCE FLUID ARNEL Drainage INTER FACE SYSTEM CREATININE, FLD 0.5 mg/dL INTERFACE SYSTEM Comment: Reference Ranges have not been established. 06/27/2006 8:50 AM HABITAT BIOLOGIST us Jonathan Aiken MD BODY FLUIDS AND STOOLS Padmini l Result Performing Organization Address [facility] Phone Number INTERFACE SYSTEM Refer to clinic/hospital department * (ABNORMAL) BASIC METABOLIC PANEL (06/27/2006 5:40 AM HABITAT BIOLOGIST) GLUCOSE 89 70 - 110 mg/dL INTERFACE [...] 10.5 mg/dL INTERFACE SYSTEM 06/27/2006 5:40 AM HABITAT BIOLOGIST Jonathan Aiken MD CHEMISTRY ORDERABLES Final Result Performing Organization Address [facility] Phone Number INTERFACE SYSTEM Refer to clinic/hospital department * (ABNORMAL) CBC WITH DIFFERENTIAL (06/27/2006 5:40 AM HABITAT BIOLOGIST) WBC 7.7 4.5 - 13.5 K/ul INTERFACE [...] 0.2 K/ul INTERFACE SYSTEM 06/27/2006 5:40 AM HABITAT BIOLOGIST Jonathan Aiken MD HEMATOLOGY ORDERABLES Final Result INTERFACE SYSTEM Refer to clinic/hospital department * (ABNORMAL) HEMOGLOBIN AND HEMATOCRIT (06/26/2006 4:58 PM HABITAT BIOLOGIST) HEMOGLOBIN 9.3(L) 13.0 - 16.0 g/dL INTERFACE SYSTEM HEMATOCRIT 27.3(L) 37.0 - 49.0 % INTERFACE SYSTEM 06/26/2006 4:58 PM HABITAT BIOLOGIST Jonathan Aiken MD HEMATOLOGY ORDERABLES Final Result INTERFACE SYSTEM Refer to clinic/hospital department * (ABNORMAL) BASIC METABOLIC PANEL (06/26/2006 5:17 AM HABITAT BIOLOGIST) GLUCOSE 97 70 - 110 mg/dL INTERFACE [...] 10.5 mg/dL INTERFACE SYSTEM 06/26/2006 5:17 AM HABITAT BIOLOGIST Jonathan Aiken MD CHEMISTRY ORDERABLES Final Result INTERFACE SYSTEM Refer to clinic/hospital department * (ABNORMAL) CBC WITH DIFFERENTIAL (06/26/2006 5:17 AM HABITAT BIOLOGIST) WBC 8.7 4.5 - 13.5 K/ul INTERFACE [...] 0.2 K/ul INTERFACE SYSTEM 06/26/2006 5:17 AM HABITAT BIOLOGIST us Jonathan Aiken MD HEMATOLOGY ORDERABLES Final Result Performing Organization Address [facility] de Phone Number INTERFACE SYSTEM Refer to clinic/hospital department * (ABNORMAL) BASIC METABOLIC PANEL (06/25/2006 5:27 AM HABITAT BIOLOGIST) GLUCOSE 98 70 - 110 mg/dL INTERFACE [...] 10.5 mg/dL INTERFACE SYSTEM 06/25/2006 5:27 AM HABITAT BIOLOGIST us Giuliano Iqbal MD CHEMISTRY ORDERABLES Final Result Performing Organization Address [facility] Phone Number INTERFACE SYSTEM Refer to clinic/hospital department * (ABNORMAL) CBC WITH DIFFERENTIAL (06/25/2006 5:27 AM HABITAT BIOLOGIST) WBC 15.3(H) 4.5 - 13.5 K/ul INTERFACE [...] 0.2 K/ul INTERFACE SYSTEM 06/25/2006 5:27 AM HABITAT BIOLOGIST us Giuliano Iqbal MD HEMATOLOGY ORDERABLES Final Result INTERFACE SYSTEM Refer to clinic/hospital department * (ABNORMAL) CBC WITH DIFFERENTIAL (06/24/2006 11:53 AM HABITAT BIOLOGIST) WBC 11.7 4.5 - 13.5 K/ul INTERFACE [...] K/ul INTERFACE SYSTEM 06/24/2006 11:5 3 AM HABITAT BIOLOGIST us Giuliano Iqbal MD HEMATOLOGY ORDERABLES Final Result Performing Organization Address [facility] Phone Number INTERFACE SYSTEM Refer to clinic/hospital department * (ABNORMAL) PT AND APTT (06/24/2006 5:46 AM HABITAT BIOLOGIST) PROTIME 19.1(H) 13.0 - 15.7 Secs INTERFACE SYSTEM Comment: As of 06 note change in normal range. INR 1.5 INTERFACE SYSTEM Comment: Expected Values for INR: DVT/PE Goal INR 2.5; range 2.0 - 3.0 Valve Replacement Tissue Goal INR 2.5; range 2.0 - 3.0 Mechanical Goal INR 3.0; range 2.5 - 3.5 POST-LA Goal INR 2.5; range 2.0 - 3.0 [...] in APTT Normal Range. 06/24/2006 5:46 AM HABITAT BIOLOGIST Result Ayan Iqbal MD HEMATOLOGY ORDERABLES Final Result Performing Organization Address [facility] Phone Number INTERFACE SYSTEM Refer to clinic/hospital department * (ABNORMAL) CBC WITH DIFFERENTIAL (06/24/2006 5:46 AM HABITAT BIOLOGIST) WBC 14.8(H) 4.5 - 13.5 K/ul INTERFACE [...] 0.2 K/ul INTERFACE SYSTEM 06/24/2006 5:46 AM HABITAT BIOLOGIST us Giuliano Iqbal MD HEMATOLOGY ORDERABLES Final Result INTERFACE SYSTEM Refer to clinic/hospital department * (ABNORMAL) BASIC METABOLIC PANEL (06/24/2006 5:45 AM HABITAT BIOLOGIST) GLUCOSE 120(H) 70 - 110 mg/dL INTERFACE [...] 10.5 mg/dL INTERFACE SYSTEM 06/24/2006 5:45 AM HABITAT BIOLOGIST Giuliano Iqbal MD CHEMISTRY ORDERABLES Final Result Performing Organization Address [facility] Phone Number INTERFACE SYSTEM Refer to clinic/hospital department * ETHANOL LEVEL (06/23/2006 11:32 PM HABITAT BIOLOGIST) ETHANOL <10 <=10 mg/dL INTERFACE SYSTEM 06/23/2006 11:3 2 PM HABITAT BIOLOGIST Narendra Murphy III, DO CHEMISTRY ORDERABLES Fi nal Result Performing Organization Address [facility] Phone Number INTERFACE SYSTEM Refer to clinic/hospital department * (ABNORMAL) BASIC METABOLIC PANEL (06/23/2006 11:32 PM HABITAT BIOLOGIST) GLUCOSE 151(H) 70 - 110 mg/dL INTERFACE [...] mg/dL INTERFACE SYSTEM 06/23/2006 11:3 2 PM HABITAT BIOLOGIST Narendra Murphy III, DO CHEMISTRY ORDERABLES Fi nal Result Performing Organization Address [facility] Phone Number INTERFACE SYSTEM Refer to clinic/hospital department * (ABNORMAL) CBC WITH DIFFERENTIAL (06/23/2006 11:13 PM HABITAT BIOLOGIST) WBC 19.9(H) 4.5 - 13.5 K/ul INTERFACE [...] Diff INTERFACE SYSTEM 06/23/2006 11:1 3 PM HABITAT BIOLOGIST us Giuliano Iqbal MD HEMATOLOGY ORDERABLES Final Result INTERFACE SYSTEM Refer to clinic/hospital department * (ABNORMAL) CBC WITHOUT DIFFERENTIAL (06/23/2006 7:01 PM HABITAT BIOLOGIST) WBC 20.8(H) 4.5 - 13.5 K/ul INTERFACE [...] 0.2 K/ul INTERFACE SYSTEM 06/23/2006 7:01 PM HABITAT BIOLOGIST us Giuliano Iqbal MD HEMATOLOGY ORDERABLES Final Result INTERFACE SYSTEM Refer to clinic/hospital department * (ABNORMAL) PROTIME-INR (06/23/2006 6:02 PM HABITAT BIOLOGIST) PROTIME 26.6(H) 13.0 - 15.7 Secs INTERFACE SYSTEM Comment: As of 06 note change in normal range. INR 2.3 INTERFACE SYSTEM Comment: Expected Values for INR: DVT/PE Goal INR 2.5; range 2.0 - 3.0 Valve Replacement Tissue Goal INR 2.5; range 2.0 - 3.0 Mechanical Goal INR 3.0; range 2.5 - 3.5 POST-LA Goal INR 2.5; range 2.0 - 3.0 or Goal 3.0; range 2.5 - 3.5 Atrial Fibrillation Goal INR 2.5; range 2.0 - 3.0 Ischemic Stroke Goal INR 2.5; range 2.0 - 3.0 For additional information see Guidelines for Anticoagulation available from the pharmacy [facility]. 06/23/2006 6:02 PM HABITAT BIOLOGIST us Edward G Wiegers III, DO HEMATOLOGY ORDERABLES F inal Result INTERFACE SYSTEM Refer to clinic/hospital department * (ABNORMAL) GLUCOSE URINALYSIS, QUALITATIVE (06/23/2006 5:29 PM HABITAT BIOLOGIST) GLUCOSE, URINE 2000(AA) Negative INTER FACE SYSTEM Comment: Potentially critical/toxic GLUCOSE called by Medina, with verbal read back, at 06/23/2006 17:52. 06/23/2006 5:29 PM HABITAT BIOLOGIST us Physician Sj Ed URINE ORDERABLES Final Result Performing Organization Address [facility] Co de Phone Number INTERFACE SYSTEM Refer to clinic/hospital department * (ABNORMAL) URINALYSIS (06/23/2006 5:29 PM HABITAT BIOLOGIST) COLOR UA Blood tinged(A) Straw INTERFACE SYSTEM [...] Yes(A) No INTERFACE SYSTEM 06/23/2006 5:29 PM HABITAT BIOLOGIST Physician Sj Ed URINE ORDERABLES Final Result Performing Organization Address [facility] Co de Phone Number INTERFACE SYSTEM Refer to clinic/hospital department * (ABNORMAL) URINALYSIS MICROSCOPY ONLY (06/23/2006 5:29 PM HABITAT BIOLOGIST) WBC URINE 0-2 0 - 2 INTERFACE SYSTEM RBC UA 16-25(A) 0 - 2 INTERFACE SYSTEM HYALINE CAST None Seen 0 - 2 INTERFA CE SYSTEM BACTERIA UA Moderate(A ) None Seen INTERFACE SYSTEM 06/23/2006 5:29 PM HABITAT BIOLOGIST us Physician Sj Ed URINE ORDERABLES Final Result Performing Organization Address [facility]/ZIP Co de Phone Number INTERFACE SYSTEM Refer to clinic/hospital department * (ABNORMAL) CBC WITH DIFFERENTIAL (06/23/2006 5:18 PM HABITAT BIOLOGIST) WBC 26.7(H) 4.5 - 13.5 K/ul INTERFACE [...] 0.2 K/ul INTERFACE SYSTEM 06/23/2006 5:18 PM HABITAT BIOLOGIST Physician Sj Ed HEMATOLOGY ORDERABLES Final Resu lt INTERFACE SYSTEM Refer to clinic/hospital department documented in this encounter Visit Diagnoses Diagnosis Unspecified spleen injury without mention of open wound into cavity- Primary documented in this encounter
[2025-03-14 10:49] VITALS: BP 114/76; PULSE 85; RESP 14; TEMP 36.8; O2SAT 98; BMI 25.8
[2025-03-14 11:17] VITALS: BP 137/83; PULSE 77; O2SAT 95
--- NOTE | 2025-03-14 11:46 | USR_ITS ---
PROCEDURE INFORMATION: Exam: US Left Breast Limited; Cellulitis or Abscess Evaluation Exam date and time: 03/14/2025 12:12 PM Age: 34 years old Clinical indication: Breast pain; Left TECHNIQUE: Imaging protocol: Left breast ultrasound. Exam limited to the quadrant(s) of clinical concern. Exam focused on the evaluation of cellulitis or abscess. Exam is an emergent request and a non-BIRADS study. COMPARISON: No relevant prior studies available. FINDINGS: Breast/Soft tissues: Hypoechoic areas are seen in the retroareolar region of both breasts. These findings are consistent with gynecomastia US/US breast LT limited* [id number] IMPRESSION: 1. No evidence of abscess. 2. Bilateral gynecomastia BI-RADS category 2 benign
[2025-03-14 12:00] VITALS: BP 104/76; PULSE 75; O2SAT 94
--- NOTE | 2025-03-14 12:00 | W.ED.GENADLT ---
HPI - General Adult General: Chief complaint: General Medical Stated complaint: lump lt pectoral Time Seen by Provider: 03/14/25 11:15 Source: patient Mode of arrival: ambulatory Limitations: no limitations History of Present Illness: 34-year-old male states that he noticed a lump on his left breast he states been there for months. States that it has been having some pain fullness. He denies any worse or improving factors. He denies any discharge. States pain is currently a 6 out of 10 Associated symptoms: Deny chest pain, dyspnea, headache(s), nausea, rash or vomiting Related Data Home Medications ?Medication ?Instructions ?Recorded ?Confirmed cetirizine 10 mg tablet 10 mg PO DAILY 03/25/24 03/14/25 buprenorphine 2 mg-naloxone 0.5 mg 2 tab sublingual DAILY 03/14/25 03/14/25 sublingual tablet buprenorphine 8 mg-naloxone 2 mg 1 tab sublingual DAILY 03/14/25 03/14/25 sublingual tablet diazepam 5 mg tablet (Valium) 5 mg PO TID PRN Pain 03/14/25 03/14/25 ibuprofen 200 mg tablet (Advil) 800 mg PO Q6H PRN Fever Or Pain 03/14/25 03/14/25 losartan 100 mg tablet 100 mg PO DAILY 03/14/25 03/14/25 ondansetron HCl 4 mg tablet 4 mg PO Q6H PRN Nausea And Vomiting 03/14/25 03/14/25 scopolamine base 1 mg over 3 days 1 mg transdermal PRN 03/14/25 03/14/25 transdermal patch venlafaxine 75 mg tablet 75 mg PO DAILY 03/14/25 03/14/25 Previous Rx's ?Medication ?Instructions ?Recorded Cam boot to right #1 ea 11/24/24 freedom leg brace #1 ea 12/01/24 wheel chair leg extension #1 ea 12/01/24 CAM walker #1 ea 12/18/24 Low profile custom insoles-2 pair #1 ea 03/12/25 Orthopedic shoes-2 pairs #1 ea 03/12/25 Allergies Allergy/AdvReac Type Severity Reaction Status Date / Time bee venom protein (honey bee) Allergy ALGY-Anaphy Verified 03/14/25 10:55 laxis Opioids - Morphine Analogues Allergy Unknown Verified 03/14/25 10:55 Review of Systems Const: Denies: fever(s), chills, body aches or change in appetite ENMT: Denies: throat pain or dental pain Card: Denies: chest pain Resp: Denies: dyspnea GI: Denies: abdominal pain, nausea, vomiting or diarrhea Musc: Denies: neck pain or back pain Skin/Breast: Reports: breast mass; Denies: rash Neuro: Denies: headache(s) PFSH ED PFSH: Medical History Paresthesia and pain of left extremity Paresthesia Muscle twitching Facial twitching TIA involving right internal carotid artery Chronic back pain Muscular dystrophy Hypertension Surgical History Status post laparoscopic cholecystectomy (09/19/21) 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 claean for 7 years. service: Yes (out 2012) status: Medically Discharged/Retired branch: [employer] Physical Exam Const: COMMON NORMALS: no acute distress, patient oriented x3 and healthy appearing HENMT: COMMON NORMALS: normocephalic and atraumatic HEAD & SCALP: normocephalic and atraumatic Eye: COMMON NORMALS: conjunctivae normal CONJUNCTIVA: Yes conjunctivae normal Neck/C-Spine: COMMON NORMALS: full ROM and supple Chest: COMMONS NORMALS: normal inspection of the chest OTHER: No obvious abscess noted to left breast no redness small lump palpated Resp: COMMON NORMALS: normal respiratory effort Cardio: COMMON NORMALS: regular rate, regular rhythm and No murmurs present (Cardio) RATE: regular rate RHYTHM: regular rhythm GI: COMMON NORMALS: Normal to inspection, nondistended, normoactive bowel sounds present, Soft to palpation, non-tender and no masses PALPATION: Yes Soft to palpation Extremity: COMMON NORMALS: normal to inspection and full ROM Neuro: COMMON NORMALS: patient oriented x3, moves all extremities and no focal motor deficits Psych: COMMON NORMALS: mental status grossly normal, Normal thought process present and cooperative THOUGHT PROCESS: Normal thought process present Skin: COMMON NORMALS: no rashes or lesions noted and no wounds GENERAL SKIN EXAM: no rashes or lesions noted Course Vital Signs: Vital signs: Vital Signs Temperature 98.2 F 03/14/25 10:49 Pulse Rate 79 03/14/25 12:30 Respiratory Rate 14 03/14/25 10:49 Blood Pressure 121/69 03/14/25 12:30 Pulse Oximetry 96 03/14/25 12:30 Oxygen Delivery Me thod Room Air 03/14/25 12:30 MDM - General Adult Medical Decision Making The patient presents here with some left breast pain ultrasound showed gynecomastia no obvious lump or abscess he has to follow-up with his PCP for further evaluation return if worsening he understands agrees to plan. Medical Records I reviewed the patient's medical records. Lab Data Radiology Impressions Breast Ultrasound 03/14/25 11:46 IMPRESSION: 1. No evidence of abscess. 2. Bilateral gynecomastia BI-RADS category 2 benign All radiology interpretation(s) finalized by discharge Discharge Plan Discharge Patient Disposition: Home Clinical Impression: Breast pain, left Condition: Stable Prescriptions: No Action (DME) Cam boot to right See Rx Instructions .Route .MEDSUPPLY Qty: 1 0RF Rx Instructions: As directed (DME) wheel chair leg extension See Rx Instructions .Route .MEDSUPPLY Qty: 1 0RF Rx Instructions: As directed (DME) freedom leg brace See Rx Instructions .Route .MEDSUPPLY Qty: 1 0RF Rx Instructions: As directed (DME) Low profile custom insoles-2 pair See Rx Instructions .Route .MEDSUPPLY Qty: 1 0RF Rx Instructions: As directed (DME) Orthopedic shoes-2 pairs See Rx Instructions .Route .MEDSUPPLY Qty: 1 0RF Rx Instructions: As directed by [place] [facility] (DME) KIA ford See Rx Instructions .Route .MEDSUPPLY Qty: 1 0RF Rx Instructions: As directed cetirizine 10 mg Tablet 10 mg PO DAILY ondansetron HCl 4 mg tablet 4 mg PO Q6H PRN (Reason: Nausea And Vomiting) scopolamine base 1 mg over 3 days patch 3 day 1 mg transdermal PRN venlafaxine 75 mg Tablet 75 mg PO DAILY ibuprofen [Advil] 200 mg Tablet 800 mg PO Q6H PRN (Reason: Fever Or Pain) losartan 100 mg Tablet 100 mg PO DAILY buprenorphine-naloxone [Suboxone] 2-0.5 mg Tablet, Sublingual 2 tab SUBLINGUAL DAILY Rx Instructions: with a 8mg tab buprenorphine-naloxone [Suboxone] 8-2 mg Tablet, Sublingual 1 tab SUBLINGUAL DAILY Rx Instructions: take with 2 2mg tabs diazepam [Valium] 5 mg Tablet 5 mg PO TID PRN (Reason: Pain) Discharge Orders: Discharge ED (Routine); Ordered 03/14/25 Ordered By: Luis Daniel Dexter Referrals: Pennington,JOHANN AnguloN [Primary Care Provider, Nurse Practitioner] - 4-7 days Discharge Diet: Advance as tolerated Discharge Activity: Resume usual activity Patient Instructions: Breast Pain Print Language: Haitian Coding Level of Care Code ED Alkylation Operator for Yan Duran
[2025-03-14 12:30] VITALS: BP 121/69; PULSE 79; O2SAT 96
[2025-03-14 13:46] VITALS: BP 108/70; PULSE 69; O2SAT 96
== END 2025-03-14 13:46 | disposition home or self-care (01) ==
PROVIDERS: Emergency Provider Emergency Medicine; PCP Nurse Practitioner Family
DX: N64.4 Mastodynia (principal); Z87.891 Personal history of nicotine dependence; I10 Essential (primary) hypertension
CPT/HCPCS: 76642; 99284

== ENCOUNTER → 2025-03-30 13:13 | Outpatient (BNVA) | payer OTHER, SELFPAY | PROVIDERS: PCP Nurse Practitioner Family; Visit Provider Podiatrist Foot & Ankle Surgery | DX: Z98.890 Other specified postprocedural states (principal); M19.172 Post-traumatic osteoarthritis, left ankle and foot; S92.012S Displaced fracture of body of left calcaneus, sequela; S92.012D Displaced fracture of body of left calcaneus, subsequent encounter for fracture with routine healing; S93.491D Sprain of other ligament of right ankle, subsequent encounter; W13.2XXD Fall from, out of or through roof, subsequent encounter; M65.972 Unspecified synovitis and tenosynovitis, left ankle and foot | CPT/HCPCS: 73630; 99213 ==

== ENCOUNTER → 2025-06-29 13:28 | Outpatient (BNVA) | payer OTHER, SELFPAY | PROVIDERS: PCP Nurse Practitioner Family; Visit Provider Podiatrist Foot & Ankle Surgery | DX: S92.012S Displaced fracture of body of left calcaneus, sequela (principal); M20.42 Other hammer toe(s) (acquired), left foot; M21.622 Bunionette of left foot; M19.172 Post-traumatic osteoarthritis, left ankle and foot; X58.XXXS Exposure to other specified factors, sequela; M65.972 Unspecified synovitis and tenosynovitis, left ankle and foot | CPT/HCPCS: 73630; 99214 ==